=== PATIENT | female | born 1955 | race Caucasian/White ===

== ENCOUNTER 2024-03-02 00:05 | Inpatient (IN) | payer MEDICARE, SELFPAY ==
[2024-03-02] VITALS (18 sets, daily range): BP systolic 111–141; BP diastolic 51–82; PULSE 65–101; RESP 14–25; TEMP 35.8–37.1; O2SAT 90–100; BMI 28.0
--- NOTE | ~2024-03-02 | XR_ITS ---
EXAMINATION: XR ERCP DATE: 03/02/2024 11:58 INDICATION: Choledocholithiasis. TECHNIQUE: 2 spot fluoroscopic images of the right upper quadrant were obtained during endoscopic ret rograde cholangiopancreatography (ERCP). Fluoroscopy exposure time was 195 seconds. COMPARISON: None. FINDINGS: Endoscope is in the second portion of the duodenum. There is a stone in the common duct. Th ere is dilatation of the common duct. IMPRESSION: 1. Stone in the common duct with common duct dilatation. Please refer to the ERCP procedure note for additional details. Reviewed, dictated and finalized at location A. IMPRESSION: 1. Stone in the common duct with common duct dilatation. Please refer to the ER CP procedure note for additional details.
--- NOTE | 2024-03-02 00:10 | ADMGEN ---
This patient, Kinga Helton, was admitted to [address] [place] [address] Room 305-02. Patient/family oriented to hospital policies and general routines including ID bracelet, bed and alarms, visiting hours, pain management, procedures, bathroom and other care routines, personal items, smoking policy, room service/diet, and visiting hours. Information on how to activate the Rapid Response Team has been discussed. Patient/Family are encouraged to report perceived risks to care and to ask questions if they do not understand what they are told or what they should do.
--- NOTE | 2024-03-02 03:54 | PM.IMHP ---
H&P: HPI History of Present Illness Date/Time: 03/02/24 03:54 Chief Complaint: Nausea vomiting and abdominal pain Narrative: This is a 69-year-old female with a [facility] active tobacco abuse, COPD, dyslipidemia, GERD, depression who presents with nausea and vomiting. The story is as follows: Patient was admitted to [facility] in [place] being treated for community-acquired pneumonia. She was found to have gallbladder complications at that time and was suggested to be transferred however the patient wanted to leave. She had been doing well until day of admission on 03/01/2024 when she began to vomit all over the yard. Associated with right upper quadrant pain and a colicky fashion. She states the pain is so bad she would rather have a baby. He denies diarrhea chest pain shortness of breath. Radiates to her back. She presented to [facility]. Evaluation revealed WBC 75222 with a sodium 132, alkaline phosphatase greater than 1500, ALT 421, AST 474, total bilirubin 1.7, lipase 244. EKG with QTC just over 500 she received fentanyl for the pain, and Reglan. Hemodynamically stable. CT abdomen pelvis without contrast demonstrates moderate emphysematous changes in the lungs, distended gallbladder with a gallstone severely dilated common bile duct with intra and extrahepatic biliary dilation. 9 mm stone seen in the distal common bile duct. At this point cell assembly pinner Dr. Rodrigez contacted and accepted transfer for consultation. Patient arrived to [facility] room 305 via ground transport. She was seen resting comfortably in bed dry coughing which she reports is her normal. Reports her pain is improved. Review of Systems Review of Systems: All systems reviewed & are unremarkable except as noted in HPI and below (Subjective) [facility] Past Medical History Medical History (Updated 03/02/24 @ 04:07 by Ramona Rogers MD) Tobacco dependence due to cigarettes Surgical History Surgical History (Updated 03/02/24 @ 04:07 by Ramona Rogers MD) Choledocholithiasis with acute cholecystitis 02/2024 Family History Family History (Updated 03/02/24 @ 00:20 by Sabino Yepez RN) Father Hypertension Mother Hypertension Social History Social History Years smoked: 45 Smoking status: Current every day smoker Tobacco type: cigarettes Alcohol intake: current Drinks per week: 5 Substance use: current Substance use type: marijuana Do You Feel Safe in your Home?: Yes Lack of Transportation: No Lack of Food: Never True Current Housing: I Have Housing Concerned About Future Housing: No Difficulty Paying Gas/Electric Bills: No Difficulty Paying for Meds: No Currently Unemployed: No Education: Bachelor's Degree Difficulty w/ Childcare or Family Care: No Spiritual care concerns: No Meds Home Medications and Allergies Home Medications Medication Instructions Recorded Confirmed Type albuterol sulfate 90 mcg/actuation 90 puff inhalation Q4H PRN 03/02/24 03/02/24 History aerosol inhaler Shortness Of Breath amoxicillin 875 mg-potassium 875 tablet PO DAILY 03/02/24 03/02/24 History clavulanate 125 mg tablet budesonide-formoterol HFA 80 80 inh inhalation BID 03/02/24 03/02/24 History mcg-4.5 mcg/actuation aerosol inhaler (Symbicort) ezetimibe 10 mg tablet 10 mg PO DAILY 03/02/24 03/02/24 History montelukast 10 mg tablet 10 mg PO HS 03/02/24 03/02/24 History (Singulair) omeprazole 20 mg capsule,delayed 20 mg PO BID 03/02/24 03/02/24 History release sertraline 100 mg tablet 100 mg PO DAILY 03/02/24 03/02/24 History Allergies Allergy/AdvReac Type Severity Reaction Status Date / Time PSEUDOEPHEDRINE HCL Allergy Unknown HIVES/RASH Uncoded 03/02/24 00:32 TRIPROLIDINE HCL Allergy Unknown HIVES/RASH Uncoded 03/02/24 00:32 Vital Signs Vital Signs - 24 hr 03/02/24 00:15 03/02/24 01:38 Temperature 98.5 F Pulse Rate 101 H Respiratory Rate 16 Bloo
[2024-03-02] MEDS: DEXTROSE 5%/0.9% SOD CHL 1,000 ML 100 ML IV CONT ×3 (04:15→17:01)
[2024-03-02 06:13] LABS: Basophils Absolute Auto 0.1 K/mm3 (0.0-0.1); Basophils Percent Auto 0.4 % (0.2-1.2); Hematocrit 40.4 % (37.0-47.0); Hemoglobin 13.6 g/dL (12.0-15.0); Immature Granulocyte Absolute 0.53 K/mm3 (0.00-0.031); Immature Granulocyte Percent A 2.9 % (0-0.5); Lymphocytes Absolute Auto 0.87 K/mm3 (0.9-3.2); Lymphocytes Percent Auto 4.8 % (18.3-44.2); Mean Corpuscular HGB Conc 33.7 g/dl (32-36); Mean Corpuscular Hemoglobin 31.6 pg (26-34); Mean Corpuscular Volume 93.7 fl (80-100); Mean Platelet Volume 10.4 fl (7.4-10.4); Monocytes Absolute Auto 1.2 K/mm3 (0.1-0.6); Monocytes Percent Auto 6.7 % (2.6-8.5); Neutrophils Absolute Auto 15.3 K/mm3 (1.3-6.7); Neutrophils Percent Auto 85.2 % (45.5-73.1); Platelet Count Result 433 k/mm3 (150-375); Red Blood Count 4.31 M/mm3 (4.2-5.4)
[2024-03-02 06:23] LABS: Prothrombin Time 13.1 Seconds (11.1-14.7)
[2024-03-02 06:38] LABS: Alanine Aminotransferase 723 U/L (6-35); Albumin Level 3.9 g/dL (3.5-5.1); Anion Gap 8 mmol/L (4-12); Bilirubin,Total 3.2 mg/dL (0.2-1.3); Blood Urea Nitrogen 12 mg/dL (7-17); Calcium 8.9 mg/dL (8.4-10.2); Carbon Dioxide 24 mmol/L (22-30); Chloride 106 mmol/L (98-107); Estimated CRCL calculation 67 ml/min; Estimated Glomerular Filt Rate > 60; Glucose 130 mg/dL (65-110); Potassium 3.4 mmol/L (3.4-5.0); Sodium 138 mmol/L (137-145)
[2024-03-02 06:58] LABS: Procalcitonin 0.6 ng/mL
[2024-03-02 07:27] LABS: Alkaline Phosphatase 1842 U/L (38-126); Aspartate Amino Transferase 1171 U/L (14-36)
[2024-03-02] MEDS: PANTOPRAZOLE SODIUM IV 40 MG VIAL IV PUSH (08:19)
[2024-03-02] MEDS: FLUTICASONE/SALMETEROL 45-21 MCG INHALER 1 PUFF 2 PUFF INHALATION ×2 (08:51→20:47)
[2024-03-02] MEDS: LACTATED RINGERS 1,000 ML 150 ML IV CONT (10:15)
--- NOTE | 2024-03-02 10:20 | WPDGICN ---
Assessment and Plan Assessment and plan (1) Choledocholithiasis with acute cholecystitis: Code(s): K80.42 - Calculus of bile duct with acute cholecystitis without obstruction Status: Acute Assessment and Plan: will proceed with ercp, she is agreeable. Explained risk and benefits including but no limited to pancreatitis will also ask surgery to see patient, may need interval cholecystectomy (2) Leukocytosis: Code(s): D72.829 - Elevated white blood cell count, unspecified Status: Acute Assessment and Plan: on abx, ercp today (3) Elevated liver enzymes: Code(s): R74.8 - Abnormal levels of other serum enzymes Status: Acute Assessment and Plan: biliary related monitor (4) Upper abdominal pain: Code(s): R10.10 - Upper abdominal pain, unspecified Status: Acute Assessment and Plan: on meds (5) Tobacco dependence due to cigarettes: Code(s): F17.210 - Nicotine dependence, cigarettes, uncomplicated Status: Acute Assessment and Plan: recent pneumonia GI Consult Note Consult date/time: 03/02/24 10:20 Reason for consult: choledocholithiasis, abdominal pain HPI: Kinga Helton is a 69 year old female with h/o copd, smoker and recently treated for pneumonia here with new onset of abdominal pain. She says that several days ago diagnosed with pneumonia when had CT scan, she was told that found also stone in duct . She went to another hospital after severe upper abdominal pain with radiation to ruq and nausea with vomiting, sharp pain. Reviewed noted from other hospital, WBC 32717 with a sodium 132, alkaline phosphatase greater than 1500, ALT 421, AST 474, total bilirubin 1.7, lipase 244. CT abdomen pelvis without contrast demonstrates moderate emphysematous changes in the lungs, distended gallbladder with a gallstone severely dilated common bile duct with intra and extrahepatic biliary dilation. 9 mm stone seen in the distal common bile duct. Denies h/o pancreatitis, alcohol abuse or similar problem. Never had gastric surgery or EGD. Patient was transferred here in order to have ERCP. Review of Systems Constitutional: Constitutional: Denies body ache(s) Eyes: Eyes: Denies blurry vision ENT: Reports Normal hearing present, Denies headache(s) and Denies neck pain Cardiovascular: Cardiovascular: Denies chest pain and Denies dyspnea Respiratory: Respiratory: Denies dyspnea Gastrointestinal: Gastrointestinal: Reports abdominal pain, Reports nausea and Reports vomiting Genitourinary: Genitourinary: Denies dysuria Musculoskeletal: Musculoskeletal: Denies neck pain Integumentary/Breasts: Skin/Breast: Denies dry skin Neurologic: Reports Normal hearing present, Denies headache(s) and Denies weakness Psychiatric: Psychiatric: Denies anxiety Endocrine: Endocrine: Denies change in body appearance Hematologic/Lymphatic: Hematologic/Lymphatic: Denies easy bleeding Allergic/Immunologic: Allergic/Immunologic: Denies urticaria PMFSH Past Medical History Medical History (Updated 03/02/24 @ 11:03 by Grady Banegas MD) Elevated liver enzymes Tobacco dependence due to cigarettes Upper abdominal pain Surgical History Surgical History (Updated 03/02/24 @ 04:07 by Ramona Rogers MD) Choledocholithiasis with acute cholecystitis 02/2024 Family History Family History (Updated 03/02/24 @ 00:20 by Sabino Yepez RN) Father Hypertension Mother Hypertension Social History Social History Years smoked: 45 Smoking status: Current every day smoker Tobacco type: cigarettes Alcohol intake: current Drinks per week: 5 Substance use: current Substance use type: marijuana Do You Feel Safe in your Home?: Yes Lack of Transportation: No Lack of Food: Never True Current Housing: I Have Housing Concerned About Future Housing: No Difficulty Paying Gas/Electric Bills: No Difficulty Paying for Meds
--- NOTE | 2024-03-02 10:30 | SUR.PREOP ---
Patient requests to be a DNR during procedure. Patient discussed with Dr. Dukes at bedside. See chart for paper.
[2024-03-02] MEDS: INDOMETHACIN 50 MG SUPP.RECT RECTAL (11:07)
[2024-03-02] MEDS: PIPERACILLN/TAZ 3.375GM/NS50ML 3.375 GM/50 ML BAG IVPB ×2 (13:40→16:59)
--- NOTE | 2024-03-02 13:50 | PM.CNGS ---
Assessment and Plan Assessment and plan (1) Cholelithiasis with choledocholithiasis: Code(s): K80.70 - Calculus of gallbladder and bile duct without cholecystitis without obstruction Status: Acute Assessment and Plan: CT report reviewed in her paper chart and the CT scan of the abdomen and pelvis from [facility] showed a gallstone in a distended gallbladder with a common bile duct stone. ERCP today was successful with removal of a gallstone in the common bile duct and findings of sludge and pus after the balloon sweep. Her WBC count is up to 18,000 today. Continue IV Zosyn for now. She will need an interval laparoscopic cholecystectomy to prevent recurrence or future complications with her gallstones. Description of the procedure, risks, benefits, alternatives, and expected recovery were discussed with the patient in detail. We discussed the risks of bile leak and bile duct injury, liver/bowel injury, bleeding, and infection. Also discussed the possibility of having to convert to an open procedure if necessary. The patient understands and agrees to proceed with surgery. Repeat labs again tomorrow and we can decide on timing of surgery depending on how she is progressing. (2) Elevated liver enzymes: Code(s): R74.8 - Abnormal levels of other serum enzymes Status: Acute Assessment and Plan: Likely related to choledocholithiasis. Patient is status post ERCP today with removal of a common bile duct stone. Repeat labs tomorrow. GI following. (3) COPD (chronic obstructive pulmonary disease): Code(s): J44.9 - Chronic obstructive pulmonary disease, unspecified Status: Chronic (4) Tobacco dependence due to cigarettes: Code(s): F17.210 - Nicotine dependence, cigarettes, uncomplicated Status: Chronic Assessment and Plan: Encouraged cessation. Plan I have discussed the patient's case and plan of care with Dr. Simms. Thank you for allowing us to see the patient in consultation and we will continue to follow along with you. History of Present Illness Consult details Consult date: 03/02/24 Reason for consult: other (Cholelithiasis) Requesting physician: Grady Banegas MD Narrative: This is a 69-year-old man woman with a history of tobacco abuse, COPD, GERD, and dyslipidemia, who we have been asked to see in surgical consultation for cholelithiasis. She diagnosed with community-acquired pneumonia at [facility] in [place] last . She reports having a CT scan done at [facility] and was told she had a gallstone. At that time, she was not having any abdominal pain, nausea, or vomiting. She was sent home with oral antibiotics. Yesterday around 1:00 p.m., the patient developed a sudden onset of right upper quadrant abdominal pain that radiated around to her mid back. She reports associated nausea and multiple episodes of vomiting. Due to the severe pain, she presented to [facility] ER for evaluation. In the ED, labs [place] [address], alk-phos greater than 1500, ALT 421, AST 474, total bilirubin 1.7, and lipase 244. CT scan of the abdomen and pelvis without contrast showed moderate emphysematous changes in the lungs, a distended gallbladder with a gallstone, and intrahepatic and extrahepatic biliary dilation with a 9 mm stone in the distal common bile duct. She was transferred to [facility] for GI evaluation. The patient had an ERCP today which revealed a gallstone in the common bile duct that was removed with a large amount of sludge and pus noted after the balloon sweep. GI then consulted our service. She is currently on IV Zosyn. Labs [place] [address], potassium 3.4, total bilirubin 3.2, AST 1171, ALT 723, alk-phos 1842. She is now seen on the medical floor. She denies any abdominal pain at this time. Her nausea has improved and no further episodes of vomiting. Only previous abdominal surgery was a .
--- NOTE | 2024-03-02 17:15 | WPDPN ---
Progress Note: A&P Assessment and Plan (1) Choledocholithiasis with acute cholecystitis: Code(s): K80.42 - Calculus of bile duct with acute cholecystitis without obstruction Status: Acute (2) Leukocytosis: Code(s): D72.829 - Elevated white blood cell count, unspecified Status: Acute (3) Elevated liver enzymes: Code(s): R74.8 - Abnormal levels of other serum enzymes Status: Acute Plan Interval History 03/02/2024: patient is seen by general surgery service and has inflammed and distended gallbladder with will benefit from cholecystectomy, today patient had the procedure and currently patient is eating her dinner, stats overall pain is better just some discomfort, denies any nausea or vomiting will monitor and further recommendation to follow. Subjective Date/time seen: 03/02/24 17:15 Interval history: Chief Complaint: Nausea vomiting and abdominal pain H&B-DHN-Yxarmapin: This is a 69-year-old female with a H active tobacco abuse, COPD, dyslipidemia, GERD, depression who presents with nausea and vomiting. The story is as follows: Patient was admitted to [facility] being treated for community-acquired pneumonia. She was found to have gallbladder complications at that time and was suggested to be transferred however the patient wanted to leave. She had been doing well until day of admission on 03/01/2024 when she began to vomit all over the yard. Associated with right upper quadrant pain and a colicky fashion. She states the pain is so bad she would rather have a baby. He denies diarrhea chest pain shortness of breath. Radiates to her back. She presented to [place]. Evaluation revealed WBC 67295 with a sodium 132, alkaline phosphatase greater than 1500, ALT 421, AST 474, total bilirubin 1.7, lipase 244. EKG with QTC just over 500 she received fentanyl for the pain, and Reglan. Hemodynamically stable. CT abdomen pelvis without contrast demonstrates moderate emphysematous changes in the lungs, distended gallbladder with a gallstone severely dilated common bile duct with intra and extrahepatic biliary dilation. 9 mm stone seen in the distal common bile duct. At this point fingernail technician Dr. Rodrigez contacted and accepted transfer for consultation. Patient arrived to [facility] room 305 via ground transport. She was seen resting comfortably in bed dry coughing which she reports is her normal. Reports her pain is improved. Interval History 03/02/2024: patient is seen by general surgery service and has inflammed and distended gallbladder with will benefit from cholecystectomy, today patient had the procedure and currently patient is eating her dinner, stats overall pain is better just some discomfort, denies any nausea or vomiting will monitor and further recommendation to follow. Review of Systems Review of Systems: All systems reviewed & are unremarkable except as noted in HPI and below Exam Narrative: General: patient is comfortable NAD HEENT: eyes are clear nonicteric, normocephalic, atraumatic. Oral mucosa moist. RESP: CTA HEART: RR S1S2 LUNGS: CTA ABD: BS+, diffusely tender. SKIN: no obvious rash EXTREMITIES: no edema NEURO:A&O grossly intact PSYCH: Pleasant and cooperative with normal mood and affect Objective Data Vital Signs Vital Signs: Vital Signs - 24 hr 03/02/24 00:15 03/02/24 01:38 03/02/24 06:07 Temperature 36.9 C 37.1 C Pulse Rate 101 H 94 Respiratory Rate 16 16 Blood Pressure 129/54 L 134/79 Pulse Oximetry 92 92 Oxygen Delivery Room Air Oxygen Flow Rate 03/02/24 08:52 03/02/24 08:56 03/02/24 10:18 Temperature 36.6 C Pulse Rate 93 87 Respiratory Rate 20 18 Blood Pressure 131/82 Pulse Oximetry 93 90 Oxygen Delivery Room Air Room Air Oxygen Flow Rate 03/02/24 11:57 03/02/24 12:07 03/02/24 12:17 Temperature 36.2 C L Pulse Rate 81 87 88 Respiratory Rate 17 20 23 H Blood Pre
[2024-03-02] MEDS: HYDROcodone/acetaminophen (*CRX) 5-325 MG TABLET 1 TAB PO (21:10)
[2024-03-02] MEDS: MONTELUKAST SODIUM 10 MG TABLET PO (21:10)
[2024-03-02] MEDS: SCOPOLAMINE 1 MG PATCH 1 PATCH TRANSDERM (21:18)
[2024-03-03] MEDS: HYDROcodone/acetaminophen (*CRX) 5-325 MG TABLET 1 TAB PO ×2 (02:39→20:50)
[2024-03-03] MEDS: PIPERACILLN/TAZ 3.375GM/NS50ML 3.375 GM/50 ML BAG IVPB ×4 (05:48→18:38)
[2024-03-03 05:52] VITALS: BP 107/57; PULSE 72; RESP 14; TEMP 36.5; O2SAT 92
[2024-03-03 06:07] LABS: Hematocrit 36.2 % (37.0-47.0); Hemoglobin 11.4 g/dL (12.0-15.0); Mean Corpuscular HGB Conc 31.5 g/dl (32-36); Mean Corpuscular Hemoglobin 30.6 pg (26-34); Mean Corpuscular Volume 97.3 fl (80-100); Mean Platelet Volume 9.9 fl (7.4-10.4); Platelet Count Result 316 k/mm3 (150-375); Red Blood Count 3.72 M/mm3 (4.2-5.4); Red Cell Distribution Width 14.2 % (11.5-14.5); White Blood Count 9.3 K/mm3 (4.5-10.0)
[2024-03-03 06:20] LABS: Alanine Aminotransferase 638 U/L (6-35); Albumin Level 3.1 g/dL (3.5-5.1); Anion Gap 4 mmol/L (4-12); Aspartate Amino Transferase 571 U/L (14-36); Blood Urea Nitrogen 8 mg/dL (7-17); Calcium 8.4 mg/dL (8.4-10.2); Carbon Dioxide 25 mmol/L (22-30); Chloride 110 mmol/L (98-107); Estimated CRCL calculation 58 ml/min; Estimated Glomerular Filt Rate > 60; Glucose 125 mg/dL (65-110); Lipase 64 U/L (23-300); Potassium 3.4 mmol/L (3.4-5.0); Sodium 139 mmol/L (137-145)
[2024-03-03 06:34] LABS: Alkaline Phosphatase 1287 U/L (38-126)
[2024-03-03] MEDS: FLUTICASONE/SALMETEROL 45-21 MCG INHALER 1 PUFF 2 PUFF INHALATION ×2 (07:05→19:50)
[2024-03-03 07:07] VITALS: O2SAT 91
[2024-03-03] MEDS: PANTOPRAZOLE SODIUM IV 40 MG VIAL IV PUSH (10:05)
--- NOTE | 2024-03-03 10:46 | WPDPN ---
Progress Note: A&P Assessment and Plan (1) Cholelithiasis with choledocholithiasis: Code(s): K80.70 - Calculus of gallbladder and bile duct without cholecystitis without obstruction Status: Acute Assessment and Plan: Patient has residual cholelithiasis and had passage of common bile duct stone with a ascending cholangitis. ERCP remove the common bile duct stone yesterday. White blood cell count has normalized today. Liver enzymes are decreasing but still markedly elevated. Follow liver enzymes continue IV antibiotics. Would like further treatment of the ascending cholangitis before deciding to perform a laparoscopic cholecystectomy. We will follow and repeat liver enzymes tomorrow. Patient can have clear liquids for now. (2) Ascending cholangitis: Code(s): K83.09 - Other cholangitis Status: Acute Assessment and Plan: Improving after extraction of obstructing common bile duct stone. Continue IV antibiotics Subjective Date/time seen: 03/03/24 10:46 Interval history: Patient feeling better today. Did have 1 episode of pain about 9:00 last evening after having some broth for dinner. Pain did resolve. She have ERCP yesterday with extraction of common bile duct stone. There was some pus that drained from the bile duct after extraction the stone suggestive of ascending cholangitis. Liver enzymes are decreasing today but still markedly elevated. Minimal right upper quadrant pain today. No chills. White blood cell count decreased from 18,000 down to 9000 this morning. Exam GI: Other: Abdomen is soft and nondistended. Minimal still palpation right upper quadrant and epigastric region. No guarding or rebound. Objective Data Vital Signs Vital Signs: Vital Signs - 24 hr 03/02/24 11:57 03/02/24 12:07 03/02/24 12:17 Temperature 36.2 C L Pulse Rate 81 87 88 Respiratory Rate 17 20 23 H Blood Pressure 111/51 L 112/59 L 138/64 Pulse Oximetry 99 99 100 Oxygen Delivery Simple Face Mask Simple Face Mask Simple Face Mask Oxygen Flow Rate 10 10 10 03/02/24 12:27 03/02/24 12:37 03/02/24 12:47 Temperature 36.8 C Pulse Rate 81 79 76 Respiratory Rate 18 22 H 25 H Blood Pressure 120/58 L 119/62 111/67 Pulse Oximetry 92 92 92 Oxygen Delivery Room Air Room Air Room Air Oxygen Flow Rate 03/02/24 12:55 03/02/24 13:05 03/02/24 13:20 Temperature 36.6 C 35.8 C L 35.9 C L Pulse Rate 82 72 72 Respiratory Rate 21 H 16 18 Blood Pressure 118/69 128/71 139/60 Pulse Oximetry 91 90 91 Oxygen Delivery Room Air Oxygen Flow Rate 03/02/24 13:50 03/02/24 14:50 03/02/24 20:51 Temperature 36.1 C L 36.1 C L Pulse Rate 65 78 93 Respiratory Rate 16 16 20 Blood Pressure 130/68 141/73 H Pulse Oximetry 96 95 Oxygen Delivery Oxygen Flow Rate 03/02/24 21:28 03/03/24 05:52 03/03/24 07:07 Temperature 36.9 C 36.5 C Pulse Rate 70 72 Respiratory Rate 14 14 Blood Pressure 127/62 107/57 L Pulse Oximetry 96 92 91 Oxygen Delivery Nasal Cannula Oxygen Flow Rate 2 Intake/Output Intake/Output: Intake & Output 02/29/24 03/01/24 03/02/24 03/03/24 23:59 23:59 23:59 23:59 Intake Total 1716.7 325 Balance 1716.7 325 Meds/Results Medications: Active Medications Generic Name Dose Route Start Last Admin Trade Name Freq PRN Reason Stop Dose Admin Hydrocodone Bitart/Acetaminophen 1 tab 03/02/24 02:13 03/03/24 02:39 Hydrocodone/Acetaminophen (*Crx) 5-325 Mg Tablet PO 1 tab Q4H PRN Administration Pain Rated 4-6 Albuterol 2 puff 03/02/24 10:43 Albuterol Sulfate (*Sp) Aerosol 1 Puff INHALATION Q4HRT PRN Shortness Of Breath Dextrose/Sodium Chloride 1,000 mls @ 100 mls/hr 03/02/24 02:15 03/02/24 17:01 Dextrose 5% Sodium Chloride 0.9% IV CONT 100 mls/hr .Q10H LUPE Administration Piperacillin/Tazobactam/Dextrose 3.375 gm in 50 mls @ 100 mls/hr 03/02/24 13:20 03/03/24 05:48 Zosyn 3.375 Gm/Ns 50 Ml IVPB 100
--- NOTE | 2024-03-03 10:55 | WPDGIPROGNO ---
Progress Note: A&P Assessment and Plan (1) Ascending cholangitis: Code(s): K83.09 - Other cholangitis Status: Acute Assessment and Plan: treated with ercp and removal of stone on iv abx better (2) Cholelithiasis with choledocholithiasis: Code(s): K80.70 - Calculus of gallbladder and bile duct without cholecystitis without obstruction Status: Acute Assessment and Plan: s/p ercp surgery on the case now (3) Elevated liver enzymes: Code(s): R74.8 - Abnormal levels of other serum enzymes Status: Acute Assessment and Plan: will expect to start trending down soon from stone/cholangitis (4) Upper abdominal pain: Code(s): R10.10 - Upper abdominal pain, unspecified Status: Acute Assessment and Plan: improved (5) COPD (chronic obstructive pulmonary disease): Code(s): J44.9 - Chronic obstructive pulmonary disease, unspecified Status: Chronic Subjective Date/time seen: 03/03/24 10:55 Interval history: successful ercp yesterday with sphincterotomy, removal of large stone and drained pus she is doing much better today, more comfortable Review of Systems Review of Systems: All systems reviewed & are unremarkable except as noted in HPI and below Exam Const: General: comfortable and no acute distress HENMT: Face/Nose/Sinus: Normal nares present Eyes: General: appearance normal, both eyes and all related structures Neck: Neck: supple Resp: Auscultation: clear to auscultation bilaterally Cardio: Rate: regular rate Rhythm: regular rhythm GI: Inspection: non-distended GI Palp: Yes Soft to palpation, Yes Tenderness to palpation present (GI) (pain is only minimal in upper abdomen, better) and No Guarding due to palpation present (GI) Auscultation: normal bowel sounds Skin: General skin exam: normal color Neuro: General: gait normal Speech: normal speech Extrem: General: normal to inspection Psych: Mental Status: mental status grossly normal Objective Data Vital Signs Vital Signs: Vital Signs - 24 hr 03/02/24 11:57 03/02/24 12:07 03/02/24 12:17 Temperature 97.1 F L Pulse Rate 81 87 88 Respiratory Rate 17 20 23 H Blood Pressure 111/51 L 112/59 L 138/64 Pulse Oximetry 99 99 100 Oxygen Delivery Simple Face Mask Simple Face Mask Simple Face Mask Oxygen Flow Rate 10 10 10 03/02/24 12:27 03/02/24 12:37 03/02/24 12:47 Temperature 98.3 F Pulse Rate 81 79 76 Respiratory Rate 18 22 H 25 H Blood Pressure 120/58 L 119/62 111/67 Pulse Oximetry 92 92 92 Oxygen Delivery Room Air Room Air Room Air Oxygen Flow Rate 03/02/24 12:55 03/02/24 13:05 03/02/24 13:20 Temperature 97.8 F 96.5 F L 96.6 F L Pulse Rate 82 72 72 Respiratory Rate 21 H 16 18 Blood Pressure 118/69 128/71 139/60 Pulse Oximetry 91 90 91 Oxygen Delivery Room Air Oxygen Flow Rate 03/02/24 13:50 03/02/24 14:50 03/02/24 20:51 Temperature 96.9 F L 97.0 F L Pulse Rate 65 78 93 Respiratory Rate 16 16 20 Blood Pressure 130/68 141/73 H Pulse Oximetry 96 95 Oxygen Delivery Oxygen Flow Rate 03/02/24 21:28 03/03/24 05:52 03/03/24 07:07 Temperature 98.4 F 97.7 F Pulse Rate 70 72 Respiratory Rate 14 14 Blood Pressure 127/62 107/57 L Pulse Oximetry 96 92 91 Oxygen Delivery Nasal Cannula Oxygen Flow Rate 2 Intake/Output Intake/Output: Intake & Output 02/29/24 03/01/24 03/02/24 03/03/24 23:59 23:59 23:59 23:59 Intake Total 1716.7 325 Balance 1716.7 325 Meds/Results Medications: Active Medications Generic Name Dose Route Start Last Admin Trade Name Tonyq PRN Reason Stop Dose Admin Acetaminophen 650 mg 03/03/24 10:52 Acetaminophen 325 Mg Tablet PO Q6H PRN Mild Pain (1-3) or Fever Hydrocodone Bitart/Acetaminophen 1 tab 03/02/24 02:13 03/03/24 02:39 Hydrocodone/Acetaminophen (*Crx) 5-325 Mg Tablet PO 1 tab Q4H PRN Administration Pain Rated 4-6 Albuterol 2 puff
[2024-03-03] MEDS: DEXTROSE 5%/0.9% SOD CHL 1,000 ML 100 ML IV CONT (13:36)
[2024-03-03 14:00] VITALS: BP 110/67; PULSE 57; RESP 18; TEMP 36.8; O2SAT 93
--- NOTE | 2024-03-03 18:01 | WPDPN ---
Progress Note: A&P Assessment and Plan (1) Choledocholithiasis with acute cholecystitis: Code(s): K80.42 - Calculus of bile duct with acute cholecystitis without obstruction Status: Acute (2) Leukocytosis: Code(s): D72.829 - Elevated white blood cell count, unspecified Status: Acute (3) Elevated liver enzymes: Code(s): R74.8 - Abnormal levels of other serum enzymes Status: Acute Plan Interval History 03/02/2024: patient is seen by general surgery service and has inflamed and distended gallbladder with will benefit from cholecystectomy, today patient had the procedure and currently patient is eating her dinner, stats overall pain is better just some discomfort, denies any nausea or vomiting will monitor and further recommendation to follow. Interval History 03/03/2024: s/p ERCP on 03/02/2024 and removed CBD stones, patient stats feeling little her LFT and white counts are improving, seen her surgeon recommending ascending cholangitis before lap Aspen, patient clinically stable, will continue to monitor. Subjective Date/time seen: 03/03/24 18:01 Interval history: Chief Complaint: Nausea vomiting and abdominal pain [id number]: This is a 69-year-old female with a H active tobacco abuse, COPD, dyslipidemia, GERD, depression who presents with nausea and vomiting. The story is as follows: Patient was admitted to [facility] in [place] being treated for community-acquired pneumonia. She was found to have gallbladder complications at that time and was suggested to be transferred however the patient wanted to leave. She had been doing well until day of admission on 03/01/2024 when she began to vomit all over the yard. Associated with right upper quadrant pain and a colicky fashion. She states the pain is so bad she would rather have a baby. He denies diarrhea chest pain shortness of breath. Radiates to her back. She presented to [facility]. Evaluation revealed WBC 060[address] with a sodium 132, alkaline phosphatase greater than 1500, ALT 421, AST 474, total bilirubin 1.7, lipase 244. EKG with QTC just over 500 she received fentanyl for the pain, and Reglan. Hemodynamically stable. CT abdomen pelvis without contrast demonstrates moderate emphysematous changes in the lungs, distended gallbladder with a gallstone severely dilated common bile duct with intra and extrahepatic biliary dilation. 9 mm stone seen in the distal common bile duct. At this point network infrastructure architect Dr. Rodrigez contacted and accepted transfer for consultation. Patient arrived to [facility] room 305 via ground transport. She was seen resting comfortably in bed dry coughing which she reports is her normal. Reports her pain is improved. Interval History 03/02/2024: patient is seen by general surgery service and has inflamed and distended gallbladder with will benefit from cholecystectomy, today patient had the procedure and currently patient is eating her dinner, stats overall pain is better just some discomfort, denies any nausea or vomiting will monitor and further recommendation to follow. Interval History 03/03/2024: s/p ERCP on 03/02/2024 and removed CBD stones, patient stats feeling little her LFT and white counts are improving, seen her surgeon recommending ascending cholangitis before lap Aspen, patient clinically stable, will continue to monitor. Review of Systems Review of Systems: All systems reviewed & are unremarkable except as noted in HPI and below Objective Data Vital Signs Vital Signs: Vital Signs - 24 hr 03/02/24 20:51 03/02/24 21:28 03/03/24 05:52 Temperature 36.9 C 36.5 C Pulse Rate 93 70 72 Respiratory Rate 20 14 14 Blood Pressure 127/62 107/57 L Pulse Oximetry 96 92 Oxygen Delivery Oxygen Flow Rate 03/03/24 07:07 03/03/24 14:00 Temperature 36.8 C Pulse Rate 57 L Respiratory Rate 18 Blood Pressure 110/67 Pulse Oximetry 91 93 Oxygen Delivery Nasal Can
[2024-03-03 19:56] VITALS: PULSE 54
[2024-03-03 20:00] VITALS: O2SAT 97
[2024-03-03] MEDS: MONTELUKAST SODIUM 10 MG TABLET PO (21:00)
[2024-03-03 22:00] VITALS: BP 119/89; PULSE 58; RESP 18; TEMP 36.3; O2SAT 97
[2024-03-04] MEDS: DEXTROSE 5%/0.9% SOD CHL 1,000 ML 100 ML IV CONT (00:25)
[2024-03-04] MEDS: PIPERACILLN/TAZ 3.375GM/NS50ML 3.375 GM/50 ML BAG IVPB ×2 (00:28→05:28)
[2024-03-04 06:00] VITALS: BP 151/73; PULSE 75; RESP 22; TEMP 36.1; O2SAT 92
[2024-03-04 06:44] LABS: Hematocrit 40.2 % (37.0-47.0); Hemoglobin 12.7 g/dL (12.0-15.0); Mean Corpuscular HGB Conc 31.6 g/dl (32-36); Mean Corpuscular Hemoglobin 31.5 pg (26-34); Mean Corpuscular Volume 99.8 fl (80-100); Mean Platelet Volume 10.1 fl (7.4-10.4); Platelet Count Result 350 k/mm3 (150-375); Red Blood Count 4.03 M/mm3 (4.2-5.4); Red Cell Distribution Width 14.4 % (11.5-14.5); White Blood Count 9.2 K/mm3 (4.5-10.0)
[2024-03-04 06:54] LABS: Alanine Aminotransferase 445 U/L (6-35); Albumin Level 3.5 g/dL (3.5-5.1); Alkaline Phosphatase 1373 U/L (38-126); Anion Gap 8 mmol/L (4-12); Aspartate Amino Transferase 165 U/L (14-36); Bilirubin,Total 1.7 mg/dL (0.2-1.3); Blood Urea Nitrogen 5 mg/dL (7-17); Calcium 8.6 mg/dL (8.4-10.2); Carbon Dioxide 25 mmol/L (22-30); Chloride 110 mmol/L (98-107); Estimated CRCL calculation 58 ml/min; Estimated Glomerular Filt Rate > 60; Glucose 114 mg/dL (65-110); Lipase 53 U/L (23-300); Magnesium 1.8 mg/dL (1.6-2.3); Potassium 3.3 mmol/L (3.4-5.0); Sodium 143 mmol/L (137-145)
[2024-03-04] MEDS: FLUTICASONE/SALMETEROL 45-21 MCG INHALER 1 PUFF 2 PUFF INHALATION (07:55)
[2024-03-04 07:57] VITALS: O2SAT 92
[2024-03-04] MEDS: PANTOPRAZOLE SODIUM IV 40 MG VIAL IV PUSH (08:37)
--- NOTE | 2024-03-04 11:40 | WPDPN ---
Progress Note: A&P Assessment and Plan (1) Ascending cholangitis: Code(s): K83.09 - Other cholangitis Status: Acute Assessment and Plan: Ascending cholangitis is resolving after removal of obstructing common bile duct stone. She still has cholelithiasis. Liver enzymes are markedly decreased but still a little elevated. Will discharge from the hospital today and have her come back to the hospital next week for an interval laparoscopic cholecystectomy. Will discharge her on some oral antibiotics. (2) Cholelithiasis with choledocholithiasis: Code(s): K80.70 - Calculus of gallbladder and bile duct without cholecystitis without obstruction Status: Acute Assessment and Plan: Set up for outpatient laparoscopic cholecystectomy next week Subjective Date/time seen: 03/04/24 11:40 Interval history: Patient is doing well today. No complaints of pain. Tolerated low-fat diet. Liver enzymes are still elevated but markedly decreasing. Ascending cholangitis I do not think she is quite ready yet for a laparoscopic cholecystectomy. Exam GI: Other: Abdomen is soft and nondistended. Nontender. Benign. Objective Data Vital Signs Vital Signs: Vital Signs - 24 hr 03/03/24 14:00 03/03/24 19:56 03/03/24 22:00 Temperature 36.8 C 36.3 C L Pulse Rate 57 L 54 L 58 L Respiratory Rate 18 18 Blood Pressure 110/67 119/89 Pulse Oximetry 93 97 Oxygen Delivery Oxygen Flow Rate 03/03/24 20:00 03/04/24 06:00 03/04/24 07:57 Temperature 36.1 C L Pulse Rate 75 Respiratory Rate 22 H Blood Pressure 151/73 H Pulse Oximetry 97 92 92 Oxygen Delivery Nasal Cannula Room Air Oxygen Flow Rate 2 Intake/Output Intake/Output: Intake & Output 03/01/24 03/02/24 03/03/24 03/04/24 23:59 23:59 23:59 23:59 Intake Total 1716.7 2705 1170 Balance 1716.7 2705 1170 Meds/Results Medications: Active Medications Generic Name Dose Route Start Last Admin Trade Name Freq PRN Reason Stop Dose Admin Acetaminophen 650 mg 03/03/24 10:52 Acetaminophen 325 Mg Tablet PO Q6H PRN Mild Pain (1-3) or Fever Hydrocodone Bitart/Acetaminophen 1 tab 03/02/24 02:13 03/03/24 20:50 Hydrocodone/Acetaminophen (*Crx) 5-325 Mg Tablet PO 1 tab Q4H PRN Administration Pain Rated 4-6 Albuterol 2 puff 03/02/24 10:43 Albuterol Sulfate (*Sp) Aerosol 1 Puff INHALATION Q4HRT PRN Shortness Of Breath Dextrose/Sodium Chloride 1,000 mls @ 100 mls/hr 03/02/24 02:15 03/04/24 01:46 Dextrose 5% Sodium Chloride 0.9% IV CONT Not Given .Q10H LUPE Piperacillin/Tazobactam/Dextrose 3.375 gm in 50 mls @ 100 mls/hr 03/02/24 13:20 03/04/24 05:28 Zosyn 3.375 Gm/Ns 50 Ml IVPB 100 mls/hr Q6HR LUPE Administration Montelukast Sodium 10 mg 03/02/24 21:00 03/03/24 21:00 Montelukast Sodium 10 Mg Tablet PO 10 mg HS LUPE Administration Morphine Sulfate 2 mg 03/02/24 02:13 Morphine Sulfate (*Crx) 2 Mg/Ml Inj IV PUSH Q4H PRN Pain Rated 7-10 Nicotine Polacrilex 4 mg 03/02/24 02:14 Nicotine (*Pbkc) 4 Mg Gum PO PRN PRN Nicotine Cravings Pantoprazole Sodium 40 mg 03/02/24 09:00 03/04/24 08:37 Pantoprazole Sodium Iv 40 Mg Vial IV PUSH 40 mg QAM LUPE Administration Fluticasone/Salmeterol 2 puff 03/02/24 08:00 03/04/24 07:55 Fluticasone/Salmeterol 45-21 Mcg Inhaler 1 Puff INHALATION 2 puff Q12HRT LUPE Administration Radiology Results: ITS Impressions Endo Retro Cholangiopancreatogram 03/02/24 12:04 IMPRESSION: 1. Stone in the common duct with common duct dilatation. Please refer to the ERCP procedure note for additional details. Labs Labs: Laboratory Results - last 24 hr 03/04/24 06:39 WBC 9.2 RBC 4.03 L Hgb 12.7 Hct 40.2 MCV 99.8 MCH 31.5 MCHC 31.6 L RDW 14.4 Plt Count 350 MPV 10.1 Sodium 143 Potassium 3.3 L Chloride 110 H Carbon Dioxide 25 Anion Gap 8 BU
--- NOTE | 2024-03-04 12:17 | PM.DS ---
DS: Admitting Diagnosis Discharge Date 03/04/2024 Admitting Diagnosis Nausea vomiting and abdominal pain DS: Discharge Diagnosis Discharge Diagnosis (1) Ascending cholangitis: Code(s): K83.09 - Other cholangitis Status: Acute DS: Summary Hospital Course Reason for hospitalization: Nausea vomiting and abdominal pain Hospital Course: Interval History 03/02/2024: patient is seen by general surgery service and has inflamed and distended gallbladder with will benefit from cholecystectomy, today patient had the procedure and currently patient is eating her dinner, stats overall pain is better just some discomfort, denies any nausea or vomiting will monitor and further recommendation to follow. Interval History 03/03/2024: s/p ERCP on 03/02/2024 and removed CBD stones, patient stats feeling little her LFT and white counts are improving, seen her surgeon recommending ascending cholangitis is improving, will need lap Aspen, patient clinically stable, will continue to monitor. today patient is seeing by surgeon recommended to discharge home and will return to clinic as an outpatient for lap aspen. patient is clinically stable will discharge patient today. Time Spent with Patient Time attestation: Total time spent providing and/or coordinating discharge services: Exam Narrative: GENE: patient is comfortable, NAD HEENT: clear eyes are nonicteric HEART: R R S1 S2 LUNGS: CTA ABD: BS+ diffusely tender EXT: no edema SKIN: no obvious rash NEURO: grossly intact DS: Data Data Completed and Pending Labs on day of discharge: Labs from last 24 hours 03/04/24 06:39 WBC 9.2 RBC 4.03 L Hgb 12.7 Hct 40.2 MCV 99.8 MCH 31.5 MCHC 31.6 L RDW 14.4 Plt Count 350 MPV 10.1 Sodium 143 Potassium 3.3 L Chloride 110 H Carbon Dioxide 25 Anion Gap 8 BUN 5 L Creatinine 0.70 Estim Creat Clear Calc 58 Estimated GFR > 60 Glucose 114 H Calcium 8.6 Magnesium 1.8 Total Bilirubin 1.7 H AST 165 H ALT 445 H Alkaline Phosphatase 1373 H Total Protein 7.0 Albumin 3.5 Lipase 53 Blood Type AB Positive Antibody Screen Negative Discharge Plan Discharge Attending physician on discharge: Tamela Mart Consulting providers: Grady Banegas; Naklu Simms Discharging Clinician: Tamela Mart Patient Disposition: Home, Self-Care Activity: as tolerated Diet: low fat Discharge Instructions: Patient is to be discharged today as per primary service. She can come back to the hospital next Thursday for an interval laparoscopic cholecystectomy. Patient was given instructions are ready for wound come to the hospital and instructions to be NPO prior to surgery. Hospital contacted with further instructions. Patient be discharged with oral antibiotics which I have already placed in the chart. Patient stand a low-fat bland diet. Patient to follow discharge care instruction from her surgeon and follow up as scheduled, patient to follow up with her primary care provider as soon as possible, patient is instructed if symptoms redevelop to go to nearest ER. Patient Instructions: Antibiotic Form, How to Stop Smoking (DC) Stand Alone Forms: General Discharge Information Follow-up/Referrals: Alcon,MD Benjamin [Primary Care Provider] - Nakul Simms MD [Physician] - Discharge Medications: New amoxicillin-pot clavulanate 875-125 mg tablet 1 tablet PO Q12H Qty: 10 0RF nicotine (polacrilex) 4 mg Gum 4 mg PO PRN PRN (Reason: Nicotine Cravings) Qty: 40 0RF Continued sertraline 100 mg tablet 100 mg PO HS albuterol sulfate 90 mcg/actuation HFA aerosol inhaler 90 puff INHALATION Q4H PRN (Reason: Shortness Of Breath) budesonide-formoterol [Symbicort] 80-4.5 mcg/actuation HFA aerosol inhaler 80 inh INHALATION BID montelukast [Singulair] 10 mg Tablet 10 mg PO HS Discontinued amoxicillin-pot clavulanate 875-125 mg tablet
[2024-03-04] MEDS: POTASSIUM CHLORIDE 20 MEQ ER TABLET 40 MEQ PO (13:07)
--- NOTE | 2024-03-04 14:31 | WPDGIPROGNO ---
Progress Note: A&P Assessment and Plan (1) Ascending cholangitis: Code(s): K83.09 - Other cholangitis Status: Acute Assessment and Plan: treated with ercp and removal of stone going home with oral abx and will have interval cholecystectomy as outpatient (2) Cholelithiasis with choledocholithiasis: Code(s): K80.70 - Calculus of gallbladder and bile duct without cholecystitis without obstruction Status: Acute Assessment and Plan: s/p ercp lap akhil in few days (3) Elevated liver enzymes: Code(s): R74.8 - Abnormal levels of other serum enzymes Status: Acute Assessment and Plan: bili coming down from stone/cholangitis (4) Upper abdominal pain: Code(s): R10.10 - Upper abdominal pain, unspecified Status: Acute Assessment and Plan: resolved (5) COPD (chronic obstructive pulmonary disease): Code(s): J44.9 - Chronic obstructive pulmonary disease, unspecified Status: Chronic Subjective Date/time seen: 03/04/24 12:35 Interval history: much better, she is going home today Review of Systems Review of Systems: All systems reviewed & are unremarkable except as noted in HPI and below Exam Const: General: comfortable and no acute distress HENMT: Face/Nose/Sinus: Normal nares present Eyes: General: appearance normal, both eyes and all related structures Neck: Neck: supple Resp: Auscultation: clear to auscultation bilaterally Cardio: Rate: regular rate Rhythm: regular rhythm GI: Inspection: non-distended GI Palp: Yes Soft to palpation, No Tenderness to palpation present (GI) and No Guarding due to palpation present (GI) Auscultation: normal bowel sounds Skin: General skin exam: normal color Neuro: General: gait normal Speech: normal speech Extrem: General: normal to inspection Psych: Mental Status: mental status grossly normal Objective Data Vital Signs Vital Signs: Vital Signs - 24 hr 03/03/24 19:56 03/03/24 22:00 03/03/24 20:00 Temperature 97.3 F L Pulse Rate 54 L 58 L Respiratory Rate 18 Blood Pressure 119/89 Pulse Oximetry 97 97 Oxygen Delivery Nasal Cannula Oxygen Flow Rate 2 03/04/24 06:00 03/04/24 07:57 Temperature 96.9 F L Pulse Rate 75 Respiratory Rate 22 H Blood Pressure 151/73 H Pulse Oximetry 92 92 Oxygen Delivery Room Air Oxygen Flow Rate Intake/Output Intake/Output: Intake & Output 03/01/24 03/02/24 03/03/24 03/04/24 23:59 23:59 23:59 23:59 Intake Total 1716.7 2705 1530 Balance 1716.7 2705 1530 Meds/Results Radiology Results: ITS Impressions Endo Retro Cholangiopancreatogram 03/02/24 12:04 IMPRESSION: 1. Stone in the common duct with common duct dilatation. Please refer to the ERCP procedure note for additional details. Labs Labs: Laboratory Results - last 24 hr 03/04/24 06:39 WBC 9.2 RBC 4.03 L Hgb 12.7 Hct 40.2 MCV 99.8 MCH 31.5 MCHC 31.6 L RDW 14.4 Plt Count 350 MPV 10.1 Sodium 143 Potassium 3.3 L Chloride 110 H Carbon Dioxide 25 Anion Gap 8 BUN 5 L Creatinine 0.70 Estim Creat Clear Calc 58 Estimated GFR > 60 Glucose 114 H Calcium 8.6 Magnesium 1.8 Total Bilirubin 1.7 H AST 165 H ALT 445 H Alkaline Phosphatase 1373 H Total Protein 7.0 Albumin 3.5 Lipase 53 Blood Type AB Positive Antibody Screen Negative
== END 2024-03-04 13:20 | disposition home or self-care (01) | DRG 446 ==
PROVIDERS: Internal Medicine Gastroenterology; Admitting Provider General Practice; PCP Internal Medicine; Visit Provider Family Medicine
PROC: 0FC98ZZ Extirpation of Matter from Common Bile Duct, Via Natural or Artificial Opening Endoscopic (ICD-10-PCS; CPT 43260; principal; 2024-03-02 11:30)
DX: K80.63 Calculus of gallbladder and bile duct with acute cholecystitis with obstruction (principal); J44.9 Chronic obstructive pulmonary disease, unspecified; E78.5 Hyperlipidemia, unspecified; K21.9 Gastro-esophageal reflux disease without esophagitis; F32.A Depression, unspecified; F17.210 Nicotine dependence, cigarettes, uncomplicated
CPT/HCPCS: 36415; 74329; 80053; 83690; 83735; 84145; 85025; 85027; 85610; 86850; 86900; 86901; 94640; A9270; G0378; J0330; J1100; J2405; J2470; J2543; J7042; J7120; Q9966

== ENCOUNTER 2024-03-08 02:45 | Day surgery (SDC) | payer MEDICARE, SELFPAY ==
--- NOTE | 2024-03-04 14:47 | PC.NURSE ---
Report to the Outpatient Waiting Room, entrance under the green pavilion located off [facility], at time _9:30 AM on date _03/08/24 . Planned Procedure Time: 1130 AM . Time changes happen often and if your time is changed the preop area will call you the afternoon before. - You and your visitor will be asked to self-screen and do not enter if you have any COVID symptoms. - A mask is optional within the hospital at this time. Patients may have clear liquids (water, carbonated beverages, clear teas, apple juice) until 3 hours prior to surgery( 8:30 AM) with a maximum of 20 ounces. - No food from midnight until time of surgery - Infants may have breast milk until 4 hours before surgery, infant formula 6 hours prior to surgery. - Children will be allowed to drink immediately following surgery. If applicable, please bring a bottle or sippy cup to assist with drinking. Juice, water, soda, and popsicles are readily available. For infants on formula, please bring formula the day of surgery. Pacifiers are allowed. Take the following medications with a SIP of water the morning of surgery: _SYMBICORT INHALER,AMOXICILLIN DO NOT STOP ANY OF YOUR OTHER PRESCRIPTION MEDICATIONS PRIOR TO SURGERY ?EXCEPT THE FOLLOWING Medications to discontinue per physician NONE Please no make-up, nail pu[place], hairspray, perfume, deodorant, or body powder the day of surgery. No jewelry (including any body piercings) or valuables the day of surgery, leave them at home. Please take a shower or bath the night before, or the morning of, surgery with an antibacterial soap. Wear comfortable, loose fitting clothing. Children are encouraged to wear pajamas. - Jewelry must be removed prior to entering the operating room. Rings and piercings that are not removed may be cut off. - The hospital will not accept responsibility for valuables. - Please leave all valuables, including medications, at home the day of surgery. If you are going home after surgery, a licensed car driver must drive you home. - NO public transportation without another adult if you receive anesthesia. - We recommend that an adult stay with you for 24 hours following discharge. - We also recommend that you do not drive, make important decision, drink alcoholic beverages, or take any drugs that were not prescribed by your health care provider for at least 24 hours after your discharge time. For Pediatric surgeries, we recommend two adults accompany the child home. Follow any additional instructions given to you from your surgeon. If you or anyone in your household have experienced Covid symptoms in the past week, please notify your surgeon or the nurse liaison at the phone number below for possible testing. Telephone instructions given to ____PT and asked if any additional questions and then verbalized understanding. Patient advised to call surgeon office or pre surgery nurse liaison [phone] if any additional questions.
[2024-03-04 15:06] VITALS: BMI 27.4
[2024-03-08] VITALS (8 sets, daily range): BP systolic 110–138; BP diastolic 51–82; PULSE 66–91; RESP 12–20; TEMP 36.3–36.6; O2SAT 92–99
[2024-03-08] MEDS: ACETAMINOPHEN 500 MG TABLET 1000 MG PO (09:57)
[2024-03-08] MEDS: LACTATED RINGERS 1,000 ML 30 ML IV CONT (10:20)
[2024-03-08 10:34] LABS: Alanine Aminotransferase 111 U/L (6-35); Albumin Level 3.7 g/dL (3.5-5.1); Alkaline Phosphatase 694 U/L (38-126); Amylase 81 U/L (30-110); Aspartate Amino Transferase 30 U/L (14-36); Bilirubin,Total 0.7 mg/dL (0.2-1.3)
--- NOTE | 2024-03-08 10:49 | WPDANESEPPF ---
Anes - Initial Pre Proc Eval Procedure: Operation Date: 03/08/24 11:30 Proposed Procedures p Laparoscopic Cholecystectomy - Nakul Simms MD Date/Time: 03/08/24 10:49 Surgeon: Nakul Simms MD Pre Op Diagnosis: ascending cholangitis, Patient Data Age: 69 Gender: F Height: 1.57 m Weight: 68.05 kg Allergies Allergy/AdvReac Type Severity Reaction Status Date / Time triprolidine Allergy Unknown Hives/Rash Verified 03/04/24 14:29 BRAXTON Inhibitors Allergy Hives Verified 03/04/24 14:29 ezetimibe Allergy Hives Verified 03/04/24 14:29 levofloxacin [From Levaquin] Allergy Hives Verified 03/04/24 14:29 Home Medications Medication Instructions Recorded Confirmed Type albuterol sulfate 90 mcg/actuation 90 puff inhalation Q4H PRN 03/02/24 03/04/24 History aerosol inhaler Shortness Of Breath budesonide-formoterol HFA 80 80 inh inhalation BID 03/02/24 03/04/24 History mcg-4.5 mcg/actuation aerosol inhaler (Symbicort) montelukast 10 mg tablet 10 mg PO HS 03/02/24 03/04/24 History (Singulair) sertraline 100 mg tablet 100 mg PO HS 03/02/24 03/04/24 History amoxicillin 875 mg-potassium 1 tablet PO Q12H #10 tabs 03/04/24 03/04/24 Rx clavulanate 125 mg tablet nicotine (polacrilex) 4 mg gum 4 mg PO PRN PRN Nicotine Cravings 03/04/24 03/04/24 Rx #40 ea omeprazole 20 mg-sodium 1 cap PO BID 03/04/24 03/04/24 History bicarbonate 1.1 gram capsule (Zegerid OTC) potassium chloride 20 mEq 20 meq PO BID 03/04/24 03/04/24 History tablet,extended release Laboratory Tests 03/08/24 09:57 Total Bilirubin 0.7 mg/dL (0.2-1.3) Direct Bilirubin 0.0 mg/dL (0-0.3) AST 30 U/L (14-36) ALT 111 H U/L (6-35) Alkaline Phosphatase 694 H U/L (38-126) Total Protein 7.0 g/dL (6.3-8.2) Albumin 3.7 g/dL (3.5-5.1) Amylase 81 U/L (30-110) Patient hx anesthesia problems: none Family hx anesthesia problems: none Results Review: All pre-operative results and documents have been reviewed as part of the pre-operative evaluation. [facility] Past Medical History Medical History (Updated 03/08/24 @ 10:45 by Moises Galarza DO) COPD (chronic obstructive pulmonary disease) Dyslipidemia GERD (gastroesophageal reflux disease) Pericarditis Tobacco dependence due to cigarettes Surgical History Surgical History History of delivery History of ERCP Family History Family History Father Hypertension Mother Hypertension Social History Social History (Updated 03/08/24 @ 10:49 by Moises Galarza DO) Years smoked: 45 Smoking status: Current every day smoker Tobacco type: cigarettes Smoking end date: 02/19/24 Alcohol intake: current Drinks per week: 3 Alcohol use details: formerly 3-4/day prior to having gallbladder issues Substance use: current Substance use type: marijuana Do You Feel Safe in your Home?: Yes Lack of Transportation: No Lack of Food: Never True Current Housing: I Have Housing Concerned About Future Housing: No Difficulty Paying Gas/Electric Bills: No Difficulty Paying for Meds: No Currently Unemployed: No Education: Bachelor's Degree Difficulty w/ Childcare or Family Care: No Living arrangements: with family Spiritual care concerns: No Anes - Eval Final PreProcedure Day of Procedure 03/08/24 10:49 Patient weight: overweight Heart: regular rate and rhythm Lungs: clear to auscultation Airway: Mallampati scale class II Neurological: alert and oriented Last oral intake: >/= 8 hours ASA classification: III Emergent: no Anesthetic plan: proceed Anesthesia type and monitoring: general ETT and standard monitoring Results Review: All pre-operative results and documents have been reviewed as part of the pre-operative evaluation. Informed Consent: The patient's a
[2024-03-08] MEDS: KETOROLAC 15 MG/ML VIAL (*BKC) IV PUSH (10:59)
--- NOTE | 2024-03-08 11:31 | SUR.PREOP ---
1130- At pre op visit pt told RN that she had a power of commonwealth attorney and DNR paperwork. Pt did not bring with her day of surgery. Dr. Haney and Pre op nurse spoke with her about paperwork. Pt stated she forgot it. She understands she is a full code today for surgery.
--- NOTE | 2024-03-08 11:50 | WPDHPUPDATE1 ---
History and Physical Update Update Date/Time: 03/08/24 11:50 History and Physical has been reviewed, including an updated exam of the patient. There are NO changes in the patient's condition. Risks, benefits, and alternatives have been discussed and questions answered. Patient agrees to proceed with procedure.
[2024-03-08] MEDS: ceFAZolin 2 GM/D5W 50 ML 2 GM/50 ML BAG IVPB (11:55)
[2024-03-08] MEDS: BUPivacaine HCL 0.5% PF 30 ML VIAL INFILTRATE (12:28)
[2024-03-08] MEDS: LIDO 1%/EPINEPHRINE 1:100,000 20 ML VIAL 30 ML INFILTRATE (12:28)
--- NOTE | 2024-03-08 13:20 | W.PM.PROC2 ---
Procedure Note - Detailed Date of Procedure 03/08/24 Pre-op Diagnosis Ascending cholangitis, choledocholithiasis, chronic cholecystitis secondary to cholelithiasis Post-op Diagnosis Same Procedure Performed Laparoscopic cholecystectomy Surgeon Nakul Simms MD Commercial Loan Coordinator Everett ARGUELLES Anesthesia General Indications Patient is a 69-year-old female who was admitted to the hospital with retained common bile duct stone on elevated liver enzymes and signs of ascending cholangitis. She was treated with IV antibiotics and underwent ERCP to remove the obstructive retained common bile duct stone. She was discharged from the hospital on oral antibiotics to allow the ascending cholangitis to completely resolve. She now presents for an interval laparoscopic cholecystectomy due to residual cholelithiasis. Findings Patient had small gallstones within the gallbladder and chronic inflammation of gallbladder with chronic adhesions of the omentum to the gallbladder wall. Description of Procedure After informed consent was obtained patient brought to the operating room she was placed supine position and general endotracheal anesthesia was administered. The abdomen was then prepped and draped usual sterile fashion. A time-out was then performed correctly identifying the patient as well as procedure to be performed. She was given perioperative IV antibiotics. I then proceeded to place a 5mm Optiview port in left upper quadrant. Once inside the abdomen insufflated to adequate pneumoperitoneum of 15mmHg of CO2. There were no adhesions around the umbilicus we placed a 5mm periumbilical trocar port and then and the epigastric 10mm trocar port 2 more 5mm right subcostal trocar ports all under direct visualization. Scope was then switched over to the periumbilical trocar port and working through the remaining trocar ports I held the gallbladder with a laparoscopic grasper and elevated the dome of the gallbladder over the right half liver towards the right shoulder. A 2nd grasper used to of the gallbladder at the infundibulum. I then stripped down the chronic adhesions of the omentum to the gallbladder bluntly and then strip down the visceral peritoneum off of the infundibulum of the gallbladder to identify the cystic duct. The cystic duct was then dissected out circumferentially. The cystic artery was identified and dissected out circumferentially as well. Posterior wall the gallbladder at the infundibulum dissected free of the liver into the critical view was obtained. At this point I then placed 2 clips proximally cystic duct and 2 clips distally high on infundibular gallbladder. The cystic duct was then divided Endo Jono. In a similar fashion cystic artery clipped and divided as well. The gallbladder was resected off the liver electrocautery. Once it was free from the liver is placed into an Endo-Catch bag and brought out through the epigastric port site. The gallbladder and gallstones within were sent to pathology for examination. I then irrigated out the right upper quadrant abdomen gallbladder fossa copious sterile saline solution. Hemostasis was excellent. Then aspirated the fluid from the pelvis and from the right upper quadrant the abdomen. I then removed all the trocar ports under visualization all port sites appeared hemostatic. I then allowed the abdomen to decompress. The port sites were then irrigated sterile saline solution hemostasis was good. I then closed the epigastric 10mm trocar port fascial defect utilizing 0 Vicryl suture. The skin edges in all the port sites were then approximated utilizing a running subcuticular 4-0 Monocryl suture. The incisions were then cleaned the skin glue sterile dressings were applied. The patient tolerated the procedure well no complications. All sponges, needles, and instrument counts were correct at the end procedure. EBL was _20__cc. The patient was awakened and taken to recovery in stable and satisfactory conditio
[2024-03-08] MEDS: oxyCODONE HCL (*CRX) 5 MG TAB IR PO (14:16)
== END 2024-03-08 14:43 | disposition home or self-care (01) ==
PROVIDERS: PCP Internal Medicine; Visit Provider Surgery
PROC: 0FT44ZZ Resection of Gallbladder, Percutaneous Endoscopic Approach (ICD-10-PCS; CPT 47562; principal; 2024-03-08 11:30)
DX: K80.10 Calculus of gallbladder with chronic cholecystitis without obstruction (principal); R74.8 Abnormal levels of other serum enzymes; J44.9 Chronic obstructive pulmonary disease, unspecified; F17.210 Nicotine dependence, cigarettes, uncomplicated; E78.49 Other hyperlipidemia; K21.9 Gastro-esophageal reflux disease without esophagitis
CPT/HCPCS: 47562; 36415; 80076; 82150; 88304; A9270; J0690; J1596; J1885; J2250; J2270; J2704; J2710; J7120

== ENCOUNTER 2024-08-09 08:55 | Outpatient (CLI) | payer MEDICARE, SELFPAY ==
--- NOTE | 2024-08-09 | EST_ITS ---
Patient Info Name: Kinga Helton Age: 69 years : 1955 Gender: Female Ht: 62 in Wt: 152 lbs BSA: 1.76 m2 HR: 68 bpm BP: 142 / 81 mmHg Exam Date: 08/09/2024 9:59 AM Exam Location: Echo Lab Patient Status: Outpatient Admit Date: 08/09/2024 Staff Ordering Physician: Alcon, Benjamin CELIS Attending Provider: Alcon, Benjamin CELIS Exercise Technologist: Geno Strickland [facility] Exercise Physician: Anthony Sears DO Exam Type: CA stress marylin w NM Study Info A regadenoson stress test was performed. Summary 1. 1. Negative lexiscan stress test for ischemic ST changes by ECG criteria. 2. 2. Baseline hypertension. 3. 3. Nuclear scan to follow and will be reported separately. Please correlate with it. 4. 4. Patient informed of the above results. Protocol: Lexiscan Stress ECG Details Stage: REST Duration (min): 1 min : 41 sec HR (bpm): 65 SBP (mmHg): 142 DBP (mmHg): 81 Stage: REST Duration (min): 6 min : 26 sec HR (bpm): 68 SBP (mmHg): 142 DBP (mmHg): 81 Stage: STAGE 1 Duration (min): 1 min : 0 sec HR (bpm): 90 SBP (mmHg): 153 DBP (mmHg): 80 Stage: RECOVERY Duration (min): 1 min : 0 sec HR (bpm): 98 SBP (mmHg): 153 DBP (mmHg): 80 Stage: RECOVERY Duration (min): 2 min : 0 sec HR (bpm): 96 SBP (mmHg): 153 DBP (mmHg): 80 Stage: RECOVERY Duration (min): 3 min : 0 sec HR (bpm): 89 SBP (mmHg): 134 DBP (mmHg): 80 Stage: RECOVERY Duration (min): 3 min : 5 sec HR (bpm): 88 SBP (mmHg): 134 DBP (mmHg): 80 Rest HR: 68 bpm Peak HR: 99 bpm Rest Sys BP: 142 mmHg Peak Sys BP: 153 mmHg Max Pred HR: 149 bpm % Max Pred HR: 66 % Target HR: 127 bpm Max RPP: 15,147 bpm*mmHg Termination Reason: Completed protocol Cardiac Symptoms: Shortness of breath Total Time: 1 min : 0 sec Rest Loera BP: 81 mmHg Peak Loera BP: 80 mmHg Total Dose: 0.4 mg Resting ECG Sinus rhythm. Stress ECG No ST changes. Arrhythmias None. Report Signatures
--- NOTE | ~2024-08-09 | NM_ITS ---
EXAMINATION: NM marylin stress w perfusion DATE: 08/09/2024 10:44 INDICATION: Heart failure TECHNIQUE: Rest images were obtained following intravenous administration of 9.0 mCi Tc99m tetrofosmi n (Myoview). The patient was infused intravenously with Lexiscan (Regadenoson). Then, 29.4 mCi Tc99m tetrofosmin (Myoview) was administered intravenously, and stress images were obtained. Data was recon structed into short axis and horizontal and vertical long axis SPECT images. Gated SPECT images were also obtained. COMPARISON: None. FINDINGS: There is no definite reversible or fixed perfusion abnormality to suggest ischemia or infar ction. There is normal left ventricular chamber size, wall motion and ejection fraction. Left ventr icular ejection fraction measures 70%. IMPRESSION: 1. Normal myocardial perfusion at rest and during stress. 2. Left ventricular ejection fraction measuring 70%. Reviewed, dictated and finalized at location A. PRODUCTION FIELD SUPERVISOR
== END 2024-08-09 08:56 | disposition home or self-care (01) ==
PROVIDERS: PCP Internal Medicine; Visit Provider Internal Medicine
DX: I50.9 Heart failure, unspecified (principal)
CPT/HCPCS: 78452; 93017; A9502; J2785

== ENCOUNTER 2024-08-30 08:56 | Emergency (ER) | payer MEDICARE, SELFPAY ==
--- NOTE | ~2024-08-30 | XR_ITS ---
AP view of the pelvis and AP and lateral views of the right hip Clinical history: Pain Findings: Right hip arthroplasty in place. There is acute transverse fracture of probably isolated to the right greater trochanter. No other fracture or dislocation seen. Left hip arthroplasty also in p lace. Soft tissues are unremarkable. Impression: Acute fracture probably isolated to the right greater trochanter. Bilateral hip arthroplasty. Reviewed, dictated and finalized at location . CHER HELPER Impression: Acute fracture probably isolated to the right greater trochanter. Bilateral hip arthroplasty.
--- NOTE | ~2024-08-30 | XR_ITS ---
AP and lateral views of the right femur Clinical History: Pain Findings: There is acute fracture of probably isolated to the right greater trochanter.. Right hip ar throplasty in place. Right knee arthroplasty in place. Soft tissues are unremarkable. Impression: Acute fracture probably isolated to the right greater trochanter. Arthroplasty of the right hip and right knee. Reviewed, dictated and finalized at location . ER HELPER Impression: Acute fracture probably isolated to the right greater trochanter. Arthroplasty of the right hip and right knee.
[2024-08-30 08:58] VITALS: BP 107/73; PULSE 92; RESP 16; TEMP 36.4; O2SAT 98
--- NOTE | 2024-08-30 09:55 | ED.LOWEXIN ---
HPI - Extremity Injury (Lower) General Chief Complaint: Extremity Injury, Lower Stated Complaint: fall, R hip pain Time Seen by Provider: 08/30/24 09:23 History of Present Illness HPI Narrative: 69-year-old female with history of COPD presents to the emergency department for right hip and thigh pain. Patient states she had a mechanical fall on 08/27 and landed on her right hip and has had pain since. States she was walking in her bedroom and slipped on her house slippers. She did not hit her head or lose consciousness. She is not anticoagulated. States she has been walking with toe touches while using her cane due to increasingly worsening pain in the right hip and femur. She has been taking Tylenol and ibuprofen without improvement. Patient states she has a history of right hip [place] [address] Pacheco in [place]. Related Data Home Medications ?Medication ?Instructions ?Recorded ?Confirmed ?Last Taken ?Type albuterol sulfate 90 mcg/actuation 90 puff inhalation Q4H PRN 03/02/24 03/22/24 Unknown History aerosol inhaler Shortness Of Breath budesonide-formoterol HFA 80 80 inh inhalation BID 03/02/24 03/22/24 03/08/24 History mcg-4.5 mcg/actuation aerosol inhaler (Symbicort) montelukast 10 mg tablet 10 mg PO HS 03/02/24 03/22/24 03/07/24 20:00 History (Singulair) sertraline 100 mg tablet 100 mg PO HS 03/02/24 03/22/24 03/07/24 20:00 History omeprazole 20 mg-sodium 1 cap PO BID 03/04/24 03/22/24 Unknown History bicarbonate 1.1 gram capsule (Zegerid OTC) potassium chloride 20 mEq 20 meq PO BID 03/04/24 03/22/24 03/07/24 History tablet,extended release Allergies Allergy/AdvReac Type Severity Reaction Status Date / Time triprolidine Allergy Unknown Hives/Rash Verified 08/30/24 09:02 BRAXTON Inhibitors Allergy Hives Verified 08/30/24 09:02 ezetimibe Allergy Hives Verified 08/30/24 09:02 levofloxacin (From Levaquin) Allergy Hives Verified 08/30/24 09:02 Review of Systems Review of Systems: All systems reviewed & are unremarkable except as noted in HPI and below PMFSH Past Medical History Medical History Pericarditis GERD (gastroesophageal reflux disease) Dyslipidemia COPD (chronic obstructive pulmonary disease) Tobacco dependence due to cigarettes Surgical History Surgical History History of laparoscopic cholecystectomy 03/08/24 History of delivery History of ERCP Family History Family History Father Hypertension Mother Hypertension Social History Social History Years smoked: 45 Smoking status: Current every day smoker Tobacco type: cigarettes Smoking end date: 02/19/24 Alcohol intake: current Drinks per week: 3 Alcohol use details: formerly 3-4/day prior to having gallbladder issues Substance use: current Substance use type: marijuana Do You Feel Safe in your Home?: Yes Lack of Transportation: No Lack of Food: Never True Current Housing: I Have Housing Concerned About Future Housing: No Difficulty Paying Gas/Electric Bills: No Difficulty Paying for Meds: No Currently Unemployed: No Education: Bachelor's Degree Difficulty w/ Childcare or Family Care: No Living arrangements: with family Spiritual care concerns: No Exam Narrative: GENERAL: Well-appearing, well-nourished, and in no acute distress. HEAD: Normocephalic, atraumatic. EYES: EOMI. ENT: Nares clear, no rhinorrhea or epistaxis. Mucous membranes moist. NECK: Supple. No midline cervical spinous tenderness, crepitus, step-offs or deformities BACK: No midline thoracolumbar spinous tenderness, crepitus, step-offs or deformities CHEST: Clear to auscultation. No respiratory distress. HEART: Regular rate and rhythm. No murmur heard. Normal peripheral pulses. ABDOMEN: Soft, nontender, nondistended, normal active bowel sounds. EXTREMITIES: Tenderness to the right proximal femur with mild overlying green ecchymosis to the lateral aspect with no overlying or obvious deformity. Tenderness diffusely to the mid distal femur with no obvious deformity. Patient has full active and passive range of motion of hip. No tenderness remainder of leg. DP pulse 2 +. Sensation intact throughout. SKIN: Warm, dry, no rash. NEURO: No focal deficits. Alert and oriented x3 Course Vital Signs Vital signs: Vital Signs Temperature 97.6 F 08/30/24 08:58 Pulse Rate 92 08/30/24 08:58 Respiratory Rate 16 08/30/24 08:58 Blood Pressure 107/73 08/30/24 08:58 Pulse Oximetry 98 08/30/24 08:58 Oxygen Delivery Room Air 08/30/24 08:58 Temperature 97.6 F 08/30/24 08:58 Pulse Rate 92 08/30/24 08:58 Respiratory Rate 16 08/30/24 08:58 Blood Pressure 107/73 08/30/24 08:58 Pulse Oximetry 98 08/30/24 08:58 Oxygen Delivery Room Air 08/30/24 08:58 MDM - Extremity Injury (Lower) MDM Narrative Medical decision making narrative: 69-year-old female presents emergency department for right hip pain after mechanical fall that occurred 3 days prior to arrival. She did not hit her head or lose consciousness. Vitals are stable. Exam significant for the above. She is neurovascularly intact. X-ray of the hip and femur shows an acute fracture probably isolated to the right greater trochanter with arthroplasty the right hip and knee. Patient was updated on workup. She received [place] with improvement. Discussed the case with orthopedist, Dr. Ramos, touch toe weight-bearing and follow up in outpatient setting. Patient is agreeable with this. She is given [place] for pain and crutches. Return precautions were provided. She is agreeable with the plan verbalized understanding. Discharged in stable condition. Discharge Plan Discharge Clinical Impression: Closed fracture of greater trochanter of right femur Patient Disposition: Home, Self-Care Condition: Stable Instructions: Antibiotic Form, Hip Fracture (ED) Additional Instructions: Your evaluated in the emergency department for right hip pain. Your found have an acute fracture of the right greater trochanter of the right femur. Please take the pain medications and use lidocaine patches as directed for pain. Use the crutches for touch toe weight-bearing as discussed. Follow up with the orthopedist. Return to the emergency department if he develops significantly worsening symptoms, swelling to the leg, pain to the calf, a white or numb leg or other concerning symptoms. Patient Language: Kyrgyz Prescriptions: New hydrocodone-acetaminophen 5-325 mg tablet 1 tablet PO Q6H PRN (Reason: pain) Qty: 14 0RF lidocaine 5 % adhesive patch,medicated 1 patch topical DAILY Qty: 15 0RF Rx Instructions: leave on most painful area for up to 12 hrs. do not use more than 1 patch in a 24-hour period. No Action sertraline 100 mg tablet 100 mg PO HS albuterol sulfate 90 mcg/actuation HFA aerosol inhaler 90 puff INHALATION Q4H PRN (Reason: Shortness Of Breath) budesonide-formoterol [Symbicort] 80-4.5 mcg/actuation HFA aerosol inhaler 80 inh INHALATION BID montelukast [Singulair] 10 mg Tablet 10 mg PO HS amoxicillin-pot clavulanate 875-125 mg tablet 1 tablet PO Q12H Qty: 10 0RF nicotine (polacrilex) 4 mg Gum 4 mg PO PRN PRN (Reason: Nicotine Cravings) Qty: 40 0RF potassium chloride 20 mEq tablet extended release 20 meq PO BID Patient Comments: PT STATES FOR 3 DAYS omeprazole-sodium bicarbonate [Zegerid OTC] 20-1.1 mg-gram Capsule 1 cap PO BID hydrocodone-acetaminophen 5-325 mg tablet 1 tablet PO Q4H PRN (Reason: pain) Qty: 12 0RF Follow-up/Referrals: Alcon,MD Benjamin [Primary Care Provider] - Jhony Ramos MD [Physician] -
[2024-08-30] MEDS: LIDOCAINE 5% PATCH 1 PATCH TRANSDERM (10:30)
[2024-08-30] MEDS: HYDROcodone/acetaminophen (*CRX) 5-325 MG TABLET 1 TAB PO (10:30)
--- OUTSIDE RECORDS SUMMARY | 2024-09-06 12:09 | XMS_ITS | Continuity of Care Document ---
Author Organization [place] - [place], S[facility] Address [address] [place] [address] Care Team Providers Care Crisis Intervention Specialist Name Role Phone PAULETTE RONDON Primary Care Provider Unavailabl e Assessment Encounter Date Assessment Date Assessment LastModified by Organization Details LastModified Time 07/25/2024 07/25/2024 echocardiogram just showed some impaired ventricular relaxation. With regards to left ventricle we will get Lexiscan stress test she will see me back in 3 months. Obtain CBC CMP and lipid. Salt in the disease process of CHF discussed. Right now she is maintained on Lasix and afterload reduction. Does not have goal-directed medical therapy with beta-renetta or SGLT2 inhibitor at this time she is reluctant to start since she is feeling so good. Back 3 months. We are still trying to get her mammogram and colon cancer screening test results from previous clinic and facilities [email or web address] Not available 07/25/2024 22:02:46 Plan of Treatment Reminders Order Date Submit Date Provider Last Modified By Organization Details Last Modified Time Details Appointments ANY 15 2024 09:30A Nava Rondon MD Not available Not available Not available Lab lipid panel, serum 2023 024 [facility], [address], [place], [address], 08/20/2024 07:11:04 CMP, serum or plasma 2023 024 [place], [address], [place], [address], 08/20/2024 07:11:05 CBC w/ auto diff 2023 [place] [facility], [address], [place], [address], 08/20/2024 07:11:06 Referral None recorded. Procedures lexiscan cardiolit e stress test (PROC) 2023 024 [facility] ([facility]), [address] [facility], [place], [address], 08/09/2024 13:27:34 Surgeries None recorded. Imaging None recorded. Medication Orders None recorded. Patient TargetsNo targets recorded. Patient InstructionsNo instructions recorded. Reason for Referral None Reported. Results Created Date Observation Date Name Description Value Unit Range Abnormal Flag Note LastModifiedBy Organization Detail LastModifiedTime 07/25/2001/12/2023 MAMMO , scree isiah, digit al, bilat eral No observ ation record ed. [facility] [address] [place], [address], 07/26/2024 09:40:11 07/26/20 24 01/12/2015 US, aris t, limit ed No observ ation record ed. [facility] [address] [place], [address], 07/26/2024 09:40:11 08/09/20 24 08/09/2024 cy can cardi olite stres s test (PROC ) No observ ation record ed. [place] [address] [facility] [address], [place], [address], 08/09/2024 14:11:50 08/09/20 24 08/09/2024 cy can cardi olite stres s test (PROC ) No observ ation record ed. [place] [address] [facility] [address], [place], [address], 08/17/2024 09:46:27 08/09/20 24 08/09/2024 cy can cardi olite stres s test (PROC ) No observ ation record ed. [facility] [address], [place], [address], 08/11/2024 22:09:27 08/30/20 24 08/30/2024 XR, femur , 1 view No observ ation record ed. [facility] [address], [place], [address], 09/02/2024 10:20:33 08/30/20 24 08/30/2024 XR, hip + pelvi s, bilat eral, 2 view No observ ation record ed. [facility] [address], [place], [address], 09/02/2024 10:19:55 Result Notes None recorded. Problems Name Problem SNOMED Code Status Onset Date Resolution Date Notes Provider Name and Address Organization Details Recorded Time Congestive heart failure 36507759 Active 2023 Tanesha Farr MA [facility], [place] [facility] 4 13:27:56 Hypokalemia 72214778 Active 2023 Paulette Rondon MD Attn: Maranda g,[address] [facility], [place], [address], [place] [facility] 4 22:26:43 Essential hypertension 33317668 Active 2023 Paulette Rondon MD Attn: Maranda g,[address] [facility], [place], [address], [place] [facility] 4 22:41:57 Chronic obstructive pulmonary disease 38039647 Active 2023 Paulette Rondon MD Attn: Maranda g,[address] [facility], [place], [address], [place] [facility] 4 22:00:27 Anxiety 36438653 Active 2023 Paulette Rondon MD Attn: Maranda g,[address] [facility], [place], [address], [place] [facility] 4 22:00:31 Problem Notes None recorded. Procedures Surgical History Date Name Laterality Status Provider Name and Address Organization Details Recorded Time Eye Surgery completed Myranda Ramos MA [facility] 11/10/2023 10:09:24 Knee Surgery completed Myranda Ramos MA [facility] 11/10/2023 10:09:36 ligation of bilateral fallopian tubes completed Myranda Ramos MA [facility] 11/10/2023 10:09:59 delivery completed Myranda Ramos MA [facility] 11/10/2023 10:10:24 Imaging Results None recorded. Procedure Notes None recorded. Medical Equipment None Reported. Allergies Allergen ID Allergen Name Allergen Category Reaction Reaction Severity Criticality Documentation Date Start Date Code Code System Note Provider Name and Address Organization Details Recorded Time 435777 Levaquin medicatio n Not available Not available Not available 11/10/2023 78977 2 [facility] 10:02:46 379951 Product containin g 3-hydroxy -3-methyl glutaryl- coenzyme A reductase inhibitor (product) medicatio n Not available Not available Not available 11/10/2023 75637 009 [facility] 4 10:02:53 482623 Product containin g angiotens in-conver ting enzyme inhibitor (product) medicatio n Not available Not available Not available 11/10/2023 52016 009 [facility] 4 10:03:04 Medications Name Sig Start Date Stop Date Status Note LastModified by Organization Details LastModified Time cyclobenzap rine 10 mg tablet TAKE 1 TABLET BY MOUTH EVERY 8 HOURS 11/09 completed Not Available Not Available Not Available doxycycline hyclate 100 mg capsule TAKE 1 CAPSULE BY MOUTH TWICE DAILY FOR 7 DAYS 07/25 completed Not Available Not Available Not Available ipratropium 0.5 mg-albutero l 3 mg (2.5 mg base)/3 mL nebulizatio n soln USE 1 AMPULE IN NEBULIZER 4 TIMES DAILY active Not Available Not Available No t Available azithromyci n 250 mg tablet TAKE 2 TABLETS BY MOUTH ON DAY 1, AND THEN TAKE 1 TABLET BY MOUTH ONCE A DAY ON DAY 2 THROUGH DAY 5 07/25 completed Not Available Not Available Not Available hydrocodone 5 mg-acetamin ophen 325 mg tablet TAKE 1 TABLET BY MOUTH EVERY 4 HOURS NEEDED FOR PAIN 07/25 completed Not Available Not Available Not Available prednisone 20 mg tablet TAKE 2 TABLETS BY MOUTH ONCE DAILY FOR 5 DAYS 07/25 completed Not Available Not Available Not Available sertraline 100 mg tablet Take 1 tablet by mouth once daily active Not Available Not Available No t Available triamcinolo ne acetonide 0.1 % topical cream APPLY A THIN LAYER TO THE AFFECTED AREA(S) BACK OF NECK, ARMS AND LEGS TOPICALLY 2 TIMES PER DAY NEEDED 2023 active Not Available Not Available Not Avai lable ketorolac 0.5 % eye drops INSTILL 1 DROP THREE TIMES DAILY INTO EACH EYE STARTING 2 DAYS PRIOR TO SURGERY AND CONTINUIN G FOR 1 WEEK AFTER SURGERY 11/09 completed Not Available Not Available Not Available prednisolon e acetate 1 % eye drops,suspe nsion INSTILL 1 DROP THREE TIMES DAILY INTO EACH EYE STARTING AFTER SURGERY CONTINUIN G FOR 3 WEEKS 11/09 completed Not Available Not Available Not Available neomycin-po lymyxin-dex ameth 3.5 mg/mL-10,00 0 unit/mL-0.1 % eye drops INSTILL 1 DROP THREE TIMES DAILY INTO EACH EYE STARTING 2 DAYS PRIOR TO SURGERY, CONTINUE FOR 1 WEEK AFTER SURGERY 11/09 completed Not Available Not Available Not Available losartan 25 mg tablet TAKE 1 TABLET BY MOUTH ONCE DAILY active Not Available Not Available No t Available montelukast 10 mg tablet Take 1 tablet by mouth once daily 2023 active Not Available Not Available Not Avai lable furosemide 20 mg tablet Take 1 tablet by mouth once daily 2023 active Not Available Not Available Not Avai lable albuterol sulfate HFA 90 mcg/actuati on aerosol inhaler INHALE 2 PUFFS BY MOUTH EVERY 4 HOURS NEEDED 2023 active Not Available Not Available Not Avai lable amoxicillin 875 mg-potassiu m clavulanate 125 mg tablet TAKE 1 TABLET BY MOUTH EVERY 12 HOURS 07/25 completed Not Available Not Available Not Available ezetimibe 10 mg tablet TAKE 1 TABLET BY MOUTH ONCE DAILY active Not Available Not Available No t Available Symbicort 80 mcg-4.5 mcg/actuati on HFA aerosol inhaler Inhale 2 puffs by mouth twice daily 2023 active Not Available Not Available Not Avai lable potassium chloride ER 20 mEq tablet,exte nded release TAKE 1 TABLET BY MOUTH ONCE DAILY NEEDED 2023 active Not Available Not Available Not Avai lable Nexletol 180 mg tablet Take 1 tablet every day by oral route. 2023 active Not Available Not Available Not Avai lable Vitals Date Recorded Body height Body mass index (BMI) Body weight Heart rate Oxygen saturation Oxygen saturation in Arterial blood by Pulse oximetry Systolic blood pressure Diastolic blood pressure Provider Name and Address Organization Details Last Updated DateTime 158.75 cm 27.6 kg/m2 36611.0 7 g 71 /min 96 % 96 % 110 mm[Hg] 70 mm[Hg] Loly George MA [facility] 09:55:31 Social History Question Answer Notes LastModified by Organizat ion Details LastModified Time Tobacco Smoking Status Never Smoker quit 01/02/2024 Myranda Ramos MA null, [place] - [facility] 01/06/2024 10:55:37 What Is Your Level Of Alcohol Consumption? Occasional Information not available 11/10/2023 Are You Blind Or Do You Have Difficulty Seeing? No Information not available 11/10/2023 What Is Your Level Of Caffeine Consumption? Moderate Information not available 11/10/2023 In The 14 Days Before Symptom Onset, Have You Had Close Contact With A Laboratory-confir med COVID-19 While That Case Was Ill? No Information not available 03/28/2024 In The 14 Days Before Symptom Onset, Have You Had Close Contact With A Person Who Is Under Investigation For COVID-19 While That Person Was Ill? No Information not available 03/28/2024 Have You Been To An Area Known To Be High Risk For COVID-19? No Information not available 03/28/2024 Are You Currently Employed? No Retired Information not available 01/06/2024 Are You Deaf Or Do You Have Serious Difficulty Hearing? No Information not available 11/10/2023 What Type Of Diet Are You Following? REGULAR Information not available 11/10/2023 Are There Any Guns Present In Your Home? No Information not available 11/10/2023 What Was The Date Of Your Most Recent Tobacco Screening? 07/25/2024 [email or web address] Information not available 07/25/2024 What Is Your Current Pack Years? 10-19packyear s Information not available 11/10/2023 What Is Your Relationship Status? Information not available 11/10/2023 Do You Use Your Seat Belt Or Car Seat Routinely? Yes Information not available 11/10/2023 Do You Have Smoke And Carbon Monoxide Detectors In Your Home? Yes Information not available 11/10/2023 How Much Tobacco Do You Smoke? 1 PPW Information not available 11/10/2023 Do You Feel Stressed (tense, Restless, Nervous, Or Anxious, Or Unable To Sleep At Night)? [id number] Information not available 11/10/2023 Do You Use Any Illicit Or Recreational Drugs? No Information not available 11/10/2023 Do You Use Sunscreen Routinely? No Information not available 11/10/2023 Has Tobacco Cessation Counseling Been Provided? No Information not available 11/10/2023 How Many Years Have You Smoked Tobacco? 40 Information not available 11/10/2023 Do You Or Have You Ever Used Any Other Forms Of Tobacco Or Nicotine? No Information not available 11/10/2023 Sex: Female Functional Status Question Answer Note LastModified by Organization D etails LastModified Time Are you able to care for yourself? Yes Information not available 11/10/2023 What is your exercise level? Moderate Information not available 11/10/2023 Mental Status None recorded. Family History Relationship Description Onset Age of this Age Resolved Age Notes LastModified by Organization Details LastModified Time Mother Heart disease [email or web address] Not available 10/29 10:05:58 Mother Hypertensive disorder [email or web address] Not available 10/29 10:06:15 Mother Hypercholest erolemia bandersonma Not available 10/29 10:06:32 Mother Malignant neoplasm of bone bandersonma Not available 10/29 10:07:33 Father Heart disease bandersonma Not available 10/29 10:05:58 Father Hypertensive disorder bandersonma Not available 10/29 10:06:15 Father Hypercholest erolemia bandersonma Not available 10/29 10:06:32 Father Malignant tumor of lung bandersonma Not available 10/29 10:07:00 Sister Heart disease bandersonma Not available 10/29 10:05:58 Sister Hypertensive disorder bandersonma Not available 10/29 10:06:15 Sister Hypercholest erolemia bandersonma Not available 10/29 10:06:32 Medical History Condition Response Coronary Artery Disease N Other N Atrial Fibrillation N High Blood Pressure N Thyroid Problems N Kidney or Bladder Problems N Depression Y COPD Y Blood Clots N GI Problems N Skin Problems N Anemia N Heart Attack ([place]) N Diabetes N Anxiety Disorder N Muscle, Joint, or Bone Problems Y Seizures/Epilepsy N Acid Reflux (GERD) Y Cancer N Stroke N Allergies Y Asthma N High Cholesterol Y Hepatitis N Liver Disease N Headaches N Osteoporosis N Heart Failure N Gynecological HistoryNo gynecological history recorded. Obstetrics History GPAL:G 0 P 0 0 0 0 Immunizations Vaccine Type Date Status Note Provider Nam e and Address Organization Details Recorded Time Influenza, split virus, quadrivalent, preservative 6 completed [place], [place] [facility] 06/22/2024 12:53:17 zoster recombinant 3 completed [place] [facility] 06/22/2024 12:53:17 zoster recombinant 3 completed [place] [facility] 06/22/2024 12:53:17 Influenza, high-dose, quadrivalent, PF 3 completed [place] [facility] 06/22/2024 12:53:17 Influenza, high-dose, quadrivalent, PF 0 [place] [facility] 06/22/2024 12:53:17 Influenza, high-dose, quadrivalent, PF 1 [place] [facility] 06/22/2024 12:53:17 Influenza, high-dose, quadrivalent, PF 2 [place] [facility] 06/22/2024 12:53:17 COVID-19, mRNA, LNP-S, PF, 100 mcg/0.5mL dose or 50 mcg/0.25mL dose 2 completed [place] [facility] 06/22/2024 12:53:17 COVID-19, mRNA, LNP-S, PF, 100 mcg/0.5mL dose or 50 mcg/0.25mL dose 1 [place] [facility] 06/22/2024 12:53:17 COVID-19, mRNA, LNP-S, PF, 100 mcg/0.5mL dose or 50 mcg/0.25mL dose 1 [place] [facility] 06/22/2024 12:53:17 COVID-19, mRNA, LNP-S, bivalent, PF, 30 mcg/0.3 mL dose 2 completed [place] [facility] 06/22/2024 12:53:17 RSV, recombinant, protein subunit RSVpreF, adjuvant reconstituted, 0.5 mL, PF 3 completed [place] [facility] 06/22/2024 12:53:17 pneumococcal polysaccharide PPV23 2 completed [place] [facility] 06/22/2024 12:53:17 pneumococcal polysaccharide PPV23 2 completed [place] [facility] 06/22/2024 12:53:17 Tdap 2 completed [place] [facility] 06/22/2024 12:53:17 Pneumococcal conjugate PCV 13 9 completed [place] [facility] 06/22/2024 12:53:17 Pneumococcal conjugate PCV 13 9 completed [place] [facility] 06/22/2024 12:53:17 Influenza, high-dose, trivalent, PF 7 completed [place] [facility] 06/22/2024 12:53:17 Influenza, high-dose, trivalent, PF 9 completed Tanesha F[place] [facility] 06/22/2024 12:53:17 Influenza, high-dose, trivalent, PF 7 completed [place] [facility] 06/22/2024 12:53:17 Influenza, high-dose, trivalent, PF 2 completed [place] [facility] 06/22/2024 12:53:17 Influenza, high-dose, trivalent, PF 1 completed [place] [facility] 06/22/2024 12:53:17 Influenza, high-dose, trivalent, PF 4 completed [place] [facility] 06/22/2024 12:53:17 Influenza, split virus, trivalent, PF 6 completed [place] [facility] 06/22/2024 12:53:17 COVID-19, mRNA, LNP-S, PF, 30 mcg/0.3 mL dose 4 completed [place] [facility] 06/22/2024 12:53:52 influenza, unspecified formulation 4 completed [place] [facility] 06/22/2024 12:54:33 Past Encounters Encounter ID Performer Location Encounter Start Date Encounter Closed Date Diagnosis/Indication Diagnosis SNOMED-CT Code Diagnosis ICD10 Code Diagnosis Note [id number] Paulette Rondon MD [facility] [place] [address] [place] [address] 07/25/2024 09:43:06 07/25/2024 10:45:16 Essential hypertension 27197945 I10 Congestive heart failure 69055119 I50.9 Chronic ob structive pulmonary disease 89997590 J44.9 Anxiety 61138650 F41.9 Hypokalemia 05504616 E87 .6 Health Concerns Section Related Observation LastModified by Organization Detai ls LastModified Time None Recorded Concern Status LastModified by Organization Details LastModified Time None Recorded Payers Encounter Date Sequence Insurance Name Policy Number Policy Golden Covered Member ID Golden Member ID Guarantor Name 07/25/[address] [facility] (MEDICARE REPLACEMENT/A DVANTAGE - HMO) [id number] Kinga Helton [id number] Kinga Helton Notes Date Note Type Note Provider Name and Address Organization Details Recorded Time 07/25/2024 text/html Hypertension no headache or dizziness. Hypokalemia asymptomatic remains on potassium. Anxiety stable on her sertraline. COPD using her inhalers no cough or wheezing at this time. History of CHF. Needs noninvasive evaluation Paulette Rondon MD Attn: [address] [place], [address], [facility] 07/25/2024 22:03:04 OBGyn Episode No OBEpisode recorded.
--- OUTSIDE RECORDS SUMMARY | 2024-09-06 12:09 | XMS_ITS | Data Portability ---
Author Organization [facility] Address [address] [place] [address] Care Team Providers Care Jewelry Designer Name Role Phone PAULETTE RONDON Primary Care Provider Unavailabl e Assessment Encounter Date Assessment Date Assessment LastModified by Organization Details LastModified Time 11/10/2023 11/10/2023 Blood pressure little bit today but she is 600 at home Z-Lex prednisone milligrams daily x 5 days for her COPD exacerbation anxiety on sertraline inhalers for her COPD osteoarthritis Tylenol hyperlipidemia recheck labs she has had trouble with statins before follow-up with me in 4 months. She will monitor her blood pressure at home to let me know what the numbers are doing in a couple of weeks [email or web address] Not available 11/14/2023 23:06:30 12/29/2023 12/29/2023 proBNP was [id number] we will get an echocardiogram add some Lasix and depending upon echo she may need some afterload reduction her blood pressure is up just a little bit plan for that is to get the echo and depending upon that we will start some afterload reduction hypokalemia potassium chloride 20 mill equivalents twice daily x 3 days then 20 mill equivalents daily thereafter magnesium oxide 400 twice daily [id number] her EKG shows a normal sinus rhythm with questionable QT prolongation even when corrected we will replace electrolytes rhinitis montelukast she will continue to continue with her breathing treatments if she decompensates back to the ER. COPD inhalers smoking cessation highly recommended [email or web address] Not available 12/29/2023 22:27:19 01/06/2024 01/06/2024 Obtain blood wor k use minimally effective dose of Lasix as needed whether to be 20 mg or 40 mg a day weigh herself daily watch salt get echo follow-up at her regular scheduled [email or web address] Not available 01/11/2024 21:15:26 03/28/2024 03/28/2024 start losartan 2 5 mg daily she will see me back in a couple of months [email or web address] Not available 03/31/2024 22:41:33 07/25/2024 07/25/2024 echocardiogram just showed some impaired [...] test results from previous clinic and facilities [place] [id number] Not available 07/25/2024 22:02:46 Plan of Treatment Reminders Order Date Submit Date Provider Last Modified By Organization Details Last Modified Time Details Appointments ANY 15 2024 09:30A M Paulette Rondon MD Not available Not available Not available Lab CMP, serum or plasma 2023 024 [facility], [address], [place], [address], 11/11/2023 06:20:46 CBC w/ auto diff 2023 024 [facility], [address], [place], [address], 11/11/2023 06:20:46 lipid panel, serum 2023 024 [facility], [address], [place], [address], 11/11/2023 06:20:45 BMP, serum or plasma 2023 024 [facility], [address], [place], [address], 01/07/2024 09:14:17 lipid panel, serum 2023 [facility], [address], [place], [address], 08/20/2024 07:11:04 CMP, serum or plasma 2023 024 [facility], [address], [place], [address], 08/20/2024 07:11:05 CBC w/ auto diff 2023 024 [facility], [address], [place], [address], 08/20/2024 07:11:06 Referral None recorded. Procedures lexiscan cardiolit e stress test (PROC) 2023 024 [facility] [address], [place], [address], 08/09/2024 13:27:34 Surgeries None recorded. Imaging US, echocardi ogram 2023 024 [facility], [address], [place], [address], 01/14/2024 18:56:12 Medication Orders Zithromax Z-Lex 250 mg tablet 2023 024 [facility] [address], [address], [address], 07/25/2024 09:56:34 prednison e 20 mg tablet 2023 024 [facility] [address], [address], [address], 07/25/2024 09:56:[address] 10 mg tablet 2023 024 [email or web address] [facility] 435, [address], [address], 12/29/2023 15:16:18 Lasix 20 mg tablet 2023 024 [facility], [address], [address], 04/05/2024 15:38:21 Symbicort 80 mcg-4.5 mcg/actua tion HFA aerosol inhaler 2023 024 [email or web address] [facility], [id number] [place] [address], [address], 12/29/2023 15:16:18 potassium chloride ER 20 mEq tablet,ex tended release 2023 024 [facility], [address], [address], 04/05/2024 15:38:29 Patient TargetsNo targets recorded. Patient Instructions Encounter Date Encounter Id Patient Instructions Last Modified By Organization Details Last Modified Time 03/28/2024 [id number] A healthy lifestyle: care instructions Not available 03/31/2024 22:42:33 Reason for Referral None Reported. Results Created Date Observation Date Name Description Value Unit Range Abnormal Flag Note LastModifiedBy Organization Detail LastModifiedTime 11/10/19 24 11/11/2023 LIPID PANEL cholesterol, total 272 mg/dL 100-19 9 above high normal Not Available [facility] ([facility]) [address] [place], [address], 11/11/2023 06:20:45 11/10/19 24 11/11/2023 LIPID PANEL triglyceride s 116 mg/dL 0-149 Not Available [facility] ([facility]) [address] [place], [address], 11/11/2023 06:20:45 11/10/19 24 11/11/2023 LIPID PANEL HDL cholesterol 66 mg/dL >39 Not Available [facility] ([facility]) [address] [place], [address], 11/11/2023 06:20:45 11/10/19 24 11/11/2023 LIPID PANEL VLDL cholesterol uli 20 mg/dL 5-40 Not Available [facility] ([facility]) [address] [place], [address], 11/11/2023 06:20:45 11/10/19 24 11/11/2023 LIPID PANEL LDL chol calc (rust) 186 mg/dL 0-99 above high normal Not Available [facility] ([facility]) [address] [place], [address], 11/11/2023 06:20:45 11/10/19 24 11/11/2023 COMP. METAB OLIC PANEL (14) glucose 94 mg/dL 70-99 Not Available [facility] ([facility]) [address] [place], [address], 11/11/2023 06:20:45 11/10/19 24 11/11/2023 COMP. METAB OLIC PANEL (14) BUN 17 mg/dL 8-27 Not Available [facility] ([facility]) [address] [place], [address], 11/11/2023 06:20:45 11/10/19 24 11/11/2023 COMP. METAB OLIC PANEL (14) creatinine 0.85 mg/dL 0.57-1 .00 Not Available [facility] ([facility]) [address] [place], [address], 11/11/2023 06:20:45 11/10/19 24 11/11/2023 COMP. METAB OLIC PANEL (14) eGFR 74 mL/mi n/1.7 3 >59 Not Available [facility] ([facility]) [address] [place], [address], 11/11/2023 06:20:45 11/10/19 24 11/11/2023 COMP. METAB OLIC PANEL (14) BUN/creatini ne ratio 20 -28 Not Available [facility] ([facility]) [address] [facility], [place], [address], 11/11/2023 06:20:45 11/10/19 24 11/11/2023 COMP. METAB OLIC PANEL (14) sodium 141 mmol/ L 134-14 4 Not Available [facility] ([facility]) [address] [facility], [place], [address], 11/11/2023 06:20:45 11/10/19 24 11/11/2023 COMP. METAB OLIC PANEL (14) potassium 4.4 mmol/ L 3.5-5. 2 Not Available [facility] ([facility]) [address] [facility], [place], [address], 11/11/2023 06:20:45 11/10/19 24 11/11/2023 COMP. METAB OLIC PANEL (14) chloride 101 mmol/ L 96-106 Not Available [facility] ([facility]) [address] [facility], [place], [address], 11/11/2023 06:20:45 11/10/19 24 11/11/2023 COMP. METAB OLIC PANEL (14) carbon dioxide, total 24 mmol/ L 20-29 Not Available [facility] ([facility]) [address] [facility], [place], [address], 11/11/2023 06:20:45 11/10/19 24 11/11/2023 COMP. METAB OLIC PANEL (14) calcium 9.6 mg/dL 8.7-10 .3 Not Available [facility] ([facility]) [address] [place], [address], 11/11/2023 06:20:45 11/10/19 24 11/11/2023 COMP. METAB OLIC PANEL (14) protein, total 6.5 g/dL 6.0-8. 5 Not Available [facility] ([facility]) [address] [place], [address], 11/11/2023 06:20:45 11/10/19 24 11/11/2023 COMP. METAB OLIC PANEL (14) albumin 4.2 g/dL 3.9-4. 9 Not Available [facility] ([facility]) [address] [place], [address], 11/11/2023 06:20:45 11/10/19 24 11/11/2023 COMP. METAB OLIC PANEL (14) globulin, total 2.3 g/dL 1.5-4. 5 Not Available [facility] ([facility]) [address] [place], [address], 11/11/2023 06:20:45 11/10/19 24 11/11/2023 COMP. METAB OLIC PANEL (14) A/G ratio 1.8 1.2-2. 2 Not Available [facility] ([facility]) [address], [place], [address], 11/11/2023 06:20:45 11/10/19 24 11/11/2023 COMP. METAB OLIC PANEL (14) bilirubin, total 0.5 mg/dL 0.0-1. 2 Not Available [facility] ([facility]) [address] [facility] [place], [address], 11/11/2023 06:20:45 11/10/19 24 11/11/2023 COMP. METAB OLIC PANEL (14) alkaline phosphatase 148 IU/L 44-121 above high normal Not Available [facility] ([facility] [address] [facility] [place], [address], 11/11/2023 06:20:45 11/10/19 24 11/11/2023 COMP. METAB OLIC PANEL (14) AST (SGOT) 19 IU/L 0-40 Not Available [facility] ([facility]) [address] [facility], [place], [address], 11/11/2023 06:20:45 11/10/19 24 11/11/2023 COMP. METAB OLIC PANEL (14) ALT (SGPT) 14 IU/L 0-32 Not Available [facility] ([facility]) [address] [facility], [place], [address], 11/11/2023 06:20:45 11/10/19 24 11/10/2023 CBC WITH DIFFE RENTI AL/PL ATELE T WBC 9.9 x10e3 /uL 3.4-10 .8 Not Available [facility] ([facility]) [address] [place], [address], 11/11/2023 06:20:46 11/10/19 24 11/10/2023 CBC WITH DIFFE RENTI AL/PL ATELE T RBC 4.60 x10e6 /uL 3.77-5 .28 Not Available [facility] ([facility]) [address] [facility], [place], [address], 11/11/2023 06:20:46 11/10/19 24 11/10/2023 CBC WITH DIFFE RENTI AL/PL ATELE T hemoglobin 14.0 g/dL 11.1-1 5.9 Not Available [facility] ([facility]) [address] [place], [address], 11/11/2023 06:20:46 11/10/19 24 11/10/2023 CBC WITH DIFFE RENTI AL/PL ATELE T hematocrit 42.1 % 34.0-4 6.6 Not Available [facility] ([facility]) [address] [place], [address], 11/11/2023 06:20:46 11/10/19 24 11/10/2023 CBC WITH DIFFE RENTI AL/PL ATELE T MCV 92 fL 79-97 Not Available [facility] ([facility]) [address] [place], [address], 11/11/2023 06:20:46 11/10/19 24 11/10/2023 CBC WITH DIFFE RENTI AL/PL ATELE T MCH 30.4 pg 26.6-3 3.0 Not Available [facility] ([facility]) [address] [facility], [place], [address], 11/11/2023 06:20:46 11/10/19 24 11/10/2023 CBC WITH DIFFE RENTI AL/PL ATELE T MCHC 33.3 g/dL 31.5-3 5.7 Not Available [facility] ([facility]) [address] [facility], [place], [address], 11/11/2023 06:20:46 11/10/19 24 11/10/2023 CBC WITH DIFFE RENTI AL/PL ATELE T RDW 12.9 % 11.7-1 5.4 Not Available [facility] ([facility]) [address] [facility], [place], [address], 11/11/2023 06:20:46 11/10/19 24 11/10/2023 CBC WITH DIFFE RENTI AL/PL ATELE T platelets 271 x10e3 /uL 150-45 0 Not Available [facility] ([facility]) [address] [place], [address], 11/11/2023 06:20:46 11/10/19 24 11/10/2023 CBC WITH DIFFE RENTI AL/PL ATELE T neutrophils 75 % notest ab. Not Available [facility] ([facility]) [address] [place], [address], 11/11/2023 06:20:46 11/10/19 24 11/10/2023 CBC WITH DIFFE RENTI AL/PL ATELE T lymphs 16 % notest ab. Not Available [facility] ([facility]) [address] [place], [address], 11/11/2023 06:20:46 11/10/19 24 11/10/2023 CBC WITH DIFFE RENTI AL/PL ATELE T monocytes 7 % notest ab. Not Available [facility] ([facility]) [address] [facility], [place], [address], 11/11/2023 06:20:46 11/10/19 24 11/10/2023 CBC WITH DIFFE RENTI AL/PL ATELE T eos 0 % notest ab. Not Available [facility] ([facility]) [address] [facility], [place], [address], 11/11/2023 06:20:46 11/10/19 24 11/10/2023 CBC WITH DIFFE RENTI AL/PL ATELE T basos 1 % notest ab. Not Available [facility] ([facility]) [address] [facility], [place], [address], 11/11/2023 06:20:46 11/10/19 24 11/10/2023 CBC WITH DIFFE RENTI AL/PL ATELE T neutrophils (absolute) 7.5 x10e3 /uL 1.4-7. 0 above high normal Not Available [facility] ([facility]) [address] [place], [address], 11/11/2023 06:20:46 11/10/19 24 11/10/2023 CBC WITH DIFFE RENTI AL/PL ATELE T lymphs (absolute) 1.6 x10e3 /uL 0.7-3. 1 Not Available [facility] ([facility]) [address] [place], [address], 11/11/2023 06:20:46 11/10/19 24 11/10/2023 CBC WITH DIFFE RENTI AL/PL ATELE T monocytes(ab solute) 0.7 x10e3 /uL 0.1-0. 9 Not Available [facility] ([facility]) [address] [place], [address], 11/11/2023 06:20:46 11/10/19 24 11/10/2023 CBC WITH DIFFE RENTI AL/PL ATELE T eos (absolute) 0.0 x10e3 /uL 0.0-0. 4 Not Available [facility] ([facility]) [address] [facility], [place], [address], 11/11/2023 06:20:46 11/10/19 24 11/10/2023 CBC WITH DIFFE RENTI AL/PL ATELE T baso (absolute) 0.1 x10e3 /uL 0.0-0. 2 Not Available [facility] ([facility]) [address] [place], [address], 11/11/2023 06:20:46 11/10/19 24 11/10/2023 CBC WITH DIFFE RENTI AL/PL ATELE T immature granulocytes 1 % notest ab. Not Available [facility] ([facility]) [address] [place], [address], 11/11/2023 06:20:46 11/10/19 24 11/10/2023 CBC WITH DIFFE RENTI AL/PL ATELE T immature grans (abs) 0.1 x10e3 /uL 0.0-0. 1 Not Available [facility] ([facility]) [address] [place], [address], 11/11/2023 06:20:46 01/06/20 24 01/07/2024 BASIC METAB OLIC PANEL (8) glucose 92 mg/dL 70-99 Not Available [facility] ([facility]) [address] [place], [address], 01/07/2024 09:14:17 01/06/20 24 01/07/2024 BASIC METAB OLIC PANEL (8) BUN 45 mg/dL 8-27 above high normal Not Available [facility] ([facility]) [address] [place], [address], 01/07/2024 09:14:17 01/06/20 24 01/07/2024 BASIC METAB OLIC PANEL (8) creatinine 1.11 mg/dL 0.57-1 .00 above high normal Not Available [facility] ([facility]) [address] [place], [address], 01/07/2024 09:14:17 01/06/20 24 01/07/2024 BASIC METAB OLIC PANEL (8) eGFR 53 mL/mi n/1.7 3 >59 below low normal Not Available [facility] ([facility]) [address] [place], [address], 01/07/2024 09:14:17 01/06/20 24 01/07/2024 BASIC METAB OLIC PANEL (8) BUN/creatini ne ratio 41 12-28 above high normal Not Available [facility] ([facility]) [address] [place], [address], 01/07/2024 09:14:17 01/06/20 24 01/07/2024 BASIC METAB OLIC PANEL (8) sodium 137 mmol/ L 134-14 4 Not Available [facility] ([facility]) [address] [place], [address], 01/07/2024 09:14:17 01/06/20 24 01/07/2024 BASIC METAB OLIC PANEL (8) potassium 5.9 mmol/ L 3.5-5. 2 above high normal Not Available [facility] ([facility]) [address] [place], [address], 01/07/2024 09:14:17 01/06/20 24 01/07/2024 BASIC METAB OLIC PANEL (8) chloride 100 mmol/ L 96-106 Not Available [facility] ([facility]) [address] [place], [address], 01/07/2024 09:14:17 01/06/20 24 01/07/2024 BASIC METAB OLIC PANEL (8) carbon dioxide, total 21 mmol/ L 20-29 Not Available [facility] ([facility]) [address] [place], [address], 01/07/2024 09:14:17 01/06/20 24 01/07/2024 BASIC METAB OLIC PANEL (8) calcium 9.7 mg/dL 8.7-10 .3 Not Available [facility] ([facility]) [address] [place], [address], 01/07/2024 09:14:17 01/14/20 24 01/15/2024 BASIC METAB OLIC PANEL (8) glucose 80 mg/dL 70-99 Not Available [facility] ([facility]) [address] [place], [address], 01/15/2024 11:15:36 01/14/20 24 01/15/2024 BASIC METAB OLIC PANEL (8) BUN 26 mg/dL 8-27 Not Available [facility] ([facility]) [address] [place], [address], 01/15/2024 11:15:36 01/14/20 24 01/15/2024 BASIC METAB OLIC PANEL (8) creatinine 1.04 mg/dL 0.57-1 .00 above high normal Not Available [facility] ([facility]) [address] [place], [address], 01/15/2024 11:15:36 01/14/20 24 01/15/2024 BASIC METAB OLIC PANEL (8) eGFR 58 mL/mi n/1.7 3 >59 below low normal Not Available [facility] ([facility]) [address] [place], [address], 01/15/2024 11:15:36 01/14/20 24 01/15/2024 BASIC METAB OLIC PANEL (8) BUN/creatini ne ratio 25 12-28 Not Available [facility] ([facility]) [address] [place], [address], 01/15/2024 11:15:36 01/14/20 24 01/15/2024 BASIC METAB OLIC PANEL (8) sodium 141 mmol/ L 134-14 4 Not Available [facility] ([facility]) [address] [facility] [place], [address], 01/15/2024 11:15:36 01/14/20 24 01/15/2024 BASIC METAB OLIC PANEL (8) potassium 4.7 mmol/ L 3.5-5. 2 Not Available [facility] ([facility]) [address] [place], [address], 01/15/2024 11:15:36 01/14/20 24 01/15/2024 BASIC METAB OLIC PANEL (8) chloride 104 mmol/ L 96-106 Not Available [facility] ([facility]) [address] [place], [address], 01/15/2024 11:15:36 01/14/20 24 01/15/2024 BASIC METAB OLIC PANEL (8) carbon dioxide, total 20 mmol/ L 20-29 Not Available [facility] ([facility]) [address] [place], [address], 01/15/2024 11:15:36 01/14/20 24 01/15/2024 BASIC METAB OLIC PANEL (8) calcium 9.3 mg/dL 8.7-10 .3 Not Available [facility] ([facility]) [address] [place], [address], 01/15/2024 11:15:36 04/11/20 24 04/12/2024 BASIC METAB OLIC PANEL (8) glucose 102 mg/dL 70-99 above high normal Not Available [facility] ([facility]) [address] [place], [address], 04/12/2024 03:37:19 04/11/20 24 04/12/2024 BASIC METAB OLIC PANEL (8) BUN 25 mg/dL 8-27 Not Available [facility] ([facility]) [address] [place], [address], 04/12/2024 03:37:19 04/11/20 24 04/12/2024 BASIC METAB OLIC PANEL (8) creatinine 0.96 mg/dL 0.57-1 .00 Not Available [facility] ([facility]) [address] [place], [address], 04/12/2024 03:37:19 04/11/20 24 04/12/2024 BASIC METAB OLIC PANEL (8) eGFR 63 mL/mi n/1.7 3 >59 Not Available [facility] ([facility]) [address] [place], [address], 04/12/2024 03:37:19 04/11/20 24 04/12/2024 BASIC METAB OLIC PANEL (8) BUN/creatini ne ratio 26 12-28 Not Available [facility] ([facility]) [address] [place], [address], 04/12/2024 03:37:19 04/11/20 24 04/12/2024 BASIC METAB OLIC PANEL (8) sodium 138 mmol/ L 134-14 4 Not Available [facility] ([facility]) [address] [place], [address], 04/12/2024 03:37:19 04/11/20 24 04/12/2024 BASIC METAB OLIC PANEL (8) potassium 5.0 mmol/ L 3.5-5. 2 Not Available [facility] ([facility]) [address] [place], [address], 04/12/2024 03:37:19 04/11/20 24 04/12/2024 BASIC METAB OLIC PANEL (8) chloride 102 mmol/ L 96-106 Not Available [facility] ([facility]) [address] [facility], [place], [address], 04/12/2024 03:37:19 04/11/20 24 04/12/2024 BASIC METAB OLIC PANEL (8) carbon dioxide, total 20 mmol/ L 20-29 Not Available [facility] ([facility]) [address] [facility], [place], [address], 04/12/2024 03:37:19 04/11/20 24 04/12/2024 BASIC METAB OLIC PANEL (8) calcium 9.5 mg/dL 8.7-10 .3 Not Available [facility] ([facility]) [address] [facility], [place], [address], 04/12/2024 03:37:19 04/11/20 24 04/12/2024 MAGNE SIUM magnesium 2.2 mg/dL 1.6-2. 3 Not Available [facility] ([facility]) [address] [place], [address], 04/12/2024 03:37:20 08/19/20 24 08/20/2024 LIPID PANEL cholesterol, total 288 mg/dL 100-19 9 above high normal Not Available [facility] ([facility]) [address] [facility], [place], [address], 08/20/2024 07:11:04 08/19/20 24 08/20/2024 LIPID PANEL triglyceride s 127 mg/dL 0-149 Not Available [facility] ([facility]) [address] [place], [address], 08/20/2024 07:11:04 08/19/20 24 08/20/2024 LIPID PANEL HDL cholesterol 74 mg/dL >39 Not Available [facility] ([facility]) [address] [place], [address], 08/20/2024 07:11:04 08/19/20 24 08/20/2024 LIPID PANEL VLDL cholesterol uli 22 mg/dL 5-40 Not Available [facility] ([facility]) [address] [place], [address], 08/20/2024 07:11:04 08/19/20 24 08/20/2024 LIPID PANEL LDL chol calc (rust) 192 mg/dL 0-99 above high normal Not Available [facility] ([facility]) [address] [facility], [place], [address], 08/20/2024 07:11:04 08/19/20 24 08/20/2024 LIPID PANEL LDL calc comment: COMMEN T Consi jeremiah evalu ating for Famil ial Hyper akhil stero lemia (), if clini dede indic ated. Not Available [facility] ([facility]) [address] [facility], [place], [address], 08/20/2024 07:11:04 08/19/20 24 08/20/2024 COMP. METAB OLIC PANEL (14) glucose 90 mg/dL 70-99 Not Available [facility] ([facility]) [address] [place], [address], 08/20/2024 07:11:05 08/19/20 24 08/20/2024 COMP. METAB OLIC PANEL (14) BUN 22 mg/dL 8-27 Not Available [facility] ([facility]) [address] [place], [address], 08/20/2024 07:11:05 08/19/20 24 08/20/2024 COMP. METAB OLIC PANEL (14) creatinine 0.91 mg/dL 0.57-1 .00 Not Available [facility] ([facility]) [address] [place], [address], 08/20/2024 07:11:05 08/19/20 24 08/20/2024 COMP. METAB OLIC PANEL (14) eGFR 67 mL/mi n/1.7 3 >59 Not Available [facility] ([facility]) [address] [facility], [place], [address], 08/20/2024 07:11:05 08/19/20 24 08/20/2024 COMP. METAB OLIC PANEL (14) BUN/creatini ne ratio 08-27 Not Available [facility] ([facility]) [address] [facility], [place], [address], 08/20/2024 07:11:05 08/19/20 24 08/20/2024 COMP. METAB OLIC PANEL (14) sodium 141 mmol/ L 134-14 4 Not Available [facility] ([facility] [address] [facility], [place], [address], 08/20/2024 07:11:05 08/19/20 24 08/20/2024 COMP. METAB OLIC PANEL (14) potassium 4.2 mmol/ L 3.5-5. 2 Not Available [facility] ([facility]) [address] [facility], [place], [address], 08/20/2024 07:11:05 08/19/20 24 08/20/2024 COMP. METAB OLIC PANEL (14) chloride 102 mmol/ L 96-106 Not Available [facility] ([facility]) [address] [facility], [place], [address], 08/20/2024 07:11:05 08/19/20 24 08/20/2024 COMP. METAB OLIC PANEL (14) carbon dioxide, total 23 mmol/ L 20-29 Not Available [facility] ([facility]) [address] [facility], [place], [address], 08/20/2024 07:11:05 08/19/20 24 08/20/2024 COMP. METAB OLIC PANEL (14) calcium 9.3 mg/dL 8.7-10 .3 Not Available [facility] ([facility]) [address] [facility], [place], [address], 08/20/2024 07:11:05 08/19/20 24 08/20/2024 COMP. METAB OLIC PANEL (14) protein, total 6.6 g/dL 6.0-8. 5 Not Available [facility] ([facility]) [address] [place], [address], 08/20/2024 07:11:05 08/19/20 24 08/20/2024 COMP. METAB OLIC PANEL (14) albumin 4.2 g/dL 3.8-4. 8 Not Available [facility] ([facility]) [address] [place], [address], 08/20/2024 07:11:05 08/19/20 24 08/20/2024 COMP. METAB OLIC PANEL (14) globulin, total 2.4 g/dL 1.5-4. 5 Not Available [facility] ([facility]) [address] [place], [address], 08/20/2024 07:11:05 08/19/20 24 08/20/2024 COMP. METAB OLIC PANEL (14) bilirubin, total 0.6 mg/dL 0.0-1. 2 Not Available [facility] ([facility]) [address] [place], [address], 08/20/2024 07:11:05 08/19/20 24 08/20/2024 COMP. METAB OLIC PANEL (14) alkaline phosphatase 136 IU/L 44-121 above high normal Not Available [facility] ([facility]) [address] [place], [address], 08/20/2024 07:11:05 08/19/20 24 08/20/2024 COMP. METAB OLIC PANEL (14) AST (SGOT) 18 IU/L 0-40 Not Available [facility] ([facility]) [address] [place], [address], 08/20/2024 07:11:05 08/19/20 24 08/20/2024 COMP. METAB OLIC PANEL (14) ALT (SGPT) 12 IU/L 0-32 Not Available [facility] ([facility]) [address] [facility], [place], [address], 08/20/2024 07:11:05 08/19/20 24 08/20/2024 CBC WITH DIFFE RENTI AL/PL ATELE T WBC 7.2 x10e3 /uL 3.4-10 .8 Not Available [facility] ([facility]) [address] [facility], [place], [address], 08/20/2024 07:11:06 08/19/20 24 08/20/2024 CBC WITH DIFFE RENTI AL/PL ATELE T RBC 4.63 x10e6 /uL 3.77-5 .28 Not Available [facility] ([facility]) [address] [facility], [place], [address], 08/20/2024 07:11:06 08/19/20 24 08/20/2024 CBC WITH DIFFE RENTI AL/PL ATELE T hemoglobin 14.9 g/dL 11.1-1 5.9 Not Available [facility] ([facility]) [address] [facility], [place], [address], 08/20/2024 07:11:06 08/19/20 24 08/20/2024 CBC WITH DIFFE RENTI AL/PL ATELE T hematocrit 44.6 % 34.0-4 6.6 Not Available [facility] ([facility]) [address] [facility], [place], [address], 08/20/2024 07:11:06 08/19/20 24 08/20/2024 CBC WITH DIFFE RENTI AL/PL ATELE T MCV 96 fL 79-97 Not Available [facility] ([facility]) [address] [place], [address], 08/20/2024 07:11:06 08/19/20 24 08/20/2024 CBC WITH DIFFE RENTI AL/PL ATELE T MCH 32.2 pg 26.6-3 3.0 Not Available [facility] ([facility]) [address] [facility], [place], [address], 08/20/2024 07:11:06 08/19/20 24 08/20/2024 CBC WITH DIFFE RENTI AL/PL ATELE T MCHC 33.4 g/dL 31.5-3 5.7 Not Available [facility] ([facility]) [address] [facility], [place], [address], 08/20/2024 07:11:06 08/19/20 24 08/20/2024 CBC WITH DIFFE RENTI AL/PL ATELE T RDW 12.5 % 11.7-1 5.4 Not Available [facility] ([facility]) [address] [facility], [place], [address], 08/20/2024 07:11:06 08/19/20 24 08/20/2024 CBC WITH DIFFE RENTI AL/PL ATELE T platelets 261 x10e3 /uL 150-45 0 Not Available [facility] ([facility]) [address] [facility], [place], [address], 08/20/2024 07:11:06 08/19/20 24 08/20/2024 CBC WITH DIFFE RENTI AL/PL ATELE T neutrophils 66 % notest ab. Not Available [facility] ([facility]) [address] [facility], [place], [address], 08/20/2024 07:11:06 08/19/20 24 08/20/2024 CBC WITH DIFFE RENTI AL/PL ATELE T lymphs 21 % notest ab. Not Available [facility] ([facility]) [address] [place] [address], [address], 08/20/2024 07:11:06 08/19/20 24 08/20/2024 CBC WITH DIFFE RENTI AL/PL ATELE T monocytes 8 % notest ab. Not Available [facility] ([facility]) [address] [facility], [place], [address], 08/20/2024 07:11:06 08/19/20 24 08/20/2024 CBC WITH DIFFE RENTI AL/PL ATELE T eos 3 % notest ab. Not Available [facility] ([facility]) [address] [facility], [place], [address], 08/20/2024 07:11:06 08/19/20 24 08/20/2024 CBC WITH DIFFE RENTI AL/PL ATELE T basos 1 % notest ab. Not Available [facility] ([facility]) [address] [facility], [place], [address], 08/20/2024 07:11:06 08/19/20 24 08/20/2024 CBC WITH DIFFE RENTI AL/PL ATELE T neutrophils (absolute) 4.9 x10e3 /uL 1.4-7. 0 Not Available [facility] ([facility]) [address] [facility], [place], [address], 08/20/2024 07:11:06 08/19/20 24 08/20/2024 CBC WITH DIFFE RENTI AL/PL ATELE T lymphs (absolute) 1.5 x10e3 /uL 0.7-3. 1 Not Available [facility] ([facility]) [address] [facility], [place], [address], 08/20/2024 07:11:06 08/19/20 24 08/20/2024 CBC WITH DIFFE RENTI AL/PL ATELE T monocytes(ab solute) 0.5 x10e3 /uL 0.1-0. 9 Not Available [facility] ([facility]) [address] [facility], [place], [address], 08/20/2024 07:11:06 08/19/20 24 08/20/2024 CBC WITH DIFFE RENTI AL/PL ATELE T eos (absolute) 0.2 x10e3 /uL 0.0-0. 4 Not Available [facility] ([facility]) [address] [facility], [place], [address], 08/20/2024 07:11:06 08/19/20 24 08/20/2024 CBC WITH DIFFE RENTI AL/PL ATELE T baso (absolute) 0.0 x10e3 /uL 0.0-0. 2 Not Available [facility] ([facility]) [address] [facility], [place], [address], 08/20/2024 07:11:06 08/19/20 24 08/20/2024 CBC WITH DIFFE RENTI AL/PL ATELE T immature granulocytes 1 % notest ab. Not Available [facility] ([facility]) [address] [facility], [place], [address], 08/20/2024 07:11:06 08/19/20 24 08/20/2024 CBC WITH DIFFE RENTI AL/PL ATELE T immature grans (abs) 0.1 x10e3 /uL 0.0-0. 1 Not Available [facility] ([facility]) [address] [facility], [place], [address], 08/20/2024 07:11:06 12/29/19 24 12/29/2023 elect pawan diogr am No observ ation record ed. cyahlma Not Available 2023 16:03:33 01/14/20 24 01/14/2024 US, echoc ardio gram No observ ation record ed. cyahlma [facility] [address], [place], [address], 01/26/2024 11:26:29 03/01/20 24 03/01/2024 CT, abdom en + pelvi s, w/o contr ast No observ ation record ed. [email or web address] [facility] [address] [place], [address], 03/04/2024 13:51:33 03/02/20 24 03/02/2024 XR, chola ngiop ancre atogr am No observ ation record ed. [facility] [address], [place], [address], 03/04/2024 16:14:06 07/25/20 24 01/12/2023 MAMMO , scree isiah, digit al, bilat eral No observ ation record ed. [facility] [address] [place], [address], 07/26/2024 09:40:11 07/26/20 24 01/12/2015 US, aris t, limit ed No observ ation record ed. [facility] [address] [place], [address], 07/26/2024 09:40:11 08/09/20 24 08/09/2024 cy can cardi olite stres s test (PROC ) No observ ation record ed. [address] [address], [place], [address], 08/09/2024 14:11:50 08/09/20 24 08/09/2024 cy can cardi olite stres s test (PROC ) No observ ation record ed. [address], [place], [address], 08/17/2024 09:46:27 08/09/20 24 08/09/2024 cy can cardi olite stres s test (PROC ) No observ ation record ed. [address], [place], [address], 08/11/2024 22:09:27 08/30/20 24 08/30/2024 XR, femur , 1 view No observ ation record ed. [id number] [facility], [place], [address], 09/02/2024 10:20:33 08/30/20 24 08/30/2024 XR, hip + pelvi s, bilat eral, 2 view No observ ation record ed. [facility] [address], [place], [address], 09/02/2024 10:19:55 Result Notes None recorded. Problems Name Problem SNOMED Code Status Onset Date Resolution Date Notes Provider Name and Address Organization Details Recorded Time Congestive heart failure 78502913 Active 2023 Tanesha Farr MA null, [place] - [facility] 4 13:27:56 Hypokalemia 48193285 Active 2023 Paulette Rondon MD Attn: Maranda stewart,[address] [facility], [place], [address], [facility] 4 22:26:43 Essential hypertension 36550072 Active 2023 Paulette Rondon MD Attn: Maranda stewart,[address] [facility], [place], [address], [place] [facility] 4 22:41:57 Chronic obstructive pulmonary disease 75987763 Active 2023 Paulette Rondon MD Attn: Maranda stewart,[address] [facility], [place], [address], [place] [facility] 4 22:00:27 Anxiety 72737043 Active 2023 Paulette Rondon MD Attn: Maranda stewart,[address] [facility], [place], [address], [place] [facility] 4 22:00:31 Problem Notes None recorded. Procedures Surgical History Date Name Laterality Status Provider Name and Address Organization Details Recorded Time Eye Surgery completed Myranda Ramos MA [facility] 11/10/2023 10:09:24 Knee Surgery completed Myranda Ramos MA [facility] 11/10/2023 10:09:36 ligation of bilateral fallopian tubes completed Myranda aRmos MA [facility] 11/10/2023 10:09:59 delivery completed Myranda Ramos MA [facility] 11/10/2023 10:10:24 Imaging Results Imaging Date Name Status LastModified by Organization Details LastModified Time 4 electrocardiogram completed [facility] Information not available 02/02/2024 16:03:33 4 US, echocardiogram completed [facility] [address], [place], [address], 01/26/2024 11:26:[address], abdomen + pelvis, w/o contrast completed [facility] [address] [place], [address], 03/04/2024 13:51:33 4 XR, cholangiopancreatogram completed [address], [address], 03/04/2024 16:14:06 3 MAMMO, screening, digital, bilateral completed [facility] [address] [place], [address], 07/26/2024 09:40:11 5 US, breast, limited completed [facility] [address] [place], [address], 07/26/2024 09:40:11 4 lexiscan cardiolite stress test (PROC) completed [address] [place] [address], [address], 08/09/2024 14:11:50 4 lexiscan cardiolite stress test (PROC) completed [address], [address], 08/17/2024 09:46:27 4 lexiscan cardiolite stress test (PROC) completed [address], [address], 08/11/2024 22:09:27 4 XR, femur, 1 view completed [address], [place], [address], 09/02/2024 10:20:33 4 XR, hip + pelvis, bilateral, 2 view completed [address] [place] [facility] [address], [place], [address], 09/02/2024 10:19:55 Procedure Notes None recorded. Medical Equipment None Reported. Allergies Allergen ID Allergen Name Allergen Category Reaction Reaction Severity Criticality Documentation Date Start Date Code Code System Note Provider Name and Address Organization Details Recorded Time 016235 Levaquin medicatio n Not available Not available Not available 11/10/2023 17244 2 RxNorm GLENNA Dale, [facility] 4 10:02:46 280828 Product containin g 3-hydroxy -3-methyl glutaryl- coenzyme A reductase inhibitor (product) medicatio n Not available Not available Not available 11/10/2023 28323 009 GLENNA Arana, [facility] 4 10:02:53 451325 Product containin g angiotens in-conver ting enzyme inhibitor (product) medicatio n Not available Not available Not available 11/10/2023 63382 009 GLENNA Arana, [facility] 4 10:03:04 Medications Name Sig Start Date [...] Not Avai lable Vitals Date Recorded Body weight Body mass index (BMI) Body height Heart rate Oxygen saturation Oxygen saturation in Arterial blood by Pulse oximetry Systolic blood pressure Diastolic blood pressure Provider Name and Address Organization Details Last Updated DateTime 4 90731.0 4 g 27.4 kg/m2 158.75 cm 62 /min 92 % 92 % 159 mm[Hg] 81 mm[Hg] Myranda Ramos MA [facility] 4 10:13:38 Date Recorded Body height Body mass index (BMI) Body weight Heart rate Oxygen saturation Oxygen saturation in Arterial blood by Pulse oximetry Systolic blood pressure Diastolic blood pressure Provider Name and Address Organization Details Last Updated DateTime 4 158.75 cm 29 kg/m2 99439.8 1 g 69 /min 93 % 93 % 146 mm[Hg] 82 mm[Hg] Carla Wright MA [facility] 4 12:14:08 Date Recorded Body height Body mass index (BMI) Body weight Oxygen saturation Oxygen saturation in Arterial blood by Pulse oximetry Heart rate Systolic blood pressure Diastolic blood pressure Provider Name and Address Organization Details Last Updated DateTime 4 158.75 cm 27.4 kg/m2 87165.0 4 g 96 % 96 % 72 /min 136 mm[Hg] 84 mm[Hg] Myranda Ramos MA [facility] 4 11:09:05 Date Recorded Body height Body mass index (BMI) Body weight Provider Name and Address Organization Details Last Updated DateTime 03/28/2024 158.75 cm 27.2 kg/m2 26842.45 g Carla Wright MA [facility] 03/28/2024 10:49:58 Date Recorded Body height Body mass index (BMI) Body weight Heart rate Oxygen saturation Oxygen saturation in Arterial blood by Pulse oximetry Systolic blood pressure Diastolic blood pressure Provider Name and Address Organization Details Last Updated DateTime 158.75 cm 27.6 kg/m2 50305.0 7 g 71 /min 96 % 96 % 110 mm[Hg] 70 mm[Hg] Loly George [place] [facility] 09:55:31 Social History Question Answer Notes LastModified by Organizat ion Details LastModified Time Tobacco Smoking Status Never Smoker quit 01/02/2024 Myranda Ramos [place] null, [place] [facility] 01/06/2024 10:55:37 What Is Your Level Of [...] Anxious, Or Unable To Sleep At Night)? [id number] Information not available 11/10/2023 Do You Use [...] [email or web address] Not available 10/29 10:06:15 Sister Hypercholest alejandro mauro Not available 10/29 10:06:32 Medical History Condition Response Coronary Artery Disease N Other N Atrial Fibrillation N High Blood Pressure N Thyroid Problems N Kidney or Bladder Problems N Depression Y COPD Y Blood Clots N GI Problems N Skin Problems N Anemia N Heart Attack ([place]) N Diabetes N Anxiety Disorder N Muscle, [...] Influenza, split virus, quadrivalent, preservative 6 completed Tanesha F[place] [facility] 06/22/2024 12:53:17 zoster recombinant 3 completed Tanesha F[place] [facility] 06/22/2024 12:53:17 zoster recombinant 3 completed Tanesha F[place] [facility] 06/22/2024 12:53:17 Influenza, high-dose, quadrivalent, PF 3 completed Tanesha F[place] [facility] 06/22/2024 12:53:17 Influenza, high-dose, quadrivalent, PF 0 completed Tanesha F[place] [facility] 06/22/2024 12:53:17 Influenza, high-dose, quadrivalent, PF 1 completed Tanesha F[place] [facility] 06/22/2024 12:53:17 Influenza, high-dose, quadrivalent, PF 2 completed Tanesha F[place] [facility] 06/22/2024 12:53:17 COVID-19, mRNA, LNP-S, PF, 100 mcg/0.5mL dose or 50 mcg/0.25mL dose 2 completed Tanesha Farr [place] [facility] 06/22/2024 12:53:17 COVID-19, mRNA, [...] 12:53:17 Influenza, high-dose, trivalent, PF 9 completed GLENNA Nicolas, [place] [facility] [...] SNOMED-CT Code Diagnosis ICD10 Code Diagnosis Note [id number] MD Bonny Clemente (Adult Med) [address] [place] [address] 11/10/2023 09:33:27 11/10/2023 10:56:10 Essential hypertension 76668920 I10 Acute bronchitis 6679746 2 J20.9 Chronic ob structive pulmonary disease 05286559 J44.9 Anxiety 25764278 F41.9 Osteoarthritis 320131181 M19.90 [id number] MD Bonny Clemente (Adult Med) [address] [place] [address] 12/29/2023 12:01:14 12/29/2023 13:25:07 Congestive heart failure 09822651 I50.9 Chronic rhinitis 5611408 6 J31.0 Hypokalemia 88480634 E87 .6 [id number] MD Bonny Clemente (Adult Med) [address] [place] [address] 01/06/2024 10:31:21 01/06/2024 12:05:19 Congestive heart failure 13725111 I50.9 [id number] Paulette Rondon MD [facility] [place] [address] [place] [address] 03/28/2024 10:41:57 03/28/2024 11:31:42 Overweight 787503759 E66.3 Essential hypertension 71453937 I10 [id number] Paulette Rondon MD [facility] [place] [address] [place] [address] 07/25/2024 09:43:06 07/25/2024 10:45:16 Essential hypertension 81883245 I10 Congestive heart failure 80949987 I50.9 Chronic ob structive pulmonary disease 07551236 J44.9 Anxiety 58865441 F41.9 Hypokalemia 23404006 E87 .6 Health Concerns Section Related Observation LastModified by Organization Detai ls LastModified Time None Recorded Concern Status LastModified by Organization Details LastModified Time None Recorded Advance Directives Directive None Recorded Payers Encounter Date Sequence Insurance Name Policy Number Policy Golden Covered Member ID Golden Member ID Guarantor Name 11/10/2023 1 [facility] (MEDICARE REPLACEMENT/A DVANTAGE - HMO) [id number] Kinga Helton [id number] Kinga Helton 12/29/2023 1 [facility] (MEDICARE REPLACEMENT/A DVANTAGE - HMO) [id number] Kinga Helton [id number] Kinga Helton 01/06/2024 1 [facility] (MEDICARE REPLACEMENT/A DVANTAGE - HMO) [id number] Kinga Helton [id number] Kinga Helton 03/28/2024 1 [facility] (MEDICARE REPLACEMENT/A DVANTAGE - HMO) [id number] Kinga Helton [id number] Kinga Helton 07/25/2024 1 [facility] (MEDICARE REPLACEMENT/A DVANTAGE - HMO) [id number] Kinga Helton [id number] Kinga Helton Notes Date Note Type Note Provider Name and Address Organization Details Recorded Time 11/10/2023 text/html Hypertension no headache or dizziness dyslipidemia needs to have blood work rechecked osteoarthritis is doing fine. No nausea no vomiting depression and anxiety are stable. Bronchitis with cough wheezing shortness of breath for about a week no hemoptysis Paulette Rondon MD Attn: Accounting, [address] [facility], [place], [address], [place] [facility] 11/14/2023 23:06:50 12/29/2023 text/html Has some cough wheezing shortness of breath and want up in the emergency room chest x-ray showed some small bilateral effusions still with no PND, orthopnea or edema no palpitations Paulette Rondon MD Attn: Accounting, [address] [place], [address], [place] [facility] 12/29/2023 22:27:39 01/06/2024 text/html She feels better she went up on the Lasix to 40 mg herself Paulette Rondon MD Attn: Accounting, [address] [place], [address], [place] [facility] 01/11/2024 21:15:45 03/28/2024 text/html had her laparosc opic cholecystectomy doing well. Blood pressure is up a little bit. heart failure with preserved ejection fraction stable Paulette Rondon MD Attn: Accounting, [address] [place], [address], [place] [facility] 03/31/2024 22:42:35 07/25/2024 text/html Hypertension no headache or dizziness. Hypokalemia asymptomatic remains on potassium. Anxiety stable on her sertraline. COPD using her inhalers no cough or wheezing at this time. History of CHF. Needs noninvasive evaluation Paulette Rondon MD Attn: Accounting, [address] [place], [address], [place] [facility] 07/25/2024 22:03:04 OBGyn Episode No OBEpisode recorded.
--- OUTSIDE RECORDS SUMMARY | 2024-09-06 12:09 | XMS_ITS | CONTINUITY OF CARE DOCUMENT ---
Author Name ashish hinojosa Address Unknown Organization [facility] Address [address] [place] [address] Phone [phone] Care Team Providers Care Flight Test Engineer Name Role Phone Davy CELIS, Cole Unavailable PAULETTE YI MD Unavailable [phone] PAULETTE YI MD Unavailable [phone] PROBLEMS Condition Status Date Provider Notes Congestive heart failure (CHF) active Alisson Ramos INSURANCE PROVIDERS Payer name Policy type / Coverage type [place] [employer] republic[employer] ID [employer] MEDICARE ADVANTAGE HMO-POS HMO [id number] TREATMENT PLAN Date Name Complete Echo
--- OUTSIDE RECORDS SUMMARY | 2024-09-06 12:09 | XMS_ITS | Data Portability ---
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 High will see her back in a couple weeks remain off work until I see her back Mammogram Yearly scan for lung nodule [email or web address] Not available 01/03/2023 15:48:03 01/01/2023 01/01/2023 Patient returns 5th metatarsal fracture shaft fracture oblique left. Overall she is doing fine she is progressing normally she is moving herself into a shoe at this point. Recommend she continue with activity as tolerated avoid overdoing it I will see her back in a month. Her fracture appears to be healing normally. [email or web address] Not available 01/01/2023 11:30:04 01/15/2023 01/15/2023 Continue current therapy keep follow-up [email or web address] Not available 01/24/2023 16:18:54 04/09/2023 04/09/2023 Will continue current therapy will follow-up in 4 months [email or web address] Not available 06/28/2023 17:22:51 07/02/2023 07/02/2023 Her chronic medical problems appear to be stable EKG reviewed she is cleared for surgery for cataracts low-fat diet I have encouraged her to take something for osteoporosis she is going to take calcium and vitamin D the risk of her having more fractures discussed [email or web address] Not available 07/11/2023 13:28:22 Plan of Treatment Reminders Order Date Submit Date Provider Last Modified By Organization Details Last Modified Time Details Appointments None recorded. Lab CMP, serum or plasma [address] [place], [address], 18:44:12 CBC w/ auto diff [address] [place], [address], 3 18:50:45 calcium, ionized, blood [address] [place], [address], 3 11:25:22 magnesium, serum or plasma [address] [place], [address], 3 18:44:17 Referral None recorded. Procedures None recorded. Surgeries None recorded. Imaging MAMMO, diagnostic, digital, unilateral [address] [place], [address], 3 11:52:17 US, breast, unilateral [address] [place], [address], 3 09:32:50 XR, foot, 3 or more view 2022 023 [email or web address] [facility] [place], [facility] [facility] [address], [place], [address], 3 12:17:37 bone density [email or web address] , [place], [address], 11:25:30 electrocard iogram 2022 023 [email or web address] [facility] [address] [place], [place], [address], 14:56:38 Medication Orders None recorded. Patient TargetsNo targets recorded. Patient Instructions Encounter Date Encounter Id Patient Instructions Last Modified By Organization Details Last Modified Time 01/01/2023 [id number] Thank you for your visit to our office today. We would like to request that you reach out to your referring or previous provider and request that they send us a Summary of Care in electronic form, so that we may have it on file in your medical record. At your visit, we had the medical records we needed to provide you with the best possible care; however, for insurance purposes, an electronic Summary of Care is beneficial. Thank you for your assistance in obtaining this information and we look forward to providing continued care to you. Please review your medication list from the Summary of Care for this visit. If there are any differences from what you are currently taking at home, please call us to discuss. [email or web address] Not available 01/01/2023 14:32:54 Homebound Status : {{Patient has an inability to leave the home without a taxing effort and assistance from another person Does not meet homebound status*}} Required Home Health Services: {{none* usp, physical therapy, occupational therapy usp, physical therapy usp}} Durable Medical Equipment needed: {{cane walker wal ker with seat manual wheelchair bedsid e commode oxygen}} Billing Guidelines CPT code 11346- Transitional Care Management services with moderate medical decision complexity ([id number]-tc-[id number] visit within 14 days of discharge). CPT code 99393- Transitional Care Management services with high medical decision complexity ([id number]-bk-[id number] visit within 7 days of discharge). Not available 01/03/2023 15:48:37 Reason for Referral None Reported. Results Created Date Observation Date Name Description Value Unit Range Abnormal Flag Note LastModifiedBy Organization Detail LastModifiedTime 07/02/20 23 07/02/2023 COMPR EHENS LUIS CARLOS METAB OLIC PANEL sodium 138 mmol/ L 137-14 5 Not Available [facility] (Lab) [address] [place], [address], 07/02/2023 18:44:12 07/02/20 23 07/02/2023 COMPR EHENS LUIS CARLOS METAB OLIC PANEL potassium 4.4 mmol/ L 3.5-5. 1 Not Available [facility] (Lab) [address] [place], [address], 07/02/2023 18:44:12 07/02/20 23 07/02/2023 COMPR EHENS LUIS CARLOS METAB OLIC PANEL chloride 106 mmol/ L 98-107 Not Available [facility] (Lab) [address] [place], [address], 07/02/2023 18:44:12 07/02/20 23 07/02/2023 COMPR EHENS LUIS CARLOS METAB OLIC PANEL carbon dioxide 27 mmol/ L 22-30 Not Available [facility] (Lab) [address] [place], [address], 07/02/2023 18:44:12 07/02/20 23 07/02/2023 COMPR EHENS LUIS CARLOS METAB OLIC PANEL anion gap 9.4 mmol/ L 14-22 low Not Available [facility] (Lab) [address] [place], [address], 07/02/2023 18:44:12 07/02/20 23 07/02/2023 COMPR EHENS LUIS CARLOS METAB OLIC PANEL glucose 91 mg/dL 70-99 Not Available [facility] (Lab) [address] [place], [address], 07/02/2023 18:44:12 07/02/20 23 07/02/2023 COMPR EHENS LUIS CARLOS METAB OLIC PANEL BUN 17 mg/dL 8-19 Not Available [facility] (Lab) [address] [place], [address], 07/02/2023 18:44:12 07/02/20 23 07/02/2023 COMPR EHENS LUIS CARLOS METAB OLIC PANEL creatinine 0.78 mg/dL 0.66-1 .25 Not Available [facility] (Lab) [address] [place], [address], 07/02/2023 18:44:12 07/02/20 23 07/02/2023 COMPR EHENS LUIS CARLOS METAB OLIC PANEL GFR >60 Refer ence Range : [place] ge GFR Healt hy Adult : >60 mL/mi n/1.7 3 m2 Chron ic Kidne y Disea se: 15-60 mL/mi n/1.7 3 m2 Kidne y Failu re: <15/m L/min /1.73 m2 www.n iddk. nih.g ov The MDRD study equat ion has not been valid ated in child dave <18 years of age; pregn ant women ; the elder ly >85 years of age; or in some racia l or ethni c subgr oups, such as Hisia nics. Outsi de the valid ated devan eters , estim ated GFR is less accur ate, requi ring clini uli judgm ent on a case- by-ca se basis . Clini uli inter preta tion for other races and ages must be made by the clini erendira. The MDRD study equat ion has not been valid ated for the evalu ation of serum creat inine relat ed to nutri honorio l statu s or medic ation usage . For perso ns <18 years of age, a pedia tric GFR calcu lator is avail able on the F websi te: https ://serafin w.kid suzanne.o rg/pr ofess ional s/kdo qi/gf r_cal culat or Not Available [facility] (Lab) [address] [place], [address], 07/02/2023 18:44:12 07/02/20 23 07/02/2023 COMPR EHENS LUIS CARLOS METAB OLIC PANEL alkaline phosphatase 182 U/L 38-126 high Not Available [facility] (Lab) [address] [place], [address], 07/02/2023 18:44:12 07/02/2007/02/2023 COMPR EHENS LUIS CARLOS METAB OLIC PANEL alanine aminotransfe rase 27 U/L 0-35 Not Available [facility] (Lab) [address] [place], [address], 07/02/2023 18:44:12 07/02/2007/02/2023 COMPR EHENS LUIS CARLOS METAB OLIC PANEL aspartate aminotransfe rase 31 U/L 15-37 Not Available [facility] (Lab) [address] [facility] [place], [address], 07/02/2023 18:44:12 07/02/20 23 07/02/2023 COMPR EHENS LUIS CARLOS METAB OLIC PANEL bilirubin, total 0.90 mg/dL 0.20-1 .30 Not Available [facility] (Lab) [address] [place], [address], 07/02/2023 18:44:12 07/02/2007/02/2023 COMPR EHENS LUIS CARLOS METAB OLIC PANEL calcium 9.7 mg/dL 8.4-10 .2 Not Available [facility] (Lab) [address] [place], [address], 07/02/2023 18:44:12 07/02/2007/02/2023 COMPR EHENS LUIS CARLOS METAB OLIC PANEL total protein 7.3 g/dL 6.3-8. 2 Not Available [facility] (Lab) [address] [place], [address], 07/02/2023 18:44:12 07/02/20 23 07/02/2023 COMPR EHENS LUIS CARLOS METAB OLIC PANEL albumin 4.1 g/dL 3.0-4. 4 Not Available [facility] (Lab) [address] [place], [address], 07/02/2023 18:44:12 07/02/20 23 07/02/2023 COMPR EHENS LUIS CARLOS METAB OLIC PANEL globulin 3.2 g/dL 2.6-4. 2 Not Available [facility] (Lab) [address] [place], [address], 07/02/2023 18:44:12 07/02/20 23 07/02/2023 COMPR EHENS LUIS CARLOS METAB OLIC PANEL A/G ratio 1.3 ratio 1.0-2. 0 Not Available [facility] (Lab) [address] [place], [address], 07/02/2023 18:44:12 07/02/20 23 07/02/2023 MAGNE SIUM magnesium 2.0 mg/dL 1.6-2. 3 Not Available [facility] (Lab) [address] [place], [address], 07/02/2023 18:44:17 07/02/20 23 07/02/2023 CBC/C OMPLE TE BLD COUNT W/DIF F white blood cells 9.9 x10'3 /uL 4.2-10 .8 Not Available [facility] (Lab) [address] [place], [address], 07/02/2023 18:50:45 07/02/20 23 07/02/2023 CBC/C OMPLE TE BLD COUNT W/DIF F red blood cells 4.48 x10'6 /uL 3.80-5 .20 Not Available [facility] (Lab) [address] [place], [address], 07/02/2023 18:50:45 07/02/20 23 07/02/2023 CBC/C OMPLE TE BLD COUNT W/DIF F hemoglobin 14.2 g/dL 12.0-1 5.6 Not Available [facility] (Lab) [address] [place], [address], 07/02/2023 18:50:45 07/02/20 23 07/02/2023 CBC/C OMPLE TE BLD COUNT W/DIF F hematocrit 45.0 % 35.7-4 5.7 Not Available [facility] (Lab) [address] [place], [address], 07/02/2023 18:50:45 07/02/20 23 07/02/2023 CBC/C OMPLE TE BLD COUNT W/DIF F mean red cell volume 100.4 fL 82.0-9 9.0 high Not Available [facility] (Lab) [address] [place], [address], 07/02/2023 18:50:45 07/02/20 23 07/02/2023 CBC/C OMPLE TE BLD COUNT W/DIF F mean red cell hemoglobin 31.7 pg 27.0-3 3.0 Not Available [facility] (Lab) [address] [place], [address], 07/02/2023 18:50:45 07/02/20 23 07/02/2023 CBC/C OMPLE TE BLD COUNT W/DIF F mean RBC HGB concentratio n 31.6 g/dL 31.0-3 6.0 Not Available [facility] (Lab) [address] [place], [address], 07/02/2023 18:50:45 07/02/20 23 07/02/2023 CBC/C OMPLE TE BLD COUNT W/DIF F red cell distribution width 14.4 % 11.8-1 5.5 Not Available [facility] (Lab) [address] [place], [address], 07/02/2023 18:50:45 07/02/20 23 07/02/2023 CBC/C OMPLE TE BLD COUNT W/DIF F platelets 394 x10'3 /uL 150-40 0 Not Available [facility] (Lab) [address] [place], [address], 07/02/2023 18:50:45 07/02/20 23 07/02/2023 CBC/C OMPLE TE BLD COUNT W/DIF F mean platelet volume 11.1 fL 9.0-12 .4 Not Available [facility] (Lab) [address] [place], [address], 07/02/2023 18:50:45 07/02/20 23 07/02/2023 CBC/C OMPLE TE BLD COUNT W/DIF F neutrophils 67.2 % 39.0-7 2.0 Not Available [facility] (Lab) [address] [place], [address], 07/02/2023 18:50:45 07/02/20 23 07/02/2023 CBC/C OMPLE TE BLD COUNT W/DIF F lymphocytes 21.4 % 16.0-4 7.0 Not Available [facility] (Lab) [address] [place], [address], 07/02/2023 18:50:45 07/02/20 23 07/02/2023 CBC/C OMPLE TE BLD COUNT W/DIF F monocytes 6.7 % 5.0-12 .0 Not Available [facility] (Lab) [address] [place], [address], 07/02/2023 18:50:45 07/02/20 23 07/02/2023 CBC/C OMPLE TE BLD COUNT W/DIF F eosinophils 3.5 % 1.0-7. 0 Not Available [facility] (Lab) [address] [place], [address], 07/02/2023 18:50:45 07/02/20 23 07/02/2023 CBC/C OMPLE TE BLD COUNT W/DIF F basophils 0.6 % 0.0-2. 0 Not Available [facility] (Lab) [address] [place], [address], 07/02/2023 18:50:45 07/02/2007/02/2023 CBC/C OMPLE TE BLD COUNT W/DIF F immature granulocytes 0.6 % 0.00-0 .50 high Not Available [facility] (Lab) [address] [place], [address], 07/02/2023 18:50:45 07/02/2007/02/2023 CBC/C OMPLE TE BLD COUNT W/DIF F neutrophils, absolute count 6.67 x10'3 /uL 1.5-8. 0 Not Available [facility] (Lab) [address] [place], [address], 07/02/2023 18:50:45 07/02/2007/02/2023 CBC/C OMPLE TE BLD COUNT W/DIF F lymphocytes, absolute count 2.13 x10'3 /uL 1.07-3 .43 Not Available [facility] (Lab) [address] [place], [address], 07/02/2023 18:50:45 07/02/20 23 07/02/2023 CBC/C OMPLE TE BLD COUNT W/DIF F monocytes, absolute count 0.67 x10'3 /uL 0.29-0 .99 Not Available [facility] (Lab) [address] [place], [address], 07/02/2023 18:50:45 07/02/20 23 07/02/2023 CBC/C OMPLE TE BLD COUNT W/DIF F eosinophils, absolute count 0.35 x10'3 /uL 0.02-0 .53 Not Available [facility] (Lab) [address] [place], [address], 07/02/2023 18:50:45 07/02/20 23 07/02/2023 CBC/C OMPLE TE BLD COUNT W/DIF F basophils, absolute count 0.06 x10'3 /uL 0.01-0 .08 Not Available [facility] (Lab) [address] [place], [address], 07/02/2023 18:50:45 07/02/20 23 07/02/2023 CBC/C OMPLE TE BLD COUNT W/DIF F immature granulocytes ,absolute 0.06 x10'3 /uL 0.00-0 .05 high Not Available [facility] (Lab) [address] [place], [address], 07/02/2023 18:50:45 07/02/20 23 07/02/2023 CBC/C OMPLE TE BLD COUNT W/DIF F nucleated red blood cells 0.0 % -0 Not Available [facility] (Lab) [address] [place], [address], 07/02/2023 18:50:45 07/02/20 23 07/02/2023 CBC/C OMPLE TE BLD COUNT W/DIF F NRBC# 0.00 x10'3 /uL Not Available [facility] (Lab) [address] [place], [address], 07/02/2023 18:50:45 07/02/20 23 07/03/2023 CALCI UM, IONIZ ED/LC calcium, ionized, serum 4.9 mg/dL 4.5-5. 6 Perfo rmed at: [facility] [address] [id number] Lab Direc tor: Elmer wilson PhD, Phone : [phone] Not Available [facility] (Lab) [address] [place], [address], 07/03/2023 13:10:11 12/05/19 23 XR, foot [facility] [address] [place] [address] [place] [address] Name: KINGA NGUYEN Access ion #: [id number] Sex: F : 1954 4 Locati on: RA2 Attend ing Physic geno: NEPTALI RONDON Orderi ng Physic geno: NEPTALI RONDON Exam Date: 12/05/19 9:48 AM Exam Name: XR FOOT LT 3V+ Admitt ing Diagno sis(es ): RADIOL OGY REPORT - FINAL EXAM: XR FOOT LT 3V+ HISTOR Y: pain in left foot fell 1 week prior compla ins of dorsal midfoo t pain latera lly COMPAR SU: None. TECHNI QUE: Three views of the left foot were perfor med. FINDIN GS: There is an acute commin uted mildly impact ion foresh ortene d fractu re of the 5th metata rsal, the distal fractu re fragme nt lies along the medial aspect of the proxim al fractu re fragme nt demons tratin g 8.5 mm foresh orteni ng withou t signif icant angula tion. The remain ing metata rsals and phalan ges are intact . There is a spur at the planta r fascia aponeu rosis insert ion site. Page 1 of 2 [facility] Name: KINGA NGUYEN Access ion #: [id number] Sex: F : 1954 4 Exam Date: 12/05/19 9:48 AM Exam Name: XR FOOT LT 3V+ Admitt ing Diagno sis(es ): IMPRES ARDEN: Subacu te commin uted mildly displa ling and foresh ortene d fractu re of the 5th metata rsal locate d at the juncti on of the mid shaft and distal 1/3. Create d and electr onical ly signed by: Mat handy MD Signed Date: 12/05/19 10:36 AM (CT) Dictat ed by: Mat handy MD (CT) 23 10:36 AM (CT) Page 2 of 2 [facility] (Imaging) [address], [place], [address], 12/18/2022 09:50:47 01/02/20 XR, foot, 3 or more view No observ ation record ed. [email or web address] [facility] [place] [address], [place], [address], 01/01/2023 11:30:28 01/14/20 23 01/12/2023 MAMMO , diagn ostic , digit al, bilat eral [facility] [place] [address] [facility] [place] [address] Patien t Name: KINGA NGUYEN Access ion #: [id number] Sex: F : 1954 5 Locati on: RAD Attend ing Physic geno: NEPTALI RONDON Orderi ng Physic geno: NEPTALI RONDON Exam Date: 023 8:50 AM Exam Name: MG DIAG BREAST SWATI BILAT Admitt ing Diagno sis(es ): MAMMOG EASU REPORT - FINAL EXAM: MG DIAG BREAST SWATI BILAT HISTOR Y: Right breast asymme try noted on prior CT COMPAR SU: Mammog esau 2014, chest CT 2022 descri [place] asymme try within the right breast . TECHNI QUE: Bilate ral CC and MLO views of the breast s were perfor med. Digita l Mammog esau images were obtain ed. CAD (compu ter assist ed detect ion) was utiliz ed. 3D Digita l breast tomosy nthesi s was perfor med and used in the interp retati on of images . FINDIN GS: There are scatte red areas of fibrog landul ar densit y. Page 1 of 2 [facility] Patikatie t Name: KINGA NGUYEN Access ion #: [id number] Sex: F : 1954 5 Exam Date: 8:50 AM Exam Name: MG AZUL BREAST SWATI BILAT Admitt ing Diagno sis(es ): No new masses , asymme tries, suspic ious calcif icatio ns, or kelley ectura l distor tion are seen. IMPRES ARDEN: BIRADS 0: Assess ment incomp lete. Need additi onal imagin g evalua tion. Recomm end ultras ound of the area of asymme try as descri bed on the CT, retroa reolar and supero latera l aspect of the right breast . Create d and electr onical ly signed by: Mat handy MD Signed Date: 7:11 AM (CT) Dictat ed by: Mat handy MD DD: 7:11 AM (CT) DT: 7:11 AM (CT) Page 2 of 2 [facility] (Imaging) [address] [place], [address], 01/27/2023 12:58:52 01/14/20 23 01/12/2023 US, breas t, unila teral [facility] [address] [place] [address] [phone] Patien t Name: KINGA NGUYEN Access ion #: [id number] Sex: F : 1954 5 Locati on: RAD Attend ing Physic geno: NEPTALI RONDON Orderi ng Physic geno: NEPTALI RONDON Exam Date: 9:31 AM Exam Name: US BREAST LIMITE D RT Admitt ing Diagno sis(es ): RADIOL OGY REPORT - FINAL EXAM: US BREAST LIMITE D RT HISTOR Y: right abnorm al mamm COMPAR SU: Mammog esau 2022, CT chest 2022, mammog esau 2014 TECHNI QUE: Focuse d ultras ound evalua tion of the right breast retroa reolar and supero latera l aspect was perfor med. FINDIN GS: No solid mass or cystic lesion s are identi fied about the right breast . IMPRES ARDEN: BI-RAD S 1. Negati ve right breast ultras ound. Assess ment comple te. Page 1 of 2 [facility] Pati t Name: KINGA NGUYEN Access ion #: [id number] Sex: F : 1954 5 Exam Date: 9:31 AM Exam Name: US BREAST LIMITE D RT Admitt ing Diagno sis(es ): Recomm end return ing to annual screen ing mammog esau. Any decisi on to biopsy a suspic ious palpab le abnorm ality would have to be made solely on a clinic al basis. Create d and electr onical ly signed by: Mat handy MD Signed Date: 7:11 AM (CT) Dictat ed by: Mat handy MD DD: 7:11 AM (CT) DT: 7:11 AM (CT) Page [address] of [address] (Imaging) [address] [place], [address], 01/20/2023 09:48:40 01/15/2009/09/2022 XR, lumba r spine No observ ation record ed. [address] [place], [address], 01/20/2023 09:50:12 04/23/20 bone densi ty [facility] [address] [place] [address] [phone] Pati t Name: KINGA NGUYEN Access ion #: [id number] Sex: F : 1954 6 Dictat ed By: Neptali mooney Attend ing Physic geno: NEPTALI RONDON Orderi ng Physic geno: NEPTALI RONDON Exam Date: 2022 09:39 AM Exam Name: XR DEXA AXIAL/ HIP/PE LVIS/S PINE Admitt ing Diagno sis(es ): CLINIC AL HISTOR Y: Postme nopaus al screen ing for osteop orosis . TECHNI QUE: The study was perfor med using a [employer]. Lumbar spine and distal left forear m evalua tions were evalua marvel in the fronta l projec tions. Histor y of bilate ral hip arthro plasti es. COMPAR SU: None. Baseli ne examin ation. FINDIN GS: L1-L4 demons trates a bone minera l densit y of 1.076 g/cm2 with a T-scor e of -1.0, within normal limits . Left distal third radius evalua tion demons trates a bone minera l densit y of 0.596 g/cm2 with a T-scor e of -3.2, consis tent with osteop orosis . IMPRES ARDEN: Bone minera l densit y is consis tent with osteop orosis based on lowest T score as detail ed above. Electr onical ly Signed by: Neptali mooney at 2022 15:22: 53 PM Page 1 [facility] ([facility]) [address] [place], [address], 07/30/2023 11:25:29 07/02/20 elect pawan arango am No observ ation record ed. [facility] [address], [place], [address], 07/02/2023 12:36:20 07/02/2007/02/2023 elect pawan arango am No observ ation record ed. BARCODE Not Available 2022 12:43:22 Result Notes None recorded. 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 57142877890 95103 Active 2020 Not Available [facility] 3 22:37:23 Disorder of shoulder 781636653 Active Not Available [facility] 3 22:37:23 Hyperchol esterolem ia 30929534 Active Not Available [facility] 3 22:37:23 Chronic obstructi ve pulmonary disease 80266521 Active 2018 Not Available [facility] 3 22:37:23 Acute sinusitis 47160203 Active Not Available [facility] 3 22:37:23 Pain of right shoulder joint 88048053671 836982 Active 2021 Not Available [facility] 3 22:37:23 Tendiniti s of right rotator cuff 20188427083 375659 Active 2021 Not Available [facility] 3 22:37:24 Acute exacerbat ion of chronic obstructi ve pulmonary disease 011466032 Active 2021 Not Available [facility] 3 22:37:24 Localized , primary osteoarth ritis of the shoulder region 819915057 Active 2021 Not Available [facility] 3 22:37:24 Lumbago with sciatica 623382002 Active Not Available [facility] 3 22:37:24 Gastroeso phageal reflux disease 665422279 Active Not Available [facility] 3 22:37:24 Osteoarth ritis of knee 387176125 Active Not Available [facility] 3 22:37:24 Low back pain 086183735 Active 2021 Not Available [facility] 3 22:37:24 Knee pain Active Not Available [facility] 3 22:37:24 Pain in right hip joint 29083506474 9102 Active [address] Not [address] [facility] 3 22:37:24 Osteoarth ritis of left knee joint 05584259080 9109 Active 2021 Not Available [facility] 3 22:37:24 Bronchiti s 58908533 Completed Not Available [facility] 3 01:06:58 Sinusitis 31694891 Completed Not Available [facility] 3 01:06:58 Osteoarth ritis 338737206 Active Not Available [facility] 3 22:37:24 Periphera l vascular disease 260733922 Active 2021 Not Available [facility] 3 22:37:24 Pain of left knee joint 87844216177 4107 Active 2021 Not Available [facility] 3 22:37:24 Anxiety 83672721 Active 2018 Not Available [facility] 3 22:37:24 Cough 85644245 Active Not Available [facility] 3 22:37:24 Upper respirato ry infection 81350010 Active Not Available [facility] 3 22:37:24 Hyperlipi demia 04111612 Active 2021 Not Available [facility] 3 22:37:24 Carpal tunnel syndrome 02237115 Active Not Available [facility] 3 22:37:24 Otitis media 98362930 Active Not Available [facility] 3 22:37:24 Nasal congestio n 90091967 Active Not Available [facility] 3 22:37:24 Pain in left foot 29038739131 9107 Active 2022 Not Available [facility] [facility] 3 22:37:24 Closed fracture of fifth metatarsa l bone 17619293 Active 2022 Not [address] [facility] 3 22:37:24 Breast lump [id number] Active 2022 Not [address] [facility] 3 22:37:24 Notes:Some problems listed i n Document: #[id number] could not be added to this patient's chart. Please review this document and add these problems to the patient's chart manually as needed. Problem Notes None recorded. Procedures Surgical History Date Name Laterality Status Provider Name and Address Organization Details Recorded Time 01/02/20 23 Transitional_Car e_Management completed Carola Loja RN [place] - [place] [employer] 01/01/2023 14:32:55 04/14/20 18 Date of Last Colonoscopy completed Not Available [facility] 10/29/2022 00:53:20 04/14/20 18 Colon ca scrn not hi rsk ind completed Not Available [facility] 10/29/2022 00:53:24 02/12/20 13 Total knee arthroplasty completed Not Available [facility] 10/29/2022 00:53:24 Hip surgery completed Not Available [facility] 10/29/2022 00:53:24 Imaging Results Imaging Date Name Status LastModified by Organization Details LastModified Time 12/04/2022 XR, foot completed [facility] (Imaging) [address] [place], [address], 12/18/2022 09:50:47 01/01/2023 XR, foot, 3 or more view completed rashmi [facility] [address], [place], [address], 01/01/2023 11:30:28 01/12/2023 MAMMO, diagnostic, digital, bilateral completed [facility] (Imaging) [address] [place], [address], 01/27/2023 12:58:52 01/12/2023 US, breast, unilateral completed [email or web address] [facility] (Imaging) [address] [place], [address], 01/20/2023 09:48:40 09/09/2022 XR, lumbar spine completed [email or web address] [facility] [address] [place], [address], 01/20/2023 09:50:12 04/23/2023 bone density completed [facility] (Imaging) [address] [place], [address], 07/30/2023 11:25:29 07/02/2023 electrocardiogram completed [facility] [address] Micky Prado, [place], [address], 07/02/2023 12:36:20 07/02/2023 electrocardiogram completed [facility] Informa tion not available 07/02/2023 12:43:22 Procedure Notes None recorded. Medical Equipment None Reported. Allergies Allergen ID Allergen Name Allergen Category Reaction Reaction Severity Criticality Documentation Date Start Date Code Code System Note Provider Name and Address Organization Details Recorded Time 2256 Zetia medicatio n Not available Not available Not available 10/29/2022 82657 9 RxNorm Not Available [facility] 3 01:24:51 2258 Product containin g 3-hydroxy -3-methyl glutaryl- coenzyme A reductase inhibitor (product) medicatio n rash Not available Not available 10/29/2022 21810 009 SNOMED Not Available [facility] 3 01:24:51 2259 Levaquin medicatio n rash Not available Not available 10/29/2022 42471 2 RxNorm Not Available [facility] 3 01:24:51 2260 pseudoeph edrine / triprolid ine medicatio n rash Not available Not available 10/29/2022 24330 7 RxNorm Not Available [facility] 3 01:24:51 21812 Nexletol medicatio n hives Not available Not available 07/02/2023 04794 09 RxNorm Alma Delia glover RN [facility], [place] - [place] [employer] [facility] 3 11:25:28 Medications Name Sig Start Date Stop Date Status Note LastModified by Organization Details LastModified Time celecoxib 200 mg capsule TAKE ONE CAPSULE BY MOUTH EVERY DAY 07/13 completed Not Available Not Available Not Available cyclobenz aprine 10 mg tablet TAKE 1 TABLET BY MOUTH EVERY 8 HOURS 12/04 completed Not Available Not Available Not Available amoxicill in 500 mg capsule Take 1 capsule 3 times a day by oral route for 7 days. active Not Available Not Available No t Available atorvasta tin 40 mg tablet TAKE 1 TABLET BY MOUTH ONCE DAILY 12/11 completed Not Available Not Available Not Available albuterol sulfate 0.63 mg/3 mL solution for nebulizat ion 10/24 completed Not Available Not Available Not Available prednison e 10 mg tablet TAKE 1 TABLET BY MOUTH THREE TIMES DAILY FOR 3 DAYS THEN 1 TWICE DAILY FOR 2 DAYS THEN 1 ONCE DAILY FOR 1 DAY 04/22 completed Not Available Not Available Not Available doxycycli ne hyclate 100 mg capsule active Not Available Not Available Not Available atorvasta tin 20 mg tablet TAKE 1 TABLET BY MOUTH EVERY DAY 07/07 completed Not Available Not Available Not Available atorvasta tin 10 mg tablet Take 1 tablet every day by oral route for 30 days. active Not Available Not Available No t Available azithromy brandon 250 mg tablet TAKE 2 TABLETS BY MOUTH ON DAY 1, AND THEN TAKE 1 TABLET BY MOUTH ONCE A DAY ON DAY 2 THROUGH DAY 5 07/02 completed Not Available Not Available Not Available tramadol 37.5 mg-acetam inophen 325 mg tablet TAKE 2 TABLETS BY MOUTH EVERY 6 TO 8 HOURS NEEDED FOR PAIN active Not Available Not Available No t Available benzonata te 200 mg capsule Take 1 capsule 3 times a day by oral route. active Not Available Not Available No t Available hydrocodo ne 5 mg-acetam inophen 325 mg tablet 10/08 completed Not Available Not Available Not Available sucralfat e 1 gram tablet TAKE 1 TABLET BY MOUTH TWICE A DAY DIRECTED (BEFORE A MEAL AND AT BEDTIME) 07/07 completed Not Available Not Available Not Available bupivacai ne HCl 0.5 % (5 mg/mL) injection solution Take 40 mg by injectio n route. 12/24 completed Not Available Not Available Not Available prednison e 20 mg tablet TAKE 3 TABLETS BY MOUTH ONCE DAILY FOR 5 DAYS 12/04 completed Not Available Not Available Not Available sertralin e 100 mg tablet Take 1 tablet by mouth once daily active Not Available Not Available No t Available metronida zole 500 mg tablet Take 1 tablet 3 times a day by oral route for 10 days. 08/26 completed Not Available Not Available Not Available acetamino phen 300 mg-codein e 30 mg tablet Take 1 tablet every 6 hours by oral route as needed. 01/28 completed Not Available Not Available Not Available tramadol 50 mg tablet Take 1 tablet 3 times a day by oral route as needed. active Not Available Not Available No t Available amoxicill in 500 mg tablet Take 1 tablet 3 times a day by oral route for 10 days. 08/26 completed Not Available Not Available Not Available ketorolac 0.5 % eye drops INSTILL 1 DROP THREE TIMES DAILY INTO EACH EYE STARTING 2 DAYS PRIOR TO SURGERY AND CONTINUI NG FOR 1 WEEK AFTER SURGERY active Not Available Not Available No t Available Kenalog 40 mg/mL suspensio n for injection active Not Available Not Available No t Available prednison e 10 mg tablets in a dose pack Take 1 tab by mouth, 3 times a day for 3 daysTake 1 tab by mouth 2 times a day for 2 daysTake 1 tab by mouth once a day for 1 day 12/24 completed Not Available Not Available Not Available alprazola m 0.5 mg tablet active Not Available Not Available Not Available prednisol one acetate 1 % eye drops,leonardo pension INSTILL 1 DROP THREE TIMES DAILY INTO EACH EYE STARTING AFTER SURGERY CONTINUI NG FOR 3 WEEKS active Not Available Not Available No t Available Kenalog 10 mg/mL suspensio n for injection In office injectio n administ ered by the provider 12/24 completed [facility]: [id number] Not Available Not Available Not Available hydrocodo ne 7.5 mg-acetam inophen 325 mg tablet TAKE 1 TO 2 TABLETS BY MOUTH EVERY 6 HOURS NEEDED active Not Available Not Available No t Available cephalexi n 500 mg capsule active Not Available Not Available Not Available neomycin- polymyxin -dexameth 3.5 mg/mL-10, 000 unit/mL-0 .1% eye drops INSTILL 1 DROP THREE TIMES DAILY INTO EACH EYE STARTING 2 DAYS PRIOR TO SURGERY, CONTINUE FOR 1 WEEK AFTER SURGERY active Not Available Not Available No t Available diclofena c sodium 75 mg tablet,de layed release Take 1 tablet by mouth twice daily active Not Available Not Available No t Available etodolac 400 mg tablet Take 1 tablet twice a day by oral route for 14 days. active Not Available Not Available No t Available monteluka st 10 mg tablet TAKE 1 TABLET BY MOUTH ONCE DAILY 06/11 completed Not Available Not Available Not Available clobetaso l 0.05 % topical ointment APPLY OINTMENT TOPICALL Y TO AFFECTED AREA TWICE DAILY FOR 3 WEEKS AVOID FACE ARMPITS AND GROIN 06/11 completed Not Available Not Available Not Available Cheratuss in AC 10 mg-100 mg/5 mL oral liquid 01/28 completed Not Available Not Available Not Available levofloxa brandon 500 mg tablet 06/11 completed Not Available Not Available Not Available levofloxa brandon 750 mg tablet 05/07 completed Not Available Not Available Not Available methylpre dnisolone 4 mg tablets in a dose pack TAKE BY MOUTH DIRECTED ON INSIDE OF PACKAGE 05/27 completed Not Available Not Available Not Available hydrocodo ne 10 mg-chlorp heniramin e 8 mg/5 mL oral susp extend.re l 12hr 09/08 completed Not Available Not Available Not Available albuterol sulfate HFA 90 mcg/actua tion aerosol inhaler INHALE 2 PUFFS BY MOUTH EVERY 4 HOURS NEEDED active Not Available Not Available No t Available cefdinir 300 mg capsule Take 1 capsule every 12 hours by oral route. 06/12 completed Not Available Not Available Not Available sertralin e 50 mg tablet TAKE 1 TABLET BY MOUTH ONCE DAILY 06/04 completed Not Available Not Available Not Available Hibiclens 4 % topical liquid Directio ns: Shower with the body wash the night before surgery and morning of the surgery at home before coming in for surgery. Take extra time to wash carefull y the hip, knee or shoulder that will have the surgery. 08/07 completed Not Available Not Available Not Available amoxicill in 875 mg-potass ium clavulana te 125 mg tablet Take 1 tablet every 12 hours by oral route. 09/08 completed Not Available Not Available Not Available ezetimibe 10 mg tablet TAKE 1 TABLET BY MOUTH ONCE DAILY 01/21 completed Pt had a reaction to this medicati on Not Available Not Available Not Available cyclobenz aprine 5 mg tablet 01/28 completed Not Available Not Available Not Available Spiriva with HandiH[employer] r 18 mcg and inhalatio n capsules Inhale 1 capsule every day by inhalati on route. 08/28 completed Not Available Not Available Not Available lidocaine (PF) 10 mg/mL (1 %) injection solution In office injectio n administ ered by the provider 11/18 completed [facility]: [phone] Not Available Not Available Not Available lidocaine (PF) 20 mg/mL (2 %) injection solution Take 80 mg by injectio n route. 12/24 completed Not Available Not Available Not Available varenicli ne tartrate 1 mg tablet TAKE 1 TABLET BY MOUTH TWICE DAILY AFTER FINISHIN G 0.5MG TABLETS 08/28 completed Not Available Not Available Not Available varenicli ne tartrate 0.5 mg tablet TAKE 1 TABLET BY MOUTH ONCE DAILY ON DAYS 1-3, THEN 1 TWICE DAILY ON DAYS 4-7 THEN TAKE 1MG TABLETS TWICE DAILY 08/28 completed Not Available Not Available Not Available Symbicort 80 mcg-4.5 mcg/actua tion HFA aerosol inhaler INHALE 2 PUFFS BY MOUTH TWICE DAILY active Not Available Not Available No t Available Prevnar 13 (PF) 0.5 mL intramusc ular syringe 07/07 completed Not Available Not Available Not Available Xarelto 10 mg tablet TAKE 1 TABLET BY MOUTH ONCE DAILY active Not Available Not Available No t Available Chantix Starting Month Box 0.5 mg (11)-1 mg (42) tablets in dose pack Take 1 startr pk by oral route as directed . 12/04 completed Not Available Not Available Not Available Nasacort 55 mcg nasal spray aerosol 2 sprays each nostril daily 10/29 completed Not Available Not Available Not Available Flonase Allergy Relief 50 mcg/actua tion nasal spray,leonardo pension [place] 1 spray every day by intranas al route. 10/08 completed Not Available Not Available Not Available Repatha SureClick 140 mg/mL subcutane ous pen injector INJECT 1 ML SUBCUTAN EOUSLY EVERY TWO WEEKS 05/27 completed Not Available Not Available Not Available Afluria 2988-1548 (PF) 45 mcg(15 mcg x 3)/0.5 mL intramusc ular syringe 09/04 completed Not Available Not Available Not Available Fluzone High-Dose 2018- (PF) 180 mcg/0.5 mL intramusc ular syringe 07/07 completed Not Available Not Available Not Available Nexletol 180 mg tablet Take 1 tablet by mouth once daily 07/02 completed Not Available Not Available Not Available Fluzone High-Dose Quad 2019- (PF) 240 mcg/0.7 mL IM syringe 05/31 completed Not Available Not Available Not Available BinaxNOW COVID-19 Ag Self Test kit Use as Directed on the Package 08/28 completed Not Available Not Available Not Available Vitals Date Recorded Body height Body mass index (BMI) Body weight Provider Name and Address Organization Details Last Updated DateTime 01/01/2023 160.02 cm 27.6 kg/m2 14821.41 g María [place] Josephine [facility] 01/01/2023 10:39:16 Date Recorded Body height Body mass index (BMI) Body weight Body temperature Heart rate Oxygen saturation Oxygen saturation in Arterial blood by Pulse oximetry Systolic blood pressure Diastolic blood pressure Provider Name and Address Organization Details Last Updated DateTime 3 160.02 cm 27.6 kg/m2 34927.4 1 g 97.5 [degF] 87 /min 95 % 95 % 124 mm[Hg] 84 mm[Hg] Carola Loja RN [facility] 3 14:44:21 Date Recorded Body height Body mass index (BMI) Body weight Body temperature Heart rate Systolic blood pressure Diastolic blood pressure Provider Name and Address Organization Details Last Updated DateTime 3 160.02 cm 26.6 kg/m2 74125.8 6 g 97.2 [degF] 98 /min 138 mm[Hg] 82 mm[Hg] KOURTNEY Espinal [facility] 3 14:37:24 Date Recorded Body height Body mass index (BMI) Body weight Body temperature Heart rate Systolic blood pressure Diastolic blood pressure Provider Name and Address Organization Details Last Updated DateTime 3 160.02 cm 27.3 kg/m2 66802.2 2 g 97.2 [degF] 65 /min 124 mm[Hg] 82 mm[Hg] KOURTNEY Espinal [facility] 3 14:35:21 Date Recorded Body height Body mass index (BMI) Body weight Body temperature Heart rate Systolic blood pressure Diastolic blood pressure Provider Name and Address Organization Details Last Updated DateTime 3 160.02 cm 27.8 kg/m2 97822 g 97.9 [degF] 67 /min 120 mm[Hg] 74 mm[Hg] Alma Delia glover RN [facility] 3 11:28:25 Date Recorded Body height Body mass index (BMI) Body weight Body temperature Heart rate Systolic blood pressure Diastolic blood pressure Provider Name and Address Organization Details Last Updated DateTime 3 160.02 cm 27.6 kg/m2 56416.4 1 g 97.2 [degF] 60 /min 118 mm[Hg] 80 mm[Hg] Tina Adalberto KOURTNEY [facility] 3 11:36:24 Social History Question Answer Notes LastModified by Organization Details LastModified Time Tobacco Smoking Status Current Every Day Smoker stopped smoking 05/13/22 and started again; stopped 01/01 KOURTNEY Espinal SANDY Karla [facility] [employer] 01/15/2023 14:35:31 Do You Have An Advance Directive? Yes MIGRATION.0301 [id number] Information not available 10/29/2022 What Is Your Level Of Alcohol Consumption? Moderate [email or web address] Information not available 04/09/2023 Do You Wear A Helmet When Biking? No MIGRATION.0301 [id number] Information not available 10/29/2022 Are You Blind Or Do You Have Difficulty Seeing? No MIGRATION.030 [id number] Information not available 10/29/2022 What Is Your Level Of Caffeine Consumption? Moderate MIGRATION.0301 [id number] Information not available 10/29/2022 How Much Tobacco Do You Chew? None MIGRATION.0301 870307 Information not available 10/29/2022 What Is Your Code Status? DNR MIGRATION.030 [id number] Information not available 10/29/2022 In The 14 Days Before Symptom Onset, Have You Had Close Contact With A Laboratory-confi rmed COVID-19 While That Case Was Ill? No MIGRATION.030 730507 Information not available 10/29/2022 In The 14 Days Before Symptom Onset, Have You Had Close Contact With A Person Who Is Under Investigation For COVID-19 While That Person Was Ill? No MIGRATION.0301 [id number] Information not available 10/29/2022 Are You Currently Employed? Yes Information not available 12/04/2022 Are You Deaf Or Do You Have Serious Difficulty Hearing? No MIGRATION.0301 [id number] Information not available 10/29/2022 What Type Of Diet Are You Following? REGULAR MIGRATION.0301 [id number] Information not available 10/29/2022 Which Illicit Or Recreational Drugs Have You Used? None MIGRATION.0301 [id number] Information not available 10/29/2022 Do You Or Have You Ever Used E-cigarettes Or Vape? Never Used Electronic Cigarettes MIGRATION.0301 309627 Information not available 10/29/2022 What Is The Highest Grade Or Level Of School You Have Completed Or The Highest Degree You Have Received? 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 No MIGRATION.0301 822556 Information not available 10/29/2022 Are There Any Guns Present In Your Home? Yes MIGRATION.0301 186340 Information not available 10/29/2022 Do You Use Insect Repellent Routinely? Yes MIGRATION.0301 922220 Information not available 10/29/2022 Where Do You Live? [place] MIGRATION.0301 748887 Information not available 10/29/2022 Do You Have A Medical Power Of Workers Compensation Claims Adjuster? No MIGRATION.0301 071511 Information not available 10/29/2022 What Was The Date Of Your Most Recent Tobacco Screening? 07/30/2023 [email or web address] Information not available 07/30/2023 What Is Your Current Pack Years? 30ormorepackyears MIGRATION.0301 078082 Information not available 10/29/2022 Have You Ever Been Counseled For Unhealthy Alcohol Use? No MIGRATION.0301 [id number] Information not available 10/29/2022 Do You Have Any Pets? No MIGRATION.0301 [id number] Information not available 10/29/2022 What Is Your Relationship Status? MIGRATION.0301 267837 Information not available 10/29/2022 Do You Use Your Seat Belt Or Car Seat Routinely? Yes MIGRATION.0301 171061 Information not available 10/29/2022 Do You Have Smoke And Carbon Monoxide Detectors In Your Home? Yes MIGRATION.0301 954145 Information not available 10/29/2022 At What Age Did You Start Smoking Tobacco? 19 MIGRATION.0301 543667 Information not available 10/29/2022 Are You Passively Exposed To Smoke? No MIGRATION.0301 511127 Information not available 10/29/2022 Do You Or Have You Ever Used Smokeless Tobacco? Never Used Smokeless Tobacco MIGRATION.0301 516490 Information not available 10/29/2022 Are There Any Smokers In Your House? No MIGRATION.0301 772206 Information not available 10/29/2022 How Much Tobacco Do You Smoke? 0.25 PPD Information not available 07/02/2023 What Types Of Sporting Activities Do You Participate In? None MIGRATION.0301 963548 Information not available 10/29/2022 Do You Feel Stressed (tense, Restless, Nervous, Or Anxious, Or Unable To Sleep At Night)? [id number] MIGRATION.0301 823539 Information not available 10/29/2022 Do You Use Any Illicit Or Recreational Drugs? No MIGRATION.0301 864789 Information not available 10/29/2022 Do You Use Sunscreen Routinely? Yes MIGRATION.0301 623479 Information not available 10/29/2022 Has Tobacco Cessation Counseling Been Provided? No MIGRATION.0301 970295 Information not available 10/29/2022 How Many Years Have You Smoked Tobacco? 45 [email or web address] Information not available 12/04/2022 Have You Recently Traveled Abroad? No MIGRATION.0301 584754 Information not available 10/29/2022 Do You Have Any Dietary Restrictions? No MIGRATION.0301 092989 Information not available 10/29/2022 Do You Or Have You Ever Used Any Other Forms Of Tobacco Or Nicotine? No MIGRATION.0301 449534 Information not available 10/29/2022 Sex: Female Functional Status Question Answer Note LastModified by Organizat ion Details LastModified Time Do you have difficulty walking or climbing stairs? No MIGRATION.[id number] 026 Information not available 10/29/2022 Do you have transportation difficulties? No MIGRATION.3525282 026 Information not available 10/29/2022 Are you able to walk? YESWOREST MIGRATION.9779964 026 Information not available 10/29/2022 Do you have difficulty doing errands alone? Yes MIGRATION.6976688 026 Information not available 10/29/2022 Are you able to care for yourself? No MIGRATION.7289597 026 Information not available 10/29/2022 Do you have difficulty dressing or bathing? No MIGRATION.7796632 026 Information not available 10/29/2022 What is your exercise level? None MIGRATION.3685442 026 Information not available 10/29/2022 Mental Status Question Answer Note LastModified by Organizat ion Details LastModified Time Do you have difficulty concentrating, remembering or making decisions? No MIGRATION.[id number] 6 Information not available 10/29/2022 Family History Relationship Description Onset Age of this Age Resolved Age Notes LastModified by Organization Details LastModified Time Mother Hypertensive disorder MIGRATION.971 [id number] Not available 10/29/2022 00:53:30 Mother Malignant neoplasm of bone 62 MIGRATION.556 [id number] Not available 10/29/2022 00:53:30 Mother Family history of malignant neoplasm MIGRATION.879 [id number] Not available 10/29/2022 00:53:30 Mother Heart disease MIGRATION.901 6507238 Not available 10/29/2022 00:53:31 Father Hypertensive disorder MIGRATION.084 [id number] Not available 10/29/2022 00:53:31 Father Gout MIGRATION.422 [id number] Not available 10/29/2022 00:53:31 Father Hypercholest erolemia MIGRATION.000 [id number] Not available 10/29/2022 00:53:31 Father Malignant tumor of lung 77 MIGRATION.455 [id number] Not available 10/29/2022 00:53:31 Father Heart disease MIGRATION.633 [id number] Not available 10/29/2022 00:53:31 Sister Pneumonia caused by SARS-CoV-2 MIGRATION.493 [id number] Not available 10/29/2022 00:53:31 Medical History Condition Response NERVE DISEASE N BLINDNESS N RHEUMATIC FEVER N KIDNEY STONES N BLADDER PROBLEMS N MRSA N CARPAL TUNNEL SYNDROME Y OTHER # 1 N POLIO N LUNG DISEASE/DISORDER N HISTORY OF DRUG ABUSE N RADIATION / CHEMOTHERAPY N COPD Y Other # 2 N BLOOD DISEASES N SURGERY N EAR OR HEARING PROBLEMS N MUMPS N SCHIZOPHRENIA N SHINGLES N BOWEL PROBLEMS N DEPRESSION (INCLUDING POST ) N STROKE/TIA N ULCERS N BENIGN PROSTATIC HYPERPLASIA N MEASLES N HYPOTENSION N MYOCARDIAL INFARCTION N OBESITY N GERD/NAUSEA Y ANEURYSM N URINARY/BLADDER/KIDNEY PROBLEMS N CORONARY ARTERY DISEASE (CAD) N ADDICTION CONCERNS N Impotence N ENDOMETRIOSIS N USE OF BLOOD THINNERS N SKIN PROBLEMS N EMPHYSEMA N PERIPHERAL VASCULAR DISEASE N MUSCLE,JOINT OR BONE PROBLEMS Y DVT N STOMACH ULCERS N GASTROINTESTINAL BLEEDING N BLOOD CLOTS N ASTHMA N CATARACTS N USE OF NSAIDS N CONCUSSION OR SPINAL TRAUMA N ERECTILE DYSFUNCTION N VARICOSITIES N GI PROBLEMS N Low Testosterone N NEUROPATHY N INFERTILITY N AIDS/HIV N FRACTURES N CHEMOTHERAPY / RADIATION N LIVER DISEASE N MALE HYPOGONADISM N HYPERTENSION N Deficiency N TOURETTE'S N Metal allergy N ANXIETY DISORDER Y BLOOD TRANSFUSION N ANEMIA/BLOOD DISORDER N CHRONIC EAR INFECTIONS N BIPOLAR DISORDER N BRONCHITIS N OSTEOARTHRITIS Y TUBERCULOSIS N GLAUCOMA N FOOT PROBLEM N HEART VALVE DISORDERS N SLEEP APNEA N CHICKENPOX N ALLERGIES/HAYFEVER N INFECTIOUS DISEASE N PROSTATE N HEART ARRHYTHMIA N INSOMNIA N RHEUMATOID ARTHRITIS N HIGH CHOLESTEROL / HYPERLIPIDEMIA Y EYE PROBLEMS Y HYPERTHYROIDISM N NEUROLOGICAL PROBLEMS N EDEMA N CHRONIC PAIN SYNDROME N HYPOTHYROIDISM N CONSTIPATION N CAROTID BLOCKAGE N BACK / NECK PROBLEMS N HAVE YOU BEEN HOSPITALIZED OR SEEN IN [facility] IN THE PAST YEAR ? Y ATHEROSCLEROSIS N BURSITIS N BREAST PROBLEMS N HERNIATED DISC N DIALYSIS N ECZEMA N FIBROMYALGIA N OSTEOPOROSIS N ARTHRITIS N NO SIGNIFICANT PAST MEDICAL HISTORY N PERIPHERAL NEUROPATHY N APPENDICITIS N DIABETES, TYPE N BAD TEETH N ENT N HEARTBURN / REFLUX N AUTISM SPECTRUM DISORDER (ASD) N HEPATITIS / LIVER DISEASE N GOUT N SLEEP DISORDER N ALZHEIMER'S DISEASE N Brain Problems N DEMENTIA N HERPES N SEIZURES/EPILEPSY N HEADACHES/MIGRAINES N VASCULAR DISEASE N PACEMAKER N Blood Disorder N DIZZINESS N HEAD TRAUMA OR INJURY N KIDNEY DISEASE N HEART DISEASE/HEART PROBLEMS N MULTIPLE SCLEROSIS N CANCER: SPECIFY N CARDIAC ARRHYTHMIA N ANESTHESIA COMPLICATIONS N ATRIAL FIBRILLATION N Gall Stones N PULMONARY EMBOLISM N AUTOIMMUNE DISEASE N Gynecological History Statement/Question Response Date of Last Pap Date of Last Mammogram 09/18/2014 Date of Last Colonoscopy 04/14/2018 Obstetrics History GPAL:G 0 P 0 0 0 0 Immunizations Vaccine Type Date Status Note Provider Nam e and Address Organization Details Recorded Time COVID-19, mRNA, LNP-S, PF, 100 mcg/0.5mL dose or 50 mcg/0.25mL dose 2 completed Not Available [facility] 07/03/2023 22:37:24 COVID-19, mRNA, LNP-S, PF, 100 mcg/0.5mL dose or 50 mcg/0.25mL dose 1 completed Not Available [facility] 07/03/2023 22:37:24 COVID-19, mRNA, LNP-S, PF, 100 mcg/0.5mL dose or 50 mcg/0.25mL dose 1 completed Not Available [facility] 07/03/2023 22:37:24 Influenza, high-dose, quadrivalent, PF 0 completed Not Available [facility] 07/03/2023 22:37:24 Pneumococcal conjugate PCV 13 9 completed Not Available [facility] 07/03/2023 22:37:25 Influenza, high-dose, trivalent, PF 9 completed Not Available [facility] 07/03/2023 22:37:25 Influenza, split virus, quadrivalent, preservative 6 completed Not Available [facility] 07/03/2023 22:37:24 COVID-19, mRNA, LNP-S, PF, 30 mcg/0.3 mL dose 2 completed Not Available [facility] 07/03/2023 22:37:25 pneumococcal polysaccharide PPV23 2 completed Not Available [facility] 07/03/2023 22:37:25 Influenza, high-dose, trivalent, PF 2 completed Not Available [facility] 07/03/2023 22:37:25 Influenza, high-dose, trivalent, PF 1 completed Not Available [facility] 07/03/2023 22:37:25 Influenza, high-dose, trivalent, PF 7 completed Not Available [facility] 07/03/2023 22:37:25 influenza, unspecified formulation 6 completed Not Available [facility] 07/03/2023 22:37:25 influenza, unspecified formulation 4 completed Not Available [facility] 07/03/2023 22:37:25 Influenza, high-dose, trivalent, PF 4 completed Not Available [facility] 07/03/2023 22:37:25 Past Encounters Encounter ID Performer Location Encounter Start Date Encounter Closed Date Diagnosis/Indication Diagnosis SNOMED-CT Code Diagnosis ICD10 Code Diagnosis Note [id number] [facility] [place] [address] [place] [address] 10/30/2020 00:00:00 10/30/2020 14:57:23 [id number] [facility] [place] [address] [place] [address] 12/06/2020 00:00:00 12/06/2020 11:09:59 [id number] [facility] [place] [address] [place] [address] [place] [address] 12/11/2020 00:00:00 12/11/2020 22:25:50 [id number] [facility] [place] [address] [facility] y , [place] [address] 06/11/2021 00:00:00 06/11/2021 22:08:04 [id number] [facility] [place] [address] [place] [address] 06/27/2021 00:00:00 06/27/2021 09:43:59 [id number] [facility] [place] [address] [place] [address] 11/18/2021 00:00:00 11/18/2021 11:11:28 [id number] [facility] [place] [address] [place] [address] 12/16/2021 00:00:00 12/16/2021 10:50:13 [id number] [facility] [place] [address] [place] [address] y , [place] [address] 12/24/2021 00:00:00 01/12/2022 16:36:43 [id number] [facility] [place] [address] [place] [address] y , [place] [address] 04/22/2022 00:00:00 04/22/2022 22:54:03 [id number] [facility] [place] [address] [place] [address] [place] [address] 05/27/2022 00:00:00 06/29/2022 10:50:20 [id number] [facility] [place] [address] [place] [address] y , [place] [address] 06/12/2022 00:00:00 06/15/2022 12:58:16 [id number] [facility] [place] [address] [facility] y , [place] [address] 08/28/2022 00:00:00 08/29/2022 09:06:43 [id number] Paulette Rondon MD [facility] [place] [address] [place] [address] y , [place] [address] 12/04/2022 10:14:10 12/04/2022 10:54:13 Pain in left foot [id number] 88631 M79.672 [id number] Jhony Ramos MD [facility] [place] [address] [place] [address] 12/04/2022 12:19:45 12/04/2022 13:37:20 Pain in left foot 1624944535 72210 M79.672 Closed fra cture of fifth metatarsal bone 28712850 S92.351A [id number] Jhony Ramos MD [facility] [place] [address] [place] [address] 01/01/2023 10:37:10 01/01/2023 12:17:36 Pain in left foot 3855651263 22486 M79.672 Closed fra cture of fifth metatarsal bone 47577996 S92.351A [id number] Paulette Rondon MD [facility] [place] [address] [place] [address] y , [place] [address] 01/01/2023 14:25:04 01/01/2023 15:34:01 Transition of care [id number] 105 Z75.8 Breast lump 60532211 N63 .0 Chronic ob structive pulmonary disease 68164586 J44.9 Anxiety 67066063 F41.9 Hypercholesterolemia 136 11012 E78.00 [id number] Paulette Rondon MD [facility] [place] [address] [place] [address] y , [place] [address] 01/15/2023 14:26:10 01/15/2023 15:26:06 Chronic obstructive pulmonary disease 54260720 J44.9 Anxiety 36673392 F41.9 Gastroesop hageal reflux disease 801008558 K21.9 [id number] Paulette Rondon MD [facility] [place] [address] [facility] [place] [address] 04/09/2023 14:24:31 04/09/2023 15:45:23 Postmenopausal state 47094489 Z78.0 Chronic ob structive pulmonary disease 17171973 J44.9 Anxiety 74378281 F41.9 Hypercholesterolemia 136 62518 E78.00 [id number] Paulette Rondon MD [facility] [place] [address] [facility] [place] [address] 07/02/2023 11:04:27 07/02/2023 12:29:20 Hypercholesterolemia 61883656 E78.00 Pre-surgery testing 1104 51597 Z01.89 Anxiety 86150163 F41.9 Chronic ob structive pulmonary disease 46459452 J44.9 Health Concerns Section Related Observation LastModified by Organization Detai ls LastModified Time None Recorded Concern Status LastModified by Organization Details LastModified Time None Recorded Advance Directives Directive Y: Payers Encounter Date Sequence Insurance Name Policy Number Policy Golden Covered Member ID Golden Member ID Guarantor Name 01/01/2023 1 [facility] (MEDICARE REPLACEMENT/A DVANTAGE - HMO) [id number] Kinga Helton [id number] Kinga Helton 01/01/2023 1 [facility] (MEDICARE REPLACEMENT/A DVANTAGE - HMO) [id number] Kinga Helton [id number] Kinga Helton 01/15/2023 1 [facility] (MEDICARE REPLACEMENT/A DVANTAGE - HMO) [id number] Kinga Helton [id number] Kinga Helton 04/09/2023 1 [facility] (MEDICARE REPLACEMENT/A DVANTAGE - HMO) [id number] Kinga Helotn [id number] Kinga Helton 07/02/2023 1 [facility] (MEDICARE REPLACEMENT/A DVANTAGE - HMO) [id number] Kinga Helton [id number] Kinga Helton Notes Date Note Type Note Provider Name and Address Organization Details Recorded Time 3 text/htm l hospital chest pain there was a concern for pericarditis cardiology saw the patient did not feel that was the case she is doing better did have a CT of her chest breast nodule needs mammogram she still does not feel back up to 100% feels a little tired Paulette Rondon MD [address], [place], [address], Where Was it Filmed [facility] [employer] 01/03/2023 15:49:39 3 text/htm l Patient returns foot pain left. She has a fracture of the 5th metatarsal shaft. She is relatively comfortable when walking and stiff-soled shoes and is moving out to tennis shoes when she wants now. Jhony Ramos MD [address], [place], [address], Where Was it Filmed [facility] [employer] 01/01/2023 11:30:48 3 text/htm l she is feeling better Paulette Rondon MD [address], [place], [address], Where Was it Filmed [facility] [employer] 01/24/2023 16:19:11 3 text/htm l COPD doing fine with inhaler. Dyslipidemia Try to follow low-fat diet anxiety is doing well Paulette Rondon MD [address], [place], [address], Where Was it Filmed [facility] [employer] 06/28/2023 17:23:06 3 text/htm l Could have cataract surgery no chest pain or shortness of breath no dizzy spells no palpitationsDyslipidemia tries to follow low-fat dietCOPD doing well on inhalers Paulette Rondon MD [address], [place], [address], Where Was it Filmed [facility] [employer] 07/11/2023 13:28:40 OBGyn Episode No OBEpisode recorded.
--- OUTSIDE RECORDS SUMMARY | 2024-09-06 22:11 | XMS_ITS | CONTINUITY OF CARE DOCUMENT ---
Author Name ashish hinojosa Address Unknown Organization [facility] Address [address] [address] [place] [address] Phone [phone] Care Team Providers Care Nuclear Waste Management Engineer Name Role Phone Davy CELIS, Cole Unavailable PAULETTE YI MD Unavailable PAULETTE YI MD Unavailable PROBLEMS Condition Status Date Provider Notes Congestive heart failure (CHF) active Alisson Ramos INSURANCE PROVIDERS Payer name Policy type / Coverage type [place] [employer] party ID AARP MEDICARE ADVANTAGE HMO-POS HMO [id number] TREATMENT PLAN Date Name Complete Echo
== END 2024-08-30 11:20 | disposition home or self-care (01) ==
PROVIDERS: Emergency Provider Physician Assistant; PCP Internal Medicine
DX: S72.111A Displaced fracture of greater trochanter of right femur, initial encounter for closed fracture (principal); W19.XXXA Unspecified fall, initial encounter; K21.9 Gastro-esophageal reflux disease without esophagitis; E78.5 Hyperlipidemia, unspecified; F17.210 Nicotine dependence, cigarettes, uncomplicated
CPT/HCPCS: 73502; 73552; 99284; A9270

== ENCOUNTER 2025-01-25 13:23 | Outpatient (CLI) | payer MEDICARE, SELFPAY ==
--- NOTE | ~2025-01-25 | CT_ITS ---
Non-contrast Head CT History: Syncope Technique: Axial non-contrast imaging of the brain was performed. Dose reduction technique was used on this scan by utilizing automated exposure control and iterative reconstruction technique. The dose -length product (DLP) was 681.00 mGy-cm. Findings: There is no evidence of intracranial hemorrhage, mass lesion, or acute infarct. Probable m ild chronic microvascular ischemic change in the periventricular white matter. The ventricles and herrera barachnoid spaces are normal in size. The calvarium appears normal. The visualized paranasal sinuse s and mastoid air cells are clear. Impression: No acute abnormality seen. Reviewed, dictated and finalized at location M. Impression: No acute abnormality seen.
--- OUTSIDE RECORDS SUMMARY | 2025-01-25 13:31 | XMS_ITS | Data Portability ---
Author Organization [facility] [address] [place] [address] Care Team Providers Care Television Host Name Role Phone PAULETTE RONDON Primary Care Provider Unavailabl e Assessment Encounter Date Assessment Date Assessment LastModified by Organization Details LastModified Time 01/06/2024 01/06/2024 Obtain blood wor k use minimally effective dose of Lasix as needed whether to be 20 mg or 40 mg a day weigh herself daily watch salt get echo follow-up at her regular scheduled [email or web address] Not available 01/11/2024 21:15:26 03/28/2024 03/28/2024 start losartan 2 5 mg daily she will see me back in a couple of months [email or web address] Not available 03/31/2024 22:41:33 07/25/2024 07/25/2024 echocardiogram [...] test results from previous clinic and facilities Not available 07/25/2024 22:02:46 11/21/2024 11/21/2024 she has failed several statins she has failed Zetia she can not take Nexletol we will try to get Repatha her other medicines we will continue she will follow up in 4 months [email or web address] Not available 11/22/2024 21:43:14 01/05/2025 01/05/2025 Complete echo carotid duplex [address] head without contrast losartan 50 mg daily we are trying to get her on Repatha she has can not tolerate statins see me back in 1 [place] [id number] Not available 01/23/2025 13:50:31 Plan of Treatment Reminders Order Date Submit Date Provider Last Modified By Organization Details Last Modified Time Details Appointments ANY 15 2024 09:30A M Paulette Rondon MD Not available Not available Not available Lab lipid panel, serum 2023 024 [facility], [address], [place], [address], 08/20/2024 07:11:04 CMP, serum or plasma 2023 024 [facility] [address], [place], [address], 08/20/2024 07:11:05 CBC w/ auto diff 2023 024 [facility], [address], [place], [address], 08/20/2024 07:11:06 BMP, serum or plasma 2023 024 [facility] [address], [place], [address], 01/07/2024 09:14:17 Referral None recorded. Procedures lexiscan cardiolit e stress test (PROC) 2023 024 [facility] ([facility] [address], [place], [address], 08/09/2024 13:27:34 Surgeries None recorded. Imaging US, echocardi ogram [address] ([facility]), [address], [place], [address], 01/05/2025 18:01:24 US, duplex, carotid artery [address] ([facility]), [address], [place], [address], 01/05/2025 18:01:24 cardiac telemetry - 2 wk holter [address] [facility], [address], [address], [place], [address], 01/05/2025 18:01:24 CT, head, w/o contrast [address] [facility], [address], [place], [address], 01/05/2025 18:01:24 Medication Orders losartan 50 mg tablet [address] [facility], [address], [address], 01/05/2025 18:01:24 Repatha Syringe 140 mg/mL subcutane ous syringe 2024 025 [facility], [address], [address], 01/05/2025 11:57:12 Patient TargetsNo targets recorded. Patient Instructions Encounter Date Encounter Id Patient Instructions Last Modified By Organization Details Last Modified Time 03/28/2024 [id number] A healthy lifestyle: care instructions [email or web address] Not available 03/31/2024 22:42:33 11/21/2024 [id number] A healthy lifestyle: care instructions [email or web address] Not available 11/21/2024 11:14:01 01/05/2025 [id number] A healthy lifestyle: care instructions [email or web address] Not available 01/05/2025 12:38:23 Quitting Tobacco : Care Instructions [email or web address] Not available 01/05/2025 12:38:23 Reason for Referral None Reported. Results Created Date Observation Date Name Description Value Unit Range Abnormal Flag Note LastModifiedBy Organization Detail LastModifiedTime 12/26/19 24 12/26/2023 Influ day virus A+B Ag [Pres ence] in Speci men specimen source identified CIRILO MANNING AL SWAB Speci men Type HOWARD SYLVESTER GEAL SWAB 12/25 9:19 AM CDT [facility] Not Available Not Available 10/31/2024 12:36:59 12/26/19 24 12/26/2023 Influ day virus A+B Ag [Pres ence] in Speci men influenza virus A Ag [presence] in specimen NEGATI VE text: negati ve INFLU DAY A NEGAT LUIS CARLOS NEGAT LUIS CARLOS 12/25 10:00 AM CDT [facility] Not Available Not Available 10/31/2024 12:36:59 12/26/19 24 12/26/2023 Influ day virus A+B Ag [Pres ence] in Speci men haemophilus influenzae B Ag [presence] in specimen NEGATI VE text: negati ve INFLU DAY B NEGAT LUIS CARLOS NEGAT LUIS CARLOS 12/25 10:00 AM CDT [facility] Not Available Not Available 10/31/2024 12:36:59 12/26/19 24 12/26/2023 Natri ureti c pepti de.B proho rmone N-Ter desmond [Mass /volu me] in Serum or Plasm a natriuretic peptide.B prohormone N-terminal [mass/volume ] in serum or plasma 4691 pg/mL high: 125pg/ mL high PRO-B TYPE NATRI URETI C PEPTI DE 4,691 (H) <125 PG/ML 12/25 9:50 AM CDT [facility] Not Available Not Available 10/31/2024 12:36:59 12/26/19 24 12/26/2023 Natri ureti c pepti de.B proho rmone N-Ter desmond [Mass /volu me] in Serum or Plasm a interpretati on and review of laboratory results Abnorm al Not Available Not Available 12:36:59 12/26/19 24 12/26/2023 Compr ehens luis carlos metab olic 1999 panel - Serum or Plasm a glucose [mass/volume ] in serum or plasma 87 text: 70 - 99 mg/dL GLUCO SE 87 70 - 99 MG/DL 12/25 9:50 AM CDT [facility] Not Available Not Available 10/31/2024 12:36:58 12/26/19 24 12/26/2023 Compr ehens luis carlos metab olic 2000 panel - Serum or Plasm a urea nitrogen [mass/volume ] in serum or plasma 16 text: 7 - 18 mg/dL BUN 16 7 - 18 MG/DL 12/25 9:50 AM CDT [facility] Not Available Not Available 10/31/2024 12:36:58 12/26/19 24 12/26/2023 Compr ehens luis carlos metab olic 2000 panel - Serum or Plasm a creatinine [mass/volume ] in serum or plasma 0.92 text: 0.55 - 1.02 mg/dL CREAT ININE S/P/B 0.92 0.55 - 1.02 MG/DL 12/25 9:50 AM CDT [facility] Not Available Not Available 10/31/2024 12:36:58 12/26/19 24 12/26/2023 Compr ehens luis carlos metab olic 2000 panel - Serum or Plasm a sodium [moles/volum e] in serum or plasma 141 text: 136 - 145 mmol/L SODIU M S/P/B 141 136 - 145 MMOL/ L 12/25 9:50 AM CDT [facility] Not Available Not Available 10/31/2024 12:36:58 12/26/19 24 12/26/2023 Compr ehens luis carlos metab olic 2000 panel - Serum or Plasm a potassium [moles/volum e] in serum or plasma 3 text: 3.5 - 5.1 mmol/L critical low POTAS SIUM S/P/B 3.0 (LL) 3.5 - 5.1 MMOL/ L 12/25 9:50 AM CDT [facility] Not Available Not Available 10/31/2024 12:36:58 12/26/19 24 12/26/2023 Compr ehens luis carlos metab olic 2000 panel - Serum or Plasm a chloride [moles/volum e] in serum or plasma 102 text: 100 - 108 mmol/L CHLOR KIRSTEN S/P/B 102 100 - 108 MMOL/ L 12/25 9:50 AM CDT [facility] Not Available Not Available 10/31/2024 12:36:58 12/26/19 24 12/26/2023 Compr ehens luis carlos metab olic 2000 panel - Serum or Plasm a carbon dioxide, total [moles/volum e] in serum or plasma 30.4 text: 21 - 32 mmol/L CO2 30.4 21 - 32 MMOL/ L 12/25 9:50 AM CDT [facility] Not Available Not Available 10/31/2024 12:36:58 12/26/19 24 12/26/2023 Compr ehens luis carlos metab olic 2000 panel - Serum or Plasm a calcium [mass/volume ] in serum or plasma 8.6 text: 8.5 - 10.1 mg/dL CALCI UM S/P/B 8.6 8.5 - 10.1 MG/DL 12/25 9:50 AM CDT [facility] Not Available Not Available 10/31/2024 12:36:58 12/26/19 24 12/26/2023 Compr ehens luis carlos metab olic 2000 panel - Serum or Plasm a bilirubin.to shital [mass/volume ] in serum or plasma 0.5 text: 0.2 - 1.2 mg/dL BILIR UBIN TOTAL S/P/B 0.5 0.2 - 1.2 MG/DL 12/25 9:50 AM CDT [facility] Not Available Not Available 10/31/2024 12:36:58 12/26/19 24 12/26/2023 Compr ehens luis carlos metab olic 1999 panel - Serum or Plasm a protein [mass/volume ] in serum or plasma 6.9 text: 6.4 - 8.2 g/dL TOTAL PROTE IN S/P/B 6.9 6.4 - 8.2 G/DL 12/25 9:50 AM CDT [facility] Not Available Not Available 10/31/2024 12:36:58 12/26/19 24 12/26/2023 Compr ehens luis carlos metab olic 1999 panel - Serum or Plasm a albumin [mass/volume ] in serum or plasma 3.4 text: 3.4 - 5.0 g/dL ALBUM IN S/P/B 3.4 3.4 - 5.0 G/DL 12/25 9:50 AM CDT [facility] Not Available Not Available 10/31/2024 12:36:58 12/26/19 24 12/26/2023 Compr ehens luis carlos metab olic 2000 panel - Serum or Plasm a aspartate aminotransfe rase [enzymatic activity/vol ume] in serum or plasma 62 U/L low: 15U/Lh igh: 37U/L high AST 62 (H) 15 - 37 U/L 12/25 9:50 AM CDT [facility] Not Available Not Available 10/31/2024 12:36:58 12/26/19 24 12/26/2023 Compr ehens luis carlos metab olic 2000 panel - Serum or Plasm a alanine aminotransfe rase [enzymatic activity/vol ume] in serum or plasma 37 U/L low: 14U/Lh igh: 55U/L ALT 37 14 - 55 U/L 12/25 9:50 AM CDT [facility] Not Available Not Available 10/31/2024 12:36:58 12/26/19 24 12/26/2023 Compr ehens luis carlos metab olic 2000 panel - Serum or Plasm a alkaline phosphatase [enzymatic activity/vol ume] in serum or plasma 134 U/L low: 50U/Lh igh: 136U/L ALKAL INE PHOSP HATAS E S/P/B 134 50 - 136 U/L 12/25 9:50 AM CDT [facility] () [facility] Not Available Not Available 10/31/2024 12:36:58 12/26/19 24 12/26/2023 Compr ehens luis carlos metab olic 2000 panel - Serum or Plasm a anion gap in serum or plasma 8.6 text: 5 - 15 mmol/L ANION GAP 8.6 5 - 15 MMOL/ L 12/25 9:50 AM CDT [facility] () [facility] Not Available Not Available 10/31/2024 12:36:58 12/26/19 24 12/26/2023 Compr ehens luis carlos metab olic 2000 panel - Serum or Plasm a urea nitrogen/cre atinine [mass ratio] in serum or plasma 17.4 low: 6high: 26 BUN CREAT ININE RATIO 17.4 6 - 26 12/25 9:50 AM CDT [facility] () [facility] Not Available Not Available 10/31/2024 12:36:58 12/26/19 24 12/26/2023 Compr ehens luis carlos metab olic 2000 panel - Serum or Plasm a albumin/glob ulin [mass ratio] in serum or plasma 1 text: 1.0 - 2.0 ratio A/G RATIO 1.0 1.0 - 2.0 RATIO 12/25 9:50 AM CDT [facility] () [facility] Not Available Not Available 10/31/2024 12:36:58 12/26/19 24 12/26/2023 Compr ehens luis carlos metab olic 2000 panel - Serum or Plasm a glomerular filtration rate/1.73 sq M.predicted [volume rate/area] in serum, plasma or blood by creatinine-b ased formula (CKD-epi 2020) 67 text: >90 mL/min /1.73 M2 low GFR ESTIM ATE 67 (L) >90 ML/AZ N/1.7 3 M2 12/25 9:50 AM CDT [facility] Not Available Not Available 10/31/2024 12:36:58 12/26/19 24 12/26/2023 Compr frankie wilde 2000 panel - Serum or Plasm a interpretati on and review of laboratory results Abnorm al Not Available Not Available 12:36:58 12/26/19 24 12/26/2023 CBC W Auto Diffe renti al panel - Blood leukocytes [#/volume] in blood by automated count 8.72 text: 4.4 - 11.0 x10'3/ uL WBC 8.72 4.4 - 11.0 x10'3 /uL 12/25 9:29 AM CDT [facility] Not Available Not Available 10/31/2024 12:36:58 12/26/19 24 12/26/2023 CBC W Auto Diffe renti al panel - Blood erythrocytes [#/volume] in blood by automated count 4.35 text: 4.50 - 5.10 x10'6/ uL low RBC 4.35 (L) 4.50 - 5.10 x10'6 /uL 12/25 9:29 AM CDT [facility] Not Available Not Available 10/31/2024 12:36:58 12/26/19 24 12/26/2023 CBC W Auto Diffe renti al panel - Blood hemoglobin [mass/volume ] in blood 13.4 text: 12.3 - 15.3 g/dL HGB 13.4 12.3 - 15.3 G/DL 12/25 9:29 AM CDT [facility] Not Available Not Available 10/31/2024 12:36:58 12/26/19 24 12/26/2023 CBC W Auto Diffe renti al panel - Blood hematocrit [volume fraction] of blood 42.1 % low: 35.9%h igh: 44.6% HCT 42.1 35.9 - 44.6 % 12/25 9:29 AM CDT [facility] Not Available Not Available 10/31/2024 12:36:58 12/26/19 24 12/26/2023 CBC W Auto Diffe renti al panel - Blood MCV [entitic volume] 96.8 text: 80.0 - 96.0 fL high MCV 96.8 (H) 80.0 - 96.0 FL 12/25 9:29 AM CDT [facility] () [facility] Not Available Not Available 10/31/2024 12:36:58 12/26/19 24 12/26/2023 CBC W Auto Diffe renti al panel - Blood MCH [entitic mass] 30.8 pg low: 25.3pg high: 30.9pg MCH 30.8 25.3 - 30.9 PG 12/25 9:29 AM CDT [facility] () [facility] Not Available Not Available 10/31/2024 12:36:58 12/26/19 24 12/26/2023 CBC W Auto Diffe renti al panel - Blood MCHC [mass/volume ] 31.8 text: 31.0 - 34.1 g/dL MCHC 31.8 31.0 - 34.1 G/DL 12/25 9:29 AM CDT [facility] () [facility] Not Available Not Available 10/31/2024 12:36:58 12/26/19 24 12/26/2023 CBC W Auto Diffe renti al panel - Blood erythrocyte distribution width [entitic volume] by automated count 14.2 % low: 12.4%h igh: 15.1% RDW 14.2 12.4 - 15.1 % 12/25 9:29 AM CDT [facility] Not Available Not Available 10/31/2024 12:36:58 12/26/19 24 12/26/2023 CBC W Auto Diffe renti al panel - Blood platelets [#/volume] in blood 246 text: 151 - 353 x10'3/ uL PLT 246 151 - 353 x10'3 /uL 12/25 9:29 AM CDT [facility] Not Available Not Available 10/31/2024 12:36:58 12/26/19 24 12/26/2023 CBC W Auto Diffe renti al panel - Blood platelet mean volume [entitic volume] in blood 10 text: 9.6 - 12.0 fL MPV 10.0 9.6 - 12.0 FL 12/25 9:29 AM CDT [facility] Not Available Not Available 10/31/2024 12:36:58 12/26/19 24 12/26/2023 CBC W Auto Diffe renti al panel - Blood erythrocytes [morphology] in blood by automated count NORMAL RBC MORPH OLOGY PING L 12/25 9:29 AM CDT [facility] Not Available Not Available 10/31/2024 12:36:58 12/26/19 24 12/26/2023 CBC W Auto Diffe renti al panel - Blood platelet morphology finding [identifier] in blood NORMAL PLT MORPH . PING L 12/25 9:29 AM CDT [facility] Not Available Not Available 10/31/2024 12:36:58 12/26/19 24 12/26/2023 CBC W Auto Diffe renti al panel - Blood leukocyte morphology finding [identifier] in blood NORMAL WBC MORPH OLOGY PING L 12/25 9:29 AM CDT [facility] Not Available Not Available 10/31/2024 12:36:58 12/26/19 24 12/26/2023 CBC W Auto Diffe renti al panel - Blood lymphocytes/ 100 leukocytes in blood by automated count 25.3 % low: 15.8%h igh: 45% LYMPH OCYTE S 25.3 15.8 - 45.0 % 12/25 9:29 AM CDT [facility] Not Available Not Available 10/31/2024 12:36:58 12/26/19 24 12/26/2023 CBC W Auto Diffe renti al panel - Blood neutrophils/ 100 leukocytes in blood by automated count 65.9 % low: 42.1%h igh: 71.9% NEUTR OPHIL S 65.9 42.1 - 71.9 % 12/25 9:29 AM CDT [facility] Not Available Not Available 10/31/2024 12:36:58 12/26/19 24 12/26/2023 CBC W Auto Diffe renti al panel - Blood monocytes/10 0 leukocytes in blood by automated count 7.5 % low: 5.7%hi gh: 12.5% MONOC YTES 7.5 5.7 - 12.5 % 12/25 9:29 AM CDT [facility] () [facility] Not Available Not Available 10/31/2024 12:36:58 12/26/19 24 12/26/2023 CBC W Auto Diffe renti al panel - Blood eosinophils/ 100 leukocytes in blood by automated count 0 % low: 0%high : 5.6% EOSIN OPHIL S 0.0 0.0 - 5.6 % 12/25 9:29 AM CDT [facility] Not Available Not Available 10/31/2024 12:36:58 12/26/19 24 12/26/2023 CBC W Auto Diffe renti al panel - Blood basophils/10 0 leukocytes in blood by automated count 0.6 % low: 0%high : 1.3% BASOP HILS 0.6 0.0 - 1.3 % 12/25 9:29 AM CDT [facility] Not Available Not Available 10/31/2024 12:36:58 12/26/19 24 12/26/2023 CBC W Auto Diffe renti al panel - Blood neutrophils [#/volume] in blood 5.75 text: 1.40 - 6.00 x10'3/ uL ABS. NEUTR OPHIL S 5.75 1.40 - 6.00 x10'3 /uL 12/25 9:29 AM CDT [facility] () [facility] Not Available Not Available 10/31/2024 12:36:58 12/26/19 24 12/26/2023 CBC W Auto Diffe renti al panel - Blood immature granulocytes /100 leukocytes in blood by automated count 0.7 % low: 0%high : 0.5% high IMMAT URE GRANS 0.7 (H) 0.0 - 0.5 % 12/25 9:29 AM CDT [facility] ([facility] Not Available Not Available 10/31/2024 12:36:58 12/26/19 24 12/26/2023 CBC W Auto Diffe renti al panel - Blood lymphocytes [#/volume] in blood 2.21 text: 0.80 - 4.70 x10'3/ uL ABS. LYMPH OCYTE S 2.21 0.80 - 4.70 x10'3 /uL 12/25 9:29 AM CDT [facility] Not Available Not Available 10/31/2024 12:36:58 12/26/19 24 12/26/2023 CBC W Auto Diffe renti al panel - Blood interpretati on and review of laboratory results Abnorm al Not Available Not Available 12:36:58 01/06/20 24 01/07/2024 BASIC METAB OLIC PANEL (8) glucose 92 mg/dL 70-99 Not Available [facility] ([facility]) [address] [place], [address], 01/07/2024 09:14:17 01/06/20 24 01/07/2024 BASIC METAB OLIC PANEL (8) BUN 45 mg/dL 8-27 above high normal Not Available [facility] ([facility]) [address] [place], [address], 01/07/2024 09:14:17 01/06/20 24 01/07/2024 BASIC METAB OLIC PANEL (8) creatinine 1.11 mg/dL 0.57-1 .00 above high normal Not Available [facility] ([facility]) [address] [place], [address], 01/07/2024 09:14:17 01/06/20 24 01/07/2024 BASIC METAB OLIC PANEL (8) eGFR 53 mL/mi n/1.7 3 >59 below low normal Not Available [facility] ([facility]) [address] [place], [address], 01/07/2024 09:14:17 01/06/20 24 01/07/2024 BASIC METAB OLIC PANEL (8) BUN/creatini ne ratio 41 12-28 above high normal Not Available [facility] ([facility]) [address] [place], [address], 01/07/2024 09:14:17 01/06/20 24 01/07/2024 BASIC METAB OLIC PANEL (8) sodium 137 mmol/ L 134-14 4 Not Available [facility] ([facility]) [address] [place], [address], 01/07/2024 09:14:17 01/06/20 24 01/07/2024 BASIC METAB OLIC PANEL (8) potassium 5.9 mmol/ L 3.5-5. 2 above high normal Not Available [facility] ([facility]) [address] [place], [address], 01/07/2024 09:14:17 01/06/20 24 01/07/2024 BASIC METAB OLIC PANEL (8) chloride 100 mmol/ L 96-106 Not Available [facility] ([facility]) [address] [place], [address], 01/07/2024 09:14:17 01/06/20 24 01/07/2024 BASIC METAB OLIC PANEL (8) carbon dioxide, total 21 mmol/ L 20-29 Not Available [facility] ([facility]) [address] [place], [address], 01/07/2024 09:14:17 01/06/20 24 01/07/2024 BASIC METAB OLIC PANEL (8) calcium 9.7 mg/dL 8.7-10 .3 Not Available [facility] ([facility]) [address] [place], [address], 01/07/2024 09:14:17 01/14/20 24 01/15/2024 BASIC METAB OLIC PANEL (8) glucose 80 mg/dL 70-99 Not Available [facility] ([facility]) [address] [place], [address], 01/15/2024 11:15:36 01/14/20 24 01/15/2024 BASIC METAB OLIC PANEL (8) BUN 26 mg/dL 8-27 Not Available [facility] ([facility]) [address] [place], [address], 01/15/2024 11:15:36 01/14/20 24 01/15/2024 BASIC METAB OLIC PANEL (8) creatinine 1.04 mg/dL 0.57-1 .00 above high normal Not Available [facility] ([facility]) [address] [place], [address], 01/15/2024 11:15:36 01/14/20 24 01/15/2024 BASIC METAB OLIC PANEL (8) eGFR 58 mL/mi n/1.7 3 >59 below low normal Not Available [facility] ([facility]) [address] [place], [address], 01/15/2024 11:15:36 01/14/20 24 01/15/2024 BASIC METAB OLIC PANEL (8) BUN/creatini ne ratio 25 12-28 Not Available [facility] ([facility]) [address] [place], [address], 01/15/2024 11:15:36 01/14/20 24 01/15/2024 BASIC METAB OLIC PANEL (8) sodium 141 mmol/ L 134-14 4 Not Available [facility] ([facility]) [address] [facility], [place], [address], 01/15/2024 11:15:36 01/14/20 24 01/15/2024 BASIC METAB OLIC PANEL (8) potassium 4.7 mmol/ L 3.5-5. 2 Not Available [facility] ([facility]) [address] [facility], [place], [address], 01/15/2024 11:15:36 01/14/20 24 01/15/2024 BASIC METAB OLIC PANEL (8) chloride 104 mmol/ L 96-106 Not Available [facility] ([facility]) [address] [facility], [place], [address], 01/15/2024 11:15:36 01/14/20 24 01/15/2024 BASIC METAB OLIC PANEL (8) carbon dioxide, total 20 mmol/ L 20-29 Not Available [facility] ([facility]) [address] [facility], [place], [address], 01/15/2024 11:15:36 01/14/20 24 01/15/2024 BASIC METAB OLIC PANEL (8) calcium 9.3 mg/dL 8.7-10 .3 Not Available [facility] ([facility]) [address] [facility], [place], [address], 01/15/2024 11:15:36 02/25/20 24 03/01/2024 Bacte jazlyn ident ified in Blood by Cultu re specimen source identified BLOOD SPEC DESCR IPTIO N BLOOD 02/24 5:50 PM CDT [facility] Not Available Not Available 11/29/2024 11:10:54 02/25/20 24 03/01/2024 Bacte jazlyn ident ified in Blood by Cultu re service comment NO SPECIA L REQUES T SPECI AL REQUE STS NO SPECI AL REQUE ST 02/24 5:50 PM CDT [facility] Not Available Not Available 11/29/2024 11:10:54 02/25/20 24 03/01/2024 Bacte jazlyn ident ified in Blood by Cultu re bacteria identified in specimen by culture NO GROWTH 5 DAYS CULTU RE RESUL T NO GROWT H 5 DAYS 03/01 9:15 AM CDT [facility] Not Available Not Available 11/29/2024 11:10:54 02/25/20 24 03/01/2024 Bacte jazlyn ident ified in Blood by Cultu re specimen source identified BLOOD SPEC DESCR IPTIO N BLOOD 02/24 5:50 PM CDT [facility] (H) [facility] Not Available Not Available 11/29/2024 11:10:54 02/25/20 24 03/01/2024 Bacte jazlyn ident ified in Blood by Cultu re service comment NO SPECIA L REQUES T SPECI AL REQUE STS NO SPECI AL REQUE ST 02/24 5:50 PM CDT [facility] (H) [facility] Not Available Not Available 11/29/2024 11:10:54 02/25/20 24 03/01/2024 Bacte jazlyn ident ified in Blood by Cultu re bacteria identified in specimen by culture NO GROWTH 5 DAYS CULTU RE RESUL T NO GROWT H 5 DAYS 03/01 9:15 AM CDT [facility] Not Available Not Available 11/29/2024 11:10:54 02/25/20 24 02/25/2024 Lacta te [Mole s/vol ume] in Serum or Plasm a lactate [moles/volum e] in serum or plasma 1 text: 0.4 - 2.0 mmol/L LACTI C ACID VENOU S 1.0 0.4 - 2.0 MMOL/ L 02/24 6:10 PM CDT [facility] LAB Not Available Not Available 11/29/2024 11:10:54 02/25/20 24 02/25/2024 Fibri n D-dim er FEU [Mass /volu me] in Plate let poor plasm a fibrin D-dimer feu [mass/volume ] in platelet poor plasma 2098 NG{fe u}/mL low: 0NG{fe u}/mLh igh: 500NG{ feu}/m L high D-DIM ER 2,098 (H) 0 - 500 ng{FE U}/mL 02/24 5:55 PM CDT [facility] Not Available Not Available 11/29/2024 11:10:54 02/25/20 24 02/25/2024 Fibri n D-dim er FEU [Mass /volu me] in Plate let poor plasm a interpretati on and review of laboratory results Abnorm al Not Available Not Available 11:10:54 02/25/20 24 02/25/2024 Natri ureti c pepti de.B proho rmone N-Ter desmond [Mass /volu me] in Serum or Plasm a natriuretic peptide.B prohormone N-terminal [mass/volume ] in serum or plasma 2563 pg/mL high: 125pg/ mL high PRO-B TYPE NATRI URETI C PEPTI DE 2,563 (H) <125 PG/ML 02/24 6:11 PM CDT [facility] Not Available Not Available 11/29/2024 11:10:54 02/25/20 24 02/25/2024 Natri ureti c pepti de.B proho rmone N-Ter des[place] [Mass /volu me] in Serum or Plasm a interpretati on and review of laboratory results Abnorm al Not Available Not Available 11:10:54 02/25/20 24 02/25/2024 Magne sium [Mass /volu me] in Serum or Plasm a magnesium [mass/volume ] in serum or plasma 1.7 text: 1.8 - 2.4 mg/dL low MAGNE SIUM 1.7 (L) 1.8 - 2.4 MG/DL 02/24 6:11 PM CDT [facility] Not Available Not Available 11/29/2024 11:10:54 02/25/20 24 02/25/2024 Magne sium [Mass /volu me] in Serum or Plasm a interpretati on and review of laboratory results Abnorm al Not Available Not Available 11:10:54 02/25/20 24 02/25/2024 Compr ehens luis carlos metab olic 1999 panel - Serum or Plasm a glucose [mass/volume ] in serum or plasma 110 text: 70 - 99 mg/dL high GLUCO SE 110 (H) 70 - 99 MG/DL 02/24 6:11 PM CDT [facility] Not Available Not Available 11/29/2024 11:10:54 02/25/20 24 02/25/2024 Compr ehens luis carlos metab olic 1999 panel - Serum or Plasm a urea nitrogen [mass/volume ] in serum or plasma 16 text: 7 - 18 mg/dL BUN 16 7 - 18 MG/DL 02/24 6:11 PM CDT [facility] Not Available Not Available 11/29/2024 11:10:54 02/25/20 24 02/25/2024 Compr ehens luis carlos metab olic 1999 panel - Serum or Plasm a creatinine [mass/volume ] in serum or plasma 0.88 text: 0.55 - 1.02 mg/dL CREAT ININE S/P/B 0.88 0.55 - 1.02 MG/DL 02/24 6:11 PM CDT [facility] Not Available Not Available 11/29/2024 11:10:54 02/25/20 24 02/25/2024 Compr ehens luis carlos metab olic 2000 panel - Serum or Plasm a sodium [moles/volum e] in serum or plasma 134 text: 136 - 145 mmol/L low SODIU M S/P/B 134 (L) 136 - 145 MMOL/ L 02/24 6:11 PM CDT [facility] Not Available Not Available 11/29/2024 11:10:54 02/25/20 24 02/25/2024 Compr ehens luis carlos metab olic 1999 panel - Serum or Plasm a potassium [moles/volum e] in serum or plasma 4.1 text: 3.5 - 5.1 mmol/L POTAS SIUM S/P/B 4.1 3.5 - 5.1 MMOL/ L 02/24 6:11 PM CDT [facility] Not Available Not Available 11/29/2024 11:10:54 02/25/20 24 02/25/2024 Compr ehens luis carlos metab olic 1999 panel - Serum or Plasm a chloride [moles/volum e] in serum or plasma 99 text: 100 - 108 mmol/L low CHLOR KIRSTEN S/P/B 99 (L) 100 - 108 MMOL/ L 02/24 6:11 PM CDT [facility] Not Available Not Available 11/29/2024 11:10:54 02/25/20 24 02/25/2024 Compr ehens luis carlos metab olic 1999 panel - Serum or Plasm a carbon dioxide, total [moles/volum e] in serum or plasma 26.4 text: 21 - 32 mmol/L CO2 26.4 21 - 32 MMOL/ L 02/24 6:11 PM CDT [facility] Not Available Not Available 11/29/2024 11:10:54 02/25/20 24 02/25/2024 Compr ehens luis carlos metab olic 1999 panel - Serum or Plasm a calcium [mass/volume ] in serum or plasma 8.9 text: 8.5 - 10.1 mg/dL CALCI UM S/P/B 8.9 8.5 - 10.1 MG/DL 02/24 6:11 PM CDT [facility] Not Available Not Available 11/29/2024 11:10:54 02/25/20 24 02/25/2024 Compr ehens luis carlos metab olic 2000 panel - Serum or Plasm a bilirubin.to shital [mass/volume ] in serum or plasma 0.6 text: 0.2 - 1.2 mg/dL BILIR UBIN TOTAL S/P/B 0.6 0.2 - 1.2 MG/DL 02/24 6:11 PM CDT [facility] ([facility] LAB Not Available Not Available 11/29/2024 11:10:54 02/25/20 24 02/25/2024 Compr ens luis carlos metab olic 1999 panel - Serum or Plasm a protein [mass/volume ] in serum or plasma 7.2 text: 6.4 - 8.2 g/dL TOTAL PROTE IN S/P/B 7.2 6.4 - 8.2 G/DL 02/24 6:11 PM CDT [facility] ([facility] LAB Not Available Not Available 11/29/2024 11:10:54 02/25/20 24 02/25/2024 Compr ens luis carlos metab olic 2000 panel - Serum or Plasm a albumin [mass/volume ] in serum or plasma 2.8 text: 3.4 - 5.0 g/dL low ALBUM IN S/P/B 2.8 (L) 3.4 - 5.0 G/DL 02/24 6:11 PM CDT [facility] (H) [facility] LAB Not Available Not Available 11/29/2024 11:10:54 02/25/20 24 02/25/2024 Compr ens luis carlos metab olic 2000 panel - Serum or Plasm a aspartate aminotransfe rase [enzymatic activity/vol ume] in serum or plasma 26 U/L low: 15U/Lh igh: 37U/L AST 26 15 - 37 U/L 02/24 6:11 PM CDT [facility] ([facility] LAB Not Available Not Available 11/29/2024 11:10:54 02/25/20 24 02/25/2024 Compr ens luis carlos metab olic 2000 panel - Serum or Plasm a alanine aminotransfe rase [enzymatic activity/vol ume] in serum or plasma 49 U/L low: 14U/Lh igh: 55U/L ALT 49 14 - 55 U/L 02/24 6:11 PM CDT [facility] ([facility] LAB Not Available Not Available 11/29/2024 11:10:54 02/25/20 24 02/25/2024 Compr ehens luis carlos metab olic 2000 panel - Serum or Plasm a alkaline phosphatase [enzymatic activity/vol ume] in serum or plasma 637 U/L low: 50U/Lh igh: 136U/L high ALKAL INE PHOSP HATAS E S/P/B 637 (H) 50 - 136 U/L 02/24 6:11 PM CDT [facility] (H) [facility] LAB Not Available Not Available 11/29/2024 11:10:54 02/25/20 24 02/25/2024 Compr ehens luis carlos metab olic 2000 panel - Serum or Plasm a anion gap in serum or plasma by calculation 8.6 text: 5 - 15 mmol/L ANION GAP 8.6 5 - 15 MMOL/ L 02/24 6:11 PM CDT [facility] (H) [facility] LAB Not Available Not Available 11/29/2024 11:10:54 02/25/20 24 02/25/2024 Compr ehens luis carlos metab olic 1999 panel - Serum or Plasm a urea nitrogen/cre atinine [mass ratio] in serum or plasma 18.2 low: 6high: 26 BUN CREAT ININE RATIO 18.2 6 - 26 02/24 6:11 PM CDT [facility] (H) [facility] LAB Not Available Not Available 11/29/2024 11:10:54 02/25/20 24 02/25/2024 Compr ehens luis carlos metab olic 2000 panel - Serum or Plasm a albumin/glob ulin [mass ratio] in serum or plasma 0.6 text: 1.0 - 2.0 ratio low A/G RATIO 0.6 (L) 1.0 - 2.0 RATIO 02/24 6:11 PM CDT [facility] Not Available Not Available 11/29/2024 11:10:54 02/25/20 24 02/25/2024 Compr ehens luis carlos metab olic 2000 panel - Serum or Plasm a glomerular filtration rate [volume rate/area] in serum, plasma or blood by creatinine-b ased formula (CKD-epi 2020)/1.73 sq M 70 text: >90 mL/min /1.73 M2 low GFR ESTIM ATE 70 (L) >90 ML/AZ N/1.7 3 M2 02/24 6:11 PM CDT [facility] Not Available Not Available 11/29/2024 11:10:54 02/25/20 24 02/25/2024 Compr ehens luis carlos metab olic 2000 panel - Serum or Plasm a interpretati on and review of laboratory results Abnorm al Not Available Not Available 11:10:54 02/25/20 24 02/25/2024 CBC W Auto Diffe renti al panel - Blood leukocytes [#/volume] in blood by automated count 14.61 text: 4.4 - 11.0 x10'3/ uL high WBC 14.61 (H) 4.4 - 11.0 x10'3 /uL 02/24 5:49 PM CDT [facility] Not Available Not Available 11/29/2024 11:10:54 02/25/20 24 02/25/2024 CBC W Auto Diffe renti al panel - Blood erythrocytes [#/volume] in blood by automated count 4.07 text: 4.50 - 5.10 x10'6/ uL low RBC 4.07 (L) 4.50 - 5.10 x10'6 /uL 02/24 5:49 PM CDT [facility] Not Available Not Available 11/29/2024 11:10:54 02/25/20 24 02/25/2024 CBC W Auto Diffe renti al panel - Blood hemoglobin [mass/volume ] in blood 12.7 text: 12.3 - 15.3 g/dL HGB 12.7 12.3 - 15.3 G/DL 02/24 5:49 PM CDT [facility] Not Available Not Available 11/29/2024 11:10:54 02/25/20 24 02/25/2024 CBC W Auto Diffe renti al panel - Blood hematocrit [volume fraction] of blood by calculation 38.3 % low: 35.9%h igh: 44.6% HCT 38.3 35.9 - 44.6 % 02/24 5:49 PM CDT [facility] Not Available Not Available 11/29/2024 11:10:54 02/25/20 24 02/25/2024 CBC W Auto Diffe renti al panel - Blood MCV [entitic mean volume] in red blood cells 94.1 text: 80.0 - 96.0 fL MCV 94.1 80.0 - 96.0 FL 02/24 5:49 PM CDT [facility] Not Available Not Available 11/29/2024 11:10:54 02/25/20 24 02/25/2024 CBC W Auto Diffe renti al panel - Blood MCH [entitic mass] 31.2 pg low: 25.3pg high: 30.9pg high MCH 31.2 (H) 25.3 - 30.9 PG 02/24 5:49 PM CDT [facility] Not Available Not Available 11/29/2024 11:10:54 02/25/20 24 02/25/2024 CBC W Auto Diffe renti al panel - Blood MCHC [entitic mass/volume] in red blood cells 33.2 text: 31.0 - 34.1 g/dL MCHC 33.2 31.0 - 34.1 G/DL 02/24 5:49 PM CDT [facility] Not Available Not Available 11/29/2024 11:10:54 02/25/20 24 02/25/2024 CBC W Auto Diffe renti al panel - Blood RDW 13.6 % low: 12.4%h igh: 15.1% RDW 13.6 12.4 - 15.1 % 02/24 5:49 PM CDT [facility] Not Available Not Available 11/29/2024 11:10:54 02/25/20 24 02/25/2024 CBC W Auto Diffe renti al panel - Blood platelets [#/volume] in blood 309 text: 151 - 353 x10'3/ uL PLT 309 151 - 353 x10'3 /uL 02/24 5:49 PM CDT [facility] Not Available Not Available 11/29/2024 11:10:54 02/25/20 24 02/25/2024 CBC W Auto Diffe renti al panel - Blood platelet [entitic mean volume] in blood 10.2 text: 9.6 - 12.0 fL MPV 10.2 9.6 - 12.0 FL 02/24 5:49 PM CDT [facility] Not Available Not Available 11/29/2024 11:10:54 02/25/20 24 02/25/2024 CBC W Auto Diffe renti al panel - Blood erythrocytes [morphology] in blood by automated count NORMAL RBC MORPH OLOGY PING L 02/24 5:49 PM CDT [facility] Not Available Not Available 11/29/2024 11:10:54 02/25/20 24 02/25/2024 CBC W Auto Diffe renti al panel - Blood platelet morphology finding [identifier] in blood NORMAL PLT MORPH . PING L 02/24 5:49 PM CDT [facility] Not Available Not Available 11/29/2024 11:10:54 02/25/20 24 02/25/2024 CBC W Auto Diffe renti al panel - Blood leukocyte morphology finding [identifier] in blood NORMAL WBC MORPH OLOGY PING L 02/24 5:49 PM CDT [facility] Not Available Not Available 11/29/2024 11:10:54 02/25/20 24 02/25/2024 CBC W Auto Diffe renti al panel - Blood lymphocytes/ leukocytes in blood by automated count 10 % low: 15.8%h igh: 45% low LYMPH OCYTE S 10.0 (L) 15.8 - 45.0 % 02/24 5:49 PM CDT [facility] ([facility] LAB Not Available Not Available 11/29/2024 11:10:54 02/25/20 24 02/25/2024 CBC W Auto Diffe renti al panel - Blood neutrophils/ leukocytes in blood by automated count 79.2 % low: 42.1%h igh: 71.9% high NEUTR OPHIL S 79.2 (H) 42.1 - 71.9 % 02/24 5:49 PM CDT [facility] ([facility] LAB Not Available Not Available 11/29/2024 11:10:54 02/25/20 24 02/25/2024 CBC W Auto Diffe renti al panel - Blood monocytes/le ukocytes in blood by automated count 9 % low: 5.7%hi gh: 12.5% MONOC YTES 9.0 5.7 - 12.5 % 02/24 5:49 PM CDT [facility] ([facility]) [facility] LAB Not Available Not Available 11/29/2024 11:10:54 02/25/20 24 02/25/2024 CBC W Auto Diffe renti al panel - Blood eosinophils/ leukocytes in blood by automated count 0 % low: 0%high : 5.6% EOSIN OPHIL S 0.0 0.0 - 5.6 % 02/24 5:49 PM CDT [facility] ([facility] LAB Not Available Not Available 11/29/2024 11:10:54 02/25/20 24 02/25/2024 CBC W Auto Diffe renti al panel - Blood basophils/le ukocytes in blood by automated count 0.4 % low: 0%high : 1.3% BASOP HILS 0.4 0.0 - 1.3 % 02/24 5:49 PM CDT [facility] ([facility] LAB Not Available Not Available 11/29/2024 11:10:54 02/25/20 24 02/25/2024 CBC W Auto Diffe renti al panel - Blood neutrophils [#/volume] in blood 11.57 text: 1.40 - 6.00 x10'3/ uL high ABS. NEUTR OPHIL S 11.57 (H) 1.40 - 6.00 x10'3 /uL 02/24 5:49 PM CDT [facility] (H) [facility] LAB Not Available Not Available 11/29/2024 11:10:54 02/25/20 24 02/25/2024 CBC W Auto Diffe renti al panel - Blood immature granulocytes /leukocytes in blood by automated count 1.4 % low: 0%high : 0.5% high IMMAT URE GRANS 1.4 (H) 0.0 - 0.5 % 02/24 5:49 PM CDT [facility] (H) [facility] LAB Not Available Not Available 11/29/2024 11:10:54 02/25/20 24 02/25/2024 CBC W Auto Diffe renti al panel - Blood lymphocytes [#/volume] in blood 1.46 text: 0.80 - 4.70 x10'3/ uL ABS. LYMPH OCYTE S 1.46 0.80 - 4.70 x10'3 /uL 02/24 5:49 PM CDT [facility] (H) [facility] LAB Not Available Not Available 11/29/2024 11:10:54 02/25/20 24 02/25/2024 CBC W Auto Diffe renti al panel - Blood interpretati on and review of laboratory results Abnorm al Not Available Not Available 11:10:54 04/11/20 24 04/12/2024 BASIC METAB OLIC PANEL (8) glucose 102 mg/dL 70-99 above high normal Not Available [facility] ([facility]) [address] [place], [address], 04/12/2024 03:37:19 04/11/20 24 04/12/2024 BASIC METAB OLIC PANEL (8) BUN 25 mg/dL 8-27 Not Available [facility] ([facility]) [address] [place], [address], 04/12/2024 03:37:19 04/11/20 24 04/12/2024 BASIC METAB OLIC PANEL (8) creatinine 0.96 mg/dL 0.57-1 .00 Not Available [facility] ([facility]) [address] [facility], [place], [address], 04/12/2024 03:37:19 04/11/20 24 04/12/2024 BASIC METAB OLIC PANEL (8) eGFR 63 mL/mi n/1.7 3 >59 Not Available [facility] ([facility]) [address] [facility], [place], [address], 04/12/2024 03:37:19 04/11/20 24 04/12/2024 BASIC METAB OLIC PANEL (8) BUN/creatini ne ratio 26 12-28 Not Available [facility] ([facility]) [address] [facility], [place], [address], 04/12/2024 03:37:19 04/11/20 24 04/12/2024 BASIC METAB OLIC PANEL (8) sodium 138 mmol/ L 134-14 4 Not Available [facility] ([facility]) [address] [place], [address], 04/12/2024 03:37:19 04/11/20 24 04/12/2024 BASIC METAB OLIC PANEL (8) potassium 5.0 mmol/ L 3.5-5. 2 Not Available [facility] ([facility]) [address] [place], [address], 04/12/2024 03:37:19 04/11/20 24 04/12/2024 BASIC METAB OLIC PANEL (8) chloride 102 mmol/ L 96-106 Not Available [facility] ([facility]) [address] [facility], [place], [address], 04/12/2024 03:37:19 04/11/20 24 04/12/2024 BASIC METAB OLIC PANEL (8) carbon dioxide, total 20 mmol/ L 20-29 Not Available [facility] ([facility]) [address] [facility], [place], [address], 04/12/2024 03:37:19 04/11/20 24 04/12/2024 BASIC METAB OLIC PANEL (8) calcium 9.5 mg/dL 8.7-10 .3 Not Available [facility] ([facility]) [address] [facility], [place], [address], 04/12/2024 03:37:19 04/11/20 24 04/12/2024 MAGNE SIUM magnesium 2.2 mg/dL 1.6-2. 3 Not Available [facility] ([facility]) [address] [facility], [place], [address], 04/12/2024 03:37:20 05/04/20 24 05/08/2024 Mumps virus IgG Ab [Unit s/vol ume] in Serum by Immun oassa y mumps virus IgG Ab [units/volum e] in serum by immunoassay 272 AU/mL MUMPS IGG EIA 272.0 0 AU/mL 05/08 2:47 PM CDT [facility] Not Available Not Available 10/31/2024 12:36:57 05/04/20 24 05/07/2024 Measl es virus IgG Ab [Unit s/vol ume] in Serum by Immun oassa y measles virus IgG Ab [units/volum e] in serum by immunoassay text: AU/mL RUBEO LA IGG >300. 00 AU/mL 05/07 4:04 PM CDT [facility] Not Available Not Available 10/31/2024 12:36:57 05/04/20 24 05/04/2024 Rubel la virus Ab [Pres ence] in Serum rubella virus Ab [presence] in serum 306.2 RUBEL LA IGG AB 306.2 0 05/04 8:22 PM CDT [facility] Not Available Not Available 10/31/2024 12:36:56 08/19/20 24 08/20/2024 LIPID PANEL cholesterol, total 288 mg/dL 100-19 9 above high normal Not Available [facility] ([facility]) [address] [place], [address], 08/20/2024 07:11:04 08/19/20 24 08/20/2024 LIPID PANEL triglyceride s 127 mg/dL 0-149 Not Available [facility] ([facility] [address] [place], [address], 08/20/2024 07:11:04 08/19/20 24 08/20/2024 LIPID PANEL HDL cholesterol 74 mg/dL >39 Not Available [facility] [address] [place], [address], 08/20/2024 07:11:04 08/19/20 24 08/20/2024 LIPID PANEL VLDL cholesterol uli 22 mg/dL 5-40 Not Available [facility] ([facility]) [address] [place], [address], 08/20/2024 07:11:04 08/19/20 24 08/20/2024 LIPID PANEL LDL chol calc ([facility]) 192 mg/dL 0-99 above high normal Not Available [facility] ([facility]) [address] [place], [address], 08/20/2024 07:11:04 08/19/20 24 08/20/2024 LIPID PANEL LDL calc comment: COMMEN T Consi jeremiah evalu ating for Famil ial Hyper akhil stero lemia (FH), if clini dede indic ated. Not Available [facility] ([facility]) [address] [place], [address], 08/20/2024 07:11:04 08/19/20 24 08/20/2024 COMP. METAB OLIC PANEL (14) glucose 90 mg/dL 70-99 Not Available [facility] ([facility]) [address] [facility], [place], [address], 08/20/2024 07:11:05 08/19/20 24 08/20/2024 COMP. METAB OLIC PANEL (14) BUN 22 mg/dL 8-27 Not Available [facility] ([facility]) [address] [facility], [place], [address], 08/20/2024 07:11:05 08/19/20 24 08/20/2024 COMP. METAB OLIC PANEL (14) creatinine 0.91 mg/dL 0.57-1 .00 Not Available [facility] ([facility]) [address] [facility] [place] [place], [address], 08/20/2024 07:11:05 08/19/20 24 08/20/2024 COMP. METAB OLIC PANEL (14) eGFR 67 mL/mi n/1.7 3 >59 Not Available [facility] ([facility]) [address] [facility], [place], [address], 08/20/2024 07:11:05 08/19/20 24 08/20/2024 COMP. METAB OLIC PANEL (14) BUN/creatini ne ratio 24 12-28 Not Available [facility] ([facility] [address] [facility], [place], [address], 08/20/2024 07:11:05 08/19/20 24 08/20/2024 COMP. METAB OLIC PANEL (14) sodium 141 mmol/ L 134-14 4 Not Available [facility] ([facility]) [address] [facility] [place] [place], [address], 08/20/2024 07:11:05 08/19/20 24 08/20/2024 COMP. METAB OLIC PANEL (14) potassium 4.2 mmol/ L 3.5-5. 2 Not Available [facility] ([facility]) [address] [facility], [place], [address], 08/20/2024 07:11:05 08/19/20 24 08/20/2024 COMP. METAB OLIC PANEL (14) chloride 102 mmol/ L 96-106 Not Available [facility] ([facility]) [address] [facility], [place], [address], 08/20/2024 07:11:05 08/19/20 24 08/20/2024 COMP. METAB OLIC PANEL (14) carbon dioxide, total 23 mmol/ L 20-29 Not Available [facility] ([facility]) [address] [facility], [place], [address], 08/20/2024 07:11:05 08/19/20 24 08/20/2024 COMP. METAB OLIC PANEL (14) calcium 9.3 mg/dL 8.7-10 .3 Not Available [facility] ([facility]) [address] [facility], [place], [address], 08/20/2024 07:11:05 08/19/20 24 08/20/2024 COMP. METAB OLIC PANEL (14) protein, total 6.6 g/dL 6.0-8. 5 Not Available [facility] ([facility]) [address] [facility], [place], [address], 08/20/2024 07:11:05 08/19/20 24 08/20/2024 COMP. METAB OLIC PANEL (14) albumin 4.2 g/dL 3.8-4. 8 Not Available [facility] ([facility] [address] [facility] [place] [place], [address], 08/20/2024 07:11:05 08/19/20 24 08/20/2024 COMP. METAB OLIC PANEL (14) globulin, total 2.4 g/dL 1.5-4. 5 Not Available [facility] ([facility]) [address] [facility] [place] [place], [address], 08/20/2024 07:11:05 08/19/20 24 08/20/2024 COMP. METAB OLIC PANEL (14) bilirubin, total 0.6 mg/dL 0.0-1. 2 Not Available [facility] ([facility]) [address] [facility], [place], [address], 08/20/2024 07:11:05 08/19/20 24 08/20/2024 COMP. METAB OLIC PANEL (14) alkaline phosphatase 136 IU/L 44-121 above high normal Not Available [facility] ([facility]) [address] [facility], [place], [address], 08/20/2024 07:11:05 08/19/20 24 08/20/2024 COMP. METAB OLIC PANEL (14) AST (SGOT) 18 IU/L 0-40 Not Available [facility] ([facility]) [address] [facility], [place], [address], 08/20/2024 07:11:05 08/19/20 24 08/20/2024 COMP. METAB OLIC PANEL (14) ALT (SGPT) 12 IU/L 0-32 Not Available [facility] ([facility]) [address] [facility], [place], [address], 08/20/2024 07:11:05 08/19/20 24 08/20/2024 CBC WITH DIFFE RENTI AL/PL ATELE T WBC 7.2 x10e3 /uL 3.4-10 .8 Not Available [facility] ([facility]) [address] [place], [address], 08/20/2024 07:11:06 08/19/20 24 08/20/2024 CBC WITH DIFFE RENTI AL/PL ATELE T RBC 4.63 x10e6 /uL 3.77-5 .28 Not Available [facility] ([facility]) [address] [place], [address], 08/20/2024 07:11:06 08/19/20 24 08/20/2024 CBC WITH DIFFE RENTI AL/PL ATELE T hemoglobin 14.9 g/dL 11.1-1 5.9 Not Available [facility] ([facility]) [address] [facility], [place], [address], 08/20/2024 07:11:06 08/19/20 24 08/20/2024 CBC WITH DIFFE RENTI AL/PL ATELE T hematocrit 44.6 % 34.0-4 6.6 Not Available [facility] ([facility]) [address] [facility], [place], [address], 08/20/2024 07:11:06 08/19/20 24 08/20/2024 CBC WITH DIFFE RENTI AL/PL ATELE T MCV 96 fL 79-97 Not Available [facility] ([facility]) [address] [facility], [place], [address], 08/20/2024 07:11:06 08/19/20 24 08/20/2024 CBC WITH DIFFE RENTI AL/PL ATELE T MCH 32.2 pg 26.6-3 3.0 Not Available [facility] ([facility]) [address] [facility], [place], [address], 08/20/2024 07:11:06 08/19/20 24 08/20/2024 CBC WITH DIFFE RENTI AL/PL ATELE T MCHC 33.4 g/dL 31.5-3 5.7 Not Available [facility] ([facility]) [address] [place], [address], 08/20/2024 07:11:06 08/19/20 24 08/20/2024 CBC WITH DIFFE RENTI AL/PL ATELE T RDW 12.5 % 11.7-1 5.4 Not Available [facility] ([facility]) [address] [place] [address], [address], 08/20/2024 07:11:06 08/19/20 24 08/20/2024 CBC WITH DIFFE RENTI AL/PL ATELE T platelets 261 x10e3 /uL 150-45 0 Not Available [facility] ([facility]) [address] [facility], [place], [address], 08/20/2024 07:11:06 08/19/20 24 08/20/2024 CBC WITH DIFFE RENTI AL/PL ATELE T neutrophils 66 % notest ab. Not Available [facility] ([facility]) [address] [facility], [place], [address], 08/20/2024 07:11:06 08/19/20 24 08/20/2024 CBC WITH DIFFE RENTI AL/PL ATELE T lymphs 21 % notest ab. Not Available [facility] ([facility]) [address] [facility], [place], [address], 08/20/2024 07:11:06 08/19/20 24 08/20/2024 CBC WITH DIFFE RENTI AL/PL ATELE T monocytes 8 % notest ab. Not Available [facility] ([facility]) [address] [facility], [place], [address], 08/20/2024 07:11:06 08/19/20 24 08/20/2024 CBC WITH DIFFE RENTI AL/PL ATELE T eos 3 % notest ab. Not Available [facility] ([facility]) [address] [facility], [place], [address], 08/20/2024 07:11:06 08/19/20 24 08/20/2024 CBC WITH DIFFE RENTI AL/PL ATELE T basos 1 % notest ab. Not Available [facility] ([facility]) [address] [place], [address], 08/20/2024 07:11:06 08/19/20 24 08/20/2024 CBC WITH DIFFE RENTI AL/PL ATELE T neutrophils (absolute) 4.9 x10e3 /uL 1.4-7. 0 Not Available [facility] ([facility]) [address] [facility], [place], [address], 08/20/2024 07:11:06 08/19/20 24 08/20/2024 CBC WITH DIFFE RENTI AL/PL ATELE T lymphs (absolute) 1.5 x10e3 /uL 0.7-3. 1 Not Available [facility] ([facility]) [address] [facility], [place], [address], 08/20/2024 07:11:06 08/19/20 24 08/20/2024 CBC WITH DIFFE RENTI AL/PL ATELE T monocytes(ab solute) 0.5 x10e3 /uL 0.1-0. 9 Not Available [facility] ([facility]) [address] [facility], [place], [address], 08/20/2024 07:11:06 08/19/20 24 08/20/2024 CBC WITH DIFFE RENTI AL/PL ATELE T eos (absolute) 0.2 x10e3 /uL 0.0-0. 4 Not Available [facility] ([facility]) [address] [facility], [place], [address], 08/20/2024 07:11:06 08/19/20 24 08/20/2024 CBC WITH DIFFE RENTI AL/PL ATELE T baso (absolute) 0.0 x10e3 /uL 0.0-0. 2 Not Available [facility] ([facility]) [address] [place], [address], 08/20/2024 07:11:06 08/19/20 24 08/20/2024 CBC WITH DIFFE RENTI AL/PL ATELE T immature granulocytes 1 % notest ab. Not Available [facility] ([facility]) [address] [facility], [place], [address], 08/20/2024 07:11:06 08/19/20 24 08/20/2024 CBC WITH DIFFE RENTI AL/PL ATELE T immature grans (abs) 0.1 x10e3 /uL 0.0-0. 1 Not Available [facility] ([facility]) [address] [place], [address], 08/20/2024 07:11:06 11/15/19 25 11/15/2024 LIPID PANEL cholesterol, total 364 mg/dL 100-19 9 above high normal Not Available [facility] ([facility]) [address] [place], [address], 11/15/2024 08:26:08 11/15/19 25 11/15/2024 LIPID PANEL triglyceride s 92 mg/dL 0-149 Not Available [facility] ([facility]) [address] [place], [address], 11/15/2024 08:26:08 11/15/19 25 11/15/2024 LIPID PANEL HDL cholesterol 135 mg/dL >39 Not Available [facility] [address] [place], [address], 11/15/2024 08:26:08 11/15/19 25 11/15/2024 LIPID PANEL VLDL cholesterol uli 14 mg/dL 5-40 Not Available [facility] ([facility]) [address] [place], [address], 11/15/2024 08:26:08 11/15/19 25 11/15/2024 LIPID PANEL LDL chol calc ([facility]) 215 mg/dL 0-99 above high normal Not Available [facility] ([facility]) [address] [place], [address], 11/15/2024 08:26:08 11/15/19 25 11/15/2024 LIPID PANEL LDL calc comment: COMMEN T Consi jeremiah evalu ating for Famil ial Hyper akhil stero lemia (FH), if clini dede indic ated. Not Available [facility] ([facility]) [address] [place], [address], 11/15/2024 08:26:08 11/15/19 25 11/15/2024 T4, FREE T4,free(dire ct) 1.15 NG/dL 0.82-1 .77 Not Available [facility] ([facility]) [address] [facility] [place] [place], [address], 11/15/2024 08:26:09 11/15/19 25 11/15/2024 COMP. METAB OLIC PANEL (14) glucose 90 mg/dL 70-99 Not Available [facility] ([facility]) [address] [facility] [place] [place], [address], 11/15/2024 08:26:10 11/15/19 25 11/15/2024 COMP. METAB OLIC PANEL (14) BUN 27 mg/dL 8-27 Not Available [facility] ([facility]) [address] [facility] [place] [place], [address], 11/15/2024 08:26:10 11/15/19 25 11/15/2024 COMP. METAB OLIC PANEL (14) creatinine 0.86 mg/dL 0.57-1 .00 Not Available [facility] ([facility]) [address] [facility] [place] [place], [address], 11/15/2024 08:26:10 11/15/19 25 11/15/2024 COMP. METAB OLIC PANEL (14) eGFR 72 mL/mi n/1.7 3 >59 Not Available [facility] ([facility]) [address] [facility] [place] [place], [address], 11/15/2024 08:26:10 11/15/19 25 11/15/2024 COMP. METAB OLIC PANEL (14) BUN/creatini ne ratio 31 12-28 above high normal Not Available [facility] ([facility]) [address] [facility] [place] [place], [address], 11/15/2024 08:26:10 11/15/19 25 11/15/2024 COMP. METAB OLIC PANEL (14) sodium 139 mmol/ L 134-14 4 Not Available [facility] ([facility]) [address] [facility] [place] [place], [address], 11/15/2024 08:26:10 11/15/19 25 11/15/2024 COMP. METAB OLIC PANEL (14) potassium 4.1 mmol/ L 3.5-5. 2 Not Available [facility] ([facility]) [address] [facility] [place] [place], [address], 11/15/2024 08:26:10 11/15/19 25 11/15/2024 COMP. METAB OLIC PANEL (14) chloride 98 mmol/ L 96-106 Not Available [facility] ([facility]) [address] [facility], [place], [address], 11/15/2024 08:26:10 11/15/19 25 11/15/2024 COMP. METAB OLIC PANEL (14) carbon dioxide, total 25 mmol/ L 20-29 Not Available [facility] ([facility]) [address] [place], [address], 11/15/2024 08:26:10 11/15/19 25 11/15/2024 COMP. METAB OLIC PANEL (14) calcium 9.6 mg/dL 8.7-10 .3 Not Available [facility] ([facility]) [address] [place], [address], 11/15/2024 08:26:10 11/15/19 25 11/15/2024 COMP. METAB OLIC PANEL (14) protein, total 6.9 g/dL 6.0-8. 5 Not Available [facility] ([facility]) [address] [place], [address], 11/15/2024 08:26:10 11/15/19 25 11/15/2024 COMP. METAB OLIC PANEL (14) albumin 4.4 g/dL 3.8-4. 8 Not Available [facility] ([facility]) [address] [facility] [place] [place], [address], 11/15/2024 08:26:10 11/15/19 25 11/15/2024 COMP. METAB OLIC PANEL (14) globulin, total 2.5 g/dL 1.5-4. 5 Not Available [facility] ([facility]) [address] [facility] [place] [place], [address], 11/15/2024 08:26:10 11/15/19 25 11/15/2024 COMP. METAB OLIC PANEL (14) bilirubin, total 0.8 mg/dL 0.0-1. 2 Not Available [facility] ([facility]) [address] [facility] [place] [place], [address], 11/15/2024 08:26:10 11/15/19 25 11/15/2024 COMP. METAB OLIC PANEL (14) alkaline phosphatase 148 IU/L 44-121 above high normal Not Available [facility] ([facility]) [address] [facility] [place] [place], [address], 11/15/2024 08:26:10 11/15/19 25 11/15/2024 COMP. METAB OLIC PANEL (14) AST (SGOT) 19 IU/L 0-40 Not Available [facility] ([facility]) [address] [facility] [place] [place], [address], 11/15/2024 08:26:10 11/15/19 25 11/15/2024 COMP. METAB OLIC PANEL (14) ALT (SGPT) 17 IU/L 0-32 Not Available [facility] ([facility]) [address] [facility] [place] [place], [address], 11/15/2024 08:26:10 11/15/19 25 11/15/2024 TSH TSH 0.862 uIU/m L 0.450- 4.500 Not Available [facility] ([facility]) [address] [facility], [place], [address], 11/15/2024 08:26:11 11/15/19 25 11/15/2024 CBC WITH DIFFE RENTI AL/PL ATELE T WBC 11.6 x10e3 /uL 3.4-10 .8 above high normal Not Available [facility] ([facility]) [address] [facility], [place], [address], 11/15/2024 08:26:12 11/15/19 25 11/15/2024 CBC WITH DIFFE RENTI AL/PL ATELE T RBC 4.94 x10e6 /uL 3.77-5 .28 Not Available [facility] ([facility]) [address] [facility], [place], [address], 11/15/2024 08:26:12 11/15/19 25 11/15/2024 CBC WITH DIFFE RENTI AL/PL ATELE T hemoglobin 15.5 g/dL 11.1-1 5.9 Not Available [facility] ([facility]) [address] [facility], [place], [address], 11/15/2024 08:26:12 11/15/19 25 11/15/2024 CBC WITH DIFFE RENTI AL/PL ATELE T hematocrit 45.9 % 34.0-4 6.6 Not Available [facility] ([facility]) [address] [facility], [place], [address], 11/15/2024 08:26:12 11/15/19 25 11/15/2024 CBC WITH DIFFE RENTI AL/PL ATELE T MCV 93 fL 79-97 Not Available [facility] ([facility]) [address] [place], [address], 11/15/2024 08:26:12 11/15/19 25 11/15/2024 CBC WITH DIFFE RENTI AL/PL ATELE T MCH 31.4 pg 26.6-3 3.0 Not Available [facility] ([facility]) [address], [place], [address], 11/15/2024 08:26:12 11/15/19 25 11/15/2024 CBC WITH DIFFE RENTI AL/PL ATELE T MCHC 33.8 g/dL 31.5-3 5.7 Not Available [facility] ([facility]) [address] [facility], [place], [address], 11/15/2024 08:26:12 11/15/19 25 11/15/2024 CBC WITH DIFFE RENTI AL/PL ATELE T RDW 13.4 % 11.7-1 5.4 Not Available [facility] ([facility]) [address] [facility], [place], [address], 11/15/2024 08:26:12 11/15/19 25 11/15/2024 CBC WITH DIFFE RENTI AL/PL ATELE T platelets 336 x10e3 /uL 150-45 0 Not Available [facility] ([facility]) [address] [facility], [place], [address], 11/15/2024 08:26:12 11/15/19 25 11/15/2024 CBC WITH DIFFE RENTI AL/PL ATELE T neutrophils 63 % notest ab. Not Available [facility] ([facility]) [address] [facility], [place], [address], 11/15/2024 08:26:12 11/15/19 25 11/15/2024 CBC WITH DIFFE RENTI AL/PL ATELE T lymphs 26 % notest ab. Not Available [facility] ([facility]) [address] [facility], [place], [address], 11/15/2024 08:26:12 11/15/19 25 11/15/2024 CBC WITH DIFFE RENTI AL/PL ATELE T monocytes 8 % notest ab. Not Available [facility] ([facility]) [address] [facility], [place], [address], 11/15/2024 08:26:12 11/15/19 25 11/15/2024 CBC WITH DIFFE RENTI AL/PL ATELE T eos 3 % notest ab. Not Available [facility] ([facility]) [address] [facility], [place], [address], 11/15/2024 08:26:12 11/15/19 25 11/15/2024 CBC WITH DIFFE RENTI AL/PL ATELE T basos 0 % notest ab. Not Available [facility] ([facility]) [address] [place], [address], 11/15/2024 08:26:12 11/15/19 25 11/15/2024 CBC WITH DIFFE RENTI AL/PL ATELE T neutrophils (absolute) 7.3 x10e3 /uL 1.4-7. 0 above high normal Not Available [facility] ([facility]) [address] [facility], [place], [address], 11/15/2024 08:26:12 11/15/19 25 11/15/2024 CBC WITH DIFFE RENTI AL/PL ATELE T lymphs (absolute) 3.0 x10e3 /uL 0.7-3. 1 Not Available [facility] ([facility]) [address] [facility], [place], [address], 11/15/2024 08:26:12 11/15/19 25 11/15/2024 CBC WITH DIFFE RENTI AL/PL ATELE T monocytes(ab solute) 0.9 x10e3 /uL 0.1-0. 9 Not Available [facility] ([facility]) [address] [place], [address], 11/15/2024 08:26:12 11/15/19 25 11/15/2024 CBC WITH DIFFE RENTI AL/PL ATELE T eos (absolute) 0.3 x10e3 /uL 0.0-0. 4 Not Available [facility] ([facility]) [address] [facility], [place], [address], 11/15/2024 08:26:12 11/15/19 25 11/15/2024 CBC WITH DIFFE RENTI AL/PL ATELE T baso (absolute) 0.1 x10e3 /uL 0.0-0. 2 Not Available [facility] ([facility]) [address] [facility], [place], [address], 11/15/2024 08:26:12 11/15/19 25 11/15/2024 CBC WITH DIFFE RENTI AL/PL ATELE T immature granulocytes 0 % notest ab. Not Available [facility] ([facility]) [address] [facility], [place], [address], 11/15/2024 08:26:12 11/15/19 25 11/15/2024 CBC WITH DIFFE RENTI AL/PL ATELE T immature grans (abs) 0.0 x10e3 /uL 0.0-0. 1 Not Available [facility] ([facility]) [address] [facility], [place], [address], 11/15/2024 08:26:12 11/15/19 25 11/15/2024 TRIIO DOTHY JEWELL E (T3), FREE triiodothyro nine (T3), free 2.5 pg/mL 2.0-4. 4 Not Available [facility] ([facility]) [address] [facility], [place], [address], 11/15/2024 08:26:14 12/29/19 24 12/29/2023 elect orenar diogr am No observ ation record ed. [email or web address] Not Available 2023 16:03:33 01/14/20 24 01/14/2024 , echoc arrafaelo gram No observ ation record ed. cyahlma [facility] [address] [facility] [address], [facility], [address], 01/26/2024 11:26:29 03/01/20 24 03/01/2024 CT, abdom en + pelvi s, w/o contr ast No observ ation record ed. [email or web address] [facility] [address] [place], [address], 03/04/2024 13:51:33 03/02/20 24 03/02/2024 XR, chola ngiop ancre atogr am No observ ation record ed. [id number] [address], [place], [address], 03/04/2024 16:14:06 07/25/20 24 01/12/2023 MAMMO , scree isiah, digit al, bilat eral No observ ation record ed. [facility] [address] [place], [address], 07/26/2024 09:40:11 07/26/20 24 01/12/2015 US, aris t, limit ed No observ ation record ed. [facility] [address] [place], [address], 07/26/2024 09:40:11 08/09/20 24 08/09/2024 cy can cardi olite stres s test (PROC ) No observ ation record ed. [address] [address], [place], [address], 08/09/2024 14:11:50 08/09/20 24 08/09/2024 cy can cardi olite stres s test (PROC ) No observ ation record ed. [address] [address], [place], [address], 08/17/2024 09:46:27 08/09/20 24 08/09/2024 cy can cardi olite stres s test (PROC ) No observ ation record ed. [address], [address], 08/11/2024 22:09:27 08/30/20 24 08/30/2024 XR, femur , 1 view No observ ation record ed. [address], [place], [address], 09/02/2024 10:20:33 08/30/20 24 08/30/2024 XR, hip + pelvi s, bilat eral, 2 view No observ ation record ed. [id number] [facility] [address], [place], [address], 09/02/2024 10:19:55 Result Notes None recorded. Problems Name Problem SNOMED Code Status Onset Date Resolution Date Notes Provider Name and Address Organization Details Recorded Time Congestive heart failure 15829459 Active 2023 Tanesha Farr MA null, [place] - [facility] 4 13:27:56 Hypokalemia 77871328 Active 2023 Paulette Rondon MD Attn: Maranda stewart,[address] [facility], [place], [address], [place] [facility] - [facility] 4 22:26:43 Essential hypertension 43572206 Active 2023 Paulette Rondon MD Attn: Maranda stewart,[address] [facility], [place], [address], [place] [facility] - [facility] 4 22:41:57 Chronic obstructive pulmonary disease 79440346 Active 2023 Tanesha Farr MA null, [place] - [facility] 5 12:37:52 Anxiety 13173350 Active 2023 Paulette Rondon MD Attn: Maranda stewart,[address] [facility], [place], [address], [place] [facility] - [facility] 4 22:00:31 Syncope 701089529 Active 2024 Tanesha Farr MA null, [place] - [facility] 5 12:37:51 Problem Notes None recorded. Procedures Surgical History Date Name Laterality Status Provider Name and Address Organization Details Recorded Time Eye Surgery completed Myranda Ramos MA [place] - [facility] 11/10/2023 10:09:24 Knee Surgery completed Myranda Ramos MA [facility] 11/10/2023 10:09:36 ligation of bilateral fallopian tubes completed Myranda Ramos MA [facility] 11/10/2023 10:09:59 delivery completed Mireillehayley Ramos MA [facility] 11/10/2023 10:10:24 Imaging Results None recorded. Procedure Notes None recorded. Medical Equipment None Reported. Allergies Allergen ID Allergen Name Allergen Category Reaction Reaction Severity Criticality Documentation Date Start Date Code Code System Note Provider Name and Address Organization Details Recorded Time 781757 Levaquin medicatio n rash Not available Not available 11/10/2023 16295 2 RxNorm Myranda Ramos GL[place] hue, [facility] 4 10:02:46 172262 Product containin g 3-hydroxy -3-methyl glutaryl- coenzyme A reductase inhibitor (product) medicatio n rash Not available Not available 11/10/2023 96877 009 SNOMED Myranda Ramos MA hue, [facility] SI 4 10:02:53 122697 Product containin g angiotens in-conver ting enzyme inhibitor (product) medicatio n Not available Not available Not available 11/10/2023 95257 009 SNOMED Myranda Ramos MA hue, [facility] SI 4 10:03:04 189685 levofloxa brandon medicatio n Not available Not available Not available 11/21/20242021 65750 RxNorm Timothy and reymundo ers unrec ogniz ed react ion (text : Conta ct [place] titis , code: [id number]) (from [facility]) GLENNA Shay, [place] - [facility] 5 10:39:53 171565 Nexletol medicatio n hives Not available Not available 11/21/2024 72840 09 RxNorm GLENNA Shay, [place] - [facility] 5 10:39:58 909018 pseudoeph edrine Not available rash Not available low 11/21/20242021 8896 RxNorm actop hed GLENNA Shay, [place] - [facility] 5 10:40:03 064447 pseudoeph edrine / triprolid ine medicatio n rash Not available Not available 11/21/2024 32075 7 RxNorm [place] Shay, [place] - [facility] 5 10:40:17 725255 Zetia medicatio n Not available Not available Not available 11/21/2024 53659 9 RxNojd George MA null, [place] - [facility] 5 10:40:22 Medications Name Sig Start Date Stop Date Status Note LastModified by Organization Details LastModified Time losartan 50 mg tablet TAKE 1 TABLET BY MOUTH ONCE DAILY active Not Available Not Available No t Available cyclobenzap rine 10 mg tablet TAKE 1 TABLET BY MOUTH EVERY 8 HOURS 11/09 completed Not Available Not Available Not Available doxycycline hyclate 100 mg capsule TAKE 1 CAPSULE BY MOUTH TWICE DAILY FOR 7 DAYS 11/21 completed Not Available Not Available Not Available [...] completed Not Available Not Available Not Available benzonatate 200 mg capsule TAKE 1 CAPSULE BY MOUTH THREE TIMES DAILY NEEDED 11/21 completed Not Available Not Available Not Available hydrocodone 5 mg-acetamin ophen 325 mg tablet TAKE 1 TABLET BY MOUTH EVERY 4 HOURS NEEDED FOR PAIN 07/25 completed Not Available Not Available Not Available prednisone 20 mg tablet TAKE 2 TABLETS BY MOUTH ONCE DAILY FOR 5 DAYS 11/21 completed Not Available Not Available Not Available sertraline 100 mg tablet TAKE 1 & 1/2 (ONE & ONE-HALF) TABLETS BY MOUTH ONCE DAILY active Not Available [...] completed Not Available Not Available Not Available lorazepam 0.5 mg tablet TAKE 1 TABLET BY MOUTH TWICE DAILY NEEDED FOR ANXIETY active Not Available Not Available No t Available neomycin-po lymyxin-dex ameth 3.5 mg/mL-10,00 0 unit/mL-0.1 % eye drops INSTILL 1 DROP THREE TIMES DAILY INTO EACH EYE STARTING 2 DAYS PRIOR TO SURGERY, CONTINUE FOR 1 WEEK AFTER SURGERY 11/09 completed Not Available Not Available Not Available losartan 25 mg tablet Take 1 tablet by mouth once daily 2024 active Not Available Not Available Not Avai lable montelukast 10 mg tablet Take 1 tablet by mouth once daily 2024 active Not Available Not Available Not Avai lable furosemide 20 mg tablet Take 1 tablet by mouth once daily 2024 active Not Available Not Available Not Avai lable albuterol sulfate HFA 90 mcg/actuati on aerosol inhaler INHALE 2 PUFFS BY MOUTH EVERY 4 HOURS NEEDED active Not Available Not Available No t Available amoxicillin 875 mg-potassiu m clavulanate 125 mg tablet TAKE 1 TABLET BY MOUTH EVERY 12 HOURS 07/25 completed Not Available Not Available Not Available ezetimibe 10 mg tablet TAKE 1 TABLET BY MOUTH ONCE DAILY 11/21 completed Not Available Not Available Not Available Symbicort 80 mcg-4.5 mcg/actuati on HFA aerosol inhaler INHALE 2 PUFFS BY MOUTH TWICE DAILY active Not Available Not Available No t Available potassium chloride ER 20 mEq tablet,exte nded release TAKE 1 TABLET BY MOUTH ONCE DAILY NEEDED 2024 active Not Available Not Available Not Avai lable Repatha Syringe 140 mg/mL subcutaneou s syringe Inject 1 mL every 2 weeks by subcutane ous route. 01/05 completed Not Available Not Available Not Available Repatha SureClick 140 mg/mL subcutaneou s pen injector INJECT 1 ML SUBCUTANE OUSLY EVERY TWO WEEKS active Not Available Not Available No t Available Nexletol 180 mg tablet Take 1 tablet every day by oral route. 11/21 completed Not Available Not Available Not Available sertraline 150 mg capsule Take 1 capsule every day by oral route. 09/28 completed see pt case Not Available Not Available Not Available Vitals Date Recorded Body height Body mass index (BMI) Body weight Heart rate Oxygen saturation Oxygen saturation in Arterial blood by Pulse oximetry Systolic blood pressure Diastolic blood pressure Provider Name and Address Organization Details Last Updated DateTime 5 158.75 cm 28.5 kg/m2 72699.3 1 g 74 /min 100 % 100 % 124 mm[Hg] 80 mm[Hg] [facility] 5 10:39:31 Date Recorded Body height Body mass index (BMI) Body weight Oxygen saturation Oxygen saturation in Arterial blood by Pulse oximetry Heart rate Systolic blood pressure Diastolic blood pressure Provider Name and Address Organization Details Last Updated DateTime 4 158.75 cm 27.4 kg/m2 08920.0 4 g 96 % 96 % 72 /min 136 mm[Hg] 84 mm[Hg] Myranda Ramos MA [facility] SI 4 11:09:05 Date Recorded Body height Body mass index (BMI) Body weight Heart rate Oxygen saturation Oxygen saturation in Arterial blood by Pulse oximetry Systolic blood pressure Diastolic blood pressure Provider Name and Address Organization Details Last Updated DateTime 5 158.75 cm 28.1 kg/m2 07150.4 1 g 85 /min 93 % 93 % 130 mm[Hg] 90 mm[Hg] Loly George [facility] 5 11:55:54 Date Recorded Body height Body mass index (BMI) Body weight Provider Name and Address Organization Details Last Updated DateTime 03/28/2024 158.75 cm 27.2 kg/m2 69890.45 g Carla Wright MA [facility] SI 03/28/2024 10:49:58 Date Recorded Body height Body mass index (BMI) Body weight Heart rate Oxygen saturation Oxygen saturation in Arterial blood by Pulse oximetry Systolic blood pressure Diastolic blood pressure Provider Name and Address Organization Details Last Updated DateTime 4 158.75 cm 27.6 kg/m2 73046.0 7 g 71 /min 96 % 96 % 110 mm[Hg] 70 mm[Hg] Loly George MA [place] - [facility] 09:55:31 Social History Question Answer Notes LastModified by Organizat ion Details LastModified Time Tobacco Smoking Status Current Every Day Smoker Loly George MA null, [facility] 01/05/2025 11:57:39 Are You Blind Or Do You Have Difficulty Seeing? No Information n ot available 11/10/2023 What Is Your Level Of Caffeine Consumption? Moderate Information not available 11/10/2023 In The 14 Days Before Symptom Onset, Have You Had Close Contact With A Laboratory-confirm ed COVID-19 While That Case Was Ill? No Information n ot available 03/28/2024 In The 14 Days Before Symptom Onset, Have You Had Close Contact With A Person Who Is Under Investigation For COVID-19 While That Person Was Ill? No Information not available 03/28/2024 Have You Been To An Area Known To Be High Risk For COVID-19? No Information not available 03/28/2024 Are You Deaf Or Do You Have Serious Difficulty Hearing? No Information not available 11/10/2023 What Type Of Diet Are You Following? REGULAR Information n ot available 11/10/2023 Are There Any Guns Present In Your Home? No Information not available 11/10/2023 What Was The Date Of Your Most Recent Tobacco Screening? 01/05/2025 Information not available 01/05/2025 What Is Your Current Pack Years? 10-19packyear [...] PPW Information not available 11/10/2023 Do You Use Sunscreen Routinely? No Information not available 11/10/2023 Has Tobacco Cessation Counseling Been Provided? Yes Information not available 11/21/2024 On What Date Was Tobacco Cessation Counseling Provided? 01/05/2025 Information not available 01/05/2025 How Many Years Have You Smoked Tobacco? 40 Information not available 11/10/2023 Sex: Female Functional Status Question Answer Note LastModified by Organizat ion Details LastModified Time Do you use any illicit or recreational drugs? No Information not available 11/10/2023 Do you or have you ever used any other forms of tobacco or nicotine? No Information not available 11/10/2023 What is your level of alcohol consumption? Occasional Information not available 11/10/2023 Are you currently employed? No retired Information not available 01/06/2024 Are you able to care for yourself? Yes Information not available 11/10/2023 What is your exercise level? Moderate Information not available 11/10/2023 Mental Status Question Answer Note LastModified by Organization D etails LastModified Time Do you feel stressed (tense, restless, nervous, or anxious, or unable to sleep at night)? [id number] Information not available 11/10/2023 Family History Relationship Description Onset Age of [...] bandersonma Not available 10/29 10:06:32 Father Malignant neoplasm of lung bandersonma Not available 03/1 10/2023 10:07:00 Sister Heart disease bandersonma Not available 10/29 10:05:58 Sister Hypertensive disorder bandersonma Not available 10/29 10:06:15 Sister Hypercholest erolemia bandersonma Not available 10/29 10:06:32 Medical History Condition Response Coronary Artery Disease N Other N High Blood Pressure N Atrial Fibrillation N Kidney or Bladder Problems N Thyroid Problems N GI Problems N Depression Y COPD Y Blood Clots N Skin Problems N Anemia N Heart Attack ([place]) N Anxiety Disorder N Diabetes N Muscle, Joint, or Bone Problems Y Seizures/Epilepsy N Acid Reflux (GERD) Y Cancer N Stroke N Asthma N Allergies Y High Cholesterol Y Hepatitis N Liver Disease N Headaches N Heart Failure N Osteoporosis N Gynecological HistoryNo gynecological history recorded. Obstetrics [...] 12:53:17 Influenza, high-dose, trivalent, PF 7 completed Tanesha Farr [place] null, [place] [facility] 06/22/2024 12:53:17 Influenza, high-dose, trivalent, PF 2 completed Tanesha Farr [place], [place] [facility] 06/22/2024 12:53:17 Influenza, high-dose, trivalent, PF 1 completed Tanesha Farr MA null, [...] SNOMED-CT Code Diagnosis ICD10 Code Diagnosis Note [id number] Paulette Rondon [facility] [address] [place] [address] [phone] 11/10/2023 09:33:27 11/10/2023 10:56:10 Essential hypertension 53767206 I10 Acute bronchitis 6529994 2 J20.9 Chronic ob structive pulmonary disease 07480922 J44.9 Anxiety 07698054 F41.9 Osteoarthritis 609501281 M19.90 [id number] MD Bon[facility] (Adult Med) [address] [place] [address] [phone] 12/29/2023 12:01:14 12/29/2023 13:25:07 Congestive heart failure 05651398 I50.9 Chronic rhinitis 4819140 6 J31.0 Hypokalemia 16643534 E87 .6 [id number] Paulette Rondon MD [facility] (Adult Med) [address] [place] [address] [phone] 0 01/06/2024 10:31:21 01/06/2024 12:05:19 Congestive heart failure 96236947 I50.9 [id number] Paulette Rondon MD [facility] [employer] [facility] [place] [address] [place] [address] [phone] 1 03/28/2024 10:41:57 03/28/2024 11:31:42 Overweight 085342706 E66.3 Essential hypertension 98543328 I10 [id number] Paulette Rondon MD [facility] [facility] [place] [address] [place] [address] [phone] 1 07/25/2024 09:43:06 07/25/2024 10:45:16 Essential hypertension 00507845 I10 Congestive heart failure 88522163 I50.9 Chronic ob structive pulmonary disease 85382637 J44.9 Anxiety 62889784 F41.9 Hypokalemia 46517712 E87 .6 [id number] Paulette Rondon MD [facility] [facility] [place] [address] [place] [address] [phone] 1 11/21/2024 10:10:20 11/21/2024 11:14:21 Body mass index 25-29 - overweight 312326238 Z68.28 Overweight 824151358 E66 .3 Chronic ob structive pulmonary disease 29755630 J44.9 Congestive heart failure 52407191 I50.9 Anxiety 75799530 F41.9 Hypokalemia 93435083 E87 .6 Essential hypertension 87695943 I10 [id number] Paulette Rondon MD [facility] [employer] [facility] [place] [address] [place] [address] [phone] 1 01/05/2025 11:42:53 01/05/2025 12:42:49 Overweight in adulthood with body mass index of 25 or more but less than 30 235866437 E66.3 Z68.28 Overweight 749575090 E66 .3 Cigarette smoker 1790326 7 F17.210 Smoker 79608405 F17.200 Syncope 830737343 R55 Chronic ob structive pulmonary disease 45010910 J44.9 Essential hypertension 23233488 I10 Anxiety 95790241 F41.9 Health Concerns Section Related Observation LastModified by Organization Detai ls LastModified Time None Recorded Concern Status LastModified by Organization Details LastModified Time None Recorded Advance Directives Directive None Recorded Payers Encounter Date Sequence Insurance Name Policy Number Policy Golden Covered Member ID Golden Member ID Guarantor Name 01/06/2024 1 [facility] (MEDICARE REPLACEMENT/A DVANTAGE - HMO) [id number] Kinga Helton [id number] Kinga Helton 03/28/2024 1 [facility] (MEDICARE REPLACEMENT/A DVANTAGE - HMO) [id number] Kinga Helton [id number] Kinga Chávezuill 07/25/2024 1 [facility] (MEDICARE REPLACEMENT/A DVANTAGE - HMO) [id number] Kinga Helton [id number] Kinga Helton 11/21/2024 1 [facility] (MEDICARE REPLACEMENT/A DVANTAGE - HMO) [id number] Kinga Helton [id number] Kinga Chávezuill 01/05/2025 1 [facility] (MEDICARE REPLACEMENT/A DVANTAGE - HMO) [id number] Kinga Helton [id number] Kinga Helton Notes Date Note Type Note Provider Name and Address Organization Details Recorded Time 01/06/2024 text/html She feels better she went up on the Lasix to 40 mg herself Paulette Rondon MD Attn: [address], [address] [place], [address], [facility] 01/11/2024 21:15:45 03/28/2024 text/html had her laparosc opic cholecystectomy doing well. Blood pressure is up a little bit. heart failure with preserved ejection fraction stable Paulette Rondon MD Attn: [address] [place], [address], [facility] 03/31/2024 22:42:35 07/25/2024 text/html Hypertension no headache or dizziness. Hypokalemia asymptomatic remains on potassium. Anxiety stable on her sertraline. COPD using her inhalers no cough or wheezing at this time. History of CHF. Needs noninvasive evaluation Paulette Rondon MD Attn: [employer]ing,[address], [place], [address], [place] [facility] 07/25/2024 22:03:04 11/21/2024 text/html interval history has been of pancreatic cancer. Her COPD is doing fine her heart failure has been asymptomatic no swelling in her legs anxiety has been up understand him so blood pressure has been doing fine she does not tolerate statins and her cholesterol panel is poor Paulette Rondon MD Attn: [employer] , [place], [address], [place] [facility] 11/22/2024 21:43:33 01/05/2025 text/html Possible episode of syncope with no bowel or bladder incontinence breathing has been doing okay she thinks her blood pressure has been up a little bit she monitors it at home 150s to 160 systolic. She is going through the bereavement process as well Paulette Rondon MD Attn: Accounting,[address], [place], [address], [place] [facility] 01/23/2025 13:51:37 OBGyn Episode No OBEpisode recorded.
--- OUTSIDE RECORDS SUMMARY | 2025-01-25 13:32 | XMS_ITS | Data Portability ---
Author Organization [facility], Main Office Address [address] [place] [address] Care Team Providers [employer] Name Role Phone PAULETTE RONDON Primary Care Provider [phone] PAULETTE RONDON Referring Provider Assessment Encounter Date Assessment Date Assessment LastModified by Organization Details LastModified Time 01/01/2023 01/01/2023 Patient returns 5th metatarsal fracture shaft fracture oblique left. Overall she is doing fine she is progressing normally she is moving herself into a shoe at this point. Recommend she continue with activity as tolerated avoid overdoing it I will see her back in a month. Her fracture appears to be healing normally. [email or web address] Not available 01/01/2023 11:30:04 01/15/2023 01/15/2023 Continue current therapy keep follow-up Not available 01/24/2023 16:18:54 04/09/2023 04/09/2023 Will continue current therapy will follow-up in 4 months [email or web address] Not available 06/28/2023 17:22:51 07/02/2023 07/02/2023 Her chronic medical problems appear to be stable EKG reviewed she is cleared for surgery for cataracts low-fat diet I have encouraged her to take something for osteoporosis she is going to take calcium and vitamin D the risk of her having more fractures discussed Not available 07/11/2023 13:28:22 11/22/2024 11/22/2024 The patient has severe primary osteoarthritis left knee noted by today's x-ray and exam. Right total knee arthroplasty looks good on x-ray and no symptoms of any postop complications with the right knee. We talked about treatment options today in detail for her left knee what she really needs a total knee arthroplasty she was thinking about doing this but is going to delay this for awhile due to a in the family. She would like to proceed with a shot of cortisone she is going to continue with [id number]-cfe-[id number] anti-inflammatory medication as needed. At her request under sterile conditions I injected the patient's left knee joint in the office today with 4 cc 0.5% bupivacaine and 20 mg of Kenalog. Patient tolerated procedure well. I will see her back as needed we could do this again in 3 months if necessary if she decides she wants to try something else including total knee arthroplasty we will get her set up for that. She voiced understanding and agreed with the above plan she will call for any further problems difficulties or questions. [email or web address] Not available 11/22/2024 12:01:06 Plan of Treatment Reminders Order Date Submit Date Provider Last Modified By Organization Details Last Modified Time Details Appointments None recorded. Lab CMP, serum or plasma 2022 023 SHERYL Not available 3 18:44:12 CBC w/ auto diff 2022 023 SHERYL Not available 3 18:50:45 calcium, ionized, blood 2022 023 [email or web address] Not available 3 11:25:22 magnesium, serum or plasma 2022 023 SHERYL Not available 3 18:44:17 Referral None recorded. Procedures injection/a spiration joint/bursa (PROC) 2024 025 [email or web address] In-Office Order, Internal Use Only DO Not Attach Compendium DO Not Attach Compendium, Do Not Delete/merge, [address] 5 10:49:33 Surgeries None recorded. Imaging XR, knee 2024 025 [email or web address] [facility] [place], [address], [place], [address], 5 12:02:51 electrocard iogram 2022 023 [facility] [address], [place], [address], 3 14:56:38 bone density 2022 023 [email or web address] Not available 3 11:25:30 XR, foot, 3 or more view [email or web address] [facility] [place], [address], [place], [address], 3 12:17:37 Medication Orders bupivacaine HCl 0.5 % (5 mg/mL) injection solution [address] [facility], [address], [address], 5 11:31:43 Kenalog 10 mg/mL suspension for injection [address] [place] [address] Pharmacy 435, [address], [address], 5 11:31:43 Patient TargetsNo targets recorded. Patient InstructionsNo instructions recorded. Reason for Referral None Reported. Results Created Date Observation Date Name Description Value Unit Range Abnormal Flag Note LastModifiedBy Organization Detail LastModifiedTime 07/02/2007/02/2023 COMPR EHENS LUIS CARLOS METAB OLIC PANEL sodium 138 mmol/ L 137-14 5 Not Available [facility] (Lab) [address] [place], [address], 07/02/2023 18:44:12 07/02/20 23 07/02/2023 COMPR EHENS LUIS CARLOS METAB OLIC PANEL potassium 4.4 mmol/ L 3.5-5. 1 Not Available [facility] (Lab) [address] [place], [address], 07/02/2023 18:44:12 07/02/20 23 07/02/2023 COMPR EHENS LUIS CARLOS METAB OLIC PANEL chloride 106 mmol/ L 98-107 Not Available [facility] (Lab) [address] [place], [address], 07/02/2023 18:44:12 07/02/20 23 07/02/2023 COMPR EHENS LUIS CARLOS METAB OLIC PANEL carbon dioxide 27 mmol/ L 22-30 Not Available [facility] (Lab) [address] [place], [address], 07/02/2023 18:44:12 07/02/20 23 07/02/2023 COMPR EHENS LUIS CARLOS METAB OLIC PANEL anion gap 9.4 mmol/ L 14-22 low Not Available [facility] (Lab) [address] [place], [address], 07/02/2023 18:44:12 07/02/20 23 07/02/2023 COMPR EHENS LUIS CARLOS METAB OLIC PANEL glucose 91 mg/dL 70-99 Not Available [facility] (Lab) [address] [place], [address], 07/02/2023 18:44:12 07/02/20 23 07/02/2023 COMPR EHENS LUIS CARLOS METAB OLIC PANEL BUN 17 mg/dL 8-19 Not Available [facility] (Lab) [address] [place], [address], 07/02/2023 18:44:12 07/02/20 23 07/02/2023 COMPR EHENS LUIS CARLOS METAB OLIC PANEL creatinine 0.78 mg/dL 0.66-1 .25 Not Available [facility] (Lab) [address] [place], [address], 07/02/2023 18:44:12 07/02/20 23 07/02/2023 COMPR EHENS LUIS CARLOS METAB OLIC PANEL GFR >60 Refer ence Range : [place] ge GFR Healt hy Adult : >60 [...] or ethni c subgr oups, such as Hispa nics. Outsi de the valid ated devan [...] calcu lator is avail able on the [facility] websi te: https ://serafin w.kid suzanne.o rg/pr ofess ional s/kdo qi/gf r_cal culat or Not Available [facility] (Lab) [address] [place], [address], 07/02/2023 18:44:12 07/02/20 23 07/02/2023 COMPR EHENS LUIS CARLOS METAB OLIC PANEL alkaline phosphatase 182 U/L 38-126 high Not Available [facility] (Lab) [address] [place], [address], 07/02/2023 18:44:12 07/02/20 23 07/02/2023 COMPR EHENS LUIS CARLOS METAB OLIC PANEL alanine aminotransfe rase 27 U/L 0-35 Not Available [facility] (Lab) [address] [place], [address], 07/02/2023 18:44:12 07/02/20 23 07/02/2023 COMPR EHENS LUIS CARLOS METAB OLIC PANEL aspartate aminotransfe rase 31 U/L 15-37 Not Available [facility] (Lab) [address] [place], [address], 07/02/2023 18:44:12 07/02/20 23 07/02/2023 COMPR EHENS LUIS CARLOS METAB OLIC PANEL bilirubin, total 0.90 mg/dL 0.20-1 .30 Not Available [facility] (Lab) [address] [place], [address], 07/02/2023 18:44:12 07/02/20 23 07/02/2023 COMPR EHENS LUIS CARLOS METAB OLIC PANEL calcium 9.7 mg/dL 8.4-10 .2 Not Available [facility] (Lab) [address] [place], [address], 07/02/2023 18:44:12 07/02/20 23 07/02/2023 COMPR EHENS LUIS CARLOS METAB OLIC PANEL total protein 7.3 g/dL 6.3-8. 2 Not Available [facility] (Lab) [address] [place], [address], 07/02/2023 18:44:12 07/02/20 23 07/02/2023 COMPR EHENS LUIS CARLOS METAB OLIC PANEL albumin 4.1 g/dL 3.0-4. 4 Not Available [facility] (Lab) [address] [place], [address], 07/02/2023 18:44:12 07/02/20 23 07/02/2023 COMPR EHENS LUIS CARLOS METAB OLIC PANEL globulin 3.2 g/dL 2.6-4. 2 Not Available [facility] (Lab) [address] [place], [address], 07/02/2023 18:44:12 07/02/20 23 07/02/2023 COMPR EHENS LUIS CARLOS METAB OLIC PANEL A/G ratio 1.3 ratio 1.0-2. 0 Not Available [facility] (Lab) [address] [place], [address], 07/02/2023 18:44:12 07/02/2007/02/2023 MAGNE SIUM magnesium 2.0 mg/dL 1.6-2. 3 Not Available [facility] (Lab) [address] [place], [address], 07/02/2023 18:44:17 07/02/20 23 07/02/2023 CBC/C OMPLE TE BLD COUNT W/DIF F white blood cells 9.9 x10'3 /uL 4.2-10 .8 Not Available [facility] (Lab) [address] [place], [address], 07/02/2023 18:50:45 07/02/20 23 07/02/2023 CBC/C OMPLE TE BLD COUNT W/DIF F red blood cells 4.48 x10'6 /uL 3.80-5 .20 Not Available [facility] (Lab) [address] [place], [address], 07/02/2023 18:50:45 07/02/20 23 07/02/2023 CBC/C OMPLE TE BLD COUNT W/DIF F hemoglobin 14.2 g/dL 12.0-1 5.6 Not Available [facility] (Lab) [address] [place], [address], 07/02/2023 18:50:45 07/02/20 23 07/02/2023 CBC/C OMPLE TE BLD COUNT W/DIF F hematocrit 45.0 % 35.7-4 5.7 Not Available [facility] (Lab) [address] [place], [address], 07/02/2023 18:50:45 07/02/20 23 07/02/2023 CBC/C OMPLE TE BLD COUNT W/DIF F mean red cell volume 100.4 fL 82.0-9 9.0 high Not Available [facility] (Lab) [address] [place], [address], 07/02/2023 18:50:45 07/02/20 23 07/02/2023 CBC/C OMPLE TE BLD COUNT W/DIF F mean red cell hemoglobin 31.7 pg 27.0-3 3.0 Not Available [facility] (Lab) [address] [place], [address], 07/02/2023 18:50:45 07/02/20 23 07/02/2023 CBC/C OMPLE TE BLD COUNT W/DIF F mean RBC HGB concentratio n 31.6 g/dL 31.0-3 6.0 Not Available [facility] (Lab) [address] [facility] [place], [address], 07/02/2023 18:50:45 07/02/20 23 07/02/2023 CBC/C OMPLE TE BLD COUNT W/DIF F red cell distribution width 14.4 % 11.8-1 5.5 Not Available [facility] (Lab) [address] [place], [address], 07/02/2023 18:50:45 07/02/20 23 07/02/2023 CBC/C OMPLE TE BLD COUNT W/DIF F platelets 394 x10'3 /uL 150-40 0 Not Available [facility] (Lab) [address] [place], [address], 07/02/2023 18:50:45 07/02/20 23 07/02/2023 CBC/C OMPLE TE BLD COUNT W/DIF F mean platelet volume 11.1 fL 9.0-12 .4 Not Available [facility] (Lab) [address] [place], [address], 07/02/2023 18:50:45 07/02/20 23 07/02/2023 CBC/C OMPLE TE BLD COUNT W/DIF F neutrophils 67.2 % 39.0-7 2.0 Not Available [facility] (Lab) [address] [place], [address], 07/02/2023 18:50:45 07/02/20 23 07/02/2023 CBC/C OMPLE TE BLD COUNT W/DIF F lymphocytes 21.4 % 16.0-4 7.0 Not Available [facility] (Lab) [address] [place], [address], 07/02/2023 18:50:45 07/02/20 23 07/02/2023 CBC/C OMPLE TE BLD COUNT W/DIF F monocytes 6.7 % 5.0-12 .0 Not Available [facility] (Lab) [address] [place], [address], 07/02/2023 18:50:45 07/02/2007/02/2023 CBC/C OMPLE TE BLD COUNT W/DIF F eosinophils 3.5 % 1.0-7. 0 Not Available [facility] (Lab) [address] [place], [address], 07/02/2023 18:50:45 07/02/20 23 07/02/2023 CBC/C OMPLE TE BLD COUNT W/DIF F basophils 0.6 % 0.0-2. 0 Not Available [facility] (Lab) [address] [place], [address], 07/02/2023 18:50:45 07/02/20 23 07/02/2023 CBC/C OMPLE TE BLD COUNT W/DIF F immature granulocytes 0.6 % 0.00-0 .50 high Not Available [facility] (Lab) [address] [place], [address], 07/02/2023 18:50:45 07/02/20 23 07/02/2023 CBC/C OMPLE TE BLD COUNT W/DIF F neutrophils, absolute count 6.67 x10'3 /uL 1.5-8. 0 Not Available [facility] (Lab) [address] [place], [address], 07/02/2023 18:50:45 07/02/20 23 07/02/2023 CBC/C OMPLE TE BLD COUNT W/DIF F lymphocytes, absolute count 2.13 x10'3 /uL 1.07-3 .43 Not Available [facility] (Lab) [address] [place], [address], 07/02/2023 18:50:45 07/02/20 23 07/02/2023 CBC/C OMPLE TE BLD COUNT W/DIF F monocytes, absolute count 0.67 x10'3 /uL 0.29-0 .99 Not Available [facility] (Lab) [address] [place], [address], 07/02/2023 18:50:45 07/02/20 23 07/02/2023 CBC/C OMPLE TE BLD COUNT W/DIF F eosinophils, absolute count 0.35 x10'3 /uL 0.02-0 .53 Not Available [facility] (Lab) [address] [place], [address], 07/02/2023 18:50:45 07/02/20 23 07/02/2023 CBC/C OMPLE TE BLD COUNT W/DIF F basophils, absolute count 0.06 x10'3 /uL 0.01-0 .08 Not Available [facility] (Lab) [address] [place], [address], 07/02/2023 18:50:45 07/02/20 23 07/02/2023 CBC/C OMPLE TE BLD COUNT W/DIF F immature granulocytes ,absolute 0.06 x10'3 /uL 0.00-0 .05 high Not Available [facility] (Lab) [address] [place], [address], 07/02/2023 18:50:45 07/02/20 23 07/02/2023 CBC/C OMPLE TE BLD COUNT W/DIF F nucleated red blood cells 0.0 % -0 Not Available [facility] (Lab) [address] [place], [address], 07/02/2023 18:50:45 07/02/20 23 07/02/2023 CBC/C OMPLE TE BLD COUNT W/DIF F NRBC# 0.00 x10'3 /uL Not Available [facility] (Lab) [address] [place], [address], 07/02/2023 18:50:45 07/02/2007/03/2023 CALCI UM, IONIZ ED/LC calcium, ionized, serum 4.9 mg/dL 4.5-5. 6 Perfo rmed at: [facility] [place] [address] Lab Direc tor: Elmer wilson PhD, Phone : [phone] Not Available [facility] (Lab) [address] [place], [address], 07/03/2023 13:10:11 12/05/19 23 XR, foot [facility] [address] [place] [address] [phone] Patien t Name: KINGA NGUYEN Access ion #: [id number] Sex: F : 1954 4 Locati on: RA2 Attend ing Physic geno: NEPTALI RONDON Orderi Physic geno: NEPTALI RONDON Exam Date: 12/05/19 [...] insert ion site. Page 1 of 2 [facility] Pati t Name: KINGA NGUYEN Access ion #: [id number] Sex: F : 1954 4 Exam [...] Dictat ed by: Mat handy MD (CT) (CT) Page 2 of 2 [facility] (Imaging) [address] [place], [address], 12/18/2022 09:50:47 01/02/20 XR, foot, 3 or more view No observ ation record ed. rashmi [facility] [place] [address], [place], [address], 01/01/2023 11:30:28 01/14/20 23 01/12/2023 MAMMO , diagn ostic , digit al, bilat eral [facility] [address] [place] [address] Leelee feliciano Name: KINGA NGUYEN Access ion #: [id number] Sex: F : 1954 5 Locati on: RAD Attend ing Physic geno: NEPTALI RONDON Orderi ng Physic geno: NEPTALI RONDON Exam Date: 023 8:50 AM Exam Name: MG DIAG BREAST SWATI BILAT Admitt ing Diagno sis(es ): MAMMOG ESAU REPORT - FINAL EXAM: MG DIAG BREAST [...] ar densit y. Page 1 of 2 [facility] Leelee feliciano Name: KINGA NGUYEN Access ion #: [id number] Sex: F : 1954 5 Exam Date: 023 8:50 AM Exam Name: [...] 7:11 AM (CT) Page 2 of 2 [facility] (Imaging) [address] [place], [address], 01/27/2023 12:58:52 01/14/20 23 01/12/2023 US, brenidhi t, unila teral [facility] [address] [place] [address] [phone] Patikatie t Name: KINGA NGUYEN Access ion #: [id number] Sex: F : 1954 5 Locati on: RAD Attend ing Physic geno: NEPTALI RONDON Orderi Physic geno: NEPTALI RONDON Exam Date: 9:31 [...] ment comple te. Page 1 of 2 [facility] Leelee feliciano Name: KINGA NGUYEN Access ion #: [id number] Sex: F : 1954 5 Exam [...] 7:11 AM (CT) Page 2 of [address] (Imaging) [address] [place], [address], 01/20/2023 09:48:40 01/15/20 23 09/09/2022 XR, lumba r spine No observ ation record ed. [address] [place], [address], 01/20/2023 09:50:12 04/23/20 bone densi ty [facility] [address] [place], [place] [id number] Patien t Name: KINGA NGUYEN ion #: [id number] Sex: F : 1954 6 Dictat ed By: Neptali Monteiro [facility] Attend ing Physic geno: NEPTALI RONDON [facility] Physic geno: NEPTALI RONDON Exam Date: 2022 09:39 AM Exam Name: XR DEXA AXIAL/ HIP/PE LVIS/S PINE Admitt ing Diagno sis(es ): CLINIC AL HISTOR Y: Postme nopaus al screen ing for osteop orosis . TECHNI QUE: The study was perfor med using a [facility]. Lumbar spine and distal left forear [...] at 2022 15:22: 53 PM Page 1 [facility] ([facility]) [address] [place], [address], 07/30/2023 11:25:29 07/02/20 elect rocar diogr am No observ ation record ed. [facility] [address], [place], [address], 07/02/2023 12:36:20 07/02/20 23 07/02/2023 elect rocar diogr am No observ ation record ed. [facility] Not Available 2022 12:43:22 11/23/19 25 XR, knee No observ ation record ed. [email or web address] [facility] [place] [address], [place], [address], 11/22/2024 12:02:49 Result Notes None recorded. 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 38029985962 53961 Active 2020 Not Available [facility] 3 22:37:23 Disorder of shoulder 357240898 Active Not Available [facility] 3 22:37:23 Hyperchol esterolem ia 23215712 Active Not Available [facility] 3 22:37:23 Chronic obstructi ve pulmonary disease 25734899 Active 2018 Not Available [facility] 3 22:37:23 Acute sinusitis 87448462 Active Not Available [facility] 3 22:37:23 Pain of right shoulder joint 54863488290 925985 Active 2021 Not Available [facility] 3 22:37:23 Tendiniti s of right rotator cuff 48239527241 181590 Active 2021 Not Available [facility] 3 22:37:24 Acute exacerbat ion of chronic obstructi ve pulmonary disease 738667405 Active 2021 Not Available [facility] 3 22:37:24 Localized , primary osteoarth ritis of the shoulder region 860338845 Active 2021 Not Available [facility] 3 22:37:24 Lumbago with sciatica 931881873 Active Not Available [facility] 3 22:37:24 Gastroeso phageal reflux disease 185564925 Active Not Available [facility] 3 22:37:24 Osteoarth ritis of knee 873769419 Active Not Available [facility] 3 22:37:24 Low back pain 410270012 Active 2021 Not Available [facility] 3 22:37:24 Knee pain Active Not Available [facility] 3 22:37:24 Pain of right hip joint 80549845604 9102 Active 2020 Not Available [facility] 3 22:37:24 Osteoarth ritis of left knee joint 29857908286 9109 Active 2021 Not Available [facility] 3 22:37:24 Bronchiti s 05325117 Completed Not Available [facility] 3 01:06:58 Sinusitis 11169770 Completed Not Available [facility] 3 01:06:58 Osteoarth ritis 446913257 Active Not Available [facility] 3 22:37:24 Periphera l vascular disease 682052600 Active 2021 Not Available [facility] 3 22:37:24 Pain of left knee joint 49117261618 4107 Active 2021 Not Available [facility] 3 22:37:24 Anxiety 34781981 Active 2018 Not Available [facility] 3 22:37:24 Cough 05728548 Active Not Available [facility] 3 22:37:24 Upper respirato ry infection 88037434 Active Not Available [facility] 3 22:37:24 Hyperlipi demia 83727685 Active 2021 Not Available [facility] 3 22:37:24 Carpal tunnel syndrome 71547352 Active Not Available [facility] 3 22:37:24 Otitis media 92924985 Active Not Available [facility] 3 22:37:24 Nasal congestio n 68433444 Active Not Available [facility] 3 22:37:24 Pain in left foot 90400649552 9107 Active 2022 Not Available [facility] 3 22:37:24 Closed fracture of fifth metatarsa l bone 02245495 Active 2022 Not Available [facility] 3 22:37:24 Breast lump 42536260 Active 2022 Not Available [facility] 3 22:37:24 Notes:Some problems listed i n Document: #[id number] could not be added to this patient's chart. Please review this document and add these problems to the patient's chart manually as needed. Problem Notes None recorded. Procedures Surgical History Date Name Laterality Status Provider Name and Address Organization Details Recorded Time 01/02/20 23 Transitional_Car e_Management completed Carola Loja RN [place] [facility] 01/01/2023 14:32:55 04/14/20 18 Date of Last Colonoscopy completed Not Available [facility] 10/29/2022 00:53:20 04/14/20 18 Colon ca scrn not hi rsk ind completed Not Available [facility] 10/29/2022 00:53:24 02/12/20 13 Total knee arthroplasty completed Not Available [facility] 10/29/2022 00:53:24 Hip surgery completed Not Available [facility] 10/29/2022 00:53:24 Imaging Results None recorded. Procedure Notes None recorded. Medical Equipment None Reported. Allergies Allergen ID Allergen Name Allergen Category Reaction Reaction Severity Criticality Documentation Date Start Date Code Code System Note Provider Name and Address Organization Details Recorded Time 2257 Zetia medicatio n Not available Not available Not available 10/29/2022 22353 9 RxNorm Not Available [facility] 3 01:24:51 2258 Product containin g 3-hydroxy -3-methyl glutaryl- coenzyme A reductase inhibitor (product) medicatio n rash Not available Not available 10/29/2022 46391 009 SNOMED Not Available [facility] 3 01:24:51 2259 Levaquin medicatio n rash Not available Not available 10/29/2022 56522 2 RxNorm Not Available [facility] 3 01:24:51 2260 pseudoeph edrine / triprolid ine medicatio n rash Not available Not available 10/29/2022 31201 7 RxNorm Not Available [facility] 3 01:24:51 72280 Nexletol medicatio n hives Not available Not available 07/02/2023 21399 09 RxNorm Alma Delia glover RN null, [place] - S [place] [facility] 3 11:25:28 Medications Name Sig Start Date Stop Date Status Note LastModified by Organization Details LastModified Time celecoxib 200 mg capsule TAKE ONE CAPSULE BY MOUTH EVERY DAY 07/13 completed Not Available Not Available Not Available cyclobenzap rine 10 mg tablet TAKE 1 TABLET BY MOUTH EVERY 8 HOURS 12/04 completed Not Available Not Available Not Available amoxicillin 500 mg capsule Take 1 capsule 3 times a day by oral route for 7 days. active Not Available Not Available No t Available atorvastati n 40 mg tablet TAKE 1 TABLET BY MOUTH ONCE DAILY 12/11 completed Not Available Not Available Not Available albuterol sulfate 0.63 mg/3 mL solution for nebulizatio n 10/24 completed Not Available Not Available Not Available prednisone 10 mg tablet TAKE 1 TABLET BY MOUTH THREE TIMES DAILY FOR 3 DAYS THEN 1 TWICE DAILY FOR 2 DAYS THEN 1 ONCE DAILY FOR 1 DAY 04/22 completed Not Available Not Available Not Available doxycycline hyclate 100 mg capsule TAKE 1 CAPSULE BY MOUTH TWICE DAILY FOR 7 DAYS 11/22 completed Not Available Not Available Not Available atorvastati n 20 mg tablet TAKE 1 TABLET BY MOUTH EVERY DAY 07/07 completed Not Available Not Available Not Available ipratropium 0.5 mg-albutero l 3 mg (2.5 mg base)/3 mL nebulizatio n soln USE 1 AMPULE IN NEBULIZER 4 TIMES DAILY active Not Available Not Available No t Available atorvastati n 10 mg tablet Take 1 tablet every day by oral route for 30 days. active Not Available Not Available No t Available azithromyci n 250 mg tablet TAKE 2 TABLETS BY MOUTH ON DAY 1, AND THEN TAKE 1 TABLET BY MOUTH ONCE A DAY ON DAY 2 THROUGH DAY 5 11/22 completed Not Available Not Available Not Available tramadol 37.5 mg-acetamin ophen 325 mg tablet TAKE 2 TABLETS BY MOUTH EVERY 6 TO 8 HOURS NEEDED FOR PAIN active Not Available Not Available No t Available benzonatate 200 mg capsule TAKE 1 CAPSULE BY MOUTH THREE TIMES DAILY NEEDED active Not Available Not Available No t Available hydrocodone 5 mg-acetamin ophen 325 mg tablet TAKE 1 TABLET BY MOUTH EVERY 4 HOURS NEEDED FOR PAIN active Not Available Not Available No t Available sucralfate 1 gram tablet TAKE 1 TABLET BY MOUTH TWICE A DAY DIRECTED (BEFORE A MEAL AND AT BEDTIME) 07/07 completed Not Available Not Available Not Available bupivacaine HCl 0.5 % (5 mg/mL) injection solution Take 20 mg by injection route. 2024 active Not Available Not Available Not Avai lable prednisone 20 mg tablet TAKE 2 TABLETS BY MOUTH ONCE DAILY FOR 5 DAYS 11/22 completed Not Available Not Available Not Available sertraline 100 mg tablet TAKE 1 & 1/2 (ONE & ONE-HALF) TABLETS BY MOUTH ONCE DAILY active Not Available Not Available No t Available metronidazo le 500 mg tablet Take 1 tablet 3 times a day by oral route for 10 days. 08/26 completed Not Available Not Available Not Available acetaminoph en 300 mg-codeine 30 mg tablet Take 1 tablet every 6 hours by oral route as needed. 01/28 completed Not Available Not Available Not Available tramadol 50 mg tablet Take 1 tablet 3 times a day by oral route as needed. active Not Available Not Available No t Available triamcinolo ne acetonide 0.1 % topical cream APPLY THIN LAYER EXTERNALL Y TO AFFECTED AREA OF NECK, ARMS, AND LEGS TWICE DAILY NEEDED active Not Available Not Available No t Available amoxicillin 500 mg tablet Take 1 tablet 3 times a day by oral route for 10 days. 08/26 completed Not Available Not Available Not Available ketorolac 0.5 % eye drops INSTILL 1 DROP THREE TIMES DAILY INTO EACH EYE STARTING 2 DAYS PRIOR TO SURGERY AND CONTINUIN G FOR 1 WEEK AFTER SURGERY 11/22 completed Not Available Not Available Not Available Kenalog 40 mg/mL suspension for injection active Not Available Not Available No t Available prednisone 10 mg tablets in a dose pack Take 1 tab by mouth, 3 times a day for 3 daysTake 1 tab by mouth 2 times a day for 2 daysTake 1 tab by mouth once a day for 1 day 12/24 completed Not Available Not Available Not Available alprazolam 0.5 mg tablet active Not Available Not Available Not Available prednisolon e acetate 1 % eye drops,suspe nsion INSTILL 1 DROP THREE TIMES DAILY INTO EACH EYE STARTING AFTER SURGERY CONTINUIN G FOR 3 WEEKS 11/22 completed Not Available Not Available Not Available lorazepam 0.5 mg tablet TAKE 1 TABLET BY MOUTH TWICE DAILY NEEDED FOR ANXIETY active Not Available Not Available No t Available Kenalog 10 mg/mL suspension for injection Take 20 mg by injection route. 2024 active [facility]: 0003- 0494- 20 Not Available Not Available Not Available hydrocodone 7.5 mg-acetamin ophen 325 mg tablet TAKE 1 TO 2 TABLETS BY MOUTH EVERY 6 HOURS NEEDED active Not Available Not Available No t Available cephalexin 500 mg capsule active Not Available Not Available Not Available neomycin-po lymyxin-dex ameth 3.5 mg/mL-10,00 0 unit/mL-0.1 % eye drops INSTILL 1 DROP THREE TIMES DAILY INTO EACH EYE STARTING 2 DAYS PRIOR TO SURGERY, CONTINUE FOR 1 WEEK AFTER SURGERY 11/22 completed Not Available Not Available Not Available losartan 25 mg tablet TAKE 1 TABLET BY MOUTH ONCE DAILY active Not Available Not Available No t Available diclofenac sodium 75 mg tablet,matthew yed release Take 1 tablet by mouth twice daily active Not Available Not Available No t Available etodolac 400 mg tablet Take 1 tablet twice a day by oral route for 14 days. active Not Available Not Available No t Available montelukast 10 mg tablet TAKE 1 TABLET BY MOUTH ONCE DAILY active Not Available Not Available No t Available furosemide 20 mg tablet TAKE 1 TABLET BY MOUTH ONCE DAILY active Not Available Not Available No t Available clobetasol 0.05 % topical ointment APPLY OINTMENT TOPICALLY TO AFFECTED AREA TWICE DAILY FOR 3 WEEKS AVOID FACE ARMPITS AND GROIN 06/11 completed Not Available Not Available Not Available Cheratussin AC 10 mg-100 mg/5 mL oral liquid 01/28 completed Not Available Not Available Not Available levofloxaci n 500 mg tablet 06/11 completed Not Available Not Available Not Available levofloxaci n 750 mg tablet 05/07 completed Not Available Not Available Not Available methylpredn isolone 4 mg tablets in a dose pack TAKE BY MOUTH DIRECTED ON INSIDE OF PACKAGE 05/27 completed Not Available Not Available Not Available hydrocodone 10 mg-chlorphe niramine 8 mg/5 mL oral susp extend.rel 12hr 09/08 completed Not Available Not Available Not Available albuterol sulfate HFA 90 mcg/actuati on aerosol inhaler INHALE 2 PUFFS BY MOUTH EVERY 4 HOURS NEEDED active Not Available Not Available No t Available cefdinir 300 mg capsule Take 1 capsule every 12 hours by oral route. 06/12 completed Not Available Not Available Not Available sertraline 50 mg tablet TAKE 1 TABLET BY MOUTH ONCE DAILY 06/04 completed Not Available Not Available Not Available Hibiclens 4 % topical liquid Direction s: Shower with the body wash the night before surgery and morning of the surgery at home before coming in for surgery. Take extra time to wash carefully the hip, knee or shoulder that will have the surgery. 08/07 completed Not Available Not Available Not Available amoxicillin 875 mg-potassiu m clavulanate 125 mg tablet TAKE 1 TABLET BY MOUTH EVERY 12 HOURS 11/22 completed Not Available Not Available Not Available ezetimibe 10 mg tablet TAKE 1 TABLET BY MOUTH ONCE DAILY 11/22 completed Not Available Not Available Not Available cyclobenzap rine 5 mg tablet 01/28 completed Not Available Not Available Not Available Spiriva with HandiHaler 18 mcg and inhalation capsules Inhale 1 capsule every day by inhalatio n route. 08/28 completed Not Available Not Available Not Available lidocaine (PF) 10 mg/mL (1 %) injection solution In office injection administe red by the provider 11/18 completed [facility]: 0409- 4276- 17 Not Available Not Available Not Available lidocaine (PF) 20 mg/mL (2 %) injection solution Take 80 mg by injection route. 12/24 completed Not Available Not Available Not Available varenicline tartrate 1 mg tablet TAKE 1 TABLET BY MOUTH TWICE DAILY AFTER FINISHING 0.5MG TABLETS 08/28 completed Not Available Not Available Not Available varenicline tartrate 0.5 mg tablet TAKE 1 TABLET BY MOUTH ONCE DAILY ON DAYS 1-3, THEN 1 TWICE DAILY ON DAYS 4-7 THEN TAKE 1MG TABLETS TWICE DAILY 08/28 completed Not Available Not Available Not Available Symbicort 80 mcg-4.5 mcg/actuati on HFA aerosol inhaler INHALE 2 PUFFS BY MOUTH TWICE DAILY active Not Available Not Available No t Available Prevnar 13 (PF) 0.5 mL intramuscul ar syringe 07/07 completed Not Available Not Available Not Available Xarelto 10 mg tablet TAKE 1 TABLET BY MOUTH ONCE DAILY active Not Available Not Available No t Available Chantix Starting Month Box 0.5 mg (11)-1 mg (42) tablets in dose pack Take 1 startr pk by oral route as directed. 12/04 completed Not Available Not Available Not Available potassium chloride ER 20 mEq tablet,exte nded release TAKE 1 TABLET BY MOUTH ONCE DAILY NEEDED active Not Available Not Available No t Available Nasacort 55 mcg nasal spray aerosol 2 sprays each nostril daily 10/29 completed Not Available Not Available Not Available Flonase Allergy Relief 50 mcg/actuati on nasal spray,suspe nsion [place]man 1 spray every day by intranasa l route. 10/08 completed Not Available Not Available Not Available Repatha SureClick 140 mg/mL subcutaneou s pen injector INJECT 1 ML SUBCUTANE OUSLY EVERY TWO WEEKS 05/27 completed Not Available Not Available Not Available Afluria 2613-4905 (PF) 45 mcg(15 mcg x 3)/0.5 mL intramuscul ar syringe 09/04 completed Not Available Not Available Not Available Fluzone High-Dose 2019- (PF) 180 mcg/0.5 mL intramuscul ar syringe 07/07 completed Not Available Not Available Not Available Nexletol 180 mg tablet Take 1 tablet by mouth once daily 07/02 completed Not Available Not Available Not Available Fluzone High-Dose Quad 2020-21 (PF) 240 mcg/0.7 mL IM syringe 05/31 completed Not Available Not Available Not Available BinaxNOW COVID-19 Ag Self Test kit Use as Directed on the Package 08/28 completed Not Available Not Available Not Available Vitals Date Recorded Body height Body mass index (BMI) Body weight Provider Name and Address Organization Details Last Updated DateTime 11/22/2024 157.48 cm 27.4 kg/m2 33381.86 g Adali Toure [place] [employer] [facility] [employer] 11/22/2024 10:26:43 Date Recorded Body height Body mass index (BMI) Body weight Body temperature Heart rate Oxygen saturation Oxygen saturation in Arterial blood by Pulse oximetry Systolic blood pressure Diastolic blood pressure Provider Name and Address Organization Details Last Updated DateTime 3 160.02 cm 27.6 kg/m2 32624.4 1 g 97.5 [degF] 87 /min 95 % 95 % 124 mm[Hg] 84 mm[Hg] Carola Loja RN [facility] 3 14:44:21 Date Recorded Body height Body mass index (BMI) Body weight Provider Name and Address Organization Details Last Updated DateTime 01/01/2023 160.02 cm 27.6 kg/m2 17382.41 g María Alamo Josephine [facility] 01/01/2023 10:39:16 Date Recorded Body height Body mass index (BMI) Body weight Body temperature Heart rate Systolic blood pressure Diastolic blood pressure Provider Name and Address Organization Details Last Updated DateTime 3 160.02 cm 26.6 kg/m2 35173.8 6 g 97.2 [degF] 98 /min 138 mm[Hg] 82 mm[Hg] KOURTNEY Espinal [facility] 3 14:37:24 Date Recorded Body height Body mass index (BMI) Body weight Body temperature Heart rate Systolic blood pressure Diastolic blood pressure Provider Name and Address Organization Details Last Updated DateTime 3 160.02 cm 27.3 kg/m2 10107.2 2 g 97.2 [degF] 65 /min 124 mm[Hg] 82 mm[Hg] KOURTNEY Espinal [employer] [facility] [employer] 3 14:35:21 Date Recorded Body height Body mass index (BMI) Body weight Body temperature Heart rate Systolic blood pressure Diastolic blood pressure Provider Name and Address Organization Details Last Updated DateTime 3 160.02 cm 27.8 kg/m2 39325 g 97.9 [degF] 67 /min 120 mm[Hg] 74 mm[Hg] Alma Delia glover RN [facility] [employer] 3 11:28:25 Date Recorded Body height Body mass index (BMI) Body weight Body temperature Heart rate Systolic blood pressure Diastolic blood pressure Provider Name and Address Organization Details Last Updated DateTime 3 160.02 cm 27.6 kg/m2 60283.4 1 g 97.2 [degF] 60 /min 118 mm[Hg] 80 mm[Hg] KOURTNEY Espinal [email or web address] 3 11:36:24 Social History Question Answer Notes LastModified by Organization Details LastModified Time Tobacco Smoking Status Current Every Day Smoker stopped smoking 05/13/22 and started again; stopped 01/01 KOURTNEY Espinal [place] [employer] [facility] [employer] 01/15/2023 14:35:31 Do You Have An Advance Directive? Yes [id number] Information not available 10/29/2022 Do You Wear A Helmet When Biking? No MIGRATION.030 273414 Information not available 10/29/2022 Are You Blind Or Do You Have Difficulty Seeing? No MIGRATION.030 225767 Information not available 10/29/2022 What Is Your Level Of Caffeine Consumption? Moderate MIGRATION.030 [id number] Information not available 10/29/2022 How Much Tobacco Do You Chew? None MIGRATION.030 127481 Information not available 10/29/2022 What Is Your Code Status? DNR [id number] Information not available 10/29/2022 In The 14 Days Before Symptom Onset, Have You Had Close Contact With A Laboratory-confi rmed COVID-19 While That Case Was Ill? No MIGRATION.0301 [id number] Information not available 10/29/2022 In The 14 Days Before Symptom Onset, Have You Had Close Contact With A Person Who Is Under Investigation For COVID-19 While That Person Was Ill? No MIGRATION.0301 [id number] Information not available 10/29/2022 Are You Deaf Or Do You Have Serious Difficulty Hearing? No MIGRATION.0301 [id number] Information not available 10/29/2022 What Type Of Diet Are You Following? REGULAR MIGRATION.030 679298 Information not available 10/29/2022 Which Illicit Or Recreational Drugs Have You Used? None MIGRATION.030 844551 Information not available 10/29/2022 What Is The Highest Grade Or Level Of School You Have Completed Or The Highest Degree You Have Received? AR21712-7 MIGRATION.030 776741 Information not available 10/29/2022 Have There Been Any Changes To Your Family Or Social Situation? No MIGRATION.030 218302 Information not available 10/29/2022 Are There Any Guns Present In Your Home? Yes MIGRATION.0301 355017 Information not available 10/29/2022 Do You Use Insect Repellent Routinely? Yes MIGRATION.0301 [id number] Information not available 10/29/2022 Where Do You Live? [place] MIGRATION.030 023839 Information not available 10/29/2022 Do You Have A Medical Power Of Commander Internal Affairs? No MIGRATION.0301 942184 Information not available 10/29/2022 What Was The Date Of Your Most Recent Tobacco Screening? 07/30/2023 [email or web address] Information not available 07/30/2023 What Is Your Current Pack Years? 30ormorepackyears MIGRATION.0301 562030 Information not available 10/29/2022 Have You Ever Been Counseled For Unhealthy Alcohol Use? No MIGRATION.0301 403208 Information not available 10/29/2022 Do You Have Any Pets? No MIGRATION.0301 877059 Information not available 10/29/2022 What Is Your Relationship Status? MIGRATION.0301 153769 Information not available 10/29/2022 Do You Use Your Seat Belt Or Car Seat Routinely? Yes MIGRATION.0301 [id number] Information not available 10/29/2022 Do You Have Smoke And Carbon Monoxide Detectors In Your Home? Yes MIGRATION.0301 [id number] Information not available 10/29/2022 At What Age Did You Start Smoking Tobacco? 19 MIGRATION.0301 195074 Information not available 10/29/2022 Are You Passively Exposed To Smoke? No MIGRATION.0301 709755 Information not available 10/29/2022 Are There Any Smokers In Your House? No MIGRATION.0301 237071 Information not available 10/29/2022 How Much Tobacco Do You Smoke? 0.25 PPD Information not available 07/02/2023 What Types Of Sporting Activities Do You Participate In? None MIGRATION.0301 243231 Information not available 10/29/2022 Do You Use Sunscreen Routinely? Yes MIGRATION.0301 410559 Information not available 10/29/2022 Has Tobacco Cessation Counseling Been Provided? No MIGRATION.0301 907574 Information not available 10/29/2022 How Many Years Have You Smoked Tobacco? 45 [email or web address] Information not available 12/04/2022 Have You Recently Traveled Abroad? No MIGRATION.0301 558195 Information not available 10/29/2022 Do You Have Difficulty Walking Or Climbing Stairs? No MIGRATION.0301 585389 Information not available 10/29/2022 Do You Have Any Dietary Restrictions? No MIGRATION.0301 461857 Information not available 10/29/2022 Sex: Female Functional Status Question Answer Note LastModified by Organizat ion Details LastModified Time Do you or have you ever used smokeless tobacco? Never used smokeless tobacco MIGRATION.668115 0668 Information not available 10/29/2022 Are you currently employed? Yes Information not available 12/04/2022 Do you have transportation difficulties? No MIGRATION.089399 9623 Information not available 10/29/2022 Are you able to care for yourself? No MIGRATION.486962 2896 Information not available 10/29/2022 Do you have difficulty dressing or bathing? No MIGRATION.451902 5837 Information not available 10/29/2022 Do you or have you ever used e-cigarettes or vape? Never used electronic cigarettes MIGRATION.173464 0887 Information not available 10/29/2022 What is your exercise level? None MIGRATION.498298 8429 Information not available 10/29/2022 Do you use any illicit or recreational drugs? No MIGRATION.333836 0351 Information not available 10/29/2022 Do you or have you ever used any other forms of tobacco or nicotine? No MIGRATION.106215 6311 Information not available 10/29/2022 What is your level of alcohol consumption? Moderate Information not available 04/09/2023 Are you able to walk? YESWOREST MIGRATION.301418 9363 Information not available 10/29/2022 Do you have difficulty doing errands alone? Yes MIGRATION.410698 0234 Information not available 10/29/2022 What is your occupation? [employer] MIGRATION.759561 8288 Information not available 10/29/2022 Mental Status Question Answer Note LastModified by Organizat ion Details LastModified Time Do you feel stressed (tense, restless, nervous, or anxious, or unable to sleep at night)? [id number] MIGRATION.[id number] 26 Information not available 10/29/2022 Do you have difficulty concentrating, remembering or making decisions? No MIGRATION.15057204 26 Information not available 10/29/2022 Family History Relationship Description Onset Age of this Age Resolved Age Notes LastModified by Organization Details LastModified Time Mother Hypertensive disorder MIGRATION.256 [id number] Not available 10/29/2022 00:53:30 Mother Malignant neoplasm of bone 62 MIGRATION.313 [id number] Not available 10/29/2022 00:53:30 Mother Family history of malignant neoplasm MIGRATION.909 [id number] Not available 10/29/2022 00:53:30 Mother Heart disease MIGRATION.875 [id number] Not available 10/29/2022 00:53:31 Father Hypertensive disorder MIGRATION.293 [id number] Not available 10/29/2022 00:53:31 Father Gout MIGRATION.238 [id number] Not available 10/29/2022 00:53:31 Father Hypercholest erolemia MIGRATION.968 [id number] Not available 10/29/2022 00:53:31 Father Malignant neoplasm of lung 77 MIGRATION.328 [id number] Not available 10/29/2022 00:53:31 Father Heart disease MIGRATION.291 4785013 Not available 10/29/2022 00:53:31 Sister Pneumonia caused by SARS-CoV-2 MIGRATION.254 [id number] Not available 10/29/2022 00:53:31 Medical History Condition [...] ARTERY DISEASE (CAD) N ADDICTION CONCERNS N ENDOMETRIOSIS N Impotence N USE OF BLOOD THINNERS N SKIN [...] LIVER DISEASE N MALE HYPOGONADISM N HYPERTENSION Y Deficiency N TOURETTE'S N ANXIETY DISORDER Y Metal allergy N BLOOD TRANSFUSION N ANEMIA/BLOOD DISORDER N CHRONIC EAR INFECTIONS N BIPOLAR DISORDER N BRONCHITIS N OSTEOARTHRITIS Y TUBERCULOSIS N GLAUCOMA N FOOT PROBLEM N HEART VALVE DISORDERS N CHICKENPOX N SLEEP APNEA N ALLERGIES/HAYFEVER N INFECTIOUS DISEASE N HEART ARRHYTHMIA N PROSTATE N INSOMNIA N HIGH CHOLESTEROL / HYPERLIPIDEMIA Y RHEUMATOID ARTHRITIS N HYPERTHYROIDISM N EYE PROBLEMS Y NEUROLOGICAL PROBLEMS N EDEMA N CHRONIC PAIN SYNDROME N HYPOTHYROIDISM N CAROTID BLOCKAGE N CONSTIPATION N BACK / NECK PROBLEMS N HAVE YOU BEEN HOSPITALIZED OR SEEN IN [facility] IN THE PAST YEAR ? Y ATHEROSCLEROSIS N BURSITIS N BREAST PROBLEMS N HERNIATED DISC N DIALYSIS N ECZEMA N FIBROMYALGIA N OSTEOPOROSIS N ARTHRITIS Y NO SIGNIFICANT PAST MEDICAL HISTORY N PERIPHERAL NEUROPATHY N APPENDICITIS N DIABETES, TYPE N BAD TEETH N ENT N HEARTBURN / REFLUX N AUTISM SPECTRUM DISORDER (ASD) N HEPATITIS / LIVER DISEASE N GOUT N SLEEP DISORDER N ALZHEIMER'S DISEASE N Brain Problems N HERPES N DEMENTIA N HEADACHES/MIGRAINES N SEIZURES/EPILEPSY N VASCULAR DISEASE N PACEMAKER N Blood Disorder N DIZZINESS N HEAD TRAUMA OR INJURY N HEART DISEASE/HEART PROBLEMS N KIDNEY DISEASE N MULTIPLE SCLEROSIS N CARDIAC ARRHYTHMIA N CANCER: SPECIFY N ANESTHESIA COMPLICATIONS N ATRIAL FIBRILLATION N [...] 50 mcg/0.25mL dose 2 completed Not Available [facility] 07/03/2023 22:37:24 COVID-19, mRNA, LNP-S, PF, 100 mcg/0.5mL dose or 50 mcg/0.25mL dose 1 completed Not Available [facility] 07/03/2023 22:37:24 COVID-19, mRNA, LNP-S, PF, 100 mcg/0.5mL dose or 50 mcg/0.25mL dose 1 completed Not Available [facility] 07/03/2023 22:37:24 Influenza, high-dose, quadrivalent, PF 0 completed Not Available [facility] 07/03/2023 22:37:24 Pneumococcal conjugate PCV 13 9 completed Not Available [facility] 07/03/2023 22:37:25 Influenza, high-dose, trivalent, PF 9 completed Not Available [facility] 07/03/2023 22:37:25 Influenza, split virus, quadrivalent, preservative 6 completed Not Available [facility] 07/03/2023 22:37:24 COVID-19, mRNA, LNP-S, PF, 30 mcg/0.3 mL dose 2 completed Not Available [facility] 07/03/2023 22:37:25 pneumococcal polysaccharide PPV23 2 completed Not Available [facility] 07/03/2023 22:37:25 Influenza, high-dose, trivalent, PF 2 completed Not Available [facility] 07/03/2023 22:37:25 Influenza, high-dose, trivalent, PF 1 completed Not Available [facility] 07/03/2023 22:37:25 Influenza, high-dose, trivalent, PF 7 completed Not Available [facility] 07/03/2023 22:37:25 influenza, unspecified formulation 6 completed Not Available [facility] 07/03/2023 22:37:25 influenza, unspecified formulation 4 completed Not Available [facility] 07/03/2023 22:37:25 Influenza, high-dose, trivalent, PF 4 completed Not Available [facility] 07/03/2023 22:37:25 Past Encounters Encounter ID Performer Location Encounter Start Date Encounter Closed Date Diagnosis/Indication Diagnosis SNOMED-CT Code Diagnosis ICD10 Code Diagnosis Note [id number] Jhony Ramos MD [facility] [place] [address] [place] [address] 10/30/2020 00:00:00 10/30/2020 14:57:23 [id number] Jhony Ramos MD [facility] [place] [address] [place] [address] 12/06/2020 00:00:00 12/06/2020 11:09:59 [id number] Paulette Rondon MD [facility] Internal Med [address] [place] [address] 12/11/2020 00:00:00 12/11/2020 22:25:50 [id number] Paulette Rondon MD [facility] Internal Med [address] [place] [address] 06/11/2021 00:00:00 06/11/2021 22:08:04 [id number] Jhnoy Ramos MD [facility] [place] [address] [place] [address] 06/27/2021 00:00:00 06/27/2021 09:43:59 [id number] Jhony Ramos MD [facility] [place] [address] [place] [address] 11/18/2021 00:00:00 11/18/2021 11:11:28 [id number] Jhony Ramos MD [facility] [place] [address] [place] [address] 12/16/2021 00:00:00 12/16/2021 10:50:13 [id number] Paulette Rondon MD [facility] Internal [facility] [place] [address] [facility] y DrMildred, [place] [address] 12/24/2021 00:00:00 01/12/2022 16:36:43 [id number] Paulette Rondon MD [facility] Internal [facility] [place] [address] [facility] y DrMildred, [place] [address] 04/22/2022 00:00:00 04/22/2022 22:54:03 [id number] Paulette Rondon MD [facility] Internal [facility] [place] [address] [facility] y DrMildred, [place] [address] 05/27/2022 00:00:00 06/29/2022 10:50:20 [id number] Paulette Rondon MD [facility] Internal [facility] [place] [address] [facility] y DrMildred, [place] [address] 06/12/2022 00:00:00 06/15/2022 12:58:16 [id number] Paulette Rondon MD [facility] Internal Med [place] [address] [facility] y , [place] [address] 08/28/2022 00:00:00 08/29/2022 09:06:43 [id number] Paulette Rondon MD [facility] Internal Med [place] [address] [place] [address] y , [place] [address] 12/04/2022 10:14:10 12/04/2022 10:54:13 Pain in left foot [id number] 85955 M79.672 [id number] Jhony Ramos MD [facility] [place] [address] [place] [address] 12/04/2022 12:19:45 12/04/2022 13:37:20 Pain in left foot [id number] 00498 M79.672 Closed fra cture of fifth metatarsal bone [id number] S92.351A [id number] Jhony Ramos MD [facility] [place] [address] [place] [address] 01/01/2023 10:37:10 01/01/2023 12:17:36 Pain in left foot [id number] 96804 M79.672 Closed fra cture of fifth metatarsal bone [id number] S92.351A [id number] Paulette Rondon MD [facility] Internal Med [place] [address] [place] [address] [place] [address] 01/01/2023 14:25:04 01/01/2023 15:34:01 Transition of care [id number] 105 Z75.8 Breast lump [id number] N63 .0 Chronic ob structive pulmonary disease 68824033 J44.9 Anxiety 14998142 F41.9 Hypercholesterolemia 136 96245 E78.00 [id number] P[facility] MD [facility] [facility] [place] [address] [place] [address] [place] [id number] 01/15/2023 14:26:10 01/15/2023 15:26:06 Chronic obstructive pulmonary disease 82787397 J44.9 Anxiety 37150891 F41.9 Gastroesop hageal reflux disease [id number] K21.9 [id number] Paulette Rondon MD [facility] [place] [address] [place] [address] [place] [id number] 04/09/2023 14:24:31 04/09/2023 15:45:23 Postmenopausal state [id number] Z78.0 Chronic ob structive pulmonary disease 22311244 J44.9 Anxiety 87581301 F41.9 Hypercholesterolemia 136 61003 E78.00 [id number] Paulette Rondon MD [facility] [place] [address] [place] [address] [place] [id number] 07/02/2023 11:04:27 07/02/2023 12:29:20 Hypercholesterolemia 10669228 E78.00 Pre-surgery testing 1104 25812 Z01.89 Anxiety 79443212 F41.9 Chronic ob structive pulmonary disease [id number] J44.9 [id number] Sawyer Hernandez MD [facility] [place] [address] [place] [address] 11/22/2024 10:09:59 11/22/2024 11:28:17 Osteoarthritis of left knee joint [id number] 20458 M17.12 Pain of le ft knee joint [id number] 03528 M25.562 History of right total knee replacement [id number] 194529 Z96.651 Health Concerns Section Related Observation LastModified by Organization Detai ls LastModified Time None Recorded Concern Status LastModified by Organization Details LastModified Time None Recorded Advance Directives Directive Y: Payers Encounter Date Sequence Insurance Name Policy Number Policy Golden Covered Member ID Golden Member ID Guarantor Name 01/01/2023 1 [facility] ([facility]ICARE [facility]PLAC[facility]/A DVANTAGE - HMO) [id number] Kinga Helton [id number] Kinga Helton 01/15/2023 1 [facility] ([facility]ICARE REPLACEMENT/A DVANTAGE - HMO) [id number] Kinga Helton [id number] Kinga Helton 04/09/2023 1 [facility] (MEDICARE REPLACEMENT/A DVANTAGE - HMO) [id number] Kinga Helton [id number] Kinga Helton 07/02/2023 1 [facility] (MEDICARE REPLACEMENT/A DVANTAGE - HMO) [id number] Kinga Helton [id number] Kinga Helton 11/22/2024 1 [facility] (MEDICARE REPLACEMENT/A DVANTAGE - HMO) [id number] Kinga Helton [id number] Kinga Helton Notes Date Note Type Note [...] feels a little tired Paulette Rondon MD [address] [place] [address], [place] [address], [place], [address], [facility] [employer] [facility] 01/03/2023 15:49:39 3 text/htm l Patient returns foot pain left. She has a fracture of the 5th metatarsal shaft. She is relatively comfortable when walking and stiff-soled shoes and is moving out to tennis shoes when she wants now. Jhony Ramos MD [address], [place], [address], [employer] [facility] [employer] 01/01/2023 11:30:48 3 text/htm l she is feeling better Paulette Rondon MD [address], [place], [address], [employer] [facility] [employer] 01/24/2023 16:19:11 3 text/htm l COPD doing fine with inhaler. Dyslipidemia Try to follow low-fat diet anxiety is doing well Paulette Rondon MD [address], [place], [address], [employer] [facility] [employer] 06/28/2023 17:23:06 3 text/htm l Could have cataract surgery no chest pain or shortness of breath no dizzy spells no palpitationsDyslipidemia tries to follow low-fat dietCOPD doing well on inhalers Paulette Rondon MD [address], [place], [address], [employer] [facility] [employer] 07/11/2023 13:28:40 5 text/htm l the patient returns she is a 69-year-old female who has left knee pain due to primary osteoarthritis fairly significant in nature. We have not seen her for nearly 3 years. She has aching pain in the left knee worse with activity somewhat relieved by rest the pain is localized mostly to the medial and anterior portions of the knee. She can not squat kneel go up and down stairs well she states at times her knee feels like it wants to give out on stairs. She states the pain is about a 6 on a scale of 1-10 she has start-up pain rest pain and night pain she takes ibuprofen [id number] occasionally she is not taking it on a regular basis. Occasionally she will take Tylenol as well. For the most part she gets by with conservative measures she had been considering doing a total knee arthroplasty sometime this year but her recently so she is going to put that off for now. She comes in today requesting a cortisone injection it has been 3 years since her last injection. She had a right total knee arthroplasty done about 12 years ago this is doing well denies any problems with the right knee we are getting new x-rays of her left knee today. She states cortisone has helped her significantly previously. New past medical history sheet was reviewed and signed noted on the intake sheet of today's date drug allergies current medications family social history previous surgical history 10 point review of systems was reviewed and discussed in detail today with the patient. ASHOK Ram [address] [facility] [address], [place], [address], [facility] 11/22/2024 12:03:50 OBGyn Episode No OBEpisode recorded.
--- OUTSIDE RECORDS SUMMARY | 2025-01-25 13:32 | XMS_ITS | CONTINUITY OF CARE DOCUMENT ---
Author Name ashish hinojosa Address Unknown Organization [facility] Address [address] [place] [address] Phone [phone] Care Team Providers [employer] Name Role Phone Davy CELIS, Cole Unavailable APULETTE YI MD Unavailable PAULETTE YI MD Unavailable [phone] PROBLEMS Condition Status Date Provider Notes Congestive heart failure (CHF) active Alisson Ramos INSURANCE PROVIDERS Payer name Policy type / Coverage type Dille red democrat ID [employer] MEDICARE ADVANTAGE HMO-POS HMO [id number] TREATMENT PLAN Date Name Complete Echo
== END 2025-01-25 13:24 | disposition home or self-care (01) ==
PROVIDERS: PCP Internal Medicine; Visit Provider Internal Medicine
DX: R55 Syncope and collapse (principal)
CPT/HCPCS: 70450

== ENCOUNTER 2025-04-26 12:07 | Outpatient (CLI) | payer MEDICARE, SELFPAY ==
--- NOTE | 2025-04-26 | ECHO_ITS ---
Patient Info Name: Kinga Helton Age: 70 years : 1955 Gender: Female Ht: 63 in Wt: 152 lbs BSA: 1.77 m2 HR: 65 bpm BP: 161 / 90 mmHg Heart Rhythm: Sinus Rhythm Technical Quality: Good Exam Date: 04/26/2025 1:22 PM Patient Status: O Admit Date: 04/26/2025 Exam Type: CA echo doppler color flow Complete two-dimensional, color flow and Doppler transthoracic echocardiogram is performed. Staff Referring Physician: Benjamin Rondon Design Editor: Jennifer Naqvi Attending Provider: Benjamin Rondon Summary 1. Complete two-dimensional, color flow and Doppler transthoracic echocardiogram is performed. 2. Left ventricular chamber dimension is normal. 3. Left ventricular systolic function is normal, estimated at 55-60. 4. There is mildly increased left ventricular wall thickness. 5. The left ventricular diastolic function is grade I diastolic dysfunction. 6. The basal inferior wall, and mid inferolateral wall are hypokinetic. 7. Left atrial chamber dimension is moderately enlarged. 8. There is mild mitral valve regurgitation. 9. There is mild tricuspid valve regurgitation. Left Ventricle Left ventricular chamber dimension is normal. Left ventricular systolic function is normal, estimated at 55-60. There is mildly increased left ventricular wall thickness. The left ventricular diastolic function is grade I diastolic dysfunction. The basal inferolateral wall is akinetic. The basal inferior wall, and mid inferolateral wall are hypokinetic. All other [place] appear normal. Right Ventricle Right ventricular chamber dimension is normal. Right ventricular systolic function is normal. Left Atria Left atrial chamber dimension is moderately enlarged. Right Atria Right atrial chamber dimension is normal. Atrial Septum Intact interatrial septum visualized by color flow imaging. Aortic Valve The aortic valve is trileaflet. There is mild aortic valve sclerosis. There is no aortic valve stenosis. There is trace aortic valve regurgitation. Pulmonic Valve The pulmonic valve is normal. There is no pulmonic valve stenosis. There is trace pulmonic regurgitation. Mitral Valve The mitral valve has normal leaflets. There is no mitral valve stenosis. There is mild mitral valve regurgitation. Tricuspid Valve The tricuspid valve leaflets are normal. There is no significant tricuspid valve stenosis. There is mild tricuspid valve regurgitation. No pulmonary hypertension, estimated pulmonary arterial systolic pressure is 25 mmHg. Pericardium/Pleural The pericardium appears normal. There is no pericardial effusion. Inferior Vena Cava Normal inferior vena cava with >50% collapse upon inspiration consistent with normal right atrial pressure, 5 mmHg. Aorta The aortic root size at the sinus of Valsalva is normal. Left Ventricular Outflow Tract Name Value Normal LVOT 2D LVOT Diameter 2.0 cm LVOT Doppler LVOT Peak Velocity 135 cm/s LVOT Peak Gradient 7 mmHg LVOT Mean Gradient 4 mmHg LVOT VTI 32 cm LVOT Stroke Volume 96 ml LVOT CO 6.3 l/min LVOT CI 3.6 l/min/m2 Pulmonic Valve Name Value Normal RVOT Doppler RVOT Peak Velocity 67 cm/s RVOT Peak Gradient 2 mmHg PV Doppler PV Peak Velocity 89 cm/s PV Peak Gradient 3 mmHg Mitral Valve Name Value Normal MV Diastolic Function MV E Peak Velocity 69 cm/s MV A Peak Velocity 62 cm/s MV E/A 1.1 MV Decel Time (PW) 496 ms MV Annular TDI MV E/e' (Septal) 11.5 MV E/e' (Lateral) 9.3 MV E/e' (Average) 10.4 Tricuspid Valve Name Value Normal Estimated PAP/RSVP RA Pressure 5 mmHg <=5 PA Systolic Pressure 25 mmHg <36 Aortic Valve Name Value Normal AV Doppler AV Peak Velocity 183 cm/s AV Peak Gradient 13 mmHg AV Area (Cont Eq Hans) 2.2 cm2 AV DI (Hans) 0.74 AV Regurgitation 2D LVOT Area 3.0 cm2 Ventricles Name Value Normal LV Dimensions 2D/MM IVS Diastolic Thickness (2D) 1.0 cm 0.6-1.0 LVID Diastole (2D) 4.8 cm 3.8-5.2 LVIW Diastolic Thickness (2D) 1.1 cm 0.6-0.9 LVID Systole (2D) 2.9 cm 2.2-3.5 LVOT Diameter 2.0 cm LV Mass (2D Cubed) 189.74 g 67.00-162.00 LV Mass Index (2D Cubed) 107 g/m2 43-95 Relative Wall Thickness (2D) 0.46 <=0.42 LV Fractional Shortening/Ejection Fraction 2D/MM LV Fractional Shortening (2D) 39 % 27-45 LV EF (2D Teichholz) 69 % LV Diastolic Volume (4C MOD) 103 ml LV EF (4C MOD) 54 % LV Diastolic Volume (2C MOD) 115 ml LV EF (2C MOD) 55 % LV Diastolic Volume (BP MOD) 110 ml 46-106 LV Diastolic Volume Index (BP MOD) 62 ml/m2 29-61 LV Systolic Volume (BP MOD) 50 ml 14-42 LV Systolic Volume Index (BP MOD) 29 ml/m2 8-24 LV EF (BP MOD) 54 % 54-74 LV Diastolic Length (4C) 8.0 cm LV Systolic Length (4C) 6.9 cm LV Stroke Volume (4C MOD) 56 ml Atria Name Value Normal LA Dimensions LA Volume (4C A-L) 72 ml LA Volume (BP A-L) 67 ml RA Dimensions RA Systolic Major [place] Length (4C) 5.2 cm 2.2-2.8 RA Area (4C) 15.3 cm2 <=18.0 Wall Motion Scoring Wall Motion Scoring Index: 1.24 Report Signatures
--- NOTE | ~2025-04-26 | US_ITS ---
EXAMINATION: US carotid duplex BI DATE: 04/26/2025 13:11 INDICATION: Syncope TECHNIQUE: Grayscale, color Doppler, and pulsed Doppler images of the cervical carotid arteries were obtained. The degree of vessel stenosis is placed in one of the following categories: normal, <50%, 50-69%, >=70% but less than near- occlusion, near-occlusion, or total occlusion. Note that percent stenosis relative to normal distal artery lumen diameter is indirectly measured from velocity measurements as described by Craig, et al. Radiology 2003; 229:340-346. Notes: Normal: Peak systolic velocity <125 centimeters/sec and no plaque <50%. Peak systolic velocity <125 (EDV <40; ICA/CCA PSV ratio <2.0; used these factors only a tandem lesions or low cardiac output or contralateral disease) 50-69 %: PSV 125-230 (EDV 40-100; ratio 2-4) >= 70% but less than near occlusion: PSV greater than 230 (EDV > 100; ratio> 4.0) Near Occlusion: PSV that is variable; markedly narrowed lumen Occlusion: Absent flow on color/spectral Doppler and no lumen on vail scale. COMPARISON: None. FINDINGS: RIGHT: The right common carotid artery (CCA) peak systolic velocity (PSV) is 56 cm/s. The right internal carotid artery (ICA) PSV is 43 cm/s. The right ICA end- diastolic velocity (EDV) is 17 cm/s. The right ICA/CCA PSV ratio is 0.8. The external carotid artery (ECA) PSV is 69 cm/s. There is antegrade flow in the right vertebral artery. LEFT: The left CCA PSV is 49 cm/s. The left ICA PSV is 70 cm/s. The left ICA EDV is 24 cm/s. The left ICA/CCA PSV ratio is 1.4. The ECA PSV is 59 cm/s. There is antegrade flow in the left vertebral artery. IMPRESSION: 1. Less than 50% stenosis in the right internal carotid artery by sonographic criteria. 2. Less than 50% stenosis in the left internal carotid artery by sonographic criteria. Reviewed, dictated and finalized at location O. IMPRESSION: 1. Less than 50% stenosis in the right internal carotid artery by sonographic teodoro kapadia. 2. Less than 50% stenosis in the left internal carotid artery by sonographic nighat horta.
--- OUTSIDE RECORDS SUMMARY | 2025-04-26 12:17 | XMS_ITS | Clinical Summary ---
Author Organization [facility] Address [address] [place] [address] Care Team Providers Care Line Up Machine Operator Name Role Phone Benjamin Rondon MD Primary Care Provider [phone] Benjamin Rondon MD Unavailable [phone] Allergies Active Allergy Reactions Criticality Noted Date Comments Alexander Inhibitors Unknown 03/06/2025 Bempedoic Acid Hives Medium 03/06/2025 Ezetimibe Unknown 03/06/2025 Levofloxacin Rash Medium 02/14/2025 Pseudoephedrine Rash Medium 05/24/2022 pseudoephedrine Tehrbka-Ibn-Oee Reductase Inhibitors Rash Medium 03/06/2025 Triprolidine-Pseudoephedrine Rash Medium 025 Medications albuterol HFA (PROVENTIL HFA,VENTOLIN HFA,PROAIR HFA) 90 mcg/actuation inhaler Inhale 2 puffs every 4 (four) hours as needed for wheezing or shortness of breath 5 Active benzonatate (TESSALON) 200 mg capsule Take 1 capsule (200 mg total) by mouth 3 (three) times a day as needed for cough 5 Active Symbicort 80-4.5 mcg/actuation inhaler Inhale 2 puffs 2 (two) times a day 5 Active furosemide (LASIX) 20 mg tablet Take 1 tablet (20 mg total) by mouth daily 5 Active losartan (COZAAR) 50 mg tablet Take 1 tablet (50 mg total) by mouth daily 5 Active montelukast (SINGULAIR) 10 mg tablet Take 1 tablet (10 mg total) by mouth daily 5 Active potassium chloride ER 20 mEq CR tablet Take 1 tablet (20 mEq total) by mouth daily as needed 5 Active sertraline (ZOLOFT) 100 mg tablet Take 1.5 tablets (150 mg total) by mouth daily 5 Active senna-docusate (PERICOLACE) 8.6-50 mgIndications: constipation Take 1 tablet by mouth daily 30 tablet 5 Active methocarbamoL (ROBAXIN) 500 mg tablet Take 1 tablet (500 mg total) by mouth 3 (three) times a day 60 tablet 5 Active acetaminophen 500 mg capsuleIndicat ions:Pain Take 2 capsules (1,000 mg total) by mouth every 6 (six) hours as needed for pain 60 capsule 5 Active levETIRAcetam (KEPPRA) 500 mg tablet Take 1 tablet (500 mg total) by mouth 2 (two) times a day for 6 days 12 tablet 5 Active bacitracin-lidia ymyxin B (POLYSPORIN) ointmentIndica tions:Minor Bacterial Skin Infections Apply 1 Application topically 2 (two) times a day 28 g 5 Active lidocaine (LIDODERM) 5 % Place 1 patch on the skin daily for 12 hours Remove & discard patch within 12 hours or as directed by . 30 patch 5 Active oxyCODONE (ROXICODONE) 5 mg immediate release tabletIndicati ons:Pain Take 1 tablet (5 mg total) by mouth every 4 (four) hours as needed for pain 10 tablet 5 Active ALPRAZolam (XANAX) 0.5 mg tablet Active amoxicillin 500 mg tablet/capsule Take 1 capsule 3 times a day by oral route for 7 days. Active atorvastatin (LIPITOR) 10 mg tablet Take 1 tablet every day by oral route for 30 days. Active BUPivacaine HCl (MARCAINE) 0.5 % (5 mg/mL) injection Take 20 mg by injection route. 5 Active cephalexin (KEFLEX) 500 mg capsule Active diclofenac DR (VOLTAREN) 75 mg EC tablet Take 1 tablet (75 mg total) by mouth 2 (two) times a day Active etodolac (LODINE) 400 mg tablet Take 1 tablet twice a day by oral route for 14 days. Active evolocumab (Repatha SureClick) 140 mg/mL pen injector INJECT 1 ML SUBCUTANEOUSLY EVERY TWO WEEKS Active HYDROcodone-ac etaminophen (NORCO) 5-325 mg per tablet Take 1 tablet by mouth every 4 (four) hours as needed for pain Active HYDROcodone-ac etaminophen (NORCO) 7.5-325 mg per tablet Take 1-2 tablets by mouth every 6 (six) hours as needed Active ipratropium-al buteroL (DUO-NEB) 0.5-2.5 mg/3 mL nebulizer solution USE 1 AMPULE IN NEBULIZER 4 TIMES DAILY Active LORazepam (ATIVAN) 0.5 mg tablet Take by mouth 2 (two) times a day as needed Active rivaroxaban (Xarelto) 10 mg tablet Take 1 tablet (10 mg total) by mouth daily Active traMADoL (ULTRAM) 50 mg tablet Take 1 tablet 3 times a day by oral route as needed. Active traMADol-aceta minophen (ULTRACET) 37.5-325 mg per tablet TAKE 2 TABLETS BY MOUTH EVERY 6 TO 8 HOURS NEEDED FOR PAIN Active triamcinolone (Kenalog) 10 mg/mL injection Take 20 mg by injection route. 5 Active triamcinolone (Kenalog) 40 mg/mL injection Active triamcinolone (KENALOG) 0.1 % cream APPLY THIN LAYER EXTERNALLY TO AFFECTED AREA OF NECK, ARMS, AND LEGS TWICE DAILY NEEDED 4 Active Active Problems Problem Noted Date Diagnosed Date Hypertension 02/15/2025 Assessment & Plan (02/15/2025 2:13 PM CDT): - Resume Losartan 50mg daily COPD (chronic obstructive pulmonary disease) Assessment & Plan (02/15/2025 1:32 AM CDT): -continue home singulair Congestive heart failure (CHF) 02/15/2025 Assessment & Plan (02/15/2025 1:29 AM CDT): -hold home lasix GERD (gastroesophageal reflux disease) 5 Assessment & Plan (02/15/2025 1:31 AM CDT): -on home omeprazole -start pantoprazole Closed fracture of first cervical vertebra 02/15 Assessment & Plan (02/16/2025 11:14 AM CDT): - Neurosurgery Spine consult - CTA head/neck (02/14): acute, mildly displaced, comminuted fracture of the right C1 anterior arch extending into the right lateral mass of C1, Normal CT angiogram of the head and neck. - CT T/L spine (02/14): No acute fracture in the thoracic or lumbar spine. Grade 1 anterolisthesis of L4 on L5, moderate L4-L5 spinal canal stenosis. - MRI total spine (02/15): Acute, mildly displaced fracture of the anterior arch of C1 extending to the right lateral mass of C1, probable injury of the anterior longitudinal ligament at level of C1. Normal tectorial membrane. No convincing posterior ligamentous injury, no definite acute cord signal abnormality, degenerative changes of the cervical spine with severe spinal canal stenosis at C4-C5 and C5- C6. - non-operative management - Eucha Minot collar in place at all times - Upright Cspine xr (02/15): known C1 arch fractures better visualized on prior cross-sectional imaging, severe degenerative disc disease at C5-C6 - PT/OT - Follow up clinic in 3 weeks with upright AP and lateral xrays of the cervical spine, including open mouth views. Acute traumatic pain 02/15/2025 Assessment & Plan (02/15/2025 12:57 PM CDT): - Tylenol 1g q6h - Robaxin 500mg TID - Lidocaine patch x1 - Discontinue Flexeril - Increased Oxycodone 5mg q4h PRN Abrasion of left forearm 02/15/2025 Assessment & Plan (02/16/2025 11:16 AM CDT): - clean with plain soap and water and pat dry BID - apply thick layer of Bacitracin to abrasion, cover with non-stick Telfa dressing, secure with Kerlex wrap, change BID and PRN - Follow up primary care provider in 1-2 weeks for wound check Discharge planning issues 02/15/2025 Assessment & Plan (02/16/2025 10:59 AM CDT): - 02/15: awaiting BI consult, upright x-ray in cervical collar - 02/16: Patient is medically stable for discharge, SW/CM updated. Discharge pending ride from family Fall, initial encounter 02/14/2025 Assessment & Plan (02/14/2025 10:35 PM CDT): #Fall - CXR and PXR unremarkable Subarachnoid hemorrhage 02/14/2025 Assessment & Plan (02/16/2025 11:15 AM CDT): - Neurosurgery consult - repeat CT head (02/15): Unchanged right parietal subarachnoid hemorrhage. No new intracranial hemorrhage. --SBP < 160 --Keppra 500 BID x7d - neuro check q4h - 02/15: Ok to start DVT ppx - BI consult - PM&R consult - Follow up clinic in 3-[address] scan of the brain without contrast. Encounters Date Type Department Care Team Description 03/17/2025 Telephone [facility] Neurosurgery [address], [address] [place] [address] Reinaldo Geiger PA 03/14/2025 4:00 PM CDT Telemedicine [facility] Neurosurgery [address] [place] [address] Reinaldo Geiger PA Acute traumatic pain (Primary Dx); Cervical pain; Closed displaced fracture of first cervical vertebra, unspecified fracture morphology, initial encounter (HCC); Closed fracture of first cervical vertebra, initial encounter (HCC); Subarachnoid hemorrhage (HCC) 03/14/2025 6:48 AM CDT - 03/14/2025 11:59 PM CDT Hospital Encounter [facility] - Imaging [address] [place] [address] Subarachnoid hemorrhage (HCC) Discharge Disposition: Discharge to home or self care 02/27/2025 Orders Only [facility] with [facility] [address] [place] [address] Reinaldo Geiger PA Subarachnoid hemorrhage (HCC) (Primary Dx) 02/23/2025 Telephone [facility] Scheduling [address] [place] [address] Geno Dorantes 02/14/2025 5:38 PM CDT - 02/16/2025 12:20 PM CDT Hospital Encounter [facility] [address] [place] [id number] Avery Yates MD Sensing, Jimmy Ramos, Fall, initial encounter (Primary Dx); Subarachnoid hematoma, with loss of consciousness of 30 minutes or less, initial encounter (HCC); Other closed nondisplaced fracture of first cervical vertebra, initial encounter (HCC) Discharge Disposition: Discharge to home or self care from Last 3 Months Immunizations Immunization Administration Dates Next Due Tdap 02/14/2025(Deferred: Contraindic ation - pt received last year.) Social History Tobacco Use Types Packs/Day Years Used Date Smoking Tobacco: Every Day Cigarettes 0.5 47.7 Started: 1977 Passive Smoke Exposure: Current Tobacco Cessation:Ready to Q uit: No; Counseling Given: Yes Personal Safety Answer Date Recorded Have you ever been in or are you currently in a harmful physical or emotional relationship or is someone making you feel afraid or unsafe? Denies 02/14/2025 Comments Unknown Sex and Gender Information Value Date Recorded Sex Assigned at Not on file Legal Sex Female 2:53 PM CDT Gender Identity Not on file Sexual Orientation Not on file Obstetrics History Last Filed Vital Signs Vital Sign Reading Time Taken Comments Blood Pressure 115/74 02/16/2025 11:05 AM CDT Pulse 74 02/16/2025 11:05 AM CDT Temperature 36.4 C (97.5 F) 02/16/2025 7:33 AM CDT Respiratory Rate 18 02/16/2025 7:33 AM CDT Oxygen Saturation 92% 02/16/2025 11:05 AM CDT Inhaled Oxygen Concentration - - Weight 71.7 kg (158 lb) 02/14/2025 11:43 PM CDT Height 160 cm (5' 3) 02/14/2025 11:43 PM CDT Body Mass Index 27.99 02/14/2025 11:43 PM CDT Plan of Treatment Health Maintenance Due Date Last Done Comments Breast Cancer Screening-Mammogram 1953 Colon Cancer Screening-Colonoscopy 1955 Depression Screening 1953 Hepatitis C Screening 1955 Osteoporosis Screening-Bone Density Scan 1953 Hepatitis B Screening 1971 Lung Cancer Screening 2003 Well Visit 65+ 2018 Covid-19 Vaccine (6 2023-2 5 season) 2024 06/22/2024, 06/22/2024, 06/09/2022, Additional history exists Influenza Vaccine (#1) 2025 , 05/20/2023, 06/05/2022, Additional history exists Fall Risk Assessment 02/16/2026 02/16/2025 DTaP/Tdap/Td Vaccine (2 - Td or Tdap) 06/14/2032 06/14/2022 Pneumococcal vaccine 65+ Completed 022, 06/02/2022, 06/07/2019, Additional history exists Zoster Vaccine Completed 04/27/2023, 02/17/2023 Procedures Procedure Name Priority Date/Time Associated Diagnosis Comments CT HEAD WO CONTRAST Schedule Routine, Read Routine (OP Routine) 03/14/2025 7:15 AM CDT Subarachnoid hemorrhage (HCC) EGFR Routine 02/15/2025 10:21 PM CDT PHOSPHORUS Routine 02/15/2025 10:21 PM CDT MAGNESIUM Routine 02/15/2025 10:21 PM CDT BASIC METABOLIC PANEL Routine 02/15/2025 10:21 PM CDT CBC WITHOUT DIFFERENTIAL Routine 02/15/2025 10:21 PM CDT XR SPINE CERVICAL 1 VIEW IP Routine 02/15/2025 8:58 PM CDT XR SPINE CERVICAL 2 OR 3 VIEWS IP Routine 02/15/2025 11:[address] HEAD WO CONTRAST Timed 02/15/2025 4 :36 AM CDT ECG 12-LEAD STAT 02/15/2025 1:16 AM CDT MRI CERVICAL SPINE WO CONTRAST ED 02/14/2025 11:19 PM CDT MI CRITICAL CARE ILL/INJURED PATIENT INIT 30-74 MIN Routine 02/14/2025 9:00 PM CDT OPIATES CONFIRMATION MS, URINE Routine 02/14/2025 8:59 PM CDT URINALYSIS, MICROSCOPIC ONLY STAT 02/14/2025 8:59 PM CDT B CHECK SAMPLE STAT 02/14/2025 8:59 PM CDT DRUGS OF ABUSE SCREEN, URINE WITH REFLEX CONFIRMATION Routine 02/14/2025 8:59 PM CDT URINALYSIS AND REFLEX TO MICROSCOPIC AND CULTURE STAT 02/14/2025 8:[address] THORACIC AND LUMBAR SPINE WO CONTRAST ED 02/14/2025 8:41 PM CDT CTA HEAD NECK W WO CONTRAST ED 02/14/2025 8:41 PM CDT XR CHEST 1 VIEW ED 02/14/2025 6:01 PM CDT XR PELVIS 1 OR 2 VIEWS ED 02/14/2025 6:00 PM CDT COMPREHENSIVE METABOLIC PANEL Routine 02/14/2025 5:49 PM CDT EGFR Routine 02/14/2025 5:49 PM CDT DIFFERENTIAL AUTO Routine 02/14/2025 5:4 9 PM CDT PROTIME-INR Routine 02/14/2025 5:49 PM CDT APTT Routine 02/14/2025 5:49 PM CDT ETHANOL Routine 02/14/2025 5:49 PM CDT CBC WITH AUTO DIFFERENTIAL Routine 02/14/2025 5:49 PM CDT TYPE AND SCREEN Timed 02/14/2025 5:[address] OUTSIDE CONSULT Routine 02/14/2025 5:[address] OUTSIDE CONSULT Routine 02/14/2025 5:32 PM CDT from Last 3 Months Results * CT Head WO Contrast (03/14/2025 7:15 AM CDT) Anatomical Region Laterality Modality Head and Neck N/A Computed Tomogra phy 03/14/2025 9:47 AM CDT Impressions 03/14/2025 9:47 AM CDT Interval resolution of previously described small subdural hematoma in the right parietal sulci Electronically signed by: Elias Washburn MD, PHD Narrative 03/14/2025 9:47 AM CDT EXAMINATION: CT head without contrast HISTORY: Subarachnoid hemorrhage follow-up TECHNIQUE: CT of the head was performed with images acquired from skull base to vertex without intravenous contrast. COMPARISON: 02/15/2025 FINDINGS: Patchy hypodensities in the periventricular and subcortical white matter are nonspecific, likely on the basis of chronic small vessel ischemic change. There is parenchymal volume loss. Interval resolution of previously described small subdural hematoma in the right parietal sulci. Ventricles are of normal size and morphology. No mass effect or midline shift is present. The vail-white matter differentiation is normal. The visualized portions of the orbits are normal. The visualized portions of the mastoids are normal. The visualized portions of the paranasal sinuses are normal. Partially imaged C1 fracture. Procedure Note Elias Washburn MD PhD - 03/14/2025 EXAMINATION: CT head without contrast HISTORY: Subarachnoid hemorrhage follow-up TECHNIQUE: CT of the head was performed with images acquired from skull base to vertex without intravenous contrast. COMPARISON: 02/15/2025 FINDINGS: Patchy hypodensities in the periventricular and subcortical white matter are nonspecific, likely on the basis of chronic small vessel ischemic change. There is parenchymal volume loss. Interval resolution of previously described small subdural hematoma in the right parietal sulci. Ventricles are of normal size and morphology. No mass effect or midline shift is present. The vail-white matter differentiation is normal. The visualized portions of the orbits are normal. The visualized portions of the mastoids are normal. The visualized portions of the paranasal sinuses are normal. Partially imaged C1 fracture. IMPRESSION: Interval resolution of previously described small subdural hematoma in the right parietal sulci Electronically signed by: Elias Washburn MD, PHD Reinaldo PULIDO IM CT PROCEDURES Final R esult * eGFR (02/15/2025 10:21 PM CDT) eGFR 61 >=60 mL/min/1. 73 m2 Comment: Interpretive Data Reference Interval Normal >/= 90 mL/min/1.73m2 Mildly decreased* 60 - 89 mL/min/1.73m2 Mildly to moderately decreased 45 - 59 mL/min/1.73m2 Moderately to severely decreased 30 - 44 mL/min/1.73m2 Severely decreased 15 - 29 mL/min/1.73m2 Kidney Failure < 15 mL/min/1.73m2 *Relative to young adult level Estimated glomerular filtration rate is determined by the 2020 CKD-EPI equation recommended by the National Kidney Foundation (A Unifying Approach to GFR Estimation: Recommendations of the NKF-ASK Task Force on Reassessing the Inclusion of Race in Diagnosing Kidney Disease, JASN 202). The CKD-EPI equation should not be used for patients with unstable renal function and has not been validated in children and those over 70. Current interpretive data was last reviewed 2021. Blood 02/15/2025 10:2 1 PM CDT 02/15/2025 10:43 PM CDT Avery Yates MD LAB BLOOD ORDERABLES Fin al Result Performing Organization Address [facility] de Phone Number [facility] Department [place] [address] * CBC without differential (02/15/2025 10:21 PM CDT) Pathologist [facility] [place] WBC 9.20 3.80 - 9.90 K/cumm Hgb 14.5 11.9 - 15.5 g/dL [facility] Hct 44.1 35.6 - 45.5 % [facility] Plt 276 150 - 400 K/cumm [facility] MPV 10.1 9.1 - 12.3 fL [facility] RBC 4.60 3.90 - 5.20 M/cumm [facility] MCV 95.9 81.3 - 96.4 fL [facility] MCH 31.5 27.1 - 33.3 pg [facility] MCHC 32.9 32.3 - 35.7 g/dL [facility] RDW CV 13.0 11.1 - 14.9 % [facility] RDW SD 45.7 35.7 - 48.1 fL [facility] NRBC abs 0.00 0.00 - 0.01 K/cumm [facility] Blood 02/15/2025 10:2 1 PM CDT 02/15/2025 10:45 PM CDT Avery Yates MD LAB BLOOD ORDERABLES Fin al Result Performing Organization Address [facility] Co de Phone Number [facility] Department [place] [address] * Phosphorus (02/15/2025 10:21 PM CDT) Pathologist [facility] [place] Phosphorus, pl 3.8 2.3 - 4.5 mg/dL Blood 02/15/2025 10:2 1 PM CDT 02/15/2025 10:43 PM CDT Avery Yates MD LAB BLOOD ORDERABLES Fin al Result Performing Organization Address [facility]/ZIP Co de Phone Number [facility] Department [place] [address] * Magnesium (02/15/2025 10:21 PM CDT) Pathologist [facility] [place] Magnesium 2.1 1.4 - 2.5 mg/dL Blood 02/15/2025 10:2 1 PM CDT 02/15/2025 10:43 PM CDT Avery Yates MD LAB BLOOD ORDERABLES Fin al Result Performing Organization Address [facility] de Phone Number [facility] Department [place] [address] * Basic metabolic panel (02/15/2025 10:21 PM CDT) [facility] Sodium 136 135 - 145 mmol/L Potassium, pl 4.2 3.3 - 4.9 mmol/L [facility] Chloride 100 97 - 110 mmol/L [facility] CO2 27 22 - 32 mmol/L [facility] Anion gap 9 2 - 15 mmol/L [facility] BUN 16 6 - 25 mg/dL [facility] Creatinine 0.98 0.60 - 1.10 mg/dL [facility] Glucose 108 70 - 199 mg/dL [facility] Comment: Interpretive Data Fasting glucose >/= 126 mg/dl is diagnostic for diabetes. Fasting is defined as no caloric intake for at least 8 hours. Fasting glucose between 100 mg/dl to 125 mg/dl is diagnostic of prediabetes. In a patient with classic symptoms of hyperglycemia or hyperglycemic crisis, a random glucose >/= 200 mg/dl is diagnostic for diabetes. In the absence of unequivocal hyperglycemia, results should be confirmed by repeat testing. The classification and Diagnosis of Diabetes Diabetes Care 202; 46: S19-S40. Current interpretive data was last revised 2022. Calcium 9.0 8.5 - 10.3 mg/dL [facility] Blood 02/15/2025 10:2 1 PM CDT 02/15/2025 10:43 PM CDT Avery Yates MD LAB BLOOD ORDERABLES Fin al Result [facility] Department [place] [address] * XR Spine Cervical 1 View (02/15/2025 8:58 PM CDT) Anatomical Region Laterality Modality Spine N/A Computed Radiogr aphy 02/16/2025 6:22 AM CDT Impressions 02/16/2025 6:22 AM CDT Redemonstrated right C1 lateral mass fracture with mild displacement. Electronically signed by: Deshawn Hill M.D. Narrative 02/16/2025 6:22 AM CDT XR SPINE CERVICAL 1 VIEW HISTORY: C1 fracture FINDINGS: A single open-mouth projection of the cervical spine is obtained and compared with 02/15/[address] imaging 02/14/2025. There is redemonstrated mildly displaced right lateral mass fracture of C1. There is mild lateral displacement of the lateral mass. No additional fractures are present. Procedure Note Deshawn Hill MD - 02/16/2025 XR SPINE CERVICAL 1 VIEW HISTORY: C1 fracture FINDINGS: A single open-mouth projection of the cervical spine is obtained and compared with 02/15/[address] imaging 02/14/2025. There is redemonstrated mildly displaced right lateral mass fracture of C1. There is mild lateral displacement of the lateral mass. No additional fractures are present. IMPRESSION: Redemonstrated right C1 lateral mass fracture with mild displacement. Electronically signed by: Deshawn Hill M.D. Jimmy Tirado DO IMG XR PROCEDURES Fin al Result * XR Spine Cervical 2 or 3 Views (02/15/2025 11:56 AM CDT) Anatomical Region Laterality Modality Spine N/A Computed Radiogr aphy 02/15/2025 12:3 4 PM CDT Impressions 02/15/2025 12:34 PM CDT 1. The known C1 arch fractures better visualized on prior cross-sectional imaging. 2. Severe degenerative disc disease at C5-C6. Electronically signed by: Saul Roa D.O. Narrative 02/15/2025 12:34 PM CDT EXAMINATION: XR SPINE CERVICAL 2 OR 3 VIEWS HISTORY: C1 arch fracture COMPARISON: MRI dated 02/14/[address] dated 02/14/2025 FINDINGS: The known C1 arch fracture is better visualized on prior cross-sectional imaging. Mild anterolisthesis of C4 on C5. Severe degenerative disc disease at C5-C6. Procedure Note Saul Roa, - 02/15/2025 EXAMINATION: XR SPINE CERVICAL 2 OR 3 VIEWS HISTORY: C1 arch fracture COMPARISON: MRI dated 02/14/[address] dated 02/14/2025 FINDINGS: The known C1 arch fracture is better visualized on prior cross-sectional imaging. Mild anterolisthesis of C4 on C5. Severe degenerative disc disease at C5-C6. IMPRESSION: 1. The known C1 arch fractures better visualized on prior cross-sectional imaging. 2. Severe degenerative disc disease at C5-C6. Electronically signed by: Saul Roa D.O. Ann Awad TRAFFIC SUPERVISOR IMG XR PROCEDURES Lelia l Result * CT Head WO Contrast (02/15/2025 4:36 AM CDT) Anatomical Region Laterality Modality Head and Neck N/A Computed Tomogra phy 02/15/2025 6:00 AM CDT Impressions 02/15/2025 7:53 AM CDT Unchanged right parietal subarachnoid hemorrhage. No new intracranial hemorrhage. Dictated by: Lazaro Emanuel MD The radiology attending physician has personally reviewed this study, and had reviewed and/or edited this written report and agrees with it. Electronically signed by: Nikole Metzger M.D. Narrative 02/15/2025 7:53 AM CDT EXAMINATION: CT head without contrast HISTORY: Subarachnoid hemorrhage follow-up TECHNIQUE: CT of the head was performed with images acquired from skull base to vertex without intravenous contrast. COMPARISON: CT from 02/14/2025 FINDINGS: Unchanged small right parietal subarachnoid hemorrhage. No new intracranial hemorrhage. Left frontal scalp hematoma. Ventricles are of normal size and morphology. No mass effect or midline shift is present. The vail-white matter differentiation is normal. The visualized portions of the orbits are normal. The visualized portions of the mastoids are normal. The visualized portions of the paranasal sinuses are normal. No fractures are identified. Procedure Note Nikole Metzger MD - 02/15/2025 EXAMINATION: CT head without contrast HISTORY: Subarachnoid hemorrhage follow-up TECHNIQUE: CT of the head was performed with images acquired from skull base to vertex without intravenous contrast. COMPARISON: CT from 02/14/2025 FINDINGS: Unchanged small right parietal subarachnoid hemorrhage. No new intracranial hemorrhage. Left frontal scalp hematoma. Ventricles are of normal size and morphology. No mass effect or midline shift is present. The vail-white matter differentiation is normal. The visualized portions of the orbits are normal. The visualized portions of the mastoids are normal. The visualized portions of the paranasal sinuses are normal. No fractures are identified. IMPRESSION: Unchanged right parietal subarachnoid hemorrhage. No new intracranial hemorrhage. Dictated by: Lazaro Emanuel MD The radiology attending physician has personally reviewed this study, and had reviewed and/or edited this written report and agrees with it. Electronically signed by: Nikole Metzger M.D. Jimmy Ramos Sensing DO IMG CT PROCEDURES Fin al Result * ECG 12 lead (02/15/2025 1:16 AM CDT) Ventricular Rate EKG/Min 80 BPM [facility] Atrial Rate 80 BPM [facility] MI-Interval (MSEC) 170 ms [facility] QRS-Interval (MSEC) 82 ms [facility] QT-Interval (MSEC) 554 ms [facility] QTc 638 ms [facility] P Upson 93 degrees [facility] R Upson 66 degrees [facility] T Upson 64 degrees [facility] Diagnosis Sinus rhythm with sinus arrhythmia with occasional Premature ventricular complexes Nonspecific ST abnormality Prolonged QT Abnormal ECG No previous ECGs available Confirmed by Heather Arora MD ([id number]) on 02/16/2025 2:47:15 PM [facility] [employer] 02/15/2025 1:16 AM CDT 02/16/2025 2:47 PM CDT us Avery Yates MD ECG ORDERABLES Final Re sult [facility] [employer] [facility] * MRI Cervical Spine WO Contrast (02/14/2025 11:19 PM CDT) Anatomical Region Laterality Modality Spine N/A Magnetic Resonan ce 02/15/2025 9:27 AM CDT Impressions 02/15/2025 10:59 AM CDT 1. Markedly motion degraded examination. A repeat examination could be considered if clinically warranted. 2. Acute, mildly displaced fracture of the anterior arch of C1 extending to the right lateral mass of C1. 3. Probable injury of the anterior longitudinal ligament at the level of C1. Normal tectorial membrane. No convincing posterior ligamentous injury. 4. No definite acute cord signal abnormality. 5. Degenerative changes of the cervical spine with severe spinal canal stenosis at C4-C5 and C5-C6. Dictated by: Micheal Fontenot MD The radiology attending physician has personally reviewed this study, and had reviewed and/or edited this written report and agrees with it. Electronically signed by: Chris Berry M.D. Narrative 02/15/2025 10:59 AM CDT EXAMINATION: Magnetic resonance imaging (MRI) of the cervical spine without contrast HISTORY: C1 fracture TECHNIQUE: Multiplanar multi-weighted MRI of the cervical spine was performed without intravenous contrast using the standard protocol. COMPARISON: CT performed earlier the same day FINDINGS: The examination is significantly motion degraded, which limits evaluation. There is an acute mildly displaced fracture of the right aspect of the anterior arch of C1 extending into the right lateral mass of C1, with associated edema. The alignment of the fracture is better evaluated on prior CT imaging given significant motion degradation. The tectorial membrane is intact and normal in signal. The anterior longitudinal ligament at the level of C1 demonstrates possible increase in signal intensity suggestive of injury. No convincing edema within the posterior ligamentous structures. Mild anterolisthesis of C4 on C5. No marrow replacing lesion. There are Modic 3 changes at C5-C6. The visualized portions of the skull base and the posterior fossa are normal. Possible increased signal within the spinal cord at the level of C4 seen only on the STIR sequence is likely either artifactual or related to an old injury. No definite acute cord signal abnormality. Severe disc height loss at C5-C6. Normal signal voids are present in the vertebral arteries. Posterior disc osteophyte complexes at C4-C5 and C5-C6 resulting in severe spinal canal stenosis at these levels. The neural foramina are not well evaluated due to motion artifact. Procedure Note Chris Berry MD PhD - 02/15/2025 EXAMINATION: Magnetic resonance imaging (MRI) of the cervical spine without contrast HISTORY: C1 fracture TECHNIQUE: Multiplanar multi-weighted MRI of the cervical spine was performed without intravenous contrast using the standard protocol. COMPARISON: CT performed earlier the same day FINDINGS: The examination is significantly motion degraded, which limits evaluation. There is an acute mildly displaced fracture of the right aspect of the anterior arch of C1 extending into the right lateral mass of C1, with associated edema. The alignment of the fracture is better evaluated on prior CT imaging given significant motion degradation. The tectorial membrane is intact and normal in signal. The anterior longitudinal ligament at the level of C1 demonstrates possible increase in signal intensity suggestive of injury. No convincing edema within the posterior ligamentous structures. Mild anterolisthesis of C4 on C5. No marrow replacing lesion. There are Modic 3 changes at C5-C6. The visualized portions of the skull base and the posterior fossa are normal. Possible increased signal within the spinal cord at the level of C4 seen only on the STIR sequence is likely either artifactual or related to an old injury. No definite acute cord signal abnormality. Severe disc height loss at C5-C6. Normal signal voids are present in the vertebral arteries. Posterior disc osteophyte complexes at C4-C5 and C5-C6 resulting in severe spinal canal stenosis at these levels. The neural foramina are not well evaluated due to motion artifact. IMPRESSION: 1. Markedly motion degraded examination. A repeat examination could be considered if clinically warranted. 2. Acute, mildly displaced fracture of the anterior arch of C1 extending to the right lateral mass of C1. 3. Probable injury of the anterior longitudinal ligament at the level of C1. Normal tectorial membrane. No convincing posterior ligamentous injury. 4. No definite acute cord signal abnormality. 5. Degenerative changes of the cervical spine with severe spinal canal stenosis at C4-C5 and C5-C6. Dictated by: Micheal Fontenot MD The radiology attending physician has personally reviewed this study, and had reviewed and/or edited this written report and agrees with it. Electronically signed by: Chris Berry M.D. Avery Yates MD IMG MRI PROCEDURES Final Result * MI CRITICAL CARE ILL/INJURED PATIENT INIT 30-74 MIN (02/14/2025 9:00 PM CDT) Narrative Avery Yates MD - 02/14/2025 9:00 PM CDT Avery Yates MD 02/17/2025 11:18 AM Critical Care Performed by: Avery Yates MD Authorized by: Avery Yates MD Critical care provider statement: As reflected in the history, physical exam, orders, notes, and/or MDM, I was personally present while the patient was critically ill and provided critical care services for 35 minutes, excluding time involved in separately billable procedures. Critical care was necessary to treat or prevent imminent or life-threatening deterioration of the following condition(s): acute intracranial hemorrhage Critical care was time spent by me providing the following: continuous telemetry, continuous pulse oximetry, interpretation of bedside monitors, imaging, and arterial/venous lab draws, serial bedside patient exams and serial laboratory checks frequent neurologic exams and initiation of anti-epileptic therapy acute pain control I provided emergent necessary critical care medicine services to this patient. I ordered and reviewed test results and/or imaging studies. I spent time discussing the management of this critically ill patient with consultants and the medical staff. I spent time discussing the management and therapeutic options for this critically ill patient with the patient themselves or with the appropriate designated surrogate decision-maker. I spent time documenting in the medical record. Avery Yates MD IN CLINIC/BEDSIDE ORDERA BLES Final Result * (ABNORMAL) Drugs of Abuse Screen, Urine with Reflex Confirmation (02/14/2025 8:59 PM CDT) [facility] Amphetamine, ur Not Detected CutOff 500ng/mL Comment: Interpretive Data - Amphetamines: Samples containing greater than 500 ng/mL d-methamphetamine or other cross-reacting amphetamine compounds are reported as positive. Amphetamine immunoassays are subject to significant false positive rates due to cross-reactivity of non-amphetamine drugs. Confirmatory testing required for definitive results. Current Interpretive Data was last reviewed 2023. Barbiturates, ur Not Detected CutOff 200ng/mL [facility] Comment: Interpretive Data - Barbiturates: Samples containing greater than 200 ng/mL secobarbital or other cross-reacting barbiturate compounds are reported as positive. False positive and false negative results are possible. Confirmatory testing required for definitive results. Current Interpretive Data was last reviewed 2023. Benzodiazepines, ur Not Detected CutOff 100ng/mL [facility] Comment: Interpretive Data - Benzodiazepines: Samples containing greater than 100 ng/mL nordiazepam or other cross-reacting compounds are reported as positive. False positive and false negative results are possible. Confirmatory testing required for definitive results. Current Interpretive Data was last reviewed 2023. Cannabinoids, ur Screen Positive, presumptive (A) CutOff 50 ng/mL [facility] Comment: Interpretive Data - Cannabinoids: Samples containing greater than 50 ng/mL delta-9 THC -COOH or other cross- reacting compounds are reported as positive. False positive and false negative results are possible. Confirmatory testing required for definitive results. Current Interpretive Data was last reviewed 2023. Cocaine, ur Not Detected CutOff 150ng/mL [facility] Comment: Interpretive Data - Cocaine: Samples containing greater than 150 ng/mL benzoylecgonine or other cross- reacting compounds are reported as positive. False positive and false negative results are possible. Confirmatory testing required for definitive results. Current Interpretive Data was last reviewed 2023. Fentanyl, Ur Not Detected CutOff 5 ng/mL [facility] Comment: Interpretive Data - Fentanyl: Samples containing greater than 5 ng/mL norfentanyl, fentanyl, or other cross-reacting fentanyl compounds are reported as positive. False positive and false negative results are possible. Confirmatory testing required for definitive results. Current Interpretive Data was last reviewed 2023. Methadone, ur Not Detected CutOff 300ng/mL [facility] Comment: Interpretive Data - Methadone: Samples containing greater than 300 ng/mL d,l-methadone or other cross-reacting compounds are reported as positive. False positive and false negative results are possible. Confirmatory testing required for definitive results. Current Interpretive Data was last reviewed 2023. Opiates, ur Screen Positive, presumptive (A) CutOff 300ng/mL [facility] Comment: Interpretive Data - Opiates: Samples containing greater than 300 ng/mL morphine or other cross-reacting compounds are reported as positive. False positive and false negative results are possible. Confirmatory testing required for definitive results. Current Interpretive Data was last reviewed 2023. Oxycodone, ur Not Detected CutOff 100ng/mL [facility] Comment: Interpretive Data - Oxycodone: Samples containing greater than 100 ng/mL oxycodone or other cross-reacting compounds are reported as positive. False positive and false negative results are possible. Confirmatory testing required for definitive results. Current Interpretive Data was last reviewed 2023. Phencyclidine, ur Not Detected CutOff 25 ng/mL [facility] Comment: Interpretive Data - Phencyclidine: Samples containing greater than 25 ng/mL phencyclidine or other cross-reacting compounds are reported as positive. False positive and false negative results are possible. Confirmatory testing required for definitive results. Current Interpretive Data was last reviewed 2023. Urine Creatinine 55 mg/dL [facility] Comment: Interpretive Data Urine Creatinine: < 10 mg/dL is extremely dilute = or > 10 but < 20 mg/dL is dilute = or > 20 mg/dL is normal Current Interpretive Data was last revised on 2017. Urine 02/14/2025 8:59 PM CDT 02/14/2025 9:10 PM CDT Narrative [facility] - 02/14/2025 10:10 PM CDT Drug of Abuse screening is performed by immunoassay for medical purposes only. This is not to be used for Pain Management purposes. If Detected, confirmation testing will be performed for Amphetamines, Cocaine, Fentanyl, Methadone, Opiates, Oxycodone or Phencyclidine. us Rachid Asencio MD LAB URINE ORDERABLES Edited Result - Final [facility] [place] [address] * Check Sample (02/14/2025 8:59 PM CDT) ABO Rh AB Positive [facility] OTHER 02/14/2025 8:59 PM CDT 02/14/2025 9:30 PM CDT Avery Yates MD LAB BLOOD ORDERABLES Fin al Result Performing Organization Address [facility] Co de Phone Number [facility] Department [place] [address] [facility] * (ABNORMAL) Opiates Confirmation, Urine (02/14/2025 8:59 PM CDT) Codeine Conf, Ur Does Not Confirm CutOff 50 ng/mL 6- Acetylmorphine Conf, Ur Does Not Confirm CutOff 10 ng/mL [facility] Hydrocodone Conf, Ur Does Not Confirm CutOff 50 ng/mL [facility] Morphine Conf, Ur Confirmed Positive(A) CutOff 50 ng/mL [facility] Hydromorphone Conf, Ur Does Not Confirm CutOff 50 ng/mL [facility] Comment: Interpretive Data This test detects the presence or absence of drug compounds using LC Tandem mass spectrometry and is not intended to assess compliance with prescribed medications. While this test is highly specific, false positive and false negative results may occur in very rare circumstances. Contact the laboratory for consultation, if needed. Performance characteristics were determined by the [facility] in a manner consistent with CLIA requirement and has not been cleared or approved by the U.S. Food and Drug Administration. Current interpretive data was last revised 2020. Urine 02/14/2025 8:59 PM CDT 02/14/2025 9:10 PM CDT us Rachid Asencio MD LAB URINE ORDERABLES Final [facility] [place] [address] * (ABNORMAL) Urinalysis reflex to microscopic and culture Urine, clean voided (02/14/2025 8:59 PM CDT) Color, ur Straw Yellow Clarity, ur Clear Clear [facility] Specific gravity, ur 1.012 1.003 - 1.030 [facility] pH, urine 6.5 [facility] Comment: Interpretive Data U rine pH is affected by diet, medications, systemic acid-base disturbances, and renal tubular function. pH may affect urinary stone formation. For example, urine pH below 6.0 may help reduce the tendency for calcium phosphate stones and pH greater than 6.0 may reduce the tendency for uric acid stone formation. Source: [facility] Current Interpretive Data was last revised on 2017 Protein, ur ql Trace Negative [facility] Glucose, ur ql Negative Negative [facility] Ketones, ur Negative Negative [facility] Bilirubin, ur Negative Negative [facility] Blood, ur 1+(A) Negative [facility] Urobilinogen, ur <2.0 <2.0 mg/dL [facility] Nitrite, ur Negative Negative [facility] Leukocyte esterase, ur Negative Negative [facility] UA reflex comment Reflex to microscopic UA will be performed. [facility] Urine, clean voided 02/14/2025 8:59 PM CDT 02/14/2025 9:07 PM CDT us Rachid Asencio MD LAB MICROBIOLOGY - GENERAL O RDERABLES Final Result Performing Organization Address [facility]/ZIP Co de Phone Number [facility] Department [place] [address] * (ABNORMAL) Urinalysis, microscopic only (02/14/2025 8:59 PM CDT) WBC, ur 0-5 0 - 5 /HPF RBC, ur 3-5(A) 0 - 2 /HPF [facility] Epithelial cells, squamous, ur 1-5 0 - 5 /HPF [facility] Culture Reflex Comment Reflex conditions for urine culture (WBC >10) not met. [facility] Urine, clean voided 02/14/2025 8:59 PM CDT 02/14/2025 9:07 PM CDT us Rachid Asencio MD LAB URINE ORDERABLES Final R esult [facility] Department [place] [address] * CT Thoracic and Lumbar Spine WO Contrast (02/14/2025 8:41 PM CDT) Anatomical Region Laterality Modality Spine N/A Computed Tomogra phy 02/14/2025 9:09 PM CDT Impressions 02/15/2025 7:53 AM CDT 1. Unchanged focus of right parietal subarachnoid hemorrhage. 2. Unchanged mildly displaced and comminuted fractures of the C1 anterior arch extending into the right lateral mass of C1. 3. Normal CT angiogram of the head and neck. 4. No acute fracture in the thoracic or lumbar spine. Dictated by: David Smith M.D. The radiology attending physician has personally reviewed this study, and had reviewed and/or edited this written report and agrees with it. Electronically signed by: Nikole Metzger M.D. Narrative 02/15/2025 7:53 AM CDT EXAMINATION: 1. Computed tomography angiography (CTA) of the head without and with contrast 2. Computed tomography angiography (CTA) of the neck with contrast 3. CT of the thoracic spine without contrast 4. CT of the lumbar spine without contrast HISTORY: Subarachnoid hemorrhage, C1 fracture TECHNIQUE: CT of the head was performed with images acquired from skull base to vertex without intravenous contrast. Computed tomographic angiography was obtained from the aortic arch to the vertex following the uneventful administration of intravenous contrast. 3D images of the CTA were generated on a dedicated workstation/fountain server. CT of the thoracic spine was performed according to standard protocol without intravenous contrast. CT of the lumbar spine was performed according to the standard protocol without intravenous contrast. Contrast information: 94 mL Optiray-350 IV COMPARISON: Same day CTs FINDINGS: HEAD: Unchanged small high right parietal subarachnoid hemorrhage (series 5 image 40). No new or worsening foci of hemorrhage are seen. Ventricles are of normal size and morphology. No mass effect or midline shift is present. The vail-white matter differentiation is normal. Bilateral lens replacement. The visualized portions of the orbits are otherwise normal. The visualized portions of the mastoids are normal. The visualized portions of the paranasal sinuses are normal. No fractures are identified. NECK: Redemonstrated acute, mildly displaced, comminuted fracture of the right C1 anterior arch extending into the right lateral mass of C1. Scattered subcentimeter lymph nodes are seen in the neck. None are pathologically enlarged. The muscles of the neck are normal. Fascial planes are preserved and the deep spaces of the neck are normal. The visualized airway is widely patent. The base of the skull and the temporal bones are normal. Limited views of the brain including the cerebellum and brainstem are normal. The visualized portions of the orbits are normal. Moderate bilateral C3-C4, severe right C5-C6 neural foraminal stenosis. Mild to moderate multilevel facet and uncovertebral joint arthropathy. No high-grade spinal canal stenosis. CTA: There is venous contamination was slightly limits evaluation. The visualized aortic arch appears normal with normal configuration of the great vessels. The innominate artery and both subclavian arteries are normal in course and caliber. The common carotid arteries are normal in course and caliber with normal carotid bifurcations bilaterally. The course and caliber of the internal carotid arteries in the neck are normal. No areas of atherosclerotic narrowing or filling defects are identified. The visualized course and caliber of the internal carotid arteries in the head are normal. No areas of atherosclerotic narrowing or filling defects are identified. The [id number] is complete. The anterior and middle cerebral arteries are normal. The left vertebral artery is dominant. The basilar artery is normal. The posterior cerebral arteries are normal. There is no aneurysm or vascular malformation identified. THORACIC SPINE: There are 12 rib-bearing thoracic vertebra. The alignment of the thoracic spine is normal. There is no acute fracture. Vertebral bodies are normal in height without compression fractures. Partially imaged extensive upper lung predominant paraseptal and centrilobular emphysema. There is mild bilateral dependent atelectasis. Multivessel coronary artery calcifications. Mild multilevel degenerative disc disease. There is mild to moderate multilevel facet hypertrophy. There is no high-grade neuroforaminal stenosis. There is no high-grade spinal canal stenosis. LUMBAR SPINE: Grade 1 anterolisthesis of L4 on L5. There is no acute fracture. The vertebral bodies are normal in height without compression fractures. Moderate calcific atherosclerotic disease of the abdominal aorta. Mild multilevel degenerative disc disease. There is severe multilevel lower lumbar facet arthropathy. There is no high-grade osseous neuroforaminal stenosis. There is moderate L4-L5 spinal canal stenosis. Procedure Note Nikole Metzger MD - 02/15/2025 EXAMINATION: 1. Computed tomography angiography (CTA) of the head without and with contrast 2. Computed tomography angiography (CTA) of the neck with contrast 3. CT of the thoracic spine without contrast 4. CT of the lumbar spine without contrast HISTORY: Subarachnoid hemorrhage, C1 fracture TECHNIQUE: CT of the head was performed with images acquired from skull base to vertex without intravenous contrast. Computed tomographic angiography was obtained from the aortic arch to the vertex following the uneventful administration of intravenous contrast. 3D images of the CTA were generated on a dedicated workstation/fountain server. CT of the thoracic spine was performed according to standard protocol without intravenous contrast. CT of the lumbar spine was performed according to the standard protocol without intravenous contrast. Contrast information: 94 mL Optiray-350 IV COMPARISON: Same day CTs FINDINGS: HEAD: Unchanged small high right parietal subarachnoid hemorrhage (series 5 image 40). No new or worsening foci of hemorrhage are seen. Ventricles are of normal size and morphology. No mass effect or midline shift is present. The vail-white matter differentiation is normal. Bilateral lens replacement. The visualized portions of the orbits are otherwise normal. The visualized portions of the mastoids are normal. The visualized portions of the paranasal sinuses are normal. No fractures are identified. NECK: Redemonstrated acute, mildly displaced, comminuted fracture of the right C1 anterior arch extending into the right lateral mass of C1. Scattered subcentimeter lymph nodes are seen in the neck. None are pathologically enlarged. The muscles of the neck are normal. Fascial planes are preserved and the deep spaces of the neck are normal. The visualized airway is widely patent. The base of the skull and the temporal bones are normal. Limited views of the brain including the cerebellum and brainstem are normal. The visualized portions of the orbits are normal. Moderate bilateral C3-C4, severe right C5-C6 neural foraminal stenosis. Mild to moderate multilevel facet and uncovertebral joint arthropathy. No high-grade spinal canal stenosis. CTA: There is venous contamination was slightly limits evaluation. The visualized aortic arch appears normal with normal configuration of the great vessels. The innominate artery and both subclavian arteries are normal in course and caliber. The common carotid arteries are normal in course and caliber with normal carotid bifurcations bilaterally. The course and caliber of the internal carotid arteries in the neck are normal. No areas of atherosclerotic narrowing or filling defects are identified. The visualized course and caliber of the internal carotid arteries in the head are normal. No areas of atherosclerotic narrowing or filling defects are identified. The [id number] is complete. The anterior and middle cerebral arteries are normal. The left vertebral artery is dominant. The basilar artery is normal. The posterior cerebral arteries are normal. There is no aneurysm or vascular malformation identified. THORACIC SPINE: There are 12 rib-bearing thoracic vertebra. The alignment of the thoracic spine is normal. There is no acute fracture. Vertebral bodies are normal in height without compression fractures. Partially imaged extensive upper lung predominant paraseptal and centrilobular emphysema. There is mild bilateral dependent atelectasis. Multivessel coronary artery calcifications. Mild multilevel degenerative disc disease. There is mild to moderate multilevel facet hypertrophy. There is no high-grade neuroforaminal stenosis. There is no high-grade spinal canal stenosis. LUMBAR SPINE: Grade 1 anterolisthesis of L4 on L5. There is no acute fracture. The vertebral bodies are normal in height without compression fractures. Moderate calcific atherosclerotic disease of the abdominal aorta. Mild multilevel degenerative disc disease. There is severe multilevel lower lumbar facet arthropathy. There is no high-grade osseous neuroforaminal stenosis. There is moderate L4-L5 spinal canal stenosis. IMPRESSION: 1. Unchanged focus of right parietal subarachnoid hemorrhage. 2. Unchanged mildly displaced and comminuted fractures of the C1 anterior arch extending into the right lateral mass of C1. 3. Normal CT angiogram of the head and neck. 4. No acute fracture in the thoracic or lumbar spine. Dictated by: David Smith M.D. The radiology attending physician has personally reviewed this study, and had reviewed and/or edited this written report and agrees with it. Electronically signed by: Nikole Metzger M.D. us Rachid Asencio MD IMG CT PROCEDURES Final Resu lt * CTA Head Neck W WO Contrast (02/14/2025 8:41 PM CDT) Anatomical Region Laterality Modality Head and Neck N/A Computed Tomogra phy 02/14/2025 9:09 PM CDT Impressions 02/15/2025 7:53 AM CDT 1. Unchanged focus of right parietal subarachnoid hemorrhage. 2. Unchanged mildly displaced and comminuted fractures of the C1 anterior arch extending into the right lateral mass of C1. 3. Normal CT angiogram of the head and neck. 4. No acute fracture in the thoracic or lumbar spine. Dictated by: David Smith M.D. The radiology attending physician has personally reviewed this study, and had reviewed and/or edited this written report and agrees with it. Electronically signed by: Nikole Metzger M.D. Narrative 02/15/2025 7:53 AM CDT EXAMINATION: 1. Computed tomography angiography (CTA) of the head without and with contrast 2. Computed tomography angiography (CTA) of the neck with contrast 3. CT of the thoracic spine without contrast 4. CT of the lumbar spine without contrast HISTORY: Subarachnoid hemorrhage, C1 fracture TECHNIQUE: CT of the head was performed with images acquired from skull base to vertex without intravenous contrast. Computed tomographic angiography was obtained from the aortic arch to the vertex following the uneventful administration of intravenous contrast. 3D images of the CTA were generated on a dedicated workstation/fountain server. CT of the thoracic spine was performed according to standard protocol without intravenous contrast. CT of the lumbar spine was performed according to the standard protocol without intravenous contrast. Contrast information: 94 mL Optiray-350 IV COMPARISON: Same day CTs FINDINGS: HEAD: Unchanged small high right parietal subarachnoid hemorrhage (series 5 image 40). No new or worsening foci of hemorrhage are seen. Ventricles are of normal size and morphology. No mass effect or midline shift is present. The vail-white matter differentiation is normal. Bilateral lens replacement. The visualized portions of the orbits are otherwise normal. The visualized portions of the mastoids are normal. The visualized portions of the paranasal sinuses are normal. No fractures are identified. NECK: Redemonstrated acute, mildly displaced, comminuted fracture of the right C1 anterior arch extending into the right lateral mass of C1. Scattered subcentimeter lymph nodes are seen in the neck. None are pathologically enlarged. The muscles of the neck are normal. Fascial planes are preserved and the deep spaces of the neck are normal. The visualized airway is widely patent. The base of the skull and the temporal bones are normal. Limited views of the brain including the cerebellum and brainstem are normal. The visualized portions of the orbits are normal. Moderate bilateral C3-C4, severe right C5-C6 neural foraminal stenosis. Mild to moderate multilevel facet and uncovertebral joint arthropathy. No high-grade spinal canal stenosis. CTA: There is venous contamination was slightly limits evaluation. The visualized aortic arch appears normal with normal configuration of the great vessels. The innominate artery and both subclavian arteries are normal in course and caliber. The common carotid arteries are normal in course and caliber with normal carotid bifurcations bilaterally. The course and caliber of the internal carotid arteries in the neck are normal. No areas of atherosclerotic narrowing or filling defects are identified. The visualized course and caliber of the internal carotid arteries in the head are normal. No areas of atherosclerotic narrowing or filling defects are identified. The [id number]-Ivdici is complete. The anterior and middle cerebral arteries are normal. The left vertebral artery is dominant. The basilar artery is normal. The posterior cerebral arteries are normal. There is no aneurysm or vascular malformation identified. THORACIC SPINE: There are 12 rib-bearing thoracic vertebra. The alignment of the thoracic spine is normal. There is no acute fracture. Vertebral bodies are normal in height without compression fractures. Partially imaged extensive upper lung predominant paraseptal and centrilobular emphysema. There is mild bilateral dependent atelectasis. Multivessel coronary artery calcifications. Mild multilevel degenerative disc disease. There is mild to moderate multilevel facet hypertrophy. There is no high-grade neuroforaminal stenosis. There is no high-grade spinal canal stenosis. LUMBAR SPINE: Grade 1 anterolisthesis of L4 on L5. There is no acute fracture. The vertebral bodies are normal in height without compression fractures. Moderate calcific atherosclerotic disease of the abdominal aorta. Mild multilevel degenerative disc disease. There is severe multilevel lower lumbar facet arthropathy. There is no high-grade osseous neuroforaminal stenosis. There is moderate L4-L5 spinal canal stenosis. Procedure Note Nikole Metzger MD - 02/15/2025 EXAMINATION: 1. Computed tomography angiography (CTA) of the head without and with contrast 2. Computed tomography angiography (CTA) of the neck with contrast 3. CT of the thoracic spine without contrast 4. CT of the lumbar spine without contrast HISTORY: Subarachnoid hemorrhage, C1 fracture TECHNIQUE: CT of the head was performed with images acquired from skull base to vertex without intravenous contrast. Computed tomographic angiography was obtained from the aortic arch to the vertex following the uneventful administration of intravenous contrast. 3D images of the CTA were generated on a dedicated workstation/fountain server. CT of the thoracic spine was performed according to standard protocol without intravenous contrast. CT of the lumbar spine was performed according to the standard protocol without intravenous contrast. Contrast information: 94 mL Optiray-350 IV COMPARISON: Same day CTs FINDINGS: HEAD: Unchanged small high right parietal subarachnoid hemorrhage (series 5 image 40). No new or worsening foci of hemorrhage are seen. Ventricles are of normal size and morphology. No mass effect or midline shift is present. The vail-white matter differentiation is normal. Bilateral lens replacement. The visualized portions of the orbits are otherwise normal. The visualized portions of the mastoids are normal. The visualized portions of the paranasal sinuses are normal. No fractures are identified. NECK: Redemonstrated acute, mildly displaced, comminuted fracture of the right C1 anterior arch extending into the right lateral mass of C1. Scattered subcentimeter lymph nodes are seen in the neck. None are pathologically enlarged. The muscles of the neck are normal. Fascial planes are preserved and the deep spaces of the neck are normal. The visualized airway is widely patent. The base of the skull and the temporal bones are normal. Limited views of the brain including the cerebellum and brainstem are normal. The visualized portions of the orbits are normal. Moderate bilateral C3-C4, severe right C5-C6 neural foraminal stenosis. Mild to moderate multilevel facet and uncovertebral joint arthropathy. No high-grade spinal canal stenosis. CTA: There is venous contamination was slightly limits evaluation. The visualized aortic arch appears normal with normal configuration of the great vessels. The innominate artery and both subclavian arteries are normal in course and caliber. The common carotid arteries are normal in course and caliber with normal carotid bifurcations bilaterally. The course and caliber of the internal carotid arteries in the neck are normal. No areas of atherosclerotic narrowing or filling defects are identified. The visualized course and caliber of the internal carotid arteries in the head are normal. No areas of atherosclerotic narrowing or filling defects are identified. The [id number] is complete. The anterior and middle cerebral arteries are normal. The left vertebral artery is dominant. The basilar artery is normal. The posterior cerebral arteries are normal. There is no aneurysm or vascular malformation identified. THORACIC SPINE: There are 12 rib-bearing thoracic vertebra. The alignment of the thoracic spine is normal. There is no acute fracture. Vertebral bodies are normal in height without compression fractures. Partially imaged extensive upper lung predominant paraseptal and centrilobular emphysema. There is mild bilateral dependent atelectasis. Multivessel coronary artery calcifications. Mild multilevel degenerative disc disease. There is mild to moderate multilevel facet hypertrophy. There is no high-grade neuroforaminal stenosis. There is no high-grade spinal canal stenosis. LUMBAR SPINE: Grade 1 anterolisthesis of L4 on L5. There is no acute fracture. The vertebral bodies are normal in height without compression fractures. Moderate calcific atherosclerotic disease of the abdominal aorta. Mild multilevel degenerative disc disease. There is severe multilevel lower lumbar facet arthropathy. There is no high-grade osseous neuroforaminal stenosis. There is moderate L4-L5 spinal canal stenosis. IMPRESSION: 1. Unchanged focus of right parietal subarachnoid hemorrhage. 2. Unchanged mildly displaced and comminuted fractures of the C1 anterior arch extending into the right lateral mass of C1. 3. Normal CT angiogram of the head and neck. 4. No acute fracture in the thoracic or lumbar spine. Dictated by: David Smith M.D. The radiology attending physician has personally reviewed this study, and had reviewed and/or edited this written report and agrees with it. Electronically signed by: Nikole Metzger M.D. Rachid Asencio MD IM CT PROCEDURES Final Resu lt * Chest xray, 1 view, portable (02/14/2025 6:01 PM CDT) Anatomical Region Laterality Modality Body, Chest N/A Computed Radiogr aphy 02/14/2025 6:03 PM CDT Impressions 02/14/2025 6:05 PM CDT Chest: 1 view of the chest is submitted for interpretation. There is bibasilar atelectasis and or changes of aspiration. No pleural effusion or pneumothorax. The heart size is normal. Aortic calcifications. Pelvis: Bilateral hip arthroplasties are noted. No periprosthetic fracture or instrumentation failure on this one view radiograph. Tubal ligation clips. There is otherwise no acute fracture . Dictated by: Raffaele Holbrook MD The radiology attending physician has personally reviewed this study, and had reviewed and/or edited this written report and agrees with it. Electronically signed by: Samara Flores M.D. Narrative 02/14/2025 6:05 PM CDT EXAMINATION: XR CHEST 1 VIEW, XR PELVIS 1 OR 2 VIEWS HISTORY: Trauma COMPARISON: None Procedure Note Samara Flores MD - 02/14/2025 EXAMINATION: XR CHEST 1 VIEW, XR PELVIS 1 OR 2 VIEWS HISTORY: Trauma COMPARISON: None IMPRESSION: Chest: 1 view of the chest is submitted for interpretation. There is bibasilar atelectasis and or changes of aspiration. No pleural effusion or pneumothorax. The heart size is normal. Aortic calcifications. Pelvis: Bilateral hip arthroplasties are noted. No periprosthetic fracture or instrumentation failure on this one view radiograph. Tubal ligation clips. There is otherwise no acute fracture . Dictated by: Raffaele Holbrook MD The radiology attending physician has personally reviewed this study, and had reviewed and/or edited this written report and agrees with it. Electronically signed by: Samara Flores M.D. us Rachid Asencio MD IMG XR PROCEDURES Final Resu lt * Pelvis xray, 1 view, portable (02/14/2025 6:00 PM CDT) Anatomical Region Laterality Modality Body, Pelvis N/A Computed Radiogr aphy 02/14/2025 6:03 PM CDT Impressions 02/14/2025 6:05 PM CDT Chest: 1 view of the chest is submitted for interpretation. There is bibasilar atelectasis and or changes of aspiration. No pleural effusion or pneumothorax. The heart size is normal. Aortic calcifications. Pelvis: Bilateral hip arthroplasties are noted. No periprosthetic fracture or instrumentation failure on this one view radiograph. Tubal ligation clips. There is otherwise no acute fracture . Dictated by: Raffaele Holbrook MD The radiology attending physician has personally reviewed this study, and had reviewed and/or edited this written report and agrees with it. Electronically signed by: Samara Flores M.D. Narrative 02/14/2025 6:05 PM CDT EXAMINATION: XR CHEST 1 VIEW, XR PELVIS 1 OR 2 VIEWS HISTORY: Trauma COMPARISON: None Procedure Note Samara Flores MD - 02/14/2025 EXAMINATION: XR CHEST 1 VIEW, XR PELVIS 1 OR 2 VIEWS HISTORY: Trauma COMPARISON: None IMPRESSION: Chest: 1 view of the chest is submitted for interpretation. There is bibasilar atelectasis and or changes of aspiration. No pleural effusion or pneumothorax. The heart size is normal. Aortic calcifications. Pelvis: Bilateral hip arthroplasties are noted. No periprosthetic fracture or instrumentation failure on this one view radiograph. Tubal ligation clips. There is otherwise no acute fracture . Dictated by: Raffaele Holbrook MD The radiology attending physician has personally reviewed this study, and had reviewed and/or edited this written report and agrees with it. Electronically signed by: Samara Flores M.D. Rachid Asencio MD IMG XR PROCEDURES Final Resu lt * (ABNORMAL) eGFR (02/14/2025 5:49 PM CDT) eGFR 51(L) >=60 mL/min/1. 73 m2 Comment: Interpretive Data Reference Interval Normal >/= 90 mL/min/1.73m2 Mildly decreased* 60 - 89 mL/min/1.73m2 Mildly to moderately decreased 45 - 59 mL/min/1.73m2 Moderately to severely decreased 30 - 44 mL/min/1.73m2 Severely decreased 15 - 29 mL/min/1.73m2 Kidney Failure < 15 mL/min/1.73m2 *Relative to young adult level Estimated glomerular filtration rate is determined by the 2020 CKD-EPI equation recommended by the National Kid[employer] (A Unifying Approach to GFR Estimation: Recommendations of the NKF-ASK Task Force on Reassessing the Inclusion of Race in Diagnosing Kidney Disease, JASN 2020). The CKD-EPI equation should not be used for patients with unstable renal function and has not been validated in children and those over 70. Current interpretive data was last reviewed 2021. Blood 02/14/2025 5:49 PM CDT 02/14/2025 5:55 PM CDT us Avery Yates MD LAB BLOOD ORDERABLES Fin al Result [facility] Department [place] [address] * (ABNORMAL) Differential, auto (02/14/2025 5:49 PM CDT) Neutrophil abs 10.49(H) 1.50 - 6.50 K/cumm Imm gran abs 0.08 0.00 - 0.10 K/cumm [facility] Lymphocyte abs 2.05 0.80 - 3.30 K/cumm [facility] Monocyte abs 1.09(H) 0.20 - 0.80 K/cumm [facility] Eosinophil abs 0.00 0.00 - 0.50 K/cumm [facility] Basophil abs 0.06 0.00 - 0.10 K/cumm [facility] Neutrophil pct 76.2 % [facility] Comment: Interpretive Data Percent cell count reference ranges are not reported, since discordance with absolute values may lead to misinterpretation of CBC data. Current Interpretive Data was last revised on 2017. Imm gran pct 0.6 % [facility] Comment: Interpretive Data Percent cell count reference ranges are not reported, since discordance with absolute values may lead to misinterpretation of CBC data. Current Interpretive Data was last revised on 2017. Lymphocyte pct 14.9 % [facility] Comment: Interpretive Data Percent cell count reference ranges are not reported, since discordance with absolute values may lead to misinterpretation of CBC data. Current Interpretive Data was last revised on 2017. Monocyte pct 7.9 % [facility] Comment: Interpretive Data Percent cell count reference ranges are not reported, since discordance with absolute values may lead to misinterpretation of CBC data. Current Interpretive Data was last revised on 2017. Eosinophil pct 0.0 % [facility] Comment: Interpretive Data Percent cell count reference ranges are not reported, since discordance with absolute values may lead to misinterpretation of CBC data. Current Interpretive Data was last revised on 2017. Basophil pct 0.4 % [facility] Comment: Interpretive Data Percent cell count reference ranges are not reported, since discordance with absolute values may lead to misinterpretation of CBC data. Current Interpretive Data was last revised on 2017. Blood 02/14/2025 5:49 PM CDT 02/14/2025 6:06 PM CDT us Rachid Asencio MD LAB BLOOD ORDERABLES Final R esult [facility] Department [place] [address] * (ABNORMAL) CBC with auto differential (02/14/2025 5:49 PM CDT) WBC 13.77(H) 3.80 - 9.90 K/cumm Hgb 14.0 11.9 - 15.5 g/dL [facility] Hct 41.9 35.6 - 45.5 % [facility] Plt 306 150 - 400 K/cumm [facility] MPV 10.0 9.1 - 12.3 fL [facility] RBC 4.41 3.90 - 5.20 M/cumm [facility] MCV 95.0 81.3 - 96.4 fL [facility] MCH 31.7 27.1 - 33.3 pg [facility] MCHC 33.4 32.3 - 35.7 g/dL [facility] RDW CV 13.1 11.1 - 14.9 % [facility] RDW SD 46.4 35.7 - 48.1 fL [facility] NRBC abs 0.00 0.00 - 0.01 K/cumm [facility] Blood 02/14/2025 5:49 PM CDT 02/14/2025 6:06 PM CDT us Rachid Asencio MD LAB BLOOD ORDERABLES Final R esult Performing Organization Address [facility] Co de Phone Number [facility] Department [place] [address] * (ABNORMAL) aPTT (02/14/2025 5:49 PM CDT) aPTT 27(L) 28 - 38 sec Comment: Interpretive Data Heparin therapeutic range: 66.0 - 100.0 seconds. Range based on correlation with therapeutic heparin activity range of 0.3 - 0.7 Units/mL. Current interpretive data was last revised on 2023. Blood 02/14/2025 5:49 PM CDT 02/14/2025 6:04 PM CDT us Rachid Asencio MD LAB BLOOD ORDERABLES Final R esult Performing Organization Address [facility] de Phone Number [facility] [place] [address] * Protime-INR (02/14/2025 5:49 PM CDT) PT 10.2 9.7 - 13.0 sec INR 0.95 0.90 - 1.20 [facility] Comment: Interpretive data Oral anticoagulant therapeutic ranges: Venous thromboembolism prophylaxis or treatment: 2.0-3.0 CARDIOLOGY Standard range: 2.0-3.0 High-intensity range: 2.5-3.5 Refer to indication-specific guidelines for appropriate target ranges for prosthetic heart valve replacement. Current interpretive data was last revised on 2019. Blood 02/14/2025 5:49 PM CDT 02/14/2025 6:04 PM CDT Rachid Asencio MD LAB BLOOD ORDERABLES Final R esult Performing Organization Address [facility] de Phone Number [facility] [place] [address] * Type and screen (02/14/2025 5:49 PM CDT) Pathologist [facility] [place] James, indirect Negative ABO Rh AB Positive [facility] Blood 02/14/2025 5:49 PM CDT 02/14/2025 6:01 PM CDT Narrative [facility] - 02/14/2025 7:09 PM CDT Has the patient had Daratumumab or Isatuximab in the past 6 months?->Unknown Rachid Asencio MD LAB BLOOD BANK TEST ORDERABL ES Final Result Performing Organization Address [facility] de Phone Number [facility] [place] [address] * Ethanol (02/14/2025 5:49 PM CDT) Pathologist [facility] [place] Ethanol <10 <=10 mg/dL Comment: Interpretive Data Legal limit of intoxication > or = 80 mg/dL Levels > or = 400 mg/dL are potentially TOXIC. Current interpretive data was last revised on 2018. Blood 02/14/2025 5:49 PM CDT 02/14/2025 5:55 PM CDT Rachid Asencio MD LAB BLOOD ORDERABLES Final R esult Performing Organization Address [facility] Co de Phone Number [facility] [place] [address] * (ABNORMAL) Comprehensive metabolic panel (02/14/2025 5:49 PM CDT) Pathologist [facility] [place] Sodium 135 135 - 145 mmol/L Potassium, pl 4.8 3.3 - 4.9 mmol/L [facility] Chloride 100 97 - 110 mmol/L [facility] CO2 20(L) 22 - 32 mmol/L [facility] Anion gap 15 2 - 15 mmol/L [facility] BUN 26(H) 6 - 25 mg/dL [facility] Creatinine 1.14(H) 0.60 - 1.10 mg/dL [facility] Glucose 107 70 - 199 mg/dL [facility] Comment: Interpretive Data Fasting glucose >/= 126 mg/dl is diagnostic for diabetes. Fasting is defined as no caloric intake for at least 8 hours. Fasting glucose between 100 mg/dl to 125 mg/dl is diagnostic of prediabetes. In a patient with classic symptoms of hyperglycemia or hyperglycemic crisis, a random glucose >/= 200 mg/dl is diagnostic for diabetes. In the absence of unequivocal hyperglycemia, results should be confirmed by repeat testing. The classification and Diagnosis of Diabetes Diabetes Care 2021; 46: S19-S40. Current interpretive data was last revised 2022. Calcium 8.9 8.5 - 10.3 mg/dL [facility] Bilirubin, total 0.5 0.1 - 1.2 mg/dL [facility] Protein, pl 7.1 6.5 - 8.5 g/dL [facility] Albumin 3.9 3.5 - 5.0 g/dL [facility] Alk phos 126 40 - 130 Units/L [facility] ALT 20 7 - 45 Units/L [facility] AST 34 10 - 45 Units/L [facility] Blood 02/14/2025 5:49 PM CDT 02/14/2025 5:55 PM CDT us Avery Yates MD LAB BLOOD ORDERABLES Fin al Result [facility] Department [place] [address] * Neuro CT Outside Consult (02/14/2025 5:44 PM CDT) Anatomical Region Laterality Modality N/A Computed Tomogra phy 02/14/2025 6:15 PM CDT Impressions 02/14/2025 7:10 PM CDT Acute, comminuted, displaced fractures of the right aspect of the anterior arch of C1 and malalignment of the right lateral mass of C1 on C2. There is also a questionable linear lucency within the posterior arch of C1 which could represent a nondisplaced fracture. MRI of the cervical spine could be considered for further evaluation. The findings, conclusions and recommendations within this report do not replace the initial findings, conclusions and recommendations made at the facility where the study was performed based upon the imaging and clinical condition at that time. Comparison with the prior report and clinical history is necessary. The provided images may or may not represent the [place] source data set and thus may contain changes that may lower the accuracy of this second-opinion interpretation. ADDENDUM - This addendum is being placed on the report for a time dependent finding on a patient who is still in the emergency room (3B). The described finding in the posterior arch of C1 is likely artifactual or b2b sales representative of a nutrient foramen; it is not definitely seen in multiple planes. These findings were communicated to Rachid Asencio MD by Micheal Fontenot MD immediately upon identification of the findings at readout at 6:41 PM. Dictated by: Micheal Fontenot MD The radiology attending physician has personally reviewed this study, and had reviewed and/or edited this written report and agrees with it. Electronically signed by: David Haq M.D. Ph.D. Narrative 02/14/2025 7:10 PM CDT EXAMINATION: RADIOLOGY CONSULTATION ON OUTSIDE IMAGING STUDY STUDY INITIALLY PERFORMED: 02/14/2025 at [facility]. TYPE OF STUDY: Multiple CT images of the cervical spine without intravenous contrast are provided at the time of this interpretation. CONTRAST ROUTE: No contrast was administered. The protocol was adequate to address the clinical question. The outside final report was not available at the time of this second opinion interpretation. TYPE OF CONSULTATION: Consult on outside imaging study with images submitted through Outside Image Sharing Service DATE OF CONSULTATION: 02/14/2025 6:01 PM HISTORY: 70-year-old woman who fell and suffered a C1 fracture. COMPARISON: None available. FINDINGS: There is is an acute, comminuted, mildly displaced fracture through the right aspect of the anterior arch of C1. Questionable linear lucency within the posterior arch of C1 (series 2 image 36) could represent a nondisplaced fracture. There is malalignment of the right lateral mass of C1 on C2. The atlantodental interval is normal. The basion-dens interval is normal. There is non-instrumented fusion of C6 and C7. There is mild anterolisthesis of C4 on C5, favored to be degenerative. Vertebral bodies are normal in height without compression fractures. Multilevel disc height loss throughout the cervical spine most pronounced and severe at C5-C6 with associated sclerotic endplate changes. Limited views of the skull base appear normal. The sphenoid sinus is well aerated. Bilateral carotid atherosclerosis. Severe emphysema. There is multilevel degenerative disc disease and multilevel facet and uncovertebral arthropathy of the cervical spine. There is at least moderate spinal canal stenosis at C5-C6 secondary to posterior disc osteophyte complex. There is no high-grade bony neuroforaminal stenosis. Procedure Note David Haq MD PhD - 02/14/2025 EXAMINATION: RADIOLOGY CONSULTATION ON OUTSIDE IMAGING STUDY STUDY INITIALLY PERFORMED: 02/14/2025 at [facility]. TYPE OF STUDY: Multiple CT images of the cervical spine without intravenous contrast are provided at the time of this interpretation. CONTRAST ROUTE: No contrast was administered. The protocol was adequate to address the clinical question. The outside final report was not available at the time of this second opinion interpretation. TYPE OF CONSULTATION: Consult on outside imaging study with images submitted through Outside Image Sharing Service DATE OF CONSULTATION: 02/14/2025 6:01 PM HISTORY: 70-year-old woman who fell and suffered a C1 fracture. COMPARISON: None available. FINDINGS: There is is an acute, comminuted, mildly displaced fracture through the right aspect of the anterior arch of C1. Questionable linear lucency within the posterior arch of C1 (series 2 image 36) could represent a nondisplaced fracture. There is malalignment of the right lateral mass of C1 on C2. The atlantodental interval is normal. The basion-dens interval is normal. There is non-instrumented fusion of C6 and C7. There is mild anterolisthesis of C4 on C5, favored to be degenerative. Vertebral bodies are normal in height without compression fractures. Multilevel disc height loss throughout the cervical spine most pronounced and severe at C5-C6 with associated sclerotic endplate changes. Limited views of the skull base appear normal. The sphenoid sinus is well aerated. Bilateral carotid atherosclerosis. Severe emphysema. There is multilevel degenerative disc disease and multilevel facet and uncovertebral arthropathy of the cervical spine. There is at least moderate spinal canal stenosis at C5-C6 secondary to posterior disc osteophyte complex. There is no high-grade bony neuroforaminal stenosis. IMPRESSION: Acute, comminuted, displaced fractures of the right aspect of the anterior arch of C1 and malalignment of the right lateral mass of C1 on C2. There is also a questionable linear lucency within the posterior arch of C1 which could represent a nondisplaced fracture. MRI of the cervical spine could be considered for further evaluation. The findings, conclusions and recommendations within this report do not replace the initial findings, conclusions and recommendations made at the facility where the study was performed based upon the imaging and clinical condition at that time. Comparison with the prior report and clinical history is necessary. The provided images may or may not represent the [place] source data set and thus may contain changes that may lower the accuracy of this second-opinion interpretation. ADDENDUM - This addendum is being placed on the report for a time dependent finding on a patient who is still in the emergency room (3B). The described finding in the posterior arch of C1 is likely artifactual or b2b sales representative of a nutrient foramen; it is not definitely seen in multiple planes. These findings were communicated to Rachid Asencio MD by Micheal Fontenot MD immediately upon identification of the findings at readout at 6:41 PM. Dictated by: Micheal Fontenot MD The radiology attending physician has personally reviewed this study, and had reviewed and/or edited this written report and agrees with it. Electronically signed by: David Haq M.D. Ph.D. Ron Vang MD IMG CT PROCEDURES F inal Result * Neuro CT Outside Consult (02/14/2025 5:32 PM CDT) Anatomical Region Laterality Modality N/A Computed Tomogra phy 02/14/2025 5:42 PM CDT Impressions 02/14/2025 5:52 PM CDT Acute right central sulcus subarachnoid hemorrhage. The findings, conclusions and recommendations within this report do not replace the initial findings, conclusions and recommendations made at the facility where the study was performed based upon the imaging and clinical condition at that time. Comparison with the prior report and clinical history is necessary. The provided images may or may not represent the [place] source data set and thus may contain changes that may lower the accuracy of this second-opinion interpretation. Dictated by: David Smith M.D. The radiology attending physician has personally reviewed this study, and had reviewed and/or edited this written report and agrees with it. Electronically signed by: David Haq M.D. Ph.D. Narrative 02/14/2025 5:52 PM CDT EXAMINATION: RADIOLOGY CONSULTATION ON OUTSIDE IMAGING STUDY STUDY INITIALLY PERFORMED: exam date at institution name. TYPE OF STUDY: Multiple CT images of the head without intravenous contrast are provided at the time of this interpretation. CONTRAST ROUTE: No contrast was administered. The protocol was adequate to address the clinical question. The outside final report was not available at the time of this second opinion interpretation. TYPE OF CONSULTATION: Consult on outside imaging study with images submitted through Outside Image Sharing Service DATE OF CONSULTATION: 02/14/2025 5:35 PM HISTORY: 70-year-old woman who fell and has subarachnoid hemorrhage. COMPARISON: None available. FINDINGS: Hyperdensity in the high right central sulcus concerning for subarachnoid hemorrhage. Ventricles are of normal size and morphology. No mass effect or midline shift is present. The vail-white matter differentiation is normal. The visualized portions of the orbits are normal. The visualized portions of the mastoids are normal. The visualized portions of the paranasal sinuses are normal. No fractures are identified. Procedure Note David Haq MD PhD - 02/14/2025 EXAMINATION: RADIOLOGY CONSULTATION ON OUTSIDE IMAGING STUDY STUDY INITIALLY PERFORMED: exam date at institution name. TYPE OF STUDY: Multiple CT images of the head without intravenous contrast are provided at the time of this interpretation. CONTRAST ROUTE: No contrast was administered. The protocol was adequate to address the clinical question. The outside final report was not available at the time of this second opinion interpretation. TYPE OF CONSULTATION: Consult on outside imaging study with images submitted through Outside Image Sharing Service DATE OF CONSULTATION: 02/14/2025 5:35 PM HISTORY: 70-year-old woman who fell and has subarachnoid hemorrhage. COMPARISON: None available. FINDINGS: Hyperdensity in the high right central sulcus concerning for subarachnoid hemorrhage. Ventricles are of normal size and morphology. No mass effect or midline shift is present. The [place]-white matter differentiation is normal. The visualized portions of the orbits are normal. The visualized portions of the mastoids are normal. The visualized portions of the paranasal sinuses are normal. No fractures are identified. IMPRESSION: Acute right central sulcus subarachnoid hemorrhage. The findings, conclusions and recommendations within this report do not replace the initial findings, conclusions and recommendations made at the facility where the study was performed based upon the imaging and clinical condition at that time. Comparison with the prior report and clinical history is necessary. The provided images may or may not represent the [place] source data set and thus may contain changes that may lower the accuracy of this second-opinion interpretation. Dictated by: David Smith M.D. The radiology attending physician has personally reviewed this study, and had reviewed and/or edited this written report and agrees with it. Electronically signed by: David Haq M.D. Ph.D. [facility] Grupo Vang MD IMG CT PROCEDURES F inal Result from Last 3 Months Insurance [facility] ADVANTAGE [facility] Address: [facility] [address] [place] [address] [id number] [place] [address] MEDICARE ADVANTAGE [facility] Address: [facility] [address] [place] [address] Advance Directives For more information, please contact: [phone] * LIMITED - No CPR (Latest Code Status on File) Date Activated Date Inactivated Comments 02/16/2025 2:01 PM 02/16/2025 4:38 PM Question Answer Comments Provide aggressive medical m anagement before a full cardiopulmonary arrest occurs. 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
--- OUTSIDE RECORDS SUMMARY | 2025-04-26 12:18 | XMS_ITS | Clinical Summary ---
Author Organization [facility] Address [facility] [place] [address] Care Team Providers Care Animal Control Supervisor Name Role Phone Benjamin Rondon MD Primary Care Provider [phone] Allergies Active Allergy Reactions Criticality Noted Date Comments Bempedoic Acid Hives 02/25/2024 Ezetimibe Rash Low 02/25/2024 Levofloxacin Contact Dermatitis 05/24/2022 Welts and blisters Statins Contact Dermatitis 05/24/2022 Welts and blisters Pseudoephedrine Rash Low 05/24/2022 actophed Medications sertraline (ZOLOFT) 100 MG tablet Take 1 tablet (100 mg total) by mouth daily. Active Omeprazole-Sodiu m Bicarbonate (ZEGERID OR) Active multi vitamin/minerals (I-MADISON) Tab Take 1 tablet by mouth daily. Active predniSONE (DELTASONE) 20 MG tablet Take three tabs po daily for three days then take two tabs po daily for seven days. 23 tablet 05/24/2022 Active azithromycin (ZITHROMAX) 250 MG tablet Take 1 tablet (250 mg total) by mouth daily. Take 2 tablets by mouth on day one then 1 daily for four days. Active ezetimibe (ZETIA) 10 MG tablet Take 1 tablet (10 mg total) by mouth daily. 11/23/2023 Active Encounters Date Type Department Care Team Description 02/14/2025 2:36 PM CDT - 02/14/2025 5:15 PM CDT Emergency [facility] Emergency Room [id number] [place], [place] [id number] Chidi Cody MD Fall Discharge Disposition: Transfer to Acute Care Hospital from Last 3 Months Social History Tobacco Use Types Packs/Day Years Used Date Smoking Tobacco: Every Day Cigarettes Smokeless Tobacco: Never Alcohol Use Standard Drinks/Week Comments Never 0 (1 standard drink = 0.6 oz pur e alcohol) Comments No Sex and Gender Information Value Date Recorded Sex Assigned at Not on file Legal Sex Female 9:22 AM CDT Gender Identity Not on file Sexual Orientation Not on file Last Filed Vital Signs Vital Sign Reading Time Taken Comments Blood Pressure 158/91 02/14/2025 5:00 PM CDT Pulse 100 02/14/2025 2:38 PM CDT Temperature 37 C (98.6 F) 02/14/2025 5:00 PM CDT Respiratory Rate 18 02/14/2025 2:38 PM CDT Oxygen Saturation 94% 02/14/2025 5:00 PM CDT Inhaled Oxygen Concentration - - Weight 71.7 kg (158 lb) 02/14/2025 2:38 PM CDT Height 160 cm (5' 3) 02/14/2025 2:38 PM CDT Body Mass Index 27.99 02/14/2025 2:38 PM CDT Plan of Treatment Health Maintenance Due Date Last Done Comments Colorectal Cancer Screening Colonoscopy (10 Years) 1953 Hepatitis C 1971 Mammogram Screening 1993 Annual Medicare Wellness Visit 2018 Dexa Scan (General) 2018 COVID-19 Vaccine ( season) 2024 06/22/2024, 06/09/2022, 09/20/2021, Additional history exists DTaP, Tdap and Td Vaccines (2 - Td or Tdap) 06/14/2032 06/14/2022 Pneumococcal Vaccine: 50+ Years Completed 06/05/2022, 06/02/2022, 06/07/2019, Additional history exists RSV Immunization or 60+ Years Completed 04/27/2023 Zoster Vaccines Completed 04/27/2023, 02/17/2023 Meningococcal B Vaccine Aged Out No l onger eligible based on patient's age to complete this topic Meningococcal Vaccine Aged Out No neida philip eligible based on patient's age to complete this topic RSV Immunizations Under 20 Months Aged Out No longer eligible based on patient's age to complete this topic Procedures Procedure Name Priority Date/Time Associated Diagnosis Comments URINALYSIS, AUTO, COMPLETE STAT 02/14/2025 4:24 PM CDT CRITICAL CARE Routine 02/14/2025 3:[address] CERV SPINE WO CON STAT 02/14/2025 3:[address] HEAD WO CON STAT 02/14/2025 3:03 PM CDT COMPREHENSIVE METABOLIC PANEL STAT 02/14/2025 2:42 PM CDT CBC W/DIFF AUTOMATED STAT 02/14/2025 2:42 PM CDT from Last 3 Months Results * (ABNORMAL) URINALYSIS, AUTO, COMPLETE (02/14/2025 4:24 PM CDT) COLOR (U) YELLOW 02/14/2025 4:36 PM CDT [facility] TRANSPARENCY HAZY 02/14/2025 4:36 PM CDT [facility] SPECIFIC GRAVITY (U) 1.010 1.000 - 1.030 02/14/2025 4:36 PM CDT [facility] U PH 7.5 5.0 - 9.0 02/14/2025 4:36 PM CDT [facility] LEUKOCYTES (U) NEGATIVE NEGATIVE 02/14/2025 4:36 PM CDT [facility] NITRITES NEGATIVE NEGATIVE 02/14/2025 4:36 PM CDT [facility] PROTEIN RANDOM (U) 1+(A) NEGATIVE 02/14/2025 4:36 PM CDT [facility] GLUCOSE (U) NEGATIVE NEGATIVE 02/14/2025 4:36 PM CDT [facility] KETONES MG/DL (U) NEGATIVE NEGATIVE 02/14/2025 4:36 PM CDT [facility] BILIRUBIN (U) NEGATIVE NEGATIVE 02/14/2025 4:36 PM CDT [facility] BLOOD (U) 1+(A) NEGATIVE 02/14/2025 4:36 PM CDT [facility] WBC/HPF NONE SEEN 0 - 5 /HPF 02/14/2025 4:36 PM CDT [facility] RBC/HPF 0-5 0 - 5 /HPF 02/14/2025 4:36 PM CDT [facility] EPI/HPF FEW /HPF 02/14/2025 4:36 PM CDT [facility] URINE SPECIMEN OBTAINED VIA INDWELLING URINARY CATHETER / Unknown 02/14/2025 4:24 PM CDT Chidi Cody MD URINE ORDERABLES Final Result Performing Organization Address City/State/RUST Co de Phone Number [facility] [address] [place] [address], [place] [phone] * Critical Care (02/14/2025 3:51 PM CDT) Chidi Colón MD - 02/14/2025 3:51 PM CDT Chidi Cody MD 02/14/2025 10:32 PM Critical Care Performed by: Chidi Cody MD Authorized by: Chidi Cody MD Critical care provider statement: Critical care time (minutes): 35 Critical care time was exclusive of: Separately billable procedures and treating other patients and teaching time Critical care was necessary to treat or prevent imminent or life-threatening deterioration of the following conditions: PRODUCE ASSOCIATE failure or compromise and dehydration Critical care was time spent personally by me on the following activities: Development of treatment plan with patient or surrogate, discussions with consultants, evaluation of patient's response to treatment, examination of patient, obtaining history from patient or surrogate, ordering and performing treatments and interventions, ordering and review of laboratory studies, ordering and review of radiographic studies, pulse oximetry, re-evaluation of patient's condition and review of old charts I assumed direction of critical care for this patient from another provider in my specialty: no Care discussed with: accepting provider at another facility us Chidi Cody MD PROCEDURE/MINOR SURGICAL ORDERAB LES Final Result * CT HEAD WO CON (02/14/2025 3:03 PM CDT) Anatomical Region Laterality Modality Head Computed Tomogra phy 02/14/2025 3:19 PM CDT Impressions 02/14/2025 3:46 PM CDT IMPRESSION: 1. Curvilinear area of increased density within the upper right central sulcus, compatible with a focal area of subarachnoid hemorrhage. No mass effect or midline shift. 2. Mild atrophy and chronic small vessel ischemic changes supratentorial white matter. Referred By: Interpreted By: Sawyer Sam MD, 02/14/2025 3:19 PM Narrative 02/14/2025 3:46 PM CDT [facility] [address] [place] [id number] EXAMINATION:Head CT without contrast 02/14/2025 INDICATION:Fall TECHNIQUE: Axial CT images of head were acquired without intravenous contrast. Sagittal coronal reformats were constructed. Radiation dose reduction techniques were used. COMPARISON: None FINDINGS:There is a curvilinear focus of increased density within the extra- axial space in the upper right frontal parietal region within the central sulcus. No mass effect, midline shift or extra-axial collection. No ventriculomegaly, sulcal effacement or loss of vail/white matter differentiation. There is mild cerebral atrophy with concordant prominence of ventricles. Mild decreased density is noted within the supratentorial white matter No acute fracture or dislocation. The paranasal sinuses and mastoid air cells are clear. The orbits and globes are unremarkable. Bilateral ocular lens replacement noted. Note: I discussed the findings with the ordering provider Dr. Cody at 3:45 PM FOREPART REDUCER on 02/14/2025. Procedure Note Sawyer Sam MD - 02/14/2025 [facility] [address] [place] [address] EXAMINATION:Head CT without contrast 02/14/2025 INDICATION:Fall TECHNIQUE: Axial CT images of head were acquired without intravenouscontrast. Sagittal coronal reformats were constructed. Radiation dosereduction techniques were used. COMPARISON: None FINDINGS:There is a curvilinear focus of increased density within theextra-axial space in the upper right frontal parietal region within thecentral sulcus. No mass effect, midline shift or extra-axial collection. Noventriculomegaly, sulcal effacement or loss of vail/white matterdifferentiation. There is mild cerebral atrophy with concordant prominence of ventricles.Mild decreased density is noted within the supratentorial white matter No acute fracture or dislocation. The paranasal sinuses and mastoid aircells are clear. The orbits and globes are unremarkable. Bilateralocular lens replacement noted. Note: I discussed the findings with the ordering provider Dr. Cody at 3:45PM FOREPART REDUCER on 02/14/2025. IMPRESSION: 1. Curvilinear area of increased density within the upper right centralsulcus, compatible with a focal area of subarachnoid hemorrhage. No masseffect or midline shift. 2. Mild atrophy and chronic small vessel ischemic changes supratentorialwhite matter. Referred By: Interpreted By: Sawyer Sam MD, 02/14/2025 3:19 PM us Chidi Cody MD CT Final Result * CT CERV SPINE WO CON (02/14/2025 3:03 PM CDT) Anatomical Region Laterality Modality Spine Computed Tomogra phy 02/14/2025 3:30 PM CDT Impressions 02/14/2025 3:45 PM CDT IMPRESSION: 1. Acute minimally displaced fracture through the anterior arch of C1 to the right of midline extending into the anterior right lateral mass of C1. There is 3 mm of lateral subluxation of the lateral masses of C1 relative to C2. 2. Mild to moderate central canal stenosis at C5/C6 due to posterior disc/osteophyte complex. 3. Moderate to severe bilateral foraminal stenosis at C5/C6 due to disc space narrowing, uncovertebral arthropathy and facet arthropathy. 4. Bony fusion of the C6/C7 disc space and facet joints. * Referred By: * * * Interpreted By: Sawyer Sam MD, 02/14/2025 3:30 PM Narrative 02/14/2025 3:45 PM CDT [facility] [address] [place] [address] EXAMINATION:CT the cervical spine without contrast 02/14/2025 INDICATION:Fall TECHNIQUE: Axial CT images of the cervical spine were acquired without intravenous contrast. Sagittal and coronal reformats were constructed. Radiation dose reduction techniques were used. COMPARISON: None FINDINGS:Mineralization appears to be diffusely decreased. Cervical spine is in anatomic alignment with preservation of vertebral body heights and disc spaces. There is a grade 1 anterolisthesis at C4/C5 measuring 2 mm. Severe disc space narrowing and endplate degenerative change and sclerosis at C5/C6. There is a minimally displaced fracture of the anterior arch of C1 to the right of midline. Fracture plane extends into the anterior right lateral mass of the C1. The occipital condyles are intact. The dens is intact. There is 3 mm of lateral subluxation of the right lateral mass of C1 relative to the lateral masses of C2 as measured in the coronal plane. No other fracture or dislocation. No focal lytic or blastic lesion. No stenosis at the foramen magnum or C1/C2 level C2/C3: Negative C3/C4: Disc space narrowing and facet arthropathy causing mild bilateral foraminal stenosis C4/C5: Disc space narrowing with grade 1 anterolisthesis, uncovertebral arthropathy and facet arthropathy causing mild bilateral foraminal stenosis. C5/C6: Disc space narrowing with small posterior disc/osteophyte complex, uncovertebral arthropathy and facet arthropathy causing mild to moderate central canal stenosis and moderate to severe bilateral foraminal stenosis C6/C7: Disc space narrowing with bony fusion of the disc space and facet joints C7/T1: Disc space narrowing and facet nephropathy causing mild bilateral foraminal stenosis. No prevertebral edema or retropharyngeal fluid collection. The thyroid gland is unremarkable. Advanced pulmonary emphysema noted within the upper lungs. Note: I discussed the findings with the ordering provider Dr. Glo at 3:45 PM FOREPART REDUCER on 02/14/2025. Procedure Note Sawyer Sam MD - 02/14/2025 [facility] [address] [place] [address] EXAMINATION:CT the cervical spine without contrast 02/14/2025 INDICATION:Fall TECHNIQUE: Axial CT images of the cervical spine were acquired withoutintravenous contrast. Sagittal and coronal reformats were constructed.Radiation dose reduction techniques were used. COMPARISON: None FINDINGS:Mineralization appears to be diffusely decreased. Cervical spineis in anatomic alignment with preservation of vertebral body heights anddisc spaces. There is a grade 1 anterolisthesis at C4/C5 measuring 2 mm.Severe disc space narrowing and endplate degenerative change and sclerosisat C5/C6. There is a minimally displaced fracture of the anterior arch of C1 to theright of midline. Fracture plane extends into the anterior right lateralmass of the C1. The occipital condyles are intact. The dens is intact. There is 3 mm oflateral subluxation of the right lateral mass of C1 relative to thelateral masses of C2 as measured in the coronal plane. No other fracture or dislocation. No focal lytic or blastic lesion. No stenosis at the foramen magnum or C1/C2 level C2/C3: Negative C3/C4: Disc space narrowing and facet arthropathy causing mild bilateralforaminal stenosis C4/C5: Disc space narrowing with grade 1 anterolisthesis, uncovertebralarthropathy and facet arthropathy causing mild bilateral foraminalstenosis. C5/C6: Disc space narrowing with small posterior disc/osteophyte complex,uncovertebral arthropathy and facet arthropathy causing mild to moderatecentral canal stenosis and moderate to severe bilateral foraminalstenosis C6/C7: Disc space narrowing with bony fusion of the disc space and facetjoints C7/T1: Disc space narrowing and facet nephropathy causing mild bilateralforaminal stenosis. No prevertebral edema or retropharyngeal fluid collection. The thyroidgland is unremarkable. Advanced pulmonary emphysema noted within theupper lungs. Note: I discussed the findings with the ordering provider Dr. Cody at 3:45PM FOREPART REDUCER on 02/14/2025. IMPRESSION: 1. Acute minimally displaced fracture through the anterior arch of C1 tothe right of midline extending into the anterior right lateral mass of C1.There is 3 mm of lateral subluxation of the lateral masses of C1 relativeto C2. 2. Mild to moderate central canal stenosis at C5/C6 due to posteriordisc/osteophyte complex. 3. Moderate to severe bilateral foraminal stenosis at C5/C6 due to discspace narrowing, uncovertebral arthropathy and facet arthropathy. 4. Bony fusion of the C6/C7 disc space and facet joints. * Referred By: * * * Interpreted By: Sawyer Sam MD, 02/14/2025 3:30 PM us Chidi Cody MD CT Final Result * (ABNORMAL) COMPREHENSIVE METABOLIC PANEL (02/14/2025 2:42 PM CDT) GLUCOSE 124(H) 70 - 99 MG/DL 02/14/2025 3:29 PM CDT [facility] BUN 31(H) 7 - 18 MG/DL 02/14/2025 3:29 PM CDT [facility] CREATININE S/P/B 1.46(H) 0.55 - 1.02 MG/DL 02/14/2025 3:29 PM CDT [facility] SODIUM S/P/B 133(L) 136 - 145 MMOL/L 02/14/2025 3:29 PM CDT [facility] POTASSIUM S/P/B 4.6 3.5 - 5.1 MMOL/L 02/14/2025 3:29 PM CDT [facility] CHLORIDE S/P/B 99(L) 100 - 108 MMOL/L 02/14/2025 3:29 PM CDT [facility] CO2 25.5 21 - 32 MMOL/L 02/14/2025 3:29 PM CDT [facility] CALCIUM S/P/B 9.0 8.5 - 10.1 MG/DL 02/14/2025 3:29 PM CDT [facility] BILIRUBIN TOTAL S/P/B 0.5 0.2 - 1.2 MG/DL 02/14/2025 3:29 PM T [facility] TOTAL PROTEIN S/P/B 7.2 6.4 - 8.2 G/DL 02/14/2025 3:29 PM T [facility] ALBUMIN S/P/B 3.5 3.4 - 5.0 G/DL 02/14/2025 3:29 PM T [facility] AST 26 15 - 37 U/L 02/14/2025 3:29 PM T [facility] ALT 29 14 - 55 U/L 02/14/2025 3:29 PM T [facility] ALKALINE PHOSPHATASE S/P/B 121 50 - 136 U/L 02/14/2025 3:29 PM T [facility] ANION GAP 8.5 5 - 15 MMOL/L 02/14/2025 3:29 PM T [facility] BUN CREATININE RATIO 21.2 6 - 26 02/14/2025 3:29 PM [facility] A/G RATIO 0.9(L) 1.0 - 2.0 RATIO 02/14/2025 3:29 PM [facility] GFR ESTIMATE 38(L) >90 ML/MIN/1.7 3 M2 02/14/2025 3:29 PM T [facility] Comment: NOTE: eGFR is not calculated for patients <18 years of age. This is an estimated GFR calculation using the new CKD EPI creatinine equation without race and so does not require a correction factor for race. This estimated GFR should not be used for calculating drug doses. 02/14/2025 2:42 PM CDT us Chidi Cody MD LABORATORY Final Result [facility] [address] [place] [address], [place] [phone] * (ABNORMAL) CBC W/DIFF AUTOMATED (02/14/2025 2:42 PM CDT) WBC 14.11(H) 4.4 - 11.0 x10'3/uL 02/14/2025 2:51 PM CDT [facility] RBC 4.38(L) 4.50 - 5.10 x10'6/uL 02/14/2025 2:51 PM CDT [facility] HGB 14.0 12.3 - 15.3 G/DL 02/14/2025 2:51 PM CDT [facility] HCT 41.9 35.9 - 44.6 % 02/14/2025 2:51 PM CDT [facility] MCV 95.7 80.0 - 96.0 FL 02/14/2025 2:51 PM CDT [facility] MCH 32.0(H) 25.3 - 30.9 PG 02/14/2025 2:51 PM CDT [facility] MCHC 33.4 31.0 - 34.1 G/DL 02/14/2025 2:51 PM CDT [facility] RDW 13.2 12.4 - 15.1 % 02/14/2025 2:51 PM CDT [facility] PLT 327 151 - 353 x10'3/uL 02/14/2025 2:51 PM CDT [facility] MPV 9.7 9.6 - 12.0 FL 02/14/2025 2:51 PM CDT [facility] RBC MORPHOLOGY NORMAL 02/14/2025 2:51 PM CDT [facility] PLT MORPH. NORMAL 02/14/2025 2:51 PM CDT [facility] WBC MORPHOLOGY NORMAL 02/14/2025 2:51 PM CDT [facility] LYMPHOCYTES % 12.0(L) 15.8 - 45.0 % 02/14/2025 2:51 PM CDT [facility] NEUTROPHILS % 77.1(H) 42.1 - 71.9 % 02/14/2025 2:51 PM CDT [facility] MONOCYTES % 8.5 5.7 - 12.5 % 02/14/2025 2:51 PM CDT [facility] EOSINOPHILS 1.4 0.0 - 5.6 % 02/14/2025 2:51 PM CDT [facility] BASOPHILS 0.4 0.0 - 1.3 % 02/14/2025 2:51 PM CDT [facility] ABS. NEUTROPHILS 10.88(H) 1.40 - 6.00 x10'3/uL 02/14/2025 2:51 PM CDT [facility] IMMATURE GRANS % 0.6(H) 0.0 - 0.5 % 02/14/2025 2:51 PM CDT [facility] ABS. LYMPHOCYTES 1.69 0.80 - 4.70 x10'3/uL 02/14/2025 2:51 PM CDT [facility] 02/14/2025 2:42 PM CDT us Chidi Cody MD LABORATORY Final Result [facility] [address] [place] [address], [place] [phone] from Last 3 Months Insurance [facility] Care Teams Animal Control Supervisor Relationship Specialty Start Date End Date Benjamin Rondon MD PCP - General INTERNAL MEDICINE 05/24/22
== END 2025-04-26 12:08 | disposition home or self-care (01) ==
PROVIDERS: PCP Internal Medicine; Visit Provider Internal Medicine
DX: I65.23 Occlusion and stenosis of bilateral carotid arteries (principal)
CPT/HCPCS: 93306; 93880